=== PATIENT | female | born 1965 | race Caucasian/White ===

== ENCOUNTER 2022-04-19 10:20 | Emergency (ER) | payer BC ==
[2022-04-19] MEDS ORDERED: SODIUM CHLORIDE 0.9% 1,000 ML IV STA ×2 (11:16)
--- NOTE | 2022-04-19 11:25 | ED ---
General Adult HPI - General Chief complaint: Shortness of Breath Stated complaint: Sepsis Time Seen by Provider: 04/19/22 10:51 Source: patient Mode of arrival: wheelchair Limitations: no limitations - History of Present Illness Initial comments: This patient is a 57-year-old woman who presents to have evaluation for pneumonia. The patient states she was in her usual state of health until a couple of days ago. She started having some generalized fatigue, not feeling well and then over the course the past day has had cough. She went to the clinic and was seen there. The patient was diagnosed with pneumonia and they were concerned by her blood pressure while she was there and wanted her to be seen here regarding possible sepsis. The patient is denying additional systemic symptoms. She had not noted fevers though she does feel a little cold here she says. She has not noted palpitations, chest pain, dyspnea or syncope. Again she was feeling little fatigued and having some cough. -: days(s) Severity scale (1-10): 0 Improves with: none Worsens with: none Associated Symptoms: cough, shortness of breath Treatments Prior to Arrival: none - Related Data Home Medications Medication Instructions Recorded Confirmed No Known Home Medications 04/19/22 04/19/22 Allergies Allergy/AdvReac Type Severity Reaction Status Date / Time No Known Allergies Allergy Verified 04/19/22 12:00 Review of Systems ROS Statement: Those systems with pertinent positive or pertinent negative responses have been documented in the HPI. ROS Other: All systems not noted in ROS Statement are negative. Constitutional: Reports: chills. Denies: fever, weakness Respiratory: Reports: cough. Denies: dyspnea, wheezes, hemoptysis Cardiovascular: Denies: chest pain, palpitations, orthopnea, edema, syncope Gastrointestinal: Reports: nausea. Denies: abdominal pain, vomiting, diarrhea Genitourinary: Denies: dysuria, hematuria Musculoskeletal: Denies: back pain Skin: Denies: rash Neurological: Denies: headache Past Medical History Past Medical History: No Reported History History of Any Multi-Drug Resistant Organisms: None Reported Past Surgical History: No Surgical Hx Reported Past Psychological History: No Psychological Hx Reported Smoking Status: Current every day smoker Past Alcohol Use History: None Reported Past Drug Use History: None Reported General Exam Limitations: no limitations General appearance: alert, in no apparent distress Head exam: Present: atraumatic, normocephalic Eye exam: Present: normal appearance. Absent: scleral icterus, conjunctival injection Neck exam: Present: normal inspection Respiratory exam: Present: normal lung sounds bilaterally. Absent: respiratory distress, wheezes, rales, rhonchi, stridor Cardiovascular Exam: Present: normal rhythm, tachycardia (Rate 112 of my exam), normal heart sounds. Absent: systolic murmur, diastolic murmur, rubs, gallop GI/Abdominal exam: Present: soft. Absent: distended, tenderness, guarding, rebound, rigid, mass Extremities exam: Present: normal inspection, normal capillary refill. Absent: pedal edema, calf tenderness Back exam: Present: normal inspection. Absent: CVA tenderness (R), CVA tenderness (L) Neurological exam: Present: alert Skin exam: Present: warm, dry, intact, normal color. Absent: rash Course Vital Signs 04/19/22 04/19/22 04/19/22 10:47 12:15 13:25 Temperature 98.4 F 98.5 F Pulse Rate 117 H 114 H 104 H Respiratory 20 20 18 Rate Blood Pressure 115/78 127/102 115/79 O2 Sat by Pulse 98 97 100 Oximetry EKG Findings - EKG Results: EKG: interpreted by ERMD, sinus rhythm EKG shows: tachycardia (Rate 114 bpm) - Blocks, [place], Hypertrophy, ST Abn: QRS axis and voltage: low voltage (<0.5 MV total QRS and <1.0 MV in each precordial lead) Repolarization changes or abnormalities: nonspecific abnormality, ST segment, and/or T wave Medical Decision Making - Medical Decision Making Patient is 57-year-old woman presenting after few days of cough and being seen at the clinic. Patient does have mild to moderate degree of dehydration. This is reflected in the elevated lactic acid. She is given fluid hydration here. I discussed possible admission with the patient but she says she is feeling well enough to go home and continue there. Discussed appropriate further care and follow-up as well as return parameters. Note that the chest x-ray is read as showing some possible element of CHF, suspect this is more a viral type picture. Patient with no history of cardiac disease. EKG is benign and troponin is negative so do not suspect cardiomyopathy - Lab Data Result diagrams: 04/19/22 11:29 04/19/22 11:29 Lab Results 10/04/19/22 04/19/22 Range/Units 11:29 11:29 11:29 WBC 18.7 H (3.8-10.6) k/uL RBC 4.03 (3.80-5.40) m/uL Hgb 13.0 (11.4-16.0) gm/dL Hct 38.9 (34.0-46.0) % MCV 96.4 (80.0-100.0) fL MCH 32.2 (25.0-35.0) pg MCHC 33.4 (31.0-37.0) g/dL RDW 13.1 (11.5-15.5) % Plt Count 428 (150-450) k/uL MPV 8.6 Neutrophils % 82 % Lymphocytes % 11 % Monocytes % 5 % Eosinophils % 0 % Basophils % 0 % Neutrophils # 15.4 H (1.3-7.7) k/uL Lymphocytes # 2.0 (1.0-4.8) k/uL Monocytes # 1.0 (0-1.0) k/uL Eosinophils # 0.0 (0-0.7) k/uL Basophils # 0.1 (0-0.2) k/uL PT 11.0 (9.0-12.0) sec INR 1.0 (<1.2) APTT 24.5 (22.0-30.0) sec Sodium 131 L (137-145) mmol/L Potassium 5.1 (3.5-5.1) mmol/L Chloride 98 (98-107) mmol/L Carbon Dioxide 20 L (22-30) mmol/L Anion Gap 13 mmol/L BUN 25 H (7-17) mg/dL Creatinine 0.82 (0.52-1.04) mg/dL Est GFR (CKD-EPI)AfAm >90 (>60 ml/min/1.73 sqM) Est GFR (CKD-EPI)NonAf 80 (>60 ml/min/1.73 sqM) Glucose 134 H (74-99) mg/dL Plasma Lactic Acid Ji (0.7-2.0) mmol/L Calcium 9.1 (8.4-10.2) mg/dL Total Bilirubin 0.7 (0.2-1.3) mg/dL AST 84 H (14-36) U/L ALT 127 H (4-34) U/L Alkaline Phosphatase 117 (38-126) U/L Troponin I (0.000-0.034) ng/mL Total Protein 7.1 (6.3-8.2) g/dL Albumin 3.9 (3.5-5.0) g/dL Coronavirus (PCR) (Not Detectd) 04/19/22 04/19/22 04/19/22 Range/Units 11:29 11:29 11:29 WBC (3.8-10.6) k/uL RBC (3.80-5.40) m/uL Hgb (11.4-16.0) gm/dL Hct (34.0-46.0) % MCV (80.0-100.0) fL MCH (25.0-35.0) pg MCHC (31.0-37.0) g/dL RDW (11.5-15.5) % Plt Count (150-450) k/uL MPV Neutrophils % % Lymphocytes % % Monocytes % % Eosinophils % % Basophils % % Neutrophils # (1.3-7.7) k/uL Lymphocytes # (1.0-4.8) k/uL Monocytes # (0-1.0) k/uL Eosinophils # (0-0.7) k/uL Basophils # (0-0.2) k/uL PT (9.0-12.0) sec INR (<1.2) APTT (22.0-30.0) sec Sodium (137-145) mmol/L Potassium (3.5-5.1) mmol/L Chloride (98-107) mmol/L Carbon Dioxide (22-30) mmol/L Anion Gap mmol/L BUN (7-17) mg/dL Creatinine (0.52-1.04) mg/dL Est GFR (CKD-EPI)AfAm (>60 ml/min/1.73 sqM) Est GFR (CKD-EPI)NonAf (>60 ml/min/1.73 sqM) Glucose (74-99) mg/dL Plasma Lactic Acid Ji 2.9 H* (0.7-2.0) mmol/L Calcium (8.4-10.2) mg/dL Total Bilirubin (0.2-1.3) mg/dL AST (14-36) U/L ALT (4-34) U/L Alkaline Phosphatase (38-126) U/L Troponin I <0.012 (0.000-0.034) ng/mL Total Protein (6.3-8.2) g/dL Albumin (3.5-5.0) g/dL Coronavirus (PCR) Not Detected (Not Detectd) Disposition Clinical Impression: Pneumonia, Lactic acidosis Disposition: HOME SELF-CARE Condition: Good Instructions (If sedation given, give patient instructions): Viral Pneumonia (DC) Is patient prescribed a controlled substance at d/c from ED?: No Referrals: Jose Luis Gifford MD [Primary Care Provider] - 1-2 days
[2022-04-19 11:46] LABS: Basophils # (A) 0.1 k/uL (0-0.2); Basophils % (A) 0 %; Eosinophils % (A) 0 %; HCT 38.9 % (34.0-46.0); Lymphocytes % (A) 11 %; MCH 32.2 pg (25.0-35.0); MCHC 33.4 g/dL (31.0-37.0); MCV 96.4 fL (80.0-100.0); Mean Platelet Volume 8.6; Monocytes % (A) 5 %; Neutrophils # (A) 15.4 k/uL (1.3-7.7); Neutrophils % (A) 82 %; Platelet Count 428 k/uL (150-450); RBC 4.03 m/uL (3.80-5.40); RDW 13.1 % (11.5-15.5); WBC 18.7 k/uL (3.8-10.6)
[2022-04-19 11:55] LABS: ALT 127 U/L (4-34); AST 84 U/L (14-36); African American GFR (CKD) >90 (>60 ml/min/1.73 sqM); Albumin 3.9 g/dL (3.5-5.0); Alkaline Phosphatase 117 U/L (38-126); Anion Gap 13 mmol/L; Blood Urea Nitrogen 25 mg/dL (7-17); Calcium 9.1 mg/dL (8.4-10.2); Carbon Dioxide 20 mmol/L (22-30); Chloride 98 mmol/L (98-107); Glucose 134 mg/dL (74-99); Non-African American GFR(CKD) 80 (>60 ml/min/1.73 sqM); Potassium 5.1 mmol/L (3.5-5.1); Sodium 131 mmol/L (137-145); Total Bilirubin 0.7 mg/dL (0.2-1.3); Total Protein 7.1 g/dL (6.3-8.2)
[2022-04-19 11:59] LABS: Partial Thromboplastin Time 24.5 sec (22.0-30.0)
--- NOTE | 2022-04-19 13:22 | XR ---
EXAMINATION TYPE: XR chest 2V DATE OF EXAM: 04/19/2022 COMPARISON: NONE HISTORY: Shortness of breath TECHNIQUE: Frontal and lateral views of the chest are obtained. FINDINGS: Scattered senescent parenchymal changes noted. Hyperinflation compatible with COPD. No evidence for infiltrate. No evidence for atelectasis. Cardiomegaly with pulmonary venous congestion and mild interstitial edema. Mediastinal structures are stable and grossly unremarkable. No evidence for hilar prominence. Degenerative changes dorsal spine. IMPRESSION: 1. Cardiomegaly with pulmonary venous congestion and mild interstitial edema.
[2022-04-19 13:26] VITALS: BP 115/79; PULSE 104; RESP 18
[2022-04-19 13:46] VITALS: TEMP 98.5
== END 2022-04-19 13:56 | disposition home or self-care (01) ==
LOC: EC 10:20
DX: J18.9 Pneumonia, unspecified organism (principal); E87.20 Acidosis, unspecified; F17.200 Nicotine dependence, unspecified, uncomplicated; E86.0 Dehydration; Z20.822 Contact with and (suspected) exposure to COVID-19
CPT/HCPCS: 36415; 71046; 80053; 83605; 83880; 84484; 85025; 85610; 85730; 87635; 93005; 96360; 96361; 99285

== ENCOUNTER 2022-04-21 11:22 | Inpatient (IN) | payer BC ==
[~2022-04-21 11:22] MED LIST: MORPHINE SULFATE 4 MG/ML SYRINGE IVP ONE
[2022-04-21] MEDS ORDERED: SODIUM CHLORIDE 0.9% 1,000 ML IV STA ×2 (11:54→13:29)
[2022-04-21] MEDS ORDERED: MORPHINE SULFATE 4 MG/ML SYRINGE IV STA (11:54)
[2022-04-21] MEDS ORDERED: ONDANSETRON 4 MG/2 ML VIAL IVP STA (11:54)
[2022-04-21 12:07] LABS: Basophils # (A) 0.1 k/uL (0-0.2); Basophils % (A) 0 %; Eosinophils % (A) 0 %; HCT 36.4 % (34.0-46.0); HGB 12.2 gm/dL (11.4-16.0); Lymphocytes # (A) 2.8 k/uL (1.0-4.8); Lymphocytes % (A) 17 %; MCHC 33.5 g/dL (31.0-37.0); MCV 95.6 fL (80.0-100.0); Mean Platelet Volume 8.4; Monocytes # (A) 1.1 k/uL (0-1.0); Monocytes % (A) 7 %; Neutrophils # (A) 11.9 k/uL (1.3-7.7); Neutrophils % (A) 73 %; Platelet Count 436 k/uL (150-450); RBC 3.81 m/uL (3.80-5.40); RDW 13.1 % (11.5-15.5); WBC 16.3 k/uL (3.8-10.6)
--- NOTE | 2022-04-21 12:08 | ED ---
General Adult HPI - General Chief complaint: Abdominal Pain Stated complaint: abd pain Time Seen by Provider: 04/21/22 11:48 Source: patient Mode of arrival: ambulatory Limitations: no limitations - History of Present Illness Initial comments: Dictation was produced using [employer] dictation software. please excuse any grammatical, word or spelling errors. Chief Complaint: 57-year-old female presents with diffuse abdominal pain for one to 2 days History of Present Illness: Patient is a 57-year-old female she has had diffuse abdominal pain for one to 2 days. She spoke on the phone with her primary care doctor, Dr. Gifford said that she should come to the emergency department to get a computed tomography scan for her gallbladder. Patient denies any history of abdominal surgery. States that the pain is diffuse. She hasn't had nausea. No vomiting. Patient has had very poor appetite. She was seen here in the emergency department 2 days ago for concerns of pneumonia. The ROS documented in this emergency department record has been reviewed and confirmed by me. Those systems with pertinent positive or negative responses have been documented in the HPI. All other systems are other negative and/or noncontributory. PHYSICAL EXAM: General Impression: Alert and oriented x3, not in acute distress HEENT: Normocephalic atraumatic, extra-ocular movements intact, pupils equal and reactive to light bilaterally, mucous membranes moist. Cardiovascular: Heart regular rate and rhythm Chest: Able to complete full sentences, no retractions, no tachypnea Abdomen: abdomen soft, diffuse palpatory tenderness, non-distended, no organomegaly, negative Patel sign, no obvious palpatory tenderness at McBurney's point Musculoskeletal: Pulses present and equal in all extremities, no peripheral edema Motor: no focal deficits noted Neurological: CN II-XII grossly intact, no focal motor or sensory deficits noted Skin: Intact with no visualized rashes Psych: Normal affect and mood ED course: 57 year old female presents with diffuse abdominal pain. Patient is rather diffuse. She does not have any signs of physical examination of surgical abdomen.Vital signs upon arrival shows blood pressure 86/65, heart rate of 110, rest of vital signs within acceptable limits. Patient given IV fluids with blood pressure improved to 104/72 with a heart rate of 117. Laboratory evaluation obtained. Leukocytosis 6 and 0.3. Metabolic panel shows an 127. There is a mild acidosis with bicarb of 17. Slightly elevated liver enzymes. Computed tomography scan abdomen and pelvis shows large pericardial effusion, small bilateral pleural effusions and mild a 80s. At this point is unclear what is causing patient's abdominal pain however there is an incidental finding of pericardial effusion. She did initially presented with low blood pressure. Patient not showing any signs of cardiac tamponade.. She is reevaluated at bedside at 1:45 PM [facility] stable medical condition. Patient be admitted to [facility] with consultation tachycardic thoracic surgery and cardiology. EKG interpretation: Ventricular rate 114, sinus tachycardia, CT interval 137, care is 81, QTc 380, sinus arrhythmia versus bigeminy pattern. No CT prolongation, no QTC prolongation, no ST or T-wave changes noted. - Related Data Home Medications Medication Instructions Recorded Confirmed Azithromycin [Zithromax Z Pack] See Taper PO DIRECTED 04/21/22 04/21/22 Allergies Allergy/AdvReac Type Severity Reaction Status Date / Time No Known Allergies Allergy Verified 04/21/22 14:27 Review of Systems ROS Statement: Those systems with pertinent positive or pertinent negative responses have been documented in the HPI. ROS Other: All systems not noted in ROS Statement are negative. Past Medical History Past Medical History: No Reported History History of Any Multi-Drug Resistant Organisms: None Reported Past Surgical History: No Surgical Hx Reported Past Psychological History: No Psychological Hx Reported Smoking Status: Current every day smoker Past Alcohol Use History: Occasional Past Drug Use History: None Reported General Exam Limitations: no limitations Course Vital Signs 04/21/22 04/21/22 04/21/22 11:40 13:38 14:39 Temperature 97.8 F Pulse Rate 110 H 117 H 114 H Respiratory 18 20 Rate Blood Pressure 86/65 104/72 119/77 O2 Sat by Pulse 99 95 Oximetry Medical Decision Making - Lab Data Result diagrams: 04/21/22 12:01 04/21/22 12:01 Lab Results 04/21/22 04/21/22 04/21/22 Range/Units 12:01 12:01 14:35 WBC 16.3 H (3.8-10.6) k/uL RBC 3.81 (3.80-5.40) m/uL Hgb 12.2 (11.4-16.0) gm/dL Hct 36.4 (34.0-46.0) % MCV 95.6 (80.0-100.0) fL MCH 32.0 (25.0-35.0) pg MCHC 33.5 (31.0-37.0) g/dL RDW 13.1 (11.5-15.5) % Plt Count 436 (150-450) k/uL MPV 8.4 Neutrophils % 73 % Lymphocytes % 17 % Monocytes % 7 % Eosinophils % 0 % Basophils % 0 % Neutrophils # 11.9 H (1.3-7.7) k/uL Lymphocytes # 2.8 (1.0-4.8) k/uL Monocytes # 1.1 H (0-1.0) k/uL Eosinophils # 0.0 (0-0.7) k/uL Basophils # 0.1 (0-0.2) k/uL Sodium 127 L (137-145) mmol/L Potassium 4.9 (3.5-5.1) mmol/L Chloride 96 L (98-107) mmol/L Carbon Dioxide 17 L (22-30) mmol/L Anion Gap 14 mmol/L BUN 47 H (7-17) mg/dL Creatinine 1.34 H (0.52-1.04) mg/dL Est GFR (CKD-EPI)AfAm 51 (>60 ml/min/1.73 sqM) Est GFR (CKD-EPI)NonAf 44 (>60 ml/min/1.73 sqM) Glucose 116 H (74-99) mg/dL Plasma Lactic Acid Ji 1.8 (0.7-2.0) mmol/L Calcium 8.8 (8.4-10.2) mg/dL Total Bilirubin 0.6 (0.2-1.3) mg/dL AST 250 H (14-36) U/L ALT 298 H (4-34) U/L Alkaline Phosphatase 115 (38-126) U/L Total Protein 6.7 (6.3-8.2) g/dL Albumin 3.7 (3.5-5.0) g/dL Lipase 102 (23-300) U/L Disposition Clinical Impression: Pericardial effusion Disposition: ADMITTED IP TO THIS [facility] Condition: Serious Referrals: Jose Luis Gifford MD [Primary Care Provider] - 1-2 days Decision Time: 15:20
[2022-04-21 12:16] LABS: Albumin 3.7 g/dL (3.5-5.0); Calcium 8.8 mg/dL (8.4-10.2); Potassium 4.9 mmol/L (3.5-5.1); Total Bilirubin 0.6 mg/dL (0.2-1.3); Total Protein 6.7 g/dL (6.3-8.2)
--- NOTE | 2022-04-21 13:22 | CT ---
EXAMINATION TYPE: CT abdomen pelvis w con DATE OF EXAM: 04/21/2022 COMPARISON: None INDICATION: abd pain DLP: 978.5 mGycm, Automated exposure control for dose reduction was used. CONTRAST: 100 mL of Isovue 300. Study performed without Oral Contrast TECHNIQUE: Axial images were obtained from above the diaphragm to the pubic rami in the axial plane a t 5 mm thick sections. Reconstructed images are reviewed on the computer in the coronal plane. FINDINGS: Limited CT sections are obtained the lung bases. There is a large pericardial effusion. Small bilate ral pleural effusions are present. Some mild atelectasis may be at the medial left lung base.. CT ABDOMEN: Ascites is present. Liver: Normal Spleen: Normal Pancreas: Within normal limits Adrenal glands: The adrenal glands are normal. Gallbladder: Normal Kidneys: No masses are evident. No hydronephrosis is present. No cysts are present. Delayed images were obtained through the kidneys, which remain unremarkable. Aorta: Vascular calcification is within the aorta. Inferior vena cava: Normal. CT PELVIS: Loops of bowel within the abdomen and pelvis are normal. No dilated loops of bowel are evident. There appears to be some contrast type material within the transverse colon. No mass effect is evident on the loops of bowel. Appendix: Normal as visualized. Urinary bladder: Decompressed limiting evaluation. Genitourinary structures: What Appears to be the uterus and adnexa appear normal. Osseous structures: No suspicious lytic or sclerotic lesions. IMPRESSIONS: 1. Large pericardial effusion. 2. Small bilateral pleural effusions. 3. Mild ascites.
[2022-04-21] MEDS ORDERED: SODIUM CHLORIDE 0.9% 500 ML 500 ML IV ONE (13:39)
[2022-04-21] MEDS ORDERED: NALOXONE 0.4 MG/ML 1 ML VIAL IV PRN (14:19)
[2022-04-21] MEDS: SODIUM CHLORIDE 0.9% 1,000 ML IV SCH (14:30)
[2022-04-21] MEDS ORDERED: bisacodyL 5 MG TABLET.DR PO PRN (15:26)
[2022-04-21] MEDS ORDERED: MELATONIN 3 MG TABLET PO PRN (15:26)
--- NOTE | 2022-04-21 15:31 | P.HPIM ---
History of Present Illness H&P Date: 04/21/22 Chief Complaint: shorntess of breath Patient is a 57-year-old female with no past medical history who presented to the ER at the direction of her primary care physician due to significant abdominal pain with shortness of breath. In the ER she underwent an extensive evaluation. Arrival she was hypotensive with a blood pressure of 86 and a heart rate of 114. Initial laboratory analysis showed a white blood cell count of 16.3, sodium 127, chloride 96, carbon dioxide 17, BUN 47, creatinine 1.34 (up from 0.8-2 days prior), AST 250 and ALT 298. EKG showed low voltage. She was given 1 L of IV fluids. Arrangements are made for admission. Patient seen and examined at bedside with present. Sent in from Dr. Gifford's office on 04/19 to the emergency department and was diagnosed with viral illness in ER. She was at home and was getting worse and therefore went back to Dr. Gifford's office today and was sent in to the ED for for possible gallbladder disease and need for CT scan. Course: She started having shortness of breath with ambulation that started 5 days ago. She then started having abdominal pain for the last 4 days. It is across the upper abdomen and radiates into her back. Laying on her left side makes it feel better, eating and drinking makes her abd pain and shortness of breath worse. She she eats she feels like there is more pressure making it harder to breath. Has chest pain and back pain with deep inspiration. Over the last 2 days she has noticed that laying on her back makes it harder to breath and she causes ch est heaviness. Now she cannot get comfortable to sleep. She reports dry heaves, poor oral intake. reports that she is more confused than baseline. She has baseline post nasal drip due to seasonal allergies per patient. She denies any recent fevers or URI symptoms. Last viral type illness was in november 2021. She has been feeling fatigued for 1-2 weeks. No weight loss or weight gain. Takes a daily multivitamin and vitamin D. Has not recently started or stopped any medications. Does not take any additional supplements. Denies any illicit drug use. No personal or immediate family history of malignancy. No history of Rheumatologic disease No history of thyroid, kidney, or liver disease. Just traveled to and from [facility]. EKG reveals sinus tachycardia with frequent PACs and electrical alternans, does need low voltage criteria nonspecific ST-T wave changes. Pertinent positives and negatives as discussed in HPI, a complete review of systems was performed and all other systems are negative. Vital signs reviewed General: ill appearing, mild distress, appears at stated age Derm: dusky and booth in appearance, with motling from chest to the head, warm, dry Head: atraumatic, normocephalic, symmetric Eyes: EOMI, no lid lag, anicteric sclera, pupils equal round reactive to light ENT: Nose and ears atraumatic, no thrush, + pharyngeal erythema Neck: No thyromegaly, no cervical lymphadenopathy, trachea midline, supple Mouth: no lip lesion, mucus membranes moist Cardiovascular: S1S2 reg distant heart sounds, no murmur, positive posterior tibial pulse bilateral and equal, no edema, capillary refill less than 2 seconds, Radial pulses equal bilateral Lungs: Decrease bs bilateral, no rhonchi, no rales, no wheeze, no accessory muscle use Abdominal: soft, +tender to palpationin all 4 quadrants worse in RQU and LUQ, , no guarding, no appreciable organomegaly, normal bowel sounds Ext: no gross muscle atrophy, muscle strength 5 out of 5 in all 4 extremities, no contractures Neuro: CN II-XII grossly intact, light touch intact all 4 extremities, finger to nose within normal limits, Psych: Alert, oriented, appropriate affect Assessment/Plan: Pericardial effusion with concerns for tamponade Hypotension Electrical Alternans SHELDON, suspect due to decreased perfusion Leukocytosis Transaminitis, likely due to hypotension and hepatic congestion - case discussed with Dr. Gonzales- colchicine ordered - stat echo ordered - troponin, lactic acid, ESR, CRP stat - TSH, blood cultures - May need CT surgery consult pedning Echo results. - IV fluids - Further recs pending clinical course Tobacco abuse - cessation Admit to ICU The patient is admitted with an anticipated greater than 2 midnight stay for evaluation of pericardial effusion. Surrogate decision-maker: CODE STATUS:full DVT prophylaxis: SCDs Discussed with: Patient, nursing, Dr Gonzales, Amandeep Flores, Dr. Goetz Anticipated discharge date: pending clinical course Anticipated discharge place: pending clinical course A total of 55 minutes was spent on the care of this complex patient more than 50% of the time was spent in counseling and care coordination. Past Medical History Past Medical History: No Reported History History of Any Multi-Drug Resistant Organisms: None Reported Additional Past Surgical History / Comment(s): tubal ligation Past Psychological History: No Psychological Hx Reported Smoking Status: Current every day smoker (1/2 PPD ) Past Alcohol Use History: Rare Past Drug Use History: None Reported - Past Family History Father Family Medical History: Hypertension Additional Family Medical History / Comment(s): of an MO at age 51 Medications and Allergies Home Medications Medication Instructions Recorded Confirmed Type Azithromycin [Zithromax Z Pack] See Taper PO DIRECTED 04/21/22 04/21/22 History Allergies Allergy/AdvReac Type Severity Reaction Status Date / Time No Known Allergies Allergy Verified 04/21/22 14:27 Physical Exam Osteopathic Statement: *. No significant issues noted on an osteopathic structural exam other than those noted in the History and Physical/Consult. Vitals: Vital Signs Temp Pulse Resp BP Pulse Ox 04/21/22 13:38 117 H 104/72 04/21/22 11:40 97.8 F 110 H 18 86/65 99 Intake and Output 04/20/22 04/21/22 04/21/22 22:59 06:59 14:59 Other: Weight 68.039 kg Results CBC & Chem 7: 04/21/22 12:01 04/21/22 12:01 Labs: Abnormal Lab Results - Last 24 Hours (Table) 04/21/22 04/21/22 Range/Units 12:01 12:01 WBC 16.3 H (3.8-10.6) k/uL Neutrophils # 11.9 H (1.3-7.7) k/uL Monocytes # 1.1 H (0-1.0) k/uL Sodium 127 L (137-145) mmol/L Chloride 96 L (98-107) mmol/L Carbon Dioxide 17 L (22-30) mmol/L BUN 47 H (7-17) mg/dL Creatinine 1.34 H (0.52-1.04) mg/dL Glucose 116 H (74-99) mg/dL AST 250 H (14-36) U/L ALT 298 H (4-34) U/L
--- NOTE | 2022-04-21 15:35 | P.CRDCN ---
History of Present Illness Consult date: 04/21/22 Chief complaint: Shortness of breath and chest discomfort History of present illness: This is a 57-year-old female patient with no significant past medical history was confirmed a smoker presented to the emergency department complaining of shortness of breath and chest discomfort for the last few days. She was in her usual state of health until this past Friday when she noticed shortness of breath with exertion associated with symptoms of being tired and fatigued and has no energy. Subsequently the shortness of breath has progressed on her and she started experiencing discomfort in the lower chest and upper abdomen mostly with taking a deep breath. She did not have any dizziness or lightheadedness and no feeling of heart racing or fluttering and no presyncope or syncope. Because her symptoms get worse she decided to come to the emergency department for further investigation. She underwent an EKG which showed sinus rhythm with overall low voltage QRS. Subsequently further investigation including computed tomography scan of the abdomen and pelvis was performed and showed large pericardial effusion appeared to be circumferential. Currently the patient is in process of having an echocardiogram was Doppler to be performed as soon as possible. When she presented to the emergency department her pressure was in the 80s. She received IV fluid with improvement in the pressure to the lower 100 mmHg. She is tachycardic with a resting heart rate of 100 bpm. She is in process of having an echocardiogram as soon as possible. Cardiac thoracic surgery consult was already placed as well. The patient does not have any past medical history of rheumatologic disease. No history of breast cancer or lung cancer and no history of melanoma. The computed tomography scan did not take any malignancy or metastasis. No history of thyroid disease but TSH and free T4 are in process to be done. The patient is not on any prescribed medication before she presented to the hospital Past Medical History Past Medical History: No Reported History History of Any Multi-Drug Resistant Organisms: None Reported Past Surgical History: No Surgical Hx Reported Additional Past Surgical History / Comment(s): tubal ligation Past Psychological History: No Psychological Hx Reported Smoking Status: Current every day smoker Past Alcohol Use History: Occasional Past Drug Use History: None Reported - Past Family History Father Family Medical History: Hypertension Additional Family Medical History / Comment(s): of an [place] at age 51 Medications and Allergies Home Medications Medication Instructions Recorded Confirmed Type Azithromycin [Zithromax Z Pack] See Taper PO DIRECTED 04/21/22 04/21/22 History Allergies Allergy/AdvReac Type Severity Reaction Status Date / Time No Known Allergies Allergy Verified 04/21/22 14:27 Physical Exam Vitals: Vital Signs Temp Pulse Resp BP Pulse Ox 04/21/22 14:39 114 H 20 119/77 95 04/21/22 13:38 117 H 104/72 04/21/22 11:40 97.8 F 110 H 18 86/65 99 Intake and Output 04/21/22 04/21/22 04/21/22 06:59 14:59 22:59 Other: Weight 68.039 kg - Constitutional General appearance: no acute distress - Respiratory Respiratory: bilateral: CTA - Cardiovascular Rhythm: regular Heart sounds: normal: S1, S2 Results 04/21/22 12:01 04/21/22 12:01 Cardiac Enzymes 04/21/22 04/21/22 Range/Units 12:01 14:35 AST 250 H (14-36) U/L Troponin I <0.012 (0.000-0.034) ng/mL CBC 04/21/22 Range/Units 12:01 WBC 16.3 H (3.8-10.6) k/uL RBC 3.81 (3.80-5.40) m/uL Hgb 12.2 (11.4-16.0) gm/dL Hct 36.4 (34.0-46.0) % Plt Count 436 (150-450) k/uL Comprehensive Metabolic Panel 04/21/22 Range/Units 12:01 Sodium 127 L (137-145) mmol/L Potassium 4.9 (3.5-5.1) mmol/L Chloride 96 L (98-107) mmol/L Carbon Dioxide 17 L (22-30) mmol/L BUN 47 H (7-17) mg/dL Creatinine 1.34 H (0.52-1.04) mg/dL Glucose 116 H (74-99) mg/dL Calcium 8.8 (8.4-10.2) mg/dL AST 250 H (14-36) U/L ALT 298 H (4-34) U/L Alkaline Phosphatase 115 (38-126) U/L Total Protein 6.7 (6.3-8.2) g/dL Albumin 3.7 (3.5-5.0) g/dL Current Medications Generic Name Dose Route Start Last Admin Trade Name Freq PRN Reason Stop Dose Admin Acetaminophen 650 mg 04/21/22 15:26 Acetaminophen Tab 325 Mg Tab PO Q6HR PRN Mild Pain or Fever > 100.5 Hydrocodone Bitart/Acetaminophen 1 each 04/21/22 15:26 Hydrocodone/Apap 5-325mg 1 Each Tab PO Q4HR PRN Moderate Pain (Scale 4 to 6) Bisacodyl 5 mg 04/21/22 15:26 Bisacodyl 5 Mg Tablet.Dr PO DAILY PRN Constipation Sodium Chloride 1,000 mls @ 75 mls/hr 04/21/22 14:30 Saline 0.9% IV .[id number] RO Melatonin 3 mg 04/21/22 15:26 Melatonin 3 Mg Tablet PO HS PRN Insomnia Morphine Sulfate 4 mg 04/21/22 15:26 Morphine Sulfate 4 Mg/Ml Syringe IVP Q4HR PRN Severe Pain (Scale 7 to 10) Naloxone HCl 0.2 mg 04/21/22 14:19 Naloxone 0.4 Mg/Ml 1 Ml Vial IV Q2M PRN Opioid Reversal Ondansetron HCl 4 mg 04/21/22 15:26 Ondansetron 4 Mg/2 Ml Vial IVP Q8HR PRN Nausea And Vomiting Intake and Output 04/21/22 04/21/22 04/21/22 06:59 14:59 22:59 Other: Weight 68.039 kg Patient Weight 04/22/22 06:59 Weight 68.039 kg 04/21/22 12:01 04/21/22 12:01 Assessment and Plan Assessment: Assessment Large pericardial effusion Hypotension and tachycardia secondary to the above Chest discomfort pleuritic likely related to pericarditis History of smoking Plan Continue supporting the pressure with IV fluid An echo is in process to be done The patient to be evaluated by the cardiothoracic surgeon for pericardial window Evaluate the etiology for the retarded effusion. Rule out thyroid disease. Rule out pericarditis. Rule out rheumatologic disease. Malignancy was ruled out Further recommendation to follow
[2022-04-21 16:55] LABS: Glucose,Whole Blood 119 mg/dL (70-110)
[2022-04-21 17:03] LABS: INR 1.1 (<1.2); Partial Thromboplastin Time 23.9 sec (22.0-30.0); Prothrombin Time 11.9 sec (9.0-12.0)
[2022-04-21 17:16] LABS: C Reactive Protein 8.2 mg/dL (<1.0)
--- NOTE | 2022-04-21 17:45 | P.GSCN ---
History of Present Illness Consult date: 04/21/22 Reason for Consult: Pericardial effusion with tamponade Requesting physician: Manuel Gonzales History of present illness: This is a 57-year-old female who follows on an outpatient basis with Dr. Gifford for primary care. She has no previous medical history except current tobacco dependence, no rheumatologic or thyroid disease, no cancer history, no cardiac history. Apparently she has been having some shortness of breath and abdominal pain for the last several days. She has been unable to eat anything for several days because of increased pain and shortness of breath. She was sent to the emergency room on Friday by her primary care, was diagnosed with viral illness, and was discharged home. Unfortunately she was not getting any better, and in fact felt worse. She was seen again today by her primary care physician who sent her back to the emergency room as he felt she looked significantly worse. Her symptoms are aggravated by lying on her back flat, her only relief is with laying on her left side. 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 In the emergency room EKG was completed demonstrating sinus tach with PACs and electrical alternans. Due to her abdominal pain a CT of the abdomen and pelvis was completed demonstrating a large pericardial effusion, small bilateral pleural effusions, and mild ascites. Lab work revealed a CBC 16.3, hemoglobin 12.2, INR 1.1, sed rate 58, BUN 47, creatinine 1.34, sodium 127, CO2 17, AST 250, ALT 298, troponin negative, CRP 8.2, and Covid/RSV/influenza A and B were all negative. Due to finding of pericardial effusion on the CT cardiology was consulted who completed an echocardiogram which demonstrated a large circumferential pericardial effusion with evidence of some tamponade physiology. Due to these findings consultation was placed to cardiothoracic surgery for surgical recommendations. Review of Systems Review of systems was completed and was negative except as noted - Cardiovascular Reports as per HPI, Reports shortness of breath - Gastrointestinal Reports as per HPI, Reports abdominal pain Past Medical History Past Medical History: No Reported History History of Any Multi-Drug Resistant Organisms: None Reported Past Surgical History: No Surgical Hx Reported Additional Past Surgical History / Comment(s): tubal ligation Past Psychological History: No Psychological Hx Reported Smoking Status: Current every day smoker (1/2 PPD ) Past Alcohol Use History: Rare Past Drug Use History: None Reported - Past Family History Father Family Medical History: Hypertension Additional Family Medical History / Comment(s): of an [place] at age 51 Medications and Allergies Home Medications Medication Instructions Recorded Confirmed Type Azithromycin [Zithromax Z Pack] See Taper PO DIRECTED 04/21/22 04/21/22 History Allergies Allergy/AdvReac Type Severity Reaction Status Date / Time No Known Allergies Allergy Verified 04/21/22 14:27 Surgical - Exam Vital Signs Temp Pulse Resp BP Pulse Ox 97.8 F 110 H 18 86/65 99 04/21/22 11:40 04/21/22 11:40 04/21/22 11:40 04/21/22 11:40 04/21/22 11:40 CONSTITUTIONAL: Awake and alert, appears somewhat comfortable currently, cooperative, well-developed, well-nourished, no pain, mild distress EYES: Pupils equal, round, reactive to light, normal ocular movement ENT: Moist mucous membranes without oral lesions present NECK: No masses, no bruits, trachea midline RESPIRATORY: Lungs sounds clear to auscultation bilaterally. Respirations even, nonlabored. Currently on room air with oxygen saturation 96%. Strong co ugh. CARDIOVASCULAR: S1, S2 present. Regular rate and rhythm, sinus rhythm on telemetry. Palpable peripheral pulses bilaterally. No edema present. GASTROINTESTINAL: Abdomen soft, nontender, nondistended. There is no rebound or guarding present. Active bowel sounds present 4 quadrants. GENITOURINARY: Monreal present draining clear, yellow urine INTEGUMENTARY: Skin is warm and dry, lips have faint bluish tinge NEUROLOGIC: Cranial nerves II through XII intact, normal coordination, no obvious motor or sensory deficits, speech is normal MUSKULOSKELETAL: Able to move all extremities, strength equal bilaterally, normal posture PSYCHIATRIC: Alert and oriented to person place and time, appropriate affect, intact judgment and insight Results - Labs 04/21/22 12:01 04/21/22 12:01 Abnormal Lab Results - Last 24 Hours (Table) 04/21/22 04/21/22 04/21/22 Range/Units 12:01 12:01 16:05 WBC 16.3 H (3.8-10.6) k/uL Neutrophils # 11.9 H (1.3-7.7) k/uL Monocytes # 1.1 H (0-1.0) k/uL ESR 58 H (0-20) mm/hr Sodium 127 L (137-145) mmol/L Chloride 96 L (98-107) mmol/L Carbon Dioxide 17 L (22-30) mmol/L BUN 47 H (7-17) mg/dL Creatinine 1.34 H (0.52-1.04) mg/dL Glucose 116 H (74-99) mg/dL POC Glucose (mg/dL) (70-110) mg/dL AST 250 H (14-36) U/L ALT 298 H (4-34) U/L C-Reactive Protein (<1.0) mg/dL 04/21/22 04/21/22 Range/Units 16:05 16:53 WBC (3.8-10.6) k/uL Neutrophils # (1.3-7.7) k/uL Monocytes # (0-1.0) k/uL ESR (0-20) mm/hr Sodium (137-145) mmol/L Chloride (98-107) mmol/L Carbon Dioxide (22-30) mmol/L BUN (7-17) mg/dL Creatinine (0.52-1.04) mg/dL Glucose (74-99) mg/dL POC Glucose (mg/dL) 119 H (70-110) mg/dL AST (14-36) U/L ALT (4-34) U/L C-Reactive Protein 8.2 H (<1.0) mg/dL Diabetes panel 04/21/22 Range/Units 12:01 Sodium 127 L (137-145) mmol/L Potassium 4.9 (3.5-5.1) mmol/L Chloride 96 L (98-107) mmol/L Carbon Dioxide 17 L (22-30) mmol/L BUN 47 H (7-17) mg/dL Creatinine 1.34 H (0.52-1.04) mg/dL Glucose 116 H (74-99) mg/dL Calcium 8.8 (8.4-10.2) mg/dL AST 250 H (14-36) U/L ALT 298 H (4-34) U/L Alkaline Phosphatase 115 (38-126) U/L Total Protein 6.7 (6.3-8.2) g/dL Albumin 3.7 (3.5-5.0) g/dL Calcium panel 04/21/22 Range/Units 12:01 Calcium 8.8 (8.4-10.2) mg/dL Albumin 3.7 (3.5-5.0) g/dL Pituitary panel 04/21/22 Range/Units 12:01 Sodium 127 L (137-145) mmol/L Potassium 4.9 (3.5-5.1) mmol/L Chloride 96 L (98-107) mmol/L Carbon Dioxide 17 L (22-30) mmol/L BUN 47 H (7-17) mg/dL Creatinine 1.34 H (0.52-1.04) mg/dL Glucose 116 H (74-99) mg/dL Calcium 8.8 (8.4-10.2) mg/dL Adrenal panel 04/21/22 Range/Units 12:01 Sodium 127 L (137-145) mmol/L Potassium 4.9 (3.5-5.1) mmol/L Chloride 96 L (98-107) mmol/L Carbon Dioxide 17 L (22-30) mmol/L BUN 47 H (7-17) mg/dL Creatinine 1.34 H (0.52-1.04) mg/dL Glucose 116 H (74-99) mg/dL Calcium 8.8 (8.4-10.2) mg/dL Total Bilirubin 0.6 (0.2-1.3) mg/dL AST 250 H (14-36) U/L ALT 298 H (4-34) U/L Alkaline Phosphatase 115 (38-126) U/L Total Protein 6.7 (6.3-8.2) g/dL Albumin 3.7 (3.5-5.0) g/dL - Imaging CT scan - abdomen: report reviewed, image reviewed CT scan - pelvis: report reviewed, image reviewed EKG: image reviewed Additional studies: Echocardiogram films reviewed Assessment and Plan Assessment: 1. Large circumferential pericardial effusion with tamponade physiology, unknown etiology, assumed to be viral in nature 2. Leukocytosis 3. Acute kidney injury 4. Transaminitis 5. Current tobacco dependence Plan: The patient was seen and examined urgently at the bedside. Chart/diagnostics were reviewed. The case was discussed in detail with Dr. Rankin. Our plans are to take the patient to the operating room to perform a pericardial window. The usual perioperative course was discussed in detail with the patient and her , risks and benefits were reviewed, all questions were answered. The patient remains nothing by mouth. Type and screen was completed. Medical management of other comorbidities per primary care, cardiology. Thank you for this consult. We will continue to follow and make further conditions as appropriate. I have personally seen and examined the patient, performed the documentation and the assessment and plan as written. Number of minutes spent on the visit: 30. JUAN DIEGO BlackC
[2022-04-21 18:28] LABS: Appearance,Urine Clear (Clear); Bacteria,Urine Rare /hpf; Bilirubin,Urine Negative (Negative); Blood,Urine Small (Negative); Color,Urine Yellow; Glucose,Urine (UA) Negative (Negative); Ketones,Urine Negative (Negative); Leukocyte Esterase,Urine Negative (Negative); Mucus,Urine Rare /hpf; Nitrite,Urine Negative (Negative); Protein,Urine 1+ (Negative); RBC,Urine 5 /hpf (0-5); Squamous Epithelial Cell,Urine 2 /hpf (0-4); Urobilinogen,Urine <2.0 mg/dL (<2.0); WBC,Urine 3 /hpf (0-5)
[2022-04-21] MEDS ORDERED: SUCCINYLCHOLINE CHLORIDE 200 MG/10 ML VIAL IV ONE (18:30)
[2022-04-21] MEDS ORDERED: ROCURONIUM 10 MG/ML (5 ML VIAL) IV ONE (18:30)
[2022-04-21] MEDS ORDERED: PHENYLEPHRINE-0.9% NACL SYG 1,000 MCG/10 ML SYRINGE ONE (18:30)
[2022-04-21] MEDS ORDERED: SUGAMMADEX SODIUM 200 MG/2 ML SDV IV ONE (18:30)
[2022-04-21] MEDS ORDERED: MIDAZOLAM 2 MG/2 ML VIAL ONE (18:30)
[2022-04-21] MEDS ORDERED: fentaNYL (PF) 50 MCG/ML 2 ML AMP ONE (18:30)
[2022-04-21] MEDS ORDERED: ETOMIDATE 2 MG/ML 10 ML VIAL ONE (18:30)
[2022-04-21 18:34] LABS: Specific Gravity,Urine >1.050 (1.001-1.035)
[2022-04-21] MEDS ORDERED: SODIUM CHLORIDE 0.9% 1,000 ML IV ONE (19:10)
[2022-04-21] MEDS ORDERED: LACTATED RINGERS 1,000 ML IV ONE (19:46)
[2022-04-21] MEDS ORDERED: MORPHINE SULFATE 4 MG/ML SYRINGE IVP ONE ×2 (20:00→20:05)
[2022-04-21 21:34] LABS: Glucose,Whole Blood 110 mg/dL (70-110)
[2022-04-21] MEDS: HYDROcodone/APAP 5-325MG 1 EACH TAB PO PRN (21:36)
[2022-04-21] MEDS: COLCHICINE 0.6 MG EACH PO SCH (22:00)
[2022-04-22] MEDS: MORPHINE SULFATE 4 MG/ML SYRINGE IVP PRN ×5 (00:25→23:09)
[2022-04-22 03:34] LABS: HCT 33.2 % (34.0-46.0); MCH 31.9 pg (25.0-35.0); MCHC 33.1 g/dL (31.0-37.0); MCV 96.5 fL (80.0-100.0); Mean Platelet Volume 8.9; Platelet Count 400 k/uL (150-450); RBC 3.44 m/uL (3.80-5.40); RDW 13.6 % (11.5-15.5); WBC 17.6 k/uL (3.8-10.6)
[2022-04-22 04:03] LABS: ALT 400 U/L (4-34); AST 388 U/L (14-36); African American GFR (CKD) >90 (>60 ml/min/1.73 sqM); Albumin 3.1 g/dL (3.5-5.0); Alkaline Phosphatase 101 U/L (38-126); Anion Gap 11 mmol/L; Blood Urea Nitrogen 37 mg/dL (7-17); Calcium 8.2 mg/dL (8.4-10.2); Carbon Dioxide 18 mmol/L (22-30); Chloride 101 mmol/L (98-107); Glucose 97 mg/dL (74-99); Non-African American GFR(CKD) 85 (>60 ml/min/1.73 sqM); Phosphorus 4.3 mg/dL (2.5-4.5); Potassium 4.7 mmol/L (3.5-5.1); Sodium 130 mmol/L (137-145); Total Bilirubin 0.4 mg/dL (0.2-1.3); Total Protein 5.9 g/dL (6.3-8.2)
--- NOTE | 2022-04-22 04:38 | OP ---
OPERATIVE REPORT PREOPERATIVE DIAGNOSIS: Cardiac tamponade. POSTOPERATIVE DIAGNOSIS: Cardiac tamponade. PROCEDURES: 1. Emergent pericardial window. 2. Transesophageal echocardiogram. PRINTING TABLE HAND: YVONNE Johnston. ANESTHESIA: General. SPECIMENS: 1. Pericardial fluid. 2. Pericardial tissue. COMPLICATIONS: None. ESTIMATED BLOOD LOSS: Minimal. INDICATION: The patient is a 57-year-old female with no significant past medical history, who presented to the emergency department with worsening abdominal pain of several days duration. CT scan of the chest revealed a large pericardial effusion. Transthoracic echocardiogram was performed in the emergency department, which confirmed a large circumferential pericardial effusion with evidence of cardiac tamponade. An emergent pericardial window was recommended. The risks, benefits, and alternatives of the procedure were discussed with the patient and her . All of their questions were answered. Consent was obtained. FINDINGS: There was approximately 700 mL of bloody fluid drained from around the heart. The hemodynamics did improve after drainage of the fluid. DESCRIPTION OF PROCEDURE: The patient was taken to the operating room and placed supine on the operating table. She was prepped and draped in the usual sterile fashion. General anesthesia was subsequently induced. Transesophageal echocardiogram confirmed a large, circumferential pericardial effusion along with global hypokinesis and an ejection fraction of about 30% to 35%. Her blood pressure did decrease a bit after induction. A vertical epigastric incision was created. Dissection was carried out through the subcutaneous tissue. The subxiphoid process was identified and excised. Additional dissection was carried out below the margin of the left costal cartilage. The pericardium was identified. A small incision was created using a scalpel. Approximately 700 mL of bloody fluid was drained. A portion of the fluid was sent to microbiology. The remainder was sent to cytology. A segment of the pericardial tissue itself was also excised. A portion of this tissue was sent to microbiology and the remainder was sent to pathology. Follow up transesophageal echocardiogram revealed no residual pericardial fluid. The hemodynamics did improve and the blood pressure increased to a systolic of 150. A right angle 32-[place] chest tube was placed and directed into a retrocardiac position. It was secured to the skin using a suture. Hemostasis was assured. The wound was then closed in multiple layers. Sterile dressing was applied. The patient appeared to tolerate the procedure well. There were no immediate complications. She was extubated at the completion of the case and returned to the ICU in critical, but stable condition. MMODL / IJN: [id number] / CHILANGO
[2022-04-22] MEDS: SODIUM CHLORIDE 0.9% 1,000 ML IV SCH ×3 (06:11→19:41)
--- NOTE | 2022-04-22 07:37 | P.PN ---
Subjective Progress Note Date: 04/22/22 Principal diagnosis: Large circumferential pericardial effusion with tamponade, leukocytosis, acute kidney injury, transaminitis. Current tobacco dependence POD #1 emergent pericardial window with transesophageal echocardiogram, removal of 700 mL bloody fluid The patient was seen and examined this morning sitting up in bed in the intensive care unit in no acute distress. She is able to lay on her back after surgery, states postsurgical pain is controlled with current medication regimen, denies shortness of breath. States she is feeling a bit hungry, did not get a lot of sleep last night. Remains sinus rhythm to sinus tach with frequent PACs, hemodynamically stable. Currently on 2 L nasal cannula. Mediastinal drain present to continuous wall suction, 80 mL serosanguineous drainage since surgery yesterday. Urine output remains a bit low but otherwise no new concerns. Objective - Vital Signs Vital signs: Vital Signs Temp 98.3 F 04/22/22 04:00 Pulse 96 04/22/22 07:00 Resp 10 L 04/22/22 07:00 BP 98/72 04/22/22 07:00 Pulse Ox 92 L 04/22/22 07:00 FiO2 Intake & Output 04/21/22 04/22/22 04/22/22 18:59 06:59 18:59 Intake Total 40 2125 75 Output Total 20 535 25 Balance 20 1590 50 Weight 68.039 kg 77.9 kg Intake: IV 40 2025 75 0.9 40 75 Kefzol 50 LR 675 Tube Feeding 100 Output: Chest Tube Drainage 80 10 Mediastinal 80 10 Urine 20 365 15 Estimated Blood Loss 90 Other: Voiding Method Indwelling Catheter - Exam CONSTITUTIONAL: Appears comfortable, cooperative, no acute distress RESPIRATORY: Lungs sounds diminished bilaterally. Respirations even, nonlabored. Currently on 2 L nasal cannula with oxygen saturation 93%. Strong cough. CARDIOVASCULAR: S1, S2 present. Irregular rate and rhythm, sinus rhythm with frequent/bigeminal PACs on telemetry. Palpable peripheral pulses bilaterally. No edema present. GASTROINTESTINAL: Abdomen soft, nontender, nondistended. Hypoactive bowel sounds present 4 quadrants. Tolerating minimal clear liquids. Denies flatus GENITOURINARY: Monreal present draining clear, yellow urine. Output overnight 15-45 mL per hour INTEGUMENTARY: Skin is warm and dry with evidence of good perfusion NEUROLOGIC: Cranial nerves II through XII intact MUSKULOSKELETAL: Able to move all extremities, strength equal bilaterally PSYCHIATRIC: Alert and oriented to person place and time, appropriate affect, intact judgment and insight INVASIVE LINES AND TUBES: Mediastinal chest tube present and connected to wall suction, no air leaks present, 80 mL serosanguineous drainage since surgery - Allied health notes Allied health notes reviewed: nursing - Labs CBC & Chem 7: 04/22/22 03:15 04/22/22 03:15 Labs: Abnormal Lab Results - Last 24 Hours (Table) 04/21/22 04/21/22 04/21/22 Range/Units 12:01 12:01 16:05 WBC 16.3 H (3.8-10.6) k/uL RBC (3.80-5.40) m/uL Hgb (11.4-16.0) gm/dL Hct (34.0-46.0) % Neutrophils # 11.9 H (1.3-7.7) k/uL Monocytes # 1.1 H (0-1.0) k/uL ESR 58 H (0-20) mm/hr Sodium 127 L (137-145) mmol/L Chloride 96 L (98-107) mmol/L Carbon Dioxide 17 L (22-30) mmol/L BUN 47 H (7-17) mg/dL Creatinine 1.34 H (0.52-1.04) mg/dL Glucose 116 H (74-99) mg/dL POC Glucose (mg/dL) (70-110) mg/dL Calcium (8.4-10.2) mg/dL AST 250 H (14-36) U/L ALT 298 H (4-34) U/L C-Reactive Protein (<1.0) mg/dL Total Protein (6.3-8.2) g/dL Albumin (3.5-5.0) g/dL Ur Specific [place] (1.001-1.035) Urine Protein (Negative) Urine Blood (Negative) Urine Bacteria (None) /hpf Urine Mucus (None) /hpf 04/21/22 04/21/22 04/21/22 Range/Units 16:05 16:53 17:00 WBC (3.8-10.6) k/uL RBC (3.80-5.40) m/uL Hgb (11.4-16.0) gm/dL Hct (34.0-46.0) % Neutrophils # (1.3-7.7) k/uL Monocytes # (0-1.0) k/uL ESR (0-20) mm/hr Sodium (137-145) mmol/L Chloride (98-107) mmol/L Carbon Dioxide (22-30) mmol/L BUN (7-17) mg/dL Creatinine (0.52-1.04) mg/dL Glucose (74-99) mg/dL POC Glucose (mg/dL) 119 H (70-110) mg/dL Calcium (8.4-10.2) mg/dL AST (14-36) U/L ALT (4-34) U/L C-Reactive Protein 8.2 H (<1.0) mg/dL Total Protein (6.3-8.2) g/dL Albumin (3.5-5.0) g/dL Ur Specific [place] >1.050 H (1.001-1.035) Urine Protein 1+ H (Negative) Urine Blood Small H (Negative) Urine Bacteria Rare H (None) /hpf Urine Mucus Rare H (None) /hpf 04/22/22 04/22/22 Range/Units 03:15 03:15 WBC 17.6 H (3.8-10.6) k/uL RBC 3.44 L (3.80-5.40) m/uL Hgb 11.0 L (11.4-16.0) gm/dL Hct 33.2 L (34.0-46.0) % Neutrophils # (1.3-7.7) k/uL Monocytes # (0-1.0) k/uL ESR (0-20) mm/hr Sodium 130 L (137-145) mmol/L Chloride (98-107) mmol/L Carbon Dioxide 18 L (22-30) mmol/L BUN 37 H (7-17) mg/dL Creatinine (0.52-1.04) mg/dL Glucose (74-99) mg/dL POC Glucose (mg/dL) (70-110) mg/dL Calcium 8.2 L (8.4-10.2) mg/dL AST 388 H (14-36) U/L ALT 400 H (4-34) U/L C-Reactive Protein (<1.0) mg/dL Total Protein 5.9 L (6.3-8.2) g/dL Albumin 3.1 L (3.5-5.0) g/dL Ur Specific [place] (1.001-1.035) Urine Protein (Negative) Urine Blood (Negative) Urine Bacteria (None) /hpf Urine Mucus (None) /hpf - Imaging and Cardiology Chest x-ray: image reviewed Assessment and Plan Assessment: 1. Large circumferential pericardial effusion with tamponade physiology, unknown etiology, assumed to be viral in nature, status post emergent pericardial window 2. Leukocytosis 3. Acute kidney injury 4. Transaminitis 5. Current tobacco dependence Plan: 1. Place mediastinal drain to water seal. Monitor drainage 2. Wean O2 as tolerated. Incentive spirometry ordered and should be encouraged 3. Pericardial fluid sent for culture and cytology, will monitor for results 4. Increase activity, ambulate as tolerated 5. Increase diet as tolerated 6. Will repeat echo in the next 24-48 hours 7. Medical management of other comorbidities per primary care, cardiology 8. More recommendations to follow
--- NOTE | 2022-04-22 07:48 | P.PN ---
Subjective Progress Note Date: 04/22/22 PROGRESS NOTE The patient was admitted yesterday was progressive abdominal pain, fatigue and lack of energy, her CAT scan showed a large pericardial effusion and her echocardiogram revealed evidence of temponade. She underwent a pericardial window with drainage of 700 mL of bloody fluid. She's feeling better this morning, continues to have chest tenderness respirophasic pain. Her breathing is better. She denies any prior history of cardiac disease or recent upper respiratory infection. She denies any nausea or vomiting or diarrhea at home. Her blood pressure has been stable. She continues to be in sinus mechanism with frequent PACs, at times in bigeminal pattern. Medications: Colchicine 0.6 mg twice a day, cefazolin PHYSICAL EXAMINATION: Blood pressure 108/70 heart rate 90 LUNGS: Clear anteriorly HEART: Regular rate and rhythm, S1, S2. No S3. No systolic murmur, no rub, pericardial tube noted ABDOMEN: Soft, nontender, no organomegaly EXTREMETIES: No edema LAB: AST 388, ALT 400, hemoglobin 11, white blood cell 17.6. BUN 37, creatinine 0.79. Potassium 4.7, TSH 3.8 IMPRESSION: 1. Pericardial effusion, large with temponade , bloody fluid, post pericardial window, etiology unknown, probable viral infection. Awaiting cultures and pathology 2. History of smoking 3. Hypotension, improved 4. Atrial arrhythmia related to the pericardial disease PLAN: 1. Repeat echocardiogram 2. Await cultures and pathology 3. Continue support 4. Depending on her progress further recommendations will be made Objective - Vital Signs Vital signs: Vital Signs Temp 98.3 F 04/22/22 04:00 Pulse 96 04/22/22 07:00 Resp 10 L 04/22/22 07:00 BP 98/72 04/22/22 07:00 Pulse Ox 92 L 04/22/22 07:00 FiO2 Intake & Output 04/21/22 04/22/22 04/22/22 18:59 06:59 18:59 Intake Total 40 2125 75 Output Total 20 535 25 Balance 20 1590 50 Weight 68.039 kg 77.9 kg Intake: IV 40 2024 75 0.9 40 75 Kefzol 50 LR 675 Tube Feeding 100 Output: Chest Tube Drainage 80 10 Mediastinal 80 10 Urine 20 365 15 Estimated Blood Loss 90 Other: Voiding Method Indwelling Catheter - Labs CBC & Chem 7: 04/22/22 03:15 10/31/22 03:15 Labs: Abnormal Lab Results - Last 24 Hours (Table) 04/21/22 04/21/22 04/21/22 Range/Units 12:01 12:01 16:05 WBC 16.3 H (3.8-10.6) k/uL RBC (3.80-5.40) m/uL Hgb (11.4-16.0) gm/dL Hct (34.0-46.0) % Neutrophils # 11.9 H (1.3-7.7) k/uL Monocytes # 1.1 H (0-1.0) k/uL ESR 58 H (0-20) mm/hr Sodium 127 L (137-145) mmol/L Chloride 96 L (98-107) mmol/L Carbon Dioxide 17 L (22-30) mmol/L BUN 47 H (7-17) mg/dL Creatinine 1.34 H (0.52-1.04) mg/dL Glucose 116 H (74-99) mg/dL POC Glucose (mg/dL) (70-110) mg/dL Calcium (8.4-10.2) mg/dL AST 250 H (14-36) U/L ALT 298 H (4-34) U/L C-Reactive Protein (<1.0) mg/dL Total Protein (6.3-8.2) g/dL Albumin (3.5-5.0) g/dL Ur Specific [place] (1.001-1.035) Urine Protein (Negative) Urine Blood (Negative) Urine Bacteria (None) /hpf Urine Mucus (None) /hpf 04/21/22 04/21/22 04/21/22 Range/Units 16:05 16:53 17:00 WBC (3.8-10.6) k/uL RBC (3.80-5.40) m/uL Hgb (11.4-16.0) gm/dL Hct (34.0-46.0) % Neutrophils # (1.3-7.7) k/uL Monocytes # (0-1.0) k/uL ESR (0-20) mm/hr Sodium (137-145) mmol/L Chloride (98-107) mmol/L Carbon Dioxide (22-30) mmol/L BUN (7-17) mg/dL Creatinine (0.52-1.04) mg/dL Glucose (74-99) mg/dL POC Glucose (mg/dL) 119 H (70-110) mg/dL Calcium (8.4-10.2) mg/dL AST (14-36) U/L ALT (4-34) U/L C-Reactive Protein 8.2 H (<1.0) mg/dL Total Protein (6.3-8.2) g/dL Albumin (3.5-5.0) g/dL Ur Specific [place] >1.050 H (1.001-1.035) Urine Protein 1+ H (Negative) Urine Blood Small H (Negative) Urine Bacteria Rare H (None) /hpf Urine Mucus Rare H (None) /hpf 04/22/22 04/22/22 Range/Units 03:15 03:15 WBC 17.6 H (3.8-10.6) k/uL RBC 3.44 L (3.80-5.40) m/uL Hgb 11.0 L (11.4-16.0) gm/dL Hct 33.2 L (34.0-46.0) % Neutrophils # (1.3-7.7) k/uL Monocytes # (0-1.0) k/uL ESR (0-20) mm/hr Sodium 130 L (137-145) mmol/L Chloride (98-107) mmol/L Carbon Dioxide 18 L (22-30) mmol/L BUN 37 H (7-17) mg/dL Creatinine (0.52-1.04) mg/dL Glucose (74-99) mg/dL POC Glucose (mg/dL) (70-110) mg/dL Calcium 8.2 L (8.4-10.2) mg/dL AST 388 H (14-36) U/L ALT 400 H (4-34) U/L C-Reactive Protein (<1.0) mg/dL Total Protein 5.9 L (6.3-8.2) g/dL Albumin 3.1 L (3.5-5.0) g/dL Ur Specific [place] (1.001-1.035) Urine Protein (Negative) Urine Blood (Negative) Urine Bacteria (None) /hpf Urine Mucus (None) /hpf
--- NOTE | 2022-04-22 08:14 | XR ---
EXAMINATION TYPE: XR chest 1V portable DATE OF EXAM: 04/22/2022 Comparison: 04/19/2022 Clinical History: 57-year-old female pericardial effusion Findings: Cardiac/pericardiac silhouette remains borderline to mildly enlarged but possibly slightly improved f rom prior. There are worsening interstitial and patchy bibasilar opacities as well as a new small lef t pleural effusion. A pericardial drain is noted. Impression: Residual borderline to mildly enlarged cardiac/pericardiac silhouette with a pericardial drain in radha ce. New interstitial opacities, patchy lower lung opacities, and a new small left pleural effusion. Corre late for developing interstitial pulmonary edema.
[2022-04-22] MEDS: COLCHICINE 0.6 MG EACH PO SCH ×2 (08:25→20:59)
[2022-04-22] MEDS: HYDROcodone/APAP 5-325MG 1 EACH TAB PO PRN ×2 (08:35→16:35)
--- NOTE | 2022-04-22 09:48 | P.CNPUL ---
History of Present Illness Consult date: 04/22/22 Reason for consult: dyspnea History of present illness: This is a 57-year-old female patient, presented with shortness of breath of several days' duration. She was unable to eat anything and she was also having increased pain and shortness of breath. She was sent to the ED and she was diagnosed having a viral illness and she was discharged home. As the patient was not getting any better, she came back to the ED and she was looking worse. She was having trouble laying down flat. Her EKG showed sinus tachycardia and PACs an electrical alternans. A CAT scan of the abdomen and pelvis was done as the patient was having some abdominal pain and it revealed a large pericardial effusion and small bilateral pleural effusions and moderate ascites. Her vital screening including Covid 19, influenza A and B, RSV were all negative. An echocardiogram was done and it showed a large circumferential pericardial effusion with evidence of tampon out. At that point, the patient was taken to the operating room and the patient underwent a pericardial window. This was done yesterday and the patient is currently postop day #1. On today's eval uation, the patient is much more comfortable. She is on oxygen at 2 L. A total of 700 mL of fluid was removed from the pericardium. The pericardial tube is still in place. Output currently is only 90 mL over the past 12 hours. She is able to sit in her bed. No significant distress at this point in time. No fever. No chills. Her blood work from today is showing a white cell count of 17.6 with a hemoglobin of 11 and a platelet count 400. Sodium is at 1:30, bicarbonate of 18 with a BUN of 37 and a creatinine of 0.7. She does have some mild transaminitis. AST is 388, ALT is 400, alkaline phosphatase is 101, bilirubin is 0.4, UA showing +1 protein, had repeat chest x-ray from today is showing presence of the mediastinal/pericardial tube, there is some underlying cardiomegaly, the patient also had some interstitial edema/she is not bilateral vascular markings. The patient is currently on normal saline at the rate of 75 mL an hour. The patient is producing adequate amount of urine output. The patient is on colchicine 0.6 mg by mouth twice a day. The patient's on a CAT scan of the abdomen also showed some mediastinal lymphadenopathy that is to be further investigated the later stage. No suspicious lytic lesions. Past Medical History Past Medical History: No Reported History History of Any Multi-Drug Resistant Organisms: None Reported Past Surgical History: No Surgical Hx Reported Additional Past Surgical History / Comment(s): tubal ligation Past Anesthesia/Blood Transfusion Reactions: No Reported Reaction Smoking Status: Current every day smoker - Past Family History Father Family Medical History: Hypertension Additional Family Medical History / Comment(s): of an [place] at age 51 Brother(s) Family Medical History: Hypertension Medications and Allergies Home Medications Medication Instructions Recorded Confirmed Type Azithromycin [Zithromax Z Pack] See Taper PO DIRECTED 04/21/22 04/21/22 History Allergies Allergy/AdvReac Type Severity Reaction Status Date / Time No Known Allergies Allergy Verified 04/21/22 14:27 Physical Exam Vitals: Vital Signs Temp Pulse Pulse Resp BP BP Pulse Ox 04/22/22 09:00 102 H 21 108/66 90 L 04/22/22 08:00 97.8 F 103 H 30 H 105/57 92 L 04/22/22 07:00 96 10 L 98/72 92 L 04/22/22 06:30 98 11 L 108/73 92 L 04/22/22 06:00 104 H 13 100/74 90 L 04/22/22 05:30 99 14 98/76 04/22/22 05:00 101 H 11 L 98/70 95 04/22/22 04:30 96 11 L 91/61 93 L 04/22/22 04:00 98.3 F 95 12 97/80 93 L 04/22/22 03:30 101 H 17 105/78 93 L 04/22/22 03:00 97 14 92/76 94 L 04/22/22 02:30 98 13 95/79 94 L 04/22/22 02:00 96 13 104/63 95 04/22/22 01:45 100 12 106/73 96 04/22/22 01:30 93 10 L 100/71 96 04/22/22 01:15 90 10 L 100/76 96 04/22/22 01:00 98 11 L 100/79 97 04/22/22 00:45 93 12 95/72 97 04/22/22 00:30 97 24 106/61 97 04/22/22 00:15 98 16 101/67 97 04/22/22 00:00 97.5 F L 104 H 18 97/78 04/21/22 23:45 100 14 92/71 97 04/21/22 23:30 97 13 109/69 98 04/21/22 23:15 98 19 97/68 98 04/21/22 23:00 93 12 99/72 98 04/21/22 22:45 93 10 L 101/66 98 04/21/22 22:30 97 14 113/67 98 04/21/22 22:15 96 17 106/96 97 04/21/22 22:00 105 H 16 105/71 97 04/21/22 21:45 96 14 107/94 97 04/21/22 21:30 112 H 17 107/94 95 04/21/22 21:00 103 H 16 110/67 97 04/21/22 20:45 89 16 130/67 97 04/21/22 20:30 137 H 16 138/93 97 04/21/22 20:15 103 H 18 117/56 96 04/21/22 20:00 102 H 16 124/58 97 04/21/22 19:48 97.0 F L 110 H 16 126/79 95 04/21/22 18:15 106 H 22 118/84 93 L 04/21/22 18:00 105 H 22 104/78 95 04/21/22 17:45 105 H 13 104/78 93 L 04/21/22 17:30 105 H 19 104/78 94 L 04/21/22 17:15 105 H 16 104/78 92 L 04/21/22 17:00 97.7 F 129 H 11 L 112/80 96 04/21/22 16:45 119/77 04/21/22 16:40 117 H 18 122/73 96 04/21/22 16:30 121 H 15 119/77 93 L 04/21/22 16:15 121 H 23 119/77 96 04/21/22 16:00 101 H 14 119/77 95 04/21/22 15:45 113 H 17 119/77 96 04/21/22 15:30 114 H 9 L 119/77 95 04/21/22 15:15 113 H 15 119/77 94 L 04/21/22 15:00 107 H 13 119/77 04/21/22 14:45 107 H 16 119/77 04/21/22 14:39 114 H 20 119/77 95 04/21/22 14:30 107 H 4 L 104/74 04/21/22 14:15 106 H 19 104/74 04/21/22 14:00 115 H 21 104/74 04/21/22 13:45 117 H 28 H 104/74 04/21/22 13:38 117 H 104/72 04/21/22 13:36 104/74 04/21/22 11:40 97.8 F 110 H 18 86/65 99 Intake and Output 04/21/22 04/22/22 04/22/22 22:59 06:59 14:59 Intake Total 1415 750 325 Output Total 280 275 75 Balance 1135 475 250 Intake: IV 1415 650 325 0.9 40 225 Kefzol 50 100 LR 75 600 Tube Feeding 100 Output: Chest Tube Drainage 40 40 30 Mediastinal 40 40 30 Urine 150 235 45 Estimated Blood Loss 90 Other: Voiding Method Indwelling Catheter Indwelling Catheter Indwelling Catheter Weight 68.039 kg 77.9 kg CONSTITUTIONAL: Appears comfortable, cooperative, no acute distress RESPIRATORY: Lungs sounds diminished bilaterally. Respirations even, no nlabored. Currently on 2 L nasal cannula with oxygen saturation 93%. Strong cough. CARDIOVASCULAR: S1, S2 present. Irregular rate and rhythm, sinus rhythm with frequent/bigeminal PACs on telemetry. Palpable peripheral pulses bilaterally. No edema present. GASTROINTESTINAL: Abdomen soft, nontender, nondistended. Hypoactive bowel sounds present 4 quadrants. Tolerating minimal clear liquids. Denies flatus GENITOURINARY: Monreal present draining clear, yellow urine. Output overnight 15 -45 mL per hour INTEGUMENTARY: Skin is warm and dry with evidence of good perfusion NEUROLOGIC: Cranial nerves II through XII intact MUSKULOSKELETAL: Able to move all extremities, strength equal bilaterally PSYCHIATRIC: Alert and oriented to person place and time, appropriate affect, intact judgment and insight INVASIVE LINES AND TUBES: Mediastinal chest tube present and connected to wall suction, no air leaks present, 80 mL serosanguineous drainage since surgery Results - Laboratory Findings CBC and BMP: 04/22/22 03:15 04/22/22 03:15 PT/INR, D-dimer PT 11.9 sec (9.0-12.0) 04/21/22 16:05 INR 1.1 (<1.2) 04/21/22 16:05 Abnormal lab findings: Abnormal Labs 04/21/22 04/21/22 04/21/22 12:01 12:01 16:05 WBC 16.3 H RBC Hgb Hct Neutrophils # 11.9 H Monocytes # 1.1 H ESR 58 H Sodium 127 L Chloride 96 L Carbon Dioxide 17 L BUN 47 H Creatinine 1.34 H Glucose 116 H POC Glucose (mg/dL) Calcium AST 250 H ALT 298 H C-Reactive Protein Total Protein Albumin Ur Specific [place] Urine Protein Urine Blood Urine Bacteria Urine Mucus 04/21/22 04/21/22 04/21/22 16:05 16:53 17:00 WBC RBC Hgb Hct Neutrophils # Monocytes # ESR Sodium Chloride Carbon Dioxide BUN Creatinine Glucose POC Glucose (mg/dL) 119 H Calcium AST ALT C-Reactive Protein 8.2 H Total Protein Albumin Ur Specific [place] >1.050 H Urine Protein 1+ H Urine Blood Small H Urine Bacteria Rare H Urine Mucus Rare H 04/22/22 04/22/22 03:15 03:15 WBC 17.6 H RBC 3.44 L Hgb 11.0 L Hct 33.2 L Neutrophils # Monocytes # ESR Sodium 130 L Chloride Carbon Dioxide 18 L BUN 37 H Creatinine Glucose POC Glucose (mg/dL) Calcium 8.2 L AST 388 H ALT 400 H C-Reactive Protein Total Protein 5.9 L Albumin 3.1 L Ur Specific [place] Urine Protein Urine Blood Urine Bacteria Urine Mucus Assessment and Plan Plan: Large circumferential pericardial effusion with tamponade physiology, unknown etiology, assumed to be viral in nature, status post emergent pericardial window, the patient is postop day #1. Very much like. This was a acute viral pericarditis. Possibility of a lymphoma is less likely. I did appreciate some lymphadenopathy in the subcarinal area based on the CAT scan of the abdomen. Would like to obtain a CAT scan of the chest. Sed rate is 58. Clinically improved Leukocytosis Acute kidney injury improving, Transaminitis Current tobacco dependence Acute hyponatremia, improving Non-anion gap metabolic acidosis, improving Plan: Place mediastinal drain to water seal. Monitor drainage Wean O2 as tolerated. Incentive spirometry ordered and should be encouraged Pericardial fluid sent for culture and cytology, will monitor for results CAT scan of the chest with contrast Check FORREST, rheumatoid factor We'll continue to follow
[2022-04-22] MEDS ORDERED: RX INFO: IV CONTRAST WAS GIVEN 1 EACH MISC MISCELLANE PRN (09:51)
[2022-04-22] MEDS ORDERED: SODIUM CHLORIDE 0.9% 500 ML 500 ML IV ONE (09:56)
--- NOTE | 2022-04-22 10:13 | CA ---
Transthoracic Echo Report Name: Iraida Alejandro Age: 57 Gender: F : 1965 Exam Date: 04/21/2022 16:03 Exam Location: [facility] Ht (in): 59 Wt (lb): 150 Ordering Physician: Aroldo Espana DO Attending/Referring Phys: [id number], Malorie Installation Technician Perla Mulligan RDCS Procedure CPT: Indications: pericardial effusion Cardiac Hx: Technical Quality: Contrast 1: N/A Total Dose (mL): Contrast 2: Total Dose (mL): MEASUREMENTS (Male / Female) Normal Values 2D ECHO LV Diastolic Diameter PLAX 2.4 cm 4.2 - 5.9 / 3.9 - 5.3 cm IVS Diastolic Thickness 1.7 cm 0.6 - 1.0 / 0.6 - 0.9 cm LVPW Diastolic Thickness 1.0 cm 0.6 - 1.0 / 0.6 - 0.9 cm LV Relative Wall Thickness 1.1 FINDINGS Left Ventricle Limited study, Moderately increased left ventricular wall thickness. Left ventricular ejection fraction is estimated at 50-55 %. Right Ventricle Right Atrium Left Atrium Mitral Valve Aortic Valve Tricuspid Valve Pulmonic Valve Pericardium Large pericardial effusion. Echocardiographic findings suggest a hemodynamically significant pericardial effusion. Aorta CONCLUSIONS Large pericardial effusion with tamponade physiology Normal left ventricular dimension and systolic function Previewed by: Dr. Manuel Gonzales MD (Electronically Signed) Final Date: 21 April 2022 16:29
--- NOTE | 2022-04-22 11:06 | P.PN ---
Subjective Progress Note Date: 04/22/22 Principal diagnosis: shortness of breath Patient is a 57-year-old female with no past medical history who presented to the ER at the direction of her primary care physician due to significant abdominal pain with shortness of breath. In the ER she underwent an extensive evaluation. Arrival she was hypotensive with a blood pressure of 86 and a heart rate of 114. Initial laboratory analysis showed a white blood cell count of 16.3, sodium 127, chloride 96, carbon dioxide 17, BUN 47, creatinine 1.34 (up from 0.8-2 days prior), AST 250 and ALT 298. EKG showed low voltage. She was given 1 L of IV fluids. Arrangements were made for admission. CT abdomen/pelvis demonstrated large pericardial effusion with small bilateral pleural effusions and mild ascites. Cardiology was contacted by myself who emergently came to bedside. Stat echocardiogram was per performed which showed large pericardial effusion with tamponade physiology. CT surgery was contacted. Patient underwent urgent pericardial window on 04/22 with fluid sent for cytology and culture, and pericadial biopsy was preformed. Intraoperative MICHELE showed EF 30-35%. Patient seen and examined at bedside. She is having pain along the incision site and mild SOB, she did not sleep well last night. She reports improvement in being able to tolerate being in a prone position. General: nontoxic, no distress, appears at stated age Derm: warm, dry Head: atraumatic, normocephalic, symmetric Eyes: EOMI, no lid lag, anicteric sclera Mouth: no lip lesion, mucus membranes moist Cardiovascular: S1S2 reg, no murmur, positive posterior tibial pulse bilateral Lungs: Course bs left, no rhonchi, no rales, no accessory muscle use Abdominal: soft, + TTP LUQ, no guarding, no appreciable organomegaly Ext: no gross muscle atrophy, no edema, no contractures Neuro: CN II-XI grossly intact, no focal neuro deficits Psych: Alert, oriented, appropriate affect Assessment/Plan: Cardiac Tamponade, pericardial effusion s/p pericardial window Leukocytosis Transaminitis, likely due to hypotension and hepatic congestion - CT surgery recs - Cardio recs: cholicine - ESR elevated, Troponin normal, TSH normal - Await CT chest to evlauate for malignancy - Pericardial fluid cultures, cytology pending - pericardial biopsy pending - blood cultures pending - IV fluids - follow Kidney and liver function - Avoid additional nephrotoxic agents - CRISTIN and rheumatoid factor pending Hyponatremia - undetermined etiology, improving with fluids, if does not conitnue to improve would institute work up for SIADH if does not conitnued to improve - repeat sodium in AM Tobacco abuse - cessation Hypotension, resolved SHELDON, resolved DVT prophylaxis: SCDs Objective - Vital Signs Vital signs: Vital Signs Temp 97.8 F 04/22/22 08:00 Pulse 102 H 04/22/22 09:00 Resp 21 04/22/22 09:00 BP 108/66 04/22/22 09:00 Pulse Ox 90 L 04/22/22 09:00 FiO2 Intake & Output 04/21/22 04/22/22 04/22/22 18:59 06:59 18:59 Intake Total 40 2125 325 Output Total 20 535 75 Balance 20 1590 250 Weight 68.039 kg 77.9 kg Intake: IV 40 5 325 0.9 40 225 Kefzol 50 100 LR 675 Tube Feeding 100 Output: Chest Tube Drainage 80 30 Mediastinal 80 30 Urine 20 365 45 Estimated Blood Loss 90 Other: Voiding Method Indwelling Catheter Indwelling Catheter - Labs CBC & Chem 7: 04/22/22 03:15 04/22/22 03:15 Labs: Abnormal Lab Results - Last 24 Hours (Table) 04/21/22 04/21/22 04/21/22 Range/Units 12:01 12:01 16:05 WBC 16.3 H (3.8-10.6) k/uL RBC (3.80-5.40) m/uL Hgb (11.4-16.0) gm/dL Hct (34.0-46.0) % Neutrophils # 11.9 H (1.3-7.7) k/uL Monocytes # 1.1 H (0-1.0) k/uL ESR 58 H (0-20) mm/hr Sodium 127 L (137-145) mmol/L Chloride 96 L (98-107) mmol/L Carbon Dioxide 17 L (22-30) mmol/L BUN 47 H (7-17) mg/dL Creatinine 1.34 H (0.52-1.04) mg/dL Glucose 116 H (74-99) mg/dL POC Glucose (mg/dL) (70-110) mg/dL Calcium (8.4-10.2) mg/dL AST 250 H (14-36) U/L ALT 298 H (4-34) U/L C-Reactive Protein (<1.0) mg/dL Total Protein (6.3-8.2) g/dL Albumin (3.5-5.0) g/dL Ur Specific [place] (1.001-1.035) Urine Protein (Negative) Urine Blood (Negative) Urine Bacteria (None) /hpf Urine Mucus (None) /hpf 04/21/22 04/21/22 04/21/22 Range/Units 16:05 16:53 17:00 WBC (3.8-10.6) k/uL RBC (3.80-5.40) m/uL Hgb (11.4-16.0) gm/dL Hct (34.0-46.0) % Neutrophils # (1.3-7.7) k/uL Monocytes # (0-1.0) k/uL ESR (0-20) mm/hr Sodium (137-145) mmol/L Chloride (98-107) mmol/L Carbon Dioxide (22-30) mmol/L BUN (7-17) mg/dL Creatinine (0.52-1.04) mg/dL Glucose (74-99) mg/dL POC Glucose (mg/dL) 119 H (70-110) mg/dL Calcium (8.4-10.2) mg/dL AST (14-36) U/L ALT (4-34) U/L C-Reactive Protein 8.2 H (<1.0) mg/dL Total Protein (6.3-8.2) g/dL Albumin (3.5-5.0) g/dL Ur Specific [place] >1.050 H (1.001-1.035) Urine Protein 1+ H (Negative) Urine Blood Small H (Negative) Urine Bacteria Rare H (None) /hpf Urine Mucus Rare H (None) /hpf 04/22/22 04/22/22 Range/Units 03:15 03:15 WBC 17.6 H (3.8-10.6) k/uL RBC 3.44 L (3.80-5.40) m/uL Hgb 11.0 L (11.4-16.0) gm/dL Hct 33.2 L (34.0-46.0) % Neutrophils # (1.3-7.7) k/uL Monocytes # (0-1.0) k/uL ESR (0-20) mm/hr Sodium 130 L (137-145) mmol/L Chloride (98-107) mmol/L Carbon Dioxide 18 L (22-30) mmol/L BUN 37 H (7-17) mg/dL Creatinine (0.52-1.04) mg/dL Glucose (74-99) mg/dL POC Glucose (mg/dL) (70-110) mg/dL Calcium 8.2 L (8.4-10.2) mg/dL AST 388 H (14-36) U/L ALT 400 H (4-34) U/L C-Reactive Protein (<1.0) mg/dL Total Protein 5.9 L (6.3-8.2) g/dL Albumin 3.1 L (3.5-5.0) g/dL Ur Specific [place] (1.001-1.035) Urine Protein (Negative) Urine Blood (Negative) Urine Bacteria (None) /hpf Urine Mucus (None) /hpf Microbiology - Last 24 Hours (Table) 04/21/22 19:46 Anaerobic Culture - Preliminary Pericardial Fluid 04/21/22 19:46 Body Fluid Culture - Preliminary Pericardial Fluid 04/21/22 19:46 Anaerobic Culture - Preliminary Pericardial Fluid 04/21/22 19:46 Tissue Culture - Preliminary Other - Other
--- NOTE | 2022-04-22 12:05 | CA ---
Transthoracic Echo Report Name: Iraida Alejandro Age: 57 Gender: F : 1965 Exam Date: 04/22/2022 09:04 Exam Location: [facility] Ht (in): 52 Wt (lb): 171 Ordering Physician: Sarah Rod MD ([id number]) Attending/Referring Phys: Rice Drier Operator Marci Garcia RDCS Procedure CPT: Indications: post effusion Cardiac Hx: PT IS S/P PERICARDIOCENTESIS Technical Quality: Contrast 1: [place] Total Dose (mL): 3 Contrast 2: Total Dose (mL): MEASUREMENTS (Male / Female) Normal Values 2D ECHO LV Diastolic Diameter PLAX 4.0 cm 4.2 - 5.9 / 3.9 - 5.3 cm LV Systolic Diameter PLAX 3.8 cm IVS Diastolic Thickness 1.1 cm 0.6 - 1.0 / 0.6 - 0.9 cm LVPW Diastolic Thickness 1.1 cm 0.6 - 1.0 / 0.6 - 0.9 cm LV Relative Wall Thickness 0.5 RV Internal Dim ED PLAX 2.5 cm LA Systolic Diameter LX 4.0 cm 3.0 - 4.0 / 2.7 - 3.8 cm M-MODE Aortic Root Diameter MM 2.4 cm LA Systolic Diameter MM 3.8 cm LA Ao Ratio MM 1.6 MV E Point Septal Separation 0.3 cm AV Cusp Separation MM 1.4 cm DOPPLER MV Area PHT 2.7 cm??? Mitral E Point Velocity 118.7 cm/s Mitral A Point Velocity 103.1 cm/s Mitral E to A Ratio 1.2 MV Deceleration Time 280.4 ms MV E' Velocity 6.6 cm/s Mitral E to MV E' Ratio 18.0 TR Peak Velocity 260.4 cm/s TR Peak Gradient 27.1 mmHg Right Ventricular Systolic Press 32.1 mmHg FINDINGS Left Ventricle Left ventricular ejection fraction is estimated at 35%. Anterseptel hypokinwaia. Right Ventricle Normal right ventricular size and function. Right ventricular systolic pressure within normal limits. Right Atrium Normal right atrial size. Left Atrium Mildly increased left atrial diameter. Mitral Valve Structurally normal mitral valve. Aortic Valve Trileaflet aortic valve. Tricuspid Valve Structurally normal tricuspid valve. Pulmonic Valve Pulmonic valve not well visualized. Pericardium Trace pericardial, large pleural effusion., possible clot vs fat pad. Aorta Normal size aortic root and proximal ascending aorta. CONCLUSIONS Severe LV systolic dysfunction with hypokinetic anteroseptal wall Small pericardial effusion Large pleural effusion Previewed by: Dr. Slava Brown MD (Electronically Signed) Final Date: 22 April 2022 12:04
--- NOTE | 2022-04-22 12:48 | CT ---
EXAMINATION TYPE: CT chest w con DATE OF EXAM: 04/22/2022 COMPARISON: 04/21/2022 CT abdomen and pelvis HISTORY: Pericardial effusion CT DLP: 321.5 mGycm, Automated exposure control for dose reduction was used. CONTRAST: Performed injected with 100 mL of Isovue 300. TECHNIQUE: Axial images were obtained at 5 mm thick sections. Reconstructed images are reviewed on [employer]ivid[employer] computer in the coronal plane. FINDINGS: Portion of the thyroid visualized is normal. There are patchy infiltrates present bilaterally. Correlate for atypical pulmonary edema and atypical pneumonia. Small bilateral pleural effusions are present. There is a soft tissue density along the right peritracheal region measuring 2.7 x 2.0 cm. Enlarged lymphadenopathy and mass are within the differential. Multiple scattered smaller lymph nodes are pres ent within the mediastinum. The ascending aorta diameter at the level of the main pulmonary artery is 3.2 cm. The main pulmonary artery diameter at the bifurcation is 2.2 cm. There is a small pericardial effusion. Inferior perica rdial chest tube appears to be present. Limited CT sections are obtained through the upper abdomen. Abdomen is essentially unremarkable. IMPRESSIONS: 1. Patchy bilateral lung infiltrates. Correlate for atypical pneumonia and atypical pulmonary edema. 2. Small bilateral pleural effusions. 3. Pericardial catheter with diminished pericardial effusion.
[2022-04-22] MEDS: SENNOSIDES-DOCUSATE SODIUM 1 EACH TAB PO SCH (21:00)
[2022-04-23] MEDS: MORPHINE SULFATE 4 MG/ML SYRINGE IVP PRN ×2 (04:02→12:02)
[2022-04-23] MEDS: ONDANSETRON 4 MG/2 ML VIAL IVP PRN (04:05)
[2022-04-23] MEDS: SODIUM CHLORIDE 0.9% 1,000 ML IV SCH (05:02)
[2022-04-23 06:53] LABS: HCT 31.2 % (34.0-46.0); HGB 10.3 gm/dL (11.4-16.0); MCH 32.3 pg (25.0-35.0); MCV 98.1 fL (80.0-100.0); Mean Platelet Volume 8.3; Platelet Count 390 k/uL (150-450); RBC 3.18 m/uL (3.80-5.40); RDW 13.5 % (11.5-15.5); WBC 19.2 k/uL (3.8-10.6)
[2022-04-23 07:06] LABS: Albumin 3.1 g/dL (3.5-5.0); Calcium 8.1 mg/dL (8.4-10.2); Potassium 5.3 mmol/L (3.5-5.1); Total Bilirubin 0.6 mg/dL (0.2-1.3)
--- NOTE | 2022-04-23 07:54 | P.PN ---
Subjective Progress Note Date: 04/23/22 Principal diagnosis: Large circumferential pericardial effusion with tamponade, leukocytosis, acute kidney injury, transaminitis, bilateral pleural effusions. Current tobacco depe ndence POD #2 emergent pericardial window with transesophageal echocardiogram, removal of 700 mL bloody fluid The patient was seen and examined this morning sitting up in bed in the intensive care unit in no acute distress. States postsurgical pain is controlled with current medication regimen, states shortness of breath is not too bad although she has had increased oxygen needs and is currently on 9 L high flow nasal cannula. Remains sinus rhythm to sinus tach with frequent PACs, hemodynamically stable. Chest CT completed yesterday demonstrated patchy bilateral lung infiltrates, small bilateral pleural effusions, lymphadenopathy, and diminished pericardial effusion. Transthoracic echocardiogram was repeated yesterday by cardiology, reduced left ventricular systolic function with EF 35% and anteroseptal hypokinesia, trace pericardial effusion present, possible clot versus fat pad present in the pericardium. Mediastinal drain present to waterseal, 10 mL serous drainage in the last 24 hours. Fluid cytology and culture still pending. Patient has been out of bed to chair and did tolerate diet yesterday. No other new concerns. Objective - Vital Signs Vital signs: Vital Signs Temp 97.5 F L 04/23/22 04:00 Pulse 85 04/23/22 06:00 Resp 24 04/23/22 07:00 BP 122/75 04/23/22 07:00 Pulse Ox 90 L 04/23/22 07:25 FiO2 Intake & Output 04/22/22 04/23/22 04/23/22 18:59 06:59 18:59 Intake Total 1150 1200 100 Output Total 400 440 60 Balance 750 760 40 Weight 80.2 kg Intake: IV 1150 1200 100 0.9 1050 1200 100 Kefzol 100 Output: Chest Tube Drainage 60 15 0 Mediastinal 60 15 0 Urine 340 425 60 Other: Voiding Method Indwelling Catheter Indwelling Catheter - Exam CONSTITUTIONAL: Appears comfortable, cooperative, no acute distress RESPIRATORY: Lungs sounds diminished bilaterally. Respirations even, nonlabored. Currently on 9 L high flow nasal cannula with oxygen saturation 93%. Strong cough. Able to achieve 750-1000 mL on her incentive spirometry CARDIOVASCULAR: S1, S2 present. Irregular rate and rhythm, sinus rhythm with frequent/bigeminal PACs on telemetry. Palpable peripheral pulses bilaterally. Trace bilateral lower extremity edema present. GASTROINTESTINAL: Abdomen soft, nontender, nondistended. Active bowel sounds present 4 quadrants. Tolerating diet. GENITOURINARY: Monreal present draining clear, yellow urine. Output 30-60 mL per hour overnight, 765 mL in the last 24 hours INTEGUMENTARY: Skin is warm and dry with evidence of good perfusion NEUROLOGIC: Cranial nerves II through XII intact MUSKULOSKELETAL: Able to move all extremities, strength equal bilaterally PSYCHIATRIC: Alert and oriented to person place and time, appropriate affect, intact judgment and insight INVASIVE LINES AND TUBES: Mediastinal chest tube present to waterseal, no air leaks present, 10 mL serous drainage in the last 24 hours - Allied health notes Allied health notes reviewed: nursing - Labs CBC & Chem 7: 04/23/22 05:59 04/23/22 05:59 Labs: Abnormal Lab Results - Last 24 Hours (Table) 04/23/22 04/23/22 Range/Units 05:59 05:59 WBC 19.2 H (3.8-10.6) k/uL RBC 3.18 L (3.80-5.40) m/uL Hgb 10.3 L (11.4-16.0) gm/dL Hct 31.2 L (34.0-46.0) % Sodium 129 L (137-145) mmol/L Potassium 5.3 H (3.5-5.1) mmol/L Carbon Dioxide 18 L (22-30) mmol/L BUN 35 H (7-17) mg/dL Glucose 100 H (74-99) mg/dL Calcium 8.1 L (8.4-10.2) mg/dL AST 242 H (14-36) U/L ALT 296 H (4-34) U/L Total Protein 6.0 L (6.3-8.2) g/dL Albumin 3.1 L (3.5-5.0) g/dL Microbiology - Last 24 Hours (Table) 04/21/22 16:08 Blood Culture - Preliminary Blood No Growth after 24 hours 04/21/22 16:12 Blood Culture - Preliminary Blood No Growth after 24 hours 04/21/22 19:46 Gram Stain - Preliminary Other - Other Tissue Culture - Preliminary 04/21/22 19:46 Gram Stain - Preliminary Pericardial Fluid Body Fluid Culture - Preliminary 04/21/22 19:46 Anaerobic Culture - Preliminary Pericardial Fluid 04/21/22 19:46 Anaerobic Culture - Preliminary Pericardial Fluid - Imaging and Cardiology Chest x-ray: image reviewed CT scan - chest: report reviewed, image reviewed Echocardiogram reviewed Assessment and Plan Assessment: 1. Large circumferential pericardial effusion with tamponade physiology, unknown etiology, status post emergent pericardial window, pericardial fluid culture and cytology pending 2. Leukocytosis 3. Acute kidney injury 4. Transaminitis 5. Bilateral pleural effusions, small on CT, moderate on echo 6. Reduce left ventricular systolic function with EF 35% and anteroseptal hypokinesia on repeat echo yesterday 7. Current tobacco dependence Plan: 1. Will discontinue mediastinal drain 2. Wean O2 as tolerated. Encourage incentive spirometry use 10 times every hour while awake 3. Pericardial fluid sent for culture and cytology, will monitor for results 4. Increase activity, ambulate as tolerated 5. Increase diet as tolerated 6. Medical management of other comorbidities per primary care, cardiology 7. More recommendations to follow
--- NOTE | 2022-04-23 08:04 | P.PN ---
Subjective Progress Note Date: 04/23/22 PROGRESS NOTE The patient was admitted yesterday was progressive abdominal pain, fatigue and lack of energy, her CAT scan showed a large pericardial effusion and her echocardiogram revealed evidence of temponade. She underwent a pericardial window with drainage of 700 mL of bloody fluid. She's feeling better this morning, continues to have chest tenderness respirophasic pain. Her breathing is better. She denies any prior history of cardiac disease or recent upper respiratory infection. She denies any nausea or vomiting or diarrhea at home. Her blood pressure has been stable. She continues to be in sinus mechanism with frequent PACs, at times in bigeminal pattern. April 23. The patient continues to have respirophasic chest discomfort, she denies any dizziness or palpitation. She is dyspneic. She has minimal drainage from the pericardial tissue. Her urinary output is stable, she is in sinus mechanism with PACs. A repeat echocardiogram done yesterday showed an ejection fraction of 35% with suggestion of anteroseptal hypokinesis. The pathology of her fluid is pending. A chest computed tomography scan showed bilateral lung infiltrate with small pleural effusion. Medications: Colchicine 0.6 mg twice a day, cefazolin PHYSICAL EXAMINATION: Blood pressure 122/70 heart rate 85 LUNGS: Bilateral crackles HEART: Regular rate and rhythm, S1, S2. No S3. No systolic murmur, no rub, p ericardial tube noted ABDOMEN: Soft, nontender, no organomegaly EXTREMETIES: No edema LAB: AST 242, ALT 296, hemoglobin 10.3, potassium 5.3, BUN 35, creatinine 0.88 IMPRESSION: 1. Pericardial effusion, large with temponade , bloody fluid, post pericardial window, etiology unknown, probable viral infection. Awaiting cultures and pathology 2. History of smoking 3. Hypotension, improved 4. Atrial arrhythmia related to the pericardial disease 5. Cardiomyopathy of unknown duration or etiology. Her echo prior to the pericardial window showed an ejection fraction of 50-55% PLAN: 1. Add beta trish 2. Continue incentive spirometry 3. Await pathology of the fluid and tissue 4. Consider computed tomography scan of the pelvis to rule out malignancy Objective - Vital Signs Vital signs: Vital Signs Temp 97.5 F L 04/23/22 04:00 Pulse 85 04/23/22 06:00 Resp 24 04/23/22 07:00 BP 122/75 04/23/22 07:00 Pulse Ox 90 L 04/23/22 07:25 FiO2 Intake & Output 04/22/22 04/23/22 04/23/22 18:59 06:59 18:59 Intake Total 1150 1200 100 Output Total 400 440 60 Balance 750 760 40 Weight 80.2 kg Intake: IV 1150 1200 100 0.9 1050 1200 100 Kefzol 100 Output: Chest Tube Drainage 60 15 0 Mediastinal 60 15 0 Urine 340 425 60 Other: Voiding Method Indwelling Catheter Indwelling Catheter - Labs CBC & Chem 7: 04/23/22 05:59 04/23/22 05:59 Labs: Abnormal Lab Results - Last 24 Hours (Table) 04/23/22 04/23/22 Range/Units 05:59 05:59 WBC 19.2 H (3.8-10.6) k/uL RBC 3.18 L (3.80-5.40) m/uL Hgb 10.3 L (11.4-16.0) gm/dL Hct 31.2 L (34.0-46.0) % Sodium 129 L (137-145) mmol/L Potassium 5.3 H (3.5-5.1) mmol/L Carbon Dioxide 18 L (22-30) mmol/L BUN 35 H (7-17) mg/dL Glucose 100 H (74-99) mg/dL Calcium 8.1 L (8.4-10.2) mg/dL AST 242 H (14-36) U/L ALT 296 H (4-34) U/L Total Protein 6.0 L (6.3-8.2) g/dL Albumin 3.1 L (3.5-5.0) g/dL Microbiology - Last 24 Hours (Table) 04/21/22 16:08 Blood Culture - Preliminary Blood No Growth after 24 hours 04/21/22 16:12 Blood Culture - Preliminary Blood No Growth after 24 hours 04/21/22 19:46 Gram Stain - Preliminary Other - Other Tissue Culture - Preliminary 04/21/22 19:46 Gram Stain - Preliminary Pericardial Fluid Body Fluid Culture - Preliminary 04/21/22 19:46 Anaerobic Culture - Preliminary Pericardial Fluid 04/21/22 19:46 Anaerobic Culture - Preliminary Pericardial Fluid
--- NOTE | 2022-04-23 08:56 | XR ---
EXAMINATION TYPE: XR chest 1V portable DATE OF EXAM: 04/23/2022 COMPARISON: 04/22/2022 INDICATION: Pericardial effusion, chest tube TECHNIQUE: Single frontal view of the chest is obtained. FINDINGS: The heart size is normal. The pulmonary vasculature is prominent. Diffuse increased lung markings are present. This is increasing from comparison. Correlated pulmonary edema. Pneumonia should be considered. There is a small left pleural effusion. A pericardial chest tube is present in the midline and stable in position. IMPRESSION: 1. Increasing bilateral lung infiltrates. Correlate for pneumonia. 2. Small left pleural effusion.
[2022-04-23] MEDS: HYDROcodone/APAP 5-325MG 1 EACH TAB PO PRN ×2 (09:24→23:26)
[2022-04-23] MEDS: METOPROLOL TARTRATE 25 MG TAB PO SCH ×2 (09:24→20:50)
[2022-04-23] MEDS: COLCHICINE 0.6 MG EACH PO SCH ×2 (09:24→20:50)
[2022-04-23] MEDS ORDERED: FUROSEMIDE 10 MG/ML 4 ML VIAL IV STA (10:39)
--- NOTE | 2022-04-23 10:45 | P.PN ---
Subjective Progress Note Date: 04/23/22 Patient has become increasingly hypoxic, now requiring 9 L of high flow nasal cannula. She reports significant dyspnea. Minimal output from the mediastinal drain. Chest x-ray has bilateral pulmonary opacities as well as pleural effusions. Has productive cough with greenish sputum; no fevers, elevated white blood cell count to 19.2. Gen: awake, alert HEENT: normocephalic, atraumatic, good hearing acuity, moist mucous membranes Resp: good air exchange, breathing comfortably with no accessory muscle use, bilateral crackles CVS: good distal perfusion x 4, regular rate and rhythm without murmurs GI: soft, NTTP, ND : no SPT, no CVAT, carnes catheter is present MSK: no pitting edema, no clubbing Neuro: non-focal, moving all extremities Psych: cooperative, euthymic mood Assessment/plan: Cardiac Tamponade, pericardial effusion s/p pericardial window Acute Hypoxemic Respiratory Failure Leukocytosis Transaminitis, likely due to hypotension and hepatic congestion - CT surgery recs - Cardio recs: cholicine - ESR elevated, Troponin normal, TSH normal - CT Chest with mediastinal LAD - Pericardial fluid cultures, cytology pending - pericardial biopsy pending - blood cultures pending - Sputum cultures, pending - Ceftriaxone, Azithromycin - follow Kidney and liver function - Avoid additional nephrotoxic agents - CRISTIN and rheumatoid factor pending - Coxsackie B Abs pending Hyponatremia - undetermined etiology, improving with fluids, if does not conitnue to improve would institute work up for SIADH if does not conitnued to improve - repeat sodium in AM Tobacco abuse - cessation Hypotension, resolved SHELDON, resolved DVT prophylaxis: SCDs Objective - Vital Signs Vital signs: Vital Signs Temp 97.5 F L 04/23/22 08:00 Pulse 89 04/23/22 10:00 Resp 23 04/23/22 10:00 BP 117/71 04/23/22 10:00 Pulse Ox 90 L 04/23/22 10:00 FiO2 Intake & Output 04/22/22 04/23/22 04/23/22 18:59 06:59 18:59 Intake Total 1150 1200 300 Output Total 400 440 140 Balance 750 760 160 Weight 80.2 kg Intake: IV 1150 1200 300 0.9 1050 1200 300 Kefzol 100 Output: Chest Tube Drainage 60 15 0 Mediastinal 60 15 0 Urine 340 425 140 Other: Voiding Method Indwelling Catheter Indwelling Catheter Indwelling Catheter - Labs CBC & Chem 7: 04/23/22 05:59 04/23/22 05:59 Labs: Abnormal Lab Results - Last 24 Hours (Table) 04/23/22 04/23/22 Range/Units 05:59 05:59 WBC 19.2 H (3.8-10.6) k/uL RBC 3.18 L (3.80-5.40) m/uL Hgb 10.3 L (11.4-16.0) gm/dL Hct 31.2 L (34.0-46.0) % Sodium 129 L (137-145) mmol/L Potassium 5.3 H (3.5-5.1) mmol/L Carbon Dioxide 18 L (22-30) mmol/L BUN 35 H (7-17) mg/dL Glucose 100 H (74-99) mg/dL Calcium 8.1 L (8.4-10.2) mg/dL AST 242 H (14-36) U/L ALT 296 H (4-34) U/L Total Protein 6.0 L (6.3-8.2) g/dL Albumin 3.1 L (3.5-5.0) g/dL Microbiology - Last 24 Hours (Table) 04/21/22 19:46 Gram Stain - Preliminary Pericardial Fluid Body Fluid Culture - Preliminary 04/21/22 19:46 Gram Stain - Preliminary Other - Other Tissue Culture - Preliminary 04/21/22 16:08 Blood Culture - Preliminary Blood No Growth after 24 hours 04/21/22 16:12 Blood Culture - Preliminary Blood No Growth after 24 hours 04/21/22 19:46 Anaerobic Culture - Preliminary Pericardial Fluid 04/21/22 19:46 Anaerobic Culture - Preliminary Pericardial Fluid
[2022-04-23] MEDS: AZITHROMYCIN 500 MG in SODIUM CHLORIDE 0.9% 250 ML IVPB SCH (11:04)
--- NOTE | 2022-04-23 11:23 | P.PN ---
Subjective Progress Note Date: 04/23/22 This is a 57-year-old female patient, presented with shortness of breath of several days' duration. She was unable to eat anything and she was also having increased pain and shortness of breath. She was sent to the ED and she was diagnosed having a viral illness and she was discharged home. As the patient was not getting any better, she came back to the ED and she was looking worse. She was having trouble laying down flat. Her EKG showed sinus tachycardia and PACs an electrical alternans. A CAT scan of the abdomen and pelvis was done as the patient was having some abdominal pain and it revealed a large pericardial effusion and small bilateral pleural effusions and moderate ascites. Her vital screening including Covid 19, influenza A and B, RSV were all negative. An echocardiogram was done and it showed a large circumferential pericardial effusion with evidence of tampon out. At that point, the patient was taken to the operating room and the patient underwent a pericardial window. This was done yesterday and the patient is currently postop day #1. On today's evaluation, the patient is much more comfortable. She is on oxygen at 2 L. A total of 700 mL of fluid was removed from the pericardium. The pericardial tube is still in place. Output currently is only 90 mL over the past 12 hours. She is able to sit in her bed. No significant distress at this point in time. No f ever. No chills. Her blood work from today is showing a white cell count of 17.6 with a hemoglobin of 11 and a platelet count 400. Sodium is at 1:30, bicarbonate of 18 with a BUN of 37 and a creatinine of 0.7. She does have some mild transaminitis. AST is 388, ALT is 400, alkaline phosphatase is 101, bilirubin is 0.4, UA showing +1 protein, had repeat chest x-ray from today is showing presence of the mediastinal/pericardial tube, there is some underlying cardiomegaly, the patient also had some interstitial edema/she is not bilateral vascular markings. The patient is currently on normal saline at the rate of 75 mL an hour. The patient is producing adequate amount of urine output. The patient is on colchicine 0.6 mg by mouth twice a day. The patient's on a CAT scan of the abdomen also showed some mediastinal lymphadenopathy that is to be further investigated the later stage. No suspicious lytic lesions. 04/23/2022, the patient is postop day #2 following a pericardial window. The pericardial tube is still in place. Output is minimal at this point in time. The fluid/pericardial fluid cytology still pending for now. Meanwhile, Of the Chest Was Done and There Is a Larger Right Paratracheal Opacity There Was Noted on the CAT Scan of the Chest That Was Done with Contrast Measuring 2.7 Cm in Size and It Is a Soft Tissue Density and there are also multiple scattered sm all lymph nodes within the mediastinum and the largest subcarinal lymph nodes. At the same time, there is some patchy but the pulmonary infiltrates and a small pericardial effusion. Small pleural effusions also present. Repeat echocardiogram was done and the patient's ejection fraction dropped down to 35%. Noted the original echocardiogram was within normal limits. This obviously may indicate the possibility of viral myocarditis causing global LV dysfunction. In enervates, the final diagnosis has not been received. The patient remains on colchicine. Oxygenation got worse and the patient is currently on 9 L. Antibiotics have been started on an empiric basis and the patient was given a dose of Lasix. LFTs are gradually improving. Sodium level is stable at 129. The white cell count is still elevated. X-ray is showing increased interstitial markings bilaterally consistent with CHF/questionable pneumonia Objective - Vital Signs Vital signs: Vital Signs Temp 97.5 F L 04/23/22 08:00 Pulse 86 04/23/22 11:00 Resp 19 04/23/22 11:00 BP 123/80 04/23/22 11:00 Pulse Ox 90 L 04/23/22 11:00 FiO2 Intake & Output 04/22/22 04/23/22 04/23/22 18:59 06:59 18:59 Intake Total 1150 1200 410 Output Total 400 440 240 Balance 750 760 170 Weight 80.2 kg Intake: IV 1150 1200 410 0.9 1050 1200 410 Kefzol 100 Output: Chest Tube Drainage 60 15 20 Mediastinal 60 15 20 Urine 340 425 220 Other: Voiding Method Indwelling Catheter Indwelling Catheter Indwelling Catheter - Exam CONSTITUTIONAL: Appears comfortable, cooperative, no acute distress RESPIRATORY: Lungs sounds diminished bilaterally. Respirations even, nonlabored. Currently on 9 L nasal cannula with oxygen saturation 93%. Strong cough. CARDIOVASCULAR: S1, S2 present. Irregular rate and rhythm, sinus rhythm with frequent/bigeminal PACs on telemetry. Palpable peripheral pulses bilaterally. No edema present. GASTROINTESTINAL: Abdomen soft, nontender, nondistended. Hypoactive bowel sounds present 4 quadrants. Tolerating minimal clear liquids. Denies flatus GENITOURINARY: Monreal present draining clear, yellow urine. Output overnight 15-45 mL per hour INTEGUMENTARY: Skin is warm and dry with evidence of good perfusion NEUROLOGIC: Cranial nerves II through XII intact MUSKULOSKELETAL: Able to move all extremities, strength equal bilaterally PSYCHIATRIC: Alert and oriented to person place and time, appropriate affect, intact judgment and insight INVASIVE LINES AND TUBES: Mediastinal chest tube present and connected to wall suction, no air leaks present, 80 mL serosanguineous drainage since surgery - Labs CBC & Chem 7: 04/23/22 05:59 04/23/22 05:59 Labs: Abnormal Lab Results - Last 24 Hours (Table) 04/23/22 04/23/22 Range/Units 05:59 05:59 WBC 19.2 H (3.8-10.6) k/uL RBC 3.18 L (3.80-5.40) m/uL Hgb 10.3 L (11.4-16.0) gm/dL Hct 31.2 L (34.0-46.0) % Sodium 129 L (137-145) mmol/L Potassium 5.3 H (3.5-5.1) mmol/L Carbon Dioxide 18 L (22-30) mmol/L BUN 35 H (7-17) mg/dL Glucose 100 H (74-99) mg/dL Calcium 8.1 L (8.4-10.2) mg/dL AST 242 H (14-36) U/L ALT 296 H (4-34) U/L Total Protein 6.0 L (6.3-8.2) g/dL Albumin 3.1 L (3.5-5.0) g/dL Microbiology - Last 24 Hours (Table) 04/21/22 19:46 Gram Stain - Preliminary Pericardial Fluid Body Fluid Culture - Preliminary 04/21/22 19:46 Gram Stain - Preliminary Other - Other Tissue Culture - Preliminary 04/21/22 16:08 Blood Culture - Preliminary Blood No Growth after 24 hours 04/21/22 16:12 Blood Culture - Preliminary Blood No Growth after 24 hours 04/21/22 19:46 Anaerobic Culture - Preliminary Pericardial Fluid 04/21/22 19:46 Anaerobic Culture - Preliminary Pericardial Fluid Assessment and Plan Plan: Large circumferential pericardial effusion with tamponade physiology, unknown etiology, assumed to be viral in nature, status post emergent pericardial window, the patient is postop day #2. Very much like. This was a acute viral pericarditis. Possibility of a lymphoma is less likely. I did appreciate some lymphadenopathy in the subcarinal area based on the CAT scan of the abdomen. The CAT scan of the chest showed a right paratracheal opacity measuring up to 2.7 cm in size along with subcarinal lymphadenopathy. This is a brief investigated later stage. There is increased likelihood for malignancy. Awaiting Cytology from the pericardial effusion. Acute hypoxic respiratory failure currently on oxygen at 9 L Bilateral pleural effusions CHF with systolic dysfunction. The. Cardiac exam showed impairment of LV function with an ejection fraction of 35% Leukocytosis, White blood count remains elevated Acute kidney injury improving, creatinine normalized Transaminitis, Improving Current tobacco dependence Acute hyponatremia, improving, Sodium level is up to 125 Non-anion gap metabolic acidosis, improving Plan: Place mediastinal drain to water seal. Monitor drainage Awaiting the fluid cytology CAT scan of the chest was noted and the patient may ultimately need a and the bronchial ultrasound with transbronchial needle aspirate of the paratracheal lymph nodes/opacity there is no final diagnosis established. Agree on Lasix Antibiotic coverage is empiric Wean O2 as tolerated. Incentive spirometry ordered and should be encouraged We'll continue to follow
[2022-04-23] MEDS: IPRATROPIUM-ALBUTEROL 3 ML NEB INHALATION SCH ×2 (13:01→20:00)
[2022-04-23] MEDS: SENNOSIDES-DOCUSATE SODIUM 1 EACH TAB PO SCH (20:50)
[2022-04-24] MEDS: IPRATROPIUM-ALBUTEROL 3 ML NEB INHALATION SCH ×4 (04:02→19:32)
[2022-04-24 04:14] LABS: African American GFR (CKD) >90 (>60 ml/min/1.73 sqM); Anion Gap 12 mmol/L; Blood Urea Nitrogen 39 mg/dL (7-17); Calcium 8.2 mg/dL (8.4-10.2); Carbon Dioxide 19 mmol/L (22-30); Chloride 98 mmol/L (98-107); Glucose 117 mg/dL (74-99); Non-African American GFR(CKD) 87 (>60 ml/min/1.73 sqM); Potassium 5.5 mmol/L (3.5-5.1); Sodium 129 mmol/L (137-145)
--- NOTE | 2022-04-24 06:49 | XR ---
EXAMINATION TYPE: XR chest 1V portable DATE OF EXAM: 04/24/2022 CLINICAL HISTORY: Difficulty breathing and hypoxia progress study. TECHNIQUE: Single AP portable semiupright view of the chest is obtained. COMPARISON: Chest x-ray from one day earlier and older studies. FINDINGS: Persistent bilateral multifocal increased opacities. Most dense consolidation left lung ba se silhouetting left hemidiaphragm redemonstrated. Stable mild cardiomegaly. Osseous structures are i ntact. IMPRESSION: Mild cardiomegaly and Bilateral multifocal increased opacities redemonstrated. Correlate for covid-19 infection advised.
--- NOTE | 2022-04-24 07:20 | P.PN ---
Subjective Progress Note Date: 04/24/22 Principal diagnosis: Large circumferential pericardial effusion with tamponade, leukocytosis, acute kidney injury, transaminitis, bilateral pleural effusions. Current tobacco depe ndence POD #3 emergent pericardial window with transesophageal echocardiogram, removal of 700 mL bloody fluid The patient was seen and examined this morning sitting up in a recliner in the intensive care unit in no acute distress although her oxygen demands continue to go up. She is currently on non-rebreather with oxygen saturation in thje mid/high 90s. Does admit to some shortness of breath, states about the same as yesterday. States postsurgical pain is controlled with current medication regimen and has decreased since removal of chest tube yesterday. She does complain of lack of sleep. Currently in sinus rhythm, less PACs, hemodynamically stable. Fluid cytology and culture still pending, fluid and tissue preliminary gram stain shows no growth. ProBNP yesterday 8410 which is increased from 04/19 when it was 543. Procalcitonin 0.76, patient was started empirically on Zithromax and Ceftriaxone yesterday. She was given IV lasix yesterday, UO 1385 mL in last 24 hours. Remains afebrile. CXR reviewed which does show increased infiltrates, Covid/RSV/Influenza A&B were negative on admission. Sputum culture sent yesterday. Objective - Vital Signs Vital signs: Vital Signs Temp 97.8 F 04/24/22 04:00 Pulse 88 04/24/22 06:00 Resp 12 04/24/22 06:00 BP 113/83 04/24/22 06:00 Pulse Ox 92 L 04/24/22 06:00 FiO2 100 04/24/22 04:02 Intake & Output 04/23/22 04/24/22 04/24/22 18:59 06:59 18:59 Intake Total 770 130 Output Total 905 500 Balance -135 -370 Weight 85.7 kg Intake: IV 470 130 0.9 470 130 Oral 300 Output: Chest Tube Drainage 20 Mediastinal 20 Urine 885 500 Other: Voiding Method Indwelling Catheter Indwelling Catheter - Exam CONSTITUTIONAL: Appears comfortable, cooperative, no acute distress RESPIRATORY: Lungs sounds diminished bilaterally. Respirations even, nonlabored. Currently on non-rebreather with oxygen saturation 97%. Strong productive cough with sticky white sputum per patient. CARDIOVASCULAR: S1, S2 present. Regular rate and rhythm, sinus rhythm on telemetry. Palpable peripheral pulses bilaterally. Trace bilateral lower extrem ity edema present. GASTROINTESTINAL: Abdomen soft, nontender, nondistended. Active bowel sounds present 4 quadrants. Tolerating minimal diet. GENITOURINARY: Monreal present draining clear, yellow urine. Output 30-45 mL per hour overnight, 1385 mL in the last 24 hours INTEGUMENTARY: Skin is warm and dry NEUROLOGIC: Cranial nerves II through XII intact MUSKULOSKELETAL: Able to move all extremities, strength equal bilaterally PSYCHIATRIC: Alert and oriented to person place and time, appropriate affect, intact judgment and insight - Allied health notes Allied health notes reviewed: nursing - Labs CBC & Chem 7: 04/23/22 05:59 04/24/22 03:33 Labs: Abnormal Lab Results - Last 24 Hours (Table) 04/23/22 04/23/22 04/24/22 Range/Units 05:59 05:59 03:33 Sodium 129 L 129 L (137-145) mmol/L Potassium 5.3 H 5.5 H (3.5-5.1) mmol/L Carbon Dioxide 18 L 19 L (22-30) mmol/L BUN 35 H 39 H (7-17) mg/dL Glucose 100 H 117 H (74-99) mg/dL Calcium 8.1 L 8.2 L (8.4-10.2) mg/dL AST 242 H (14-36) U/L ALT 296 H (4-34) U/L Total Protein 6.0 L (6.3-8.2) g/dL Albumin 3.1 L (3.5-5.0) g/dL Procalcitonin 0.76 H (0.02-0.09) ng/mL Microbiology - Last 24 Hours (Table) 04/23/22 20:11 Sputum Culture - Preliminary Sputum 04/21/22 16:08 Blood Culture - Preliminary Blood No Growth after 48 hours 04/21/22 16:12 Blood Culture - Preliminary Blood No Growth after 48 hours 04/21/22 19:46 Gram Stain - Preliminary Pericardial Fluid Body Fluid Culture - Preliminary 04/21/22 19:46 Gram Stain - Preliminary Other - Other Tissue Culture - Preliminary - Imaging and Cardiology Chest x-ray: image reviewed Assessment and Plan Assessment: 1. Large circumferential pericardial effusion with tamponade physiology, unknown etiology, status post emergent pericardial window, pericardial fluid culture and cytology pending 2. Leukocytosis, elevated procalcitonin 0.76 3. Acute kidney injury 4. Transaminitis 5. Bilateral pleural effusions, small on CT, moderate on echo 6. Reduce left ventricular systolic function with EF 35% and anteroseptal hypokinesia on repeat echo yesterday 7. Current tobacco dependence 8. Acute hypoxia Plan: 1. Mediastinal drain discontinued yesterday 2. Wean O2 as tolerated. Encourage incentive spirometry use 10 times every hour while awake 3. Pericardial fluid sent for culture and cytology, final results pending 4. Increase activity as tolerated 5. Increase diet as tolerated 6. Medical management of other comorbidities per primary care, cardiology 7. Will continue to see on an as-needed basis
--- NOTE | 2022-04-24 07:23 | P.PN ---
Subjective Progress Note Date: 04/24/22 PROGRESS NOTE The patient was admitted yesterday was progressive abdominal pain, fatigue and lack of energy, her CAT scan showed a large pericardial effusion and her echocardiogram revealed evidence of temponade. She underwent a pericardial window with drainage of 700 mL of bloody fluid. She's feeling better this morning, continues to have chest tenderness respirophasic pain. Her breathing is better. She denies any prior history of cardiac disease or recent upper respiratory infection. She denies any nausea or vomiting or diarrhea at home. Her blood pressure has been stable. She continues to be in sinus mechanism with frequent PACs, at times in bigeminal pattern. April 23. The patient continues to have respirophasic chest discomfort, she denies any dizziness or palpitation. She is dyspneic. She has minimal drainage from the pericardial tissue. Her urinary output is stable, she is in sinus mechanism with PACs. A repeat echocardiogram done yesterday showed an ejection fraction of 35% with suggestion of anteroseptal hypokinesis. The pathology of her fluid is pending. A chest computed tomography scan showed bilateral lung infiltrate with small pleural effusion. April 24: Pericardial tube removed, the patient is sitting up in the chair. She had mild dyspnea earlier that has improved. Her chest discomfort improved. She denies any dizziness or palpitations. She denies any nausea. She has been in sinus mechanism but had few episodes of sinus arrhythmia but no atrial fibrillation. Cytology of the fluid is pending. She is tolerating by mouth. Medications: Colchicine 0.6 mg twice a day, cefazolin, Toprol 25 mg twice a day, she received one dose of IV Lasix. PHYSICAL EXAMINATION: Blood pressure 108/80 heart rate 87 LUNGS: Bilateral crackles HEART: Regular rate and rhythm, S1, S2. No S3. No systolic murmur, no rub, ABDOMEN: Soft, nontender, no organomegaly EXTREMETIES: No edema LAB: Potassium 5.5, BUN 39, creatinine 0.77 IMPRESSION: 1. Pericardial effusion, large with temponade , bloody fluid, post pericardial window, etiology unknown, the bloody fluid raised the question of malignancy. Her computed tomography scan of the chest shows significant adenopathy. Awaiting cultures and pathology 2. History of smoking 3. Hypotension, improved 4. Atrial arrhythmia related to the pericardial disease 5. Cardiomyopathy of unknown duration or etiology. Her echo prior to the pericardial window showed an ejection fraction of 50-55% PLAN: 1. Add beta trish 2. Continue incentive spirometry 3. Await pathology of the fluid and tissue 4. Add spironolactone 5. Increase physical activity Objective - Vital Signs Vital signs: Vital Signs Temp 97.8 F 04/24/22 04:00 Pulse 87 04/24/22 07:00 Resp 26 H 04/24/22 07:00 BP 108/82 04/24/22 07:00 Pulse Ox 95 04/24/22 07:00 FiO2 100 04/24/22 04:02 Intake & Output 04/23/22 04/24/22 04/24/22 18:59 06:59 18:59 Intake Total 770 130 Output Total 905 500 Balance -135 -370 Weight 85.7 kg Intake: IV 470 130 0.9 470 130 Oral 300 Output: Chest Tube Drainage 20 Mediastinal 20 Urine 885 500 Other: Voiding Method Indwelling Catheter Indwelling Catheter - Labs CBC & Chem 7: 04/23/22 05:59 04/24/22 03:33 Labs: Abnormal Lab Results - Last 24 Hours (Table) 04/23/22 04/24/22 Range/Units 05:59 03:33 Sodium 129 L (137-145) mmol/L Potassium 5.5 H (3.5-5.1) mmol/L Carbon Dioxide 19 L (22-30) mmol/L BUN 39 H (7-17) mg/dL Glucose 117 H (74-99) mg/dL Calcium 8.2 L (8.4-10.2) mg/dL Procalcitonin 0.76 H (0.02-0.09) ng/mL Microbiology - Last 24 Hours (Table) 04/23/22 20:11 Sputum Culture - Preliminary Sputum 04/21/22 16:08 Blood Culture - Preliminary Blood No Growth after 48 hours 04/21/22 16:12 Blood Culture - Preliminary Blood No Growth after 48 hours 04/21/22 19:46 Gram Stain - Preliminary Pericardial Fluid Body Fluid Culture - Preliminary 04/21/22 19:46 Gram Stain - Preliminary Other - Other Tissue Culture - Preliminary
[2022-04-24] MEDS: SPIRONOLACTONE 25 MG TAB PO SCH (08:15)
[2022-04-24] MEDS: ONDANSETRON 4 MG/2 ML VIAL IVP PRN ×2 (08:15→18:33)
[2022-04-24] MEDS: METOPROLOL TARTRATE 25 MG TAB PO SCH ×2 (08:15→20:09)
[2022-04-24] MEDS: COLCHICINE 0.6 MG EACH PO SCH ×2 (08:15→20:09)
[2022-04-24] MEDS: MORPHINE SULFATE 4 MG/ML SYRINGE IVP PRN ×2 (08:16→22:26)
[2022-04-24] MEDS ORDERED: IPRATROPIUM-ALBUTEROL 3 ML NEB INHALATION PRN (08:54)
[2022-04-24] MEDS ORDERED: FUROSEMIDE 10 MG/ML 4 ML VIAL IV STA (09:55)
--- NOTE | 2022-04-24 10:01 | P.PN ---
Subjective Progress Note Date: 04/24/22 This is a 57-year-old female patient, presented with shortness of breath of several days' duration. She was unable to eat anything and she was also having increased pain and shortness of breath. She was sent to the ED and she was diagnosed having a viral illness and she was discharged home. As the patient was not getting any better, she came back to the ED and she was looking worse. She was having trouble laying down flat. Her EKG showed sinus tachycardia and PACs an electrical alternans. A CAT scan of the abdomen and pelvis was done as the patient was having some abdominal pain and it revealed a large pericardial effusion and small bilateral pleural effusions and moderate ascites. Her vital screening including Covid 19, influenza A and B, RSV were all negative. An echocardiogram was done and it showed a large circumferential pericardial effusion with evidence of tampon out. At that point, the patient was taken to the operating room and the patient underwent a pericardial window. This was done yesterday and the patient is currently postop day #1. On today's evaluation, the patient is much more comfortable. She is on oxygen at 2 L. A total of 700 mL of fluid was removed from the pericardium. The pericardial tube is still in place. Output currently is only 90 mL over the past 12 hours. She is able to sit in her bed. No significant distress at this point in time. No f ever. No chills. Her blood work from today is showing a white cell count of 17.6 with a hemoglobin of 11 and a platelet count 400. Sodium is at 1:30, bicarbonate of 18 with a BUN of 37 and a creatinine of 0.7. She does have some mild transaminitis. AST is 388, ALT is 400, alkaline phosphatase is 101, bilirubin is 0.4, UA showing +1 protein, had repeat chest x-ray from today is showing presence of the mediastinal/pericardial tube, there is some underlying cardiomegaly, the patient also had some interstitial edema/she is not bilateral vascular markings. The patient is currently on normal saline at the rate of 75 mL an hour. The patient is producing adequate amount of urine output. The patient is on colchicine 0.6 mg by mouth twice a day. The patient's on a CAT scan of the abdomen also showed some mediastinal lymphadenopathy that is to be further investigated the later stage. No suspicious lytic lesions. 04/23/2022, the patient is postop day #2 following a pericardial window. The pericardial tube is still in place. Output is minimal at this point in time. The fluid/pericardial fluid cytology still pending for now. Meanwhile, Of the Chest Was Done and There Is a Larger Right Paratracheal Opacity There Was Noted on the CAT Scan of the Chest That Was Done with Contrast Measuring 2.7 Cm in Size and It Is a Soft Tissue Density and there are also multiple scattered sm all lymph nodes within the mediastinum and the largest subcarinal lymph nodes. At the same time, there is some patchy but the pulmonary infiltrates and a small pericardial effusion. Small pleural effusions also present. Repeat echocardiogram was done and the patient's ejection fraction dropped down to 35%. Noted the original echocardiogram was within normal limits. This obviously may indicate the possibility of viral myocarditis causing global LV dysfunction. In enervates, the final diagnosis has not been received. The patient remains on colchicine. Oxygenation got worse and the patient is currently on 9 L. Antibiotics have been started on an empiric basis and the patient was given a dose of Lasix. LFTs are gradually improving. Sodium level is stable at 129. The white cell count is still elevated. X-ray is showing increased interstitial markings bilaterally consistent with CHF/questionable pneumonia 12/22/2021, the patient is postop day #3. On today's evaluation, the per icardial tube was removed adenopathy was minimal.Awaiting for the final fluid cytology. Meanwhile, the patient had some issues with shortness of breath and oxygen desaturation. The chest x-ray also showed diffuse bilateral pulmonary infiltrates with interval worsening. Obviously, an infectious were considered. The patient was given diuretics. She was given a dose of Lasix 40 mg IV 1 and she produced approximately 800 mL of urine output. She was also started on broad-spectrum antibiotics. She is currently on a combination of Rocephin and Zithromax. Nevertheless, the possibility of a bacterial infection is extremely low. Pro-calcitonin is negative and the clinical presentation does not seem to be in agreement with bacterial pneumonia or infection. Possibility of an acute ARDS is also likely with hemoglobin of 9 cardiogenic pulmonary edema. This started with her oxygenation yesterday. She was placed on 100% nonrebreather facemask. She was placed on high flow oxygen with Airvo , and currently she is on oxygen at 14 L with a pulse ox of 93%. Slightly bronchospastic and wheezy. Suspect is in the mid and lower lung jose bilaterally. Sodium is at 129 with a potassium level of 5.5, BUN is at 39 with a creatinine of 0.7, white cell count at 19.2. The proBNP level from yesterday was 8410. There was some further impairment of LV function based on the repeat echocardiogram that was done by cardiology. Based on the limited echocardiogram that was done on 04/22/2022, the patient had severe LV dysfunction with hypokinesis of the anterior septal wall and an ejection fraction of 35%. A comment was made regarding a left-sided pleural effusion. Objective - Vital Signs Vital signs: Vital Signs Temp 98.2 F 04/24/22 08:00 Pulse 84 04/24/22 09:00 Resp 19 04/24/22 09:00 BP 143/95 04/24/22 09:00 Pulse Ox 93 L 04/24/22 09:00 FiO2 100 04/24/22 04:02 Intake & Output 04/23/22 04/24/22 04/24/22 18:59 06:59 18:59 Intake Total 770 130 20 Output Total 905 500 90 Balance -135 -370 -70 Weight 85.7 kg Intake: IV 470 130 20 0.9 470 130 20 Oral 300 Output: Chest Tube Drainage 20 Mediastinal 20 Urine 885 500 90 Other: Voiding Method Indwelling Catheter Indwelling Catheter Indwelling Catheter - Exam CONSTITUTIONAL: Appears comfortable, cooperative, no acute distress RESPIRATORY: Lungs sounds diminished bilaterally. Respirations even, nonlabored. Currently on 14 L nasal cannula with oxygen saturation 93%. Strong cough. CARDIOVASCULAR: S1, S2 present. Irregular rate and rhythm, sinus rhythm with frequent/bigeminal PACs on telemetry. Palpable peripheral pulses bilaterally. No edema present. GASTROINTESTINAL: Abdomen soft, nontender, nondistended. Hypoactive bowel sounds present 4 quadrants. Tolerating minimal clear liquids. Denies flatus GENITOURINARY: Monreal present draining clear, yellow urine. Output overnight 15-45 mL per hour INTEGUMENTARY: Skin is warm and dry with evidence of good perfusion NEUROLOGIC: Cranial nerves II through XII intact MUSKULOSKELETAL: Able to move all extremities, strength equal bilaterally PSYCHIATRIC: Alert and oriented to person place and time, appropriate affect, intact judgment and insight INVASIVE LINES AND TUBES: Mediastinal chest tube removed - Labs CBC & Chem 7: 04/23/22 05:59 04/24/22 03:33 Labs: Abnormal Lab Results - Last 24 Hours (Table) 04/23/22 04/24/22 Range/Units 05:59 03:33 Sodium 129 L (137-145) mmol/L Potassium 5.5 H (3.5-5.1) mmol/L Carbon Dioxide 19 L (22-30) mmol/L BUN 39 H (7-17) mg/dL Glucose 117 H (74-99) mg/dL Calcium 8.2 L (8.4-10.2) mg/dL Procalcitonin 0.76 H (0.02-0.09) ng/mL Microbiology - Last 24 Hours (Table) 04/23/22 20:11 Sputum Culture - Preliminary Sputum 04/21/22 16:08 Blood Culture - Preliminary Blood No Growth after 48 hours 04/21/22 16:12 Blood Culture - Preliminary Blood No Growth after 48 hours 04/21/22 19:46 Gram Stain - Preliminary Pericardial Fluid Body Fluid Culture - Preliminary 04/21/22 19:46 Gram Stain - Preliminary Other - Other Tissue Culture - Preliminary Assessment and Plan Plan: Large circumferential pericardial effusion with tamponade physiology, unknown etiology, assumed to be viral in nature, status post emergent pericardial window, the patient is postop day #3. Very much like. This was a acute viral pericarditis. Possibility of a lymphoma is less likely. I did appreciate some lymphadenopathy in the subcarinal area based on the CAT scan of the abdomen. The CAT scan of the chest showed a right paratracheal opacity measuring up to 2.7 cm in size along with subcarinal lymphadenopathy. There is increased likelihood for malignancy. Awaiting cytology from the pericardial effusion. Consider the possibility of a lymphoma/small cell lung cancer. Acute cardiomyopathy with an ejection fraction of 35% and systolic heart failure with anteroseptal wall hypokinesis Acute hypoxic respiratory failure currently on oxygen at 14 L nasal cannula and development of diffuse bilateral pulmonary infiltrates. Rule out cardiogenic versus noncardiogenic pulmonary edema/ARDS Bilateral pleural effusions, small Hyponatremia, consider SIADH Leukocytosis, White blood count remains elevated Acute kidney injury improving, creatinine normalized Transaminitis, Improving Current tobacco dependence Plan: Mediastinal chest tube removed Continue bronchodilators We'll add IV Solu-Medrol 60 mg every 6 hours Give a dose of Lasix 40 mg IV and assess the patient's clinical response Ultrasound the chest to see visited sizable effusion to drain Awaiting the fluid cytology CAT scan of the chest was noted and the patient may ultimately need a and the bronchial ultrasound with transbronchial needle aspirate of the paratracheal lymph nodes/opacity there is no final diagnosis established. Antibiotic coverage is empiric Wean O2 as tolerated. Incentive spirometry ordered and should be encouraged We'll continue to follow
[2022-04-24] MEDS: AZITHROMYCIN 500 MG in SODIUM CHLORIDE 0.9% 250 ML IVPB SCH (10:38)
[2022-04-24] MEDS ORDERED: FUROSEMIDE 10 MG/ML 2 ML VIAL IV ONE (10:41)
--- NOTE | 2022-04-24 10:50 | US ---
EXAMINATION TYPE: US chest DATE OF EXAM: 04/24/2022 COMPARISON: Chest CT 2 days ago. Chest x-ray earlier today. CLINICAL HISTORY: Bilateral pleural effusion. TECHNIQUE: Targeted ultrasound of the posterior lower bilateral hemithoraces EXAM MEASUREMENTS: Right Pleural Effusion pocket size: 1.5 cm Right skin surface to fluid distance: 3.3 cm Left Pleural Effusion pocket size: 3.0 cm Left skin surface to fluid distance: 4.3 cm Right side not marked. Left side marked for possible thoracentesis outside the dept. Pulmonologists are able to review the images in the patient?s EMR. Small to tiny left greater than right pleural effusions and images saved correlate with most recent x -ray and CT. IMPRESSIONS: As above.
--- NOTE | 2022-04-24 11:13 | P.PN ---
Subjective Progress Note Date: 04/24/22 Patient has become increasingly hypoxic, now requiring 14 L of high flow nasal cannula. She reports significant dyspnea. Mediastinal drain has been removed. BNP is 8000. Sputum cx pending. Pt on ceftriaxone. Receiving lasix Gen: awake, alert HEENT: normocephalic, atraumatic, good hearing acuity, moist mucous membranes Resp: good air exchange, breathing comfortably with no accessory muscle use, rayna ateral crackles CVS: good distal perfusion x 4, regular rate and rhythm without murmurs GI: soft, NTTP, ND : no SPT, no CVAT, carnes catheter is present MSK: no pitting edema, no clubbing Neuro: non-focal, moving all extremities Psych: cooperative, euthymic mood Assessment/plan: Cardiac Tamponade, pericardial effusion s/p pericardial window Acute Hypoxemic Respiratory Failure Leukocytosis Transaminitis, likely due to hypotension and hepatic congestion - CT surgery recs - Cardio recs: cholicine - ESR elevated, Troponin normal, TSH normal - CT Chest with mediastinal LAD - Pericardial fluid cultures, cytology pending - pericardial biopsy pending - blood cultures pending - Sputum cultures, pending - Ceftriaxone - Lasix 60mg IV BID - follow Kidney and liver function - Avoid additional nephrotoxic agents - CRISTIN and rheumatoid factor pending - Coxsackie B Abs pending Hyponatremia - undetermined etiology, improving with fluids, if does not conitnue to improve would institute work up for SIADH if does not conitnued to improve - repeat sodium in AM Tobacco abuse - cessation Hypotension, resolved SHELDON, resolved DVT prophylaxis: SCDs Objective - Vital Signs Vital signs: Vital Signs Temp 98.2 F 04/24/22 08:00 Pulse 81 04/24/22 11:08 Resp 27 H 04/24/22 10:00 BP 129/91 04/24/22 10:00 Pulse Ox 92 L 04/24/22 10:00 FiO2 100 04/24/22 04:02 Intake & Output 04/23/22 04/24/22 04/24/22 18:59 06:59 18:59 Intake Total 770 130 30 Output Total 905 500 130 Balance -135 -370 -100 Weight 85.7 kg Intake: IV 470 130 30 0.9 470 130 30 Oral 300 Output: Chest Tube Drainage 20 Mediastinal 20 Urine 885 500 130 Other: Voiding Method Indwelling Catheter Indwelling Catheter Indwelling Catheter - Labs CBC & Chem 7: 04/23/22 05:59 04/24/22 03:33 Labs: Abnormal Lab Results - Last 24 Hours (Table) 04/23/22 04/24/22 Range/Units 05:59 03:33 Sodium 129 L (137-145) mmol/L Potassium 5.5 H (3.5-5.1) mmol/L Carbon Dioxide 19 L (22-30) mmol/L BUN 39 H (7-17) mg/dL Glucose 117 H (74-99) mg/dL Calcium 8.2 L (8.4-10.2) mg/dL Procalcitonin 0.76 H (0.02-0.09) ng/mL Microbiology - Last 24 Hours (Table) 04/23/22 20:11 Gram Stain - Preliminary Sputum Sputum Culture - Preliminary 04/21/22 19:46 Gram Stain - Preliminary Pericardial Fluid Body Fluid Culture - Preliminary 04/21/22 19:46 Gram Stain - Preliminary Other - Other Tissue Culture - Preliminary 04/21/22 16:08 Blood Culture - Preliminary Blood No Growth after 48 hours 04/21/22 16:12 Blood Culture - Preliminary Blood No Growth after 48 hours
[2022-04-24] MEDS: methylPREDNISolone SOD SUCCI 125 MG/2 ML VIAL IV SCH ×2 (12:00→17:26)
[2022-04-24] MEDS: SENNOSIDES-DOCUSATE SODIUM 1 EACH TAB PO SCH (20:09)
[2022-04-24] MEDS: FUROSEMIDE 10 MG/ML 10 ML VIAL IV SCH (20:11)
[2022-04-25] MEDS: methylPREDNISolone SOD SUCCI 125 MG/2 ML VIAL IV SCH ×4 (00:09→18:10)
[2022-04-25] MEDS: IPRATROPIUM-ALBUTEROL 3 ML NEB INHALATION SCH ×4 (07:29→21:36)
--- NOTE | 2022-04-25 07:32 | P.PN ---
Subjective Progress Note Date: 04/25/22 PROGRESS NOTE The patient was admitted yesterday was progressive abdominal pain, fatigue and lack of energy, her CAT scan showed a large pericardial effusion and her echocardiogram revealed evidence of temponade. She underwent a pericardial window with drainage of 700 mL of bloody fluid. She's feeling better this morning, continues to have chest tenderness respirophasic pain. Her breathing is better. She denies any prior history of cardiac disease or recent upper respiratory infection. She denies any nausea or vomiting or diarrhea at home. Her blood pressure has been stable. She continues to be in sinus mechanism with frequent PACs, at times in bigeminal pattern. April 23. The patient continues to have respirophasic chest discomfort, she denies any dizziness or palpitation. She is dyspneic. She has minimal drainage from the pericardial tissue. Her urinary output is stable, she is in sinus mechanism with PACs. A repeat echocardiogram done yesterday showed an ejection fraction of 35% with suggestion of anteroseptal hypokinesis. The pathology of her fluid is pending. A chest computed tomography scan showed bilateral lung infiltrate with small pleural effusion. April 24: Pericardial tube removed, the patient is sitting up in the chair. She had mild dyspnea earlier that has improved. Her chest discomfort improved. She denies any dizziness or palpitations. She denies any nausea. She has been in sinus mechanism but had few episodes of sinus arrhythmia but no atrial fibrillation. Cytology of the fluid is pending. She is tolerating by mouth. April 25: The patient is feeling better today, sitting up in the chair. She continues to have dyspnea on exertion but no chest discomfort. She continues to be in sinus mechanism and hemodynamically stable. There is no evidence of atrial or ventricular ectopic activity. She was started on IV diuresis yesterday with improvement in her urine output. The results of her fluid pathology continues to be pending. She has evidence of right-sided effusion. Her computed tomography scan increase the likelihood of malignancy although awaiting pathology. The etiology of her cardiomyopathy is unclear. Medications: Colchicine 0.6 mg twice a day, cefazolin, metoprolol 25 mg twice a day, Lasix 60 mg IV every 12 hours, Aldactone 25 mg daily PHYSICAL EXAMINATION: Blood pressure 135/80 heart rate 85 LUNGS: Bilateral crackles with decreased breath sounds at the bases HEART: Regular rate and rhythm, S1, S2. No S3. No systolic murmur, no rub, ABDOMEN: Soft, nontender, no organomegaly EXTREMETIES: No edema LAB: Pending IMPRESSION: 1. Pericardial effusion, large with temponade , bloody fluid, post pericardial window, etiology unknown, the bloody fluid raised the question of malignancy. Her computed tomography scan of the chest shows significant adenopathy. Awaiting cultures and pathology 2. History of smoking 3. Hypotension, improved 4. Atrial arrhythmia related to the pericardial disease 5. Cardiomyopathy of unknown duration or etiology. Her echo prior to the pericardial window showed an ejection fraction of 50-55% PLAN: 1. Continue beta trish and IV diuresis 2. Add TRUPTI inhibitor 3. Await the results of pathology to further assess her status. 4. Increase physical activity Objective - Vital Signs Vital signs: Vital Signs Temp 98.1 F 04/25/22 04:00 Pulse 85 04/25/22 07:00 Resp 18 04/25/22 07:00 BP 135/86 04/25/22 07:00 Pulse Ox 96 04/25/22 07:00 FiO2 100 04/24/22 04:02 Intake & Output 04/24/22 04/25/22 04/25/22 18:59 06:59 18:59 Intake Total 310 130 Output Total 1170 1360 Balance -860 -1230 Weight 78.4 kg Intake: IV 110 130 0.9 110 130 Oral 200 Output: Urine 1170 1360 Other: Voiding Method Indwelling Catheter Indwelling Catheter - Labs CBC & Chem 7: 04/23/22 05:59 04/24/22 03:33 Labs: Microbiology - Last 24 Hours (Table) 04/21/22 16:08 Blood Culture - Preliminary Blood No Growth after 72 hours 04/21/22 16:12 Blood Culture - Preliminary Blood No Growth after 72 hours 04/21/22 19:46 Anaerobic Culture - Preliminary Pericardial Fluid 04/21/22 19:46 Anaerobic Culture - Preliminary Pericardial Fluid 04/23/22 20:11 Gram Stain - Preliminary Sputum Sputum Culture - Preliminary 04/21/22 19:46 Gram Stain - Preliminary Pericardial Fluid Body Fluid Culture - Preliminary 04/21/22 19:46 Gram Stain - Preliminary Other - Other Tissue Culture - Preliminary
[2022-04-25 07:50] LABS: ALT 566 U/L (4-34); AST 472 U/L (14-36); African American GFR (CKD) >90 (>60 ml/min/1.73 sqM); Albumin 3.1 g/dL (3.5-5.0); Alkaline Phosphatase 191 U/L (38-126); Anion Gap 12 mmol/L; Blood Urea Nitrogen 33 mg/dL (7-17); Carbon Dioxide 27 mmol/L (22-30); Chloride 96 mmol/L (98-107); Glucose 118 mg/dL (74-99); Non-African American GFR(CKD) 90 (>60 ml/min/1.73 sqM); Potassium 4.7 mmol/L (3.5-5.1); Sodium 135 mmol/L (137-145); Total Bilirubin 0.7 mg/dL (0.2-1.3); Total Protein 6.2 g/dL (6.3-8.2)
[2022-04-25] MEDS: FUROSEMIDE 10 MG/ML 10 ML VIAL IV SCH ×2 (08:13→20:11)
[2022-04-25] MEDS: SPIRONOLACTONE 25 MG TAB PO SCH (08:14)
[2022-04-25] MEDS: COLCHICINE 0.6 MG EACH PO SCH ×2 (08:14→20:16)
[2022-04-25] MEDS: METOPROLOL TARTRATE 25 MG TAB PO SCH ×2 (08:14→20:16)
[2022-04-25] MEDS: lisinopriL 5 MG TAB PO SCH (08:14)
[2022-04-25] MEDS ORDERED: AZITHROMYCIN 500 MG TAB PO SCH (09:00)
--- NOTE | 2022-04-25 10:45 | P.PN ---
Subjective Progress Note Date: 04/25/22 Patient is improving with diuresis, now only requiring 5L NC. Gen: awake, alert HEENT: normocephalic, atraumatic, good hearing acuity, moist mucous membranes Resp: good air exchange, breathing comfortably with no accessory muscle use, bilateral crackles CVS: good distal perfusion x 4, regular rate and rhythm without murmurs GI: soft, NTTP, ND : no SPT, no CVAT, carnes catheter is present MSK: no pitting edema, no clubbing Neuro: non-focal, moving all extremities Psych: cooperative, euthymic mood Assessment/plan: Cardiac Tamponade, pericardial effusion s/p pericardial window Acute Hypoxemic Respiratory Failure Acute on Chronic Systolic Heart Failure, EF 35% Leukocytosis Transaminitis, likely due to hypotension and hepatic congestion - CT surgery recs - Cardio recs: cholicine - ESR elevated, Troponin normal, TSH normal - CT Chest with mediastinal LAD - Pericardial fluid cultures, cytology pending - pericardial biopsy pending - blood cultures pending - Sputum cultures, pending - Ceftriaxone - Lasix 60mg IV BID - follow Kidney and liver function - Avoid additional nephrotoxic agents - CRISTIN and rheumatoid factor pending - Coxsackie B Abs pending Hyponatremia with Hypervolemia - improving with diuretics - repeat sodium in AM Tobacco abuse - cessation Hypotension, resolved SHELDON, resolved DVT prophylaxis: SCDs Objective - Vital Signs Vital signs: Vital Signs Temp 98.2 F 04/25/22 08:00 Pulse 85 04/25/22 10:00 Resp 15 04/25/22 10:00 BP 131/81 04/25/22 10:00 Pulse Ox 95 04/25/22 10:00 FiO2 100 04/24/22 04:02 Intake & Output 04/24/22 04/25/22 04/25/22 18:59 06:59 18:59 Intake Total 310 130 320 Output Total 1170 1360 680 Balance -860 -1230 -360 Weight 78.4 kg Intake: IV 110 130 30 0.9 110 130 30 Intake, IV Titration 50 Amount cefTRIAXone 1 gm In 50 Sodium Chloride 0.9% 50 ml @ 100 mls/hr IVPB Q24HR [facility] Rx#:[id number] Oral 200 240 Output: Urine 1170 1360 680 Other: Voiding Method Indwelling Catheter Indwelling Catheter Indwelling Catheter - Labs CBC & Chem 7: 04/23/22 05:59 04/25/22 06:33 Labs: Abnormal Lab Results - Last 24 Hours (Table) 04/25/22 Range/Units 06:33 Sodium 135 L (137-145) mmol/L Chloride 96 L (98-107) mmol/L BUN 33 H (7-17) mg/dL Glucose 118 H (74-99) mg/dL Calcium 8.0 L (8.4-10.2) mg/dL AST 472 H (14-36) U/L ALT 566 H (4-34) U/L Alkaline Phosphatase 191 H (38-126) U/L Total Protein 6.2 L (6.3-8.2) g/dL Albumin 3.1 L (3.5-5.0) g/dL Microbiology - Last 24 Hours (Table) 04/21/22 19:46 Gram Stain - Preliminary Pericardial Fluid Body Fluid Culture - Preliminary 04/21/22 19:46 Gram Stain - Preliminary Other - Other Tissue Culture - Preliminary 04/21/22 16:08 Blood Culture - Preliminary Blood No Growth after 72 hours 04/21/22 16:12 Blood Culture - Preliminary Blood No Growth after 72 hours 04/21/22 19:46 Anaerobic Culture - Preliminary Pericardial Fluid 04/21/22 19:46 Anaerobic Culture - Preliminary Pericardial Fluid 04/23/22 20:11 Gram Stain - Preliminary Sputum Sputum Culture - Preliminary
--- NOTE | 2022-04-25 11:31 | P.PN ---
Subjective Progress Note Date: 04/25/22 Principal diagnosis: Pericardial effusion. 04/23/2022, the patient is postop day #2 following a pericardial window. The pericardial tube is still in place. Output is minimal at this point in time. The fluid/pericardial fluid cytology still pending for now. Meanwhile, Of the Chest Was Done and There Is a Larger Right Paratracheal Opacity There Was Noted on the CAT Scan of the Chest That Was Done with Contrast Measuring 2.7 Cm in Size and It Is a Soft Tissue Density and there are also multiple scattered small lymph nodes within the mediastinum and the largest subcarinal lymph nodes. At the same time, there is some patchy but the pulmonary infiltrates and a small pericardial effusion. Small pleural effusions also present. Repeat echocardiogram was done and the patient's ejection fraction dropped down to 35%. Noted the original echocardiogram was within normal limits. This obviously may indicate the possibility of viral myocarditis causing global LV dysfunction. In enervates, the final diagnosis has not been received. The patient remains on colchicine. Oxygenation got worse and the patient is currently on 9 L. Antibiotics have been started on an empiric basis and the patient was given a dose of Lasix. LFTs are gradually improving. Sodium level is stable at 129. The white cell count is still elevated. X-ray is showing increased interstitial markings bilaterally consistent with CHF/questionable pneumonia 12/22/2021, the patient is postop day #3. On today's evaluation, the pericardial tube was removed adenopathy was minimal.Awaiting for the final fluid cytology. Meanwhile, the patient had some issues with shortness of breath and oxygen desaturation. The chest x-ray also showed diffuse bilateral pulmonary infiltrates with interval worsening. Obviously, an infectious were considered. The patient was given diuretics. She was given a dose of Lasix 40 mg IV 1 and she produced approximately 800 mL of urine output. She was also started on broad-spectrum antibiotics. She is currently on a combination of Rocephin and Zithromax. Nevertheless, the possibility of a bacterial infection is extremely low. Pro-calcitonin is negative and the clinical presentation does not seem to be in agreement with bacterial pneumonia or infection. Possibility of an acute ARDS is also likely with hemoglobin of 9 cardiogenic pulmonary edema. This started with her oxygenation yesterday. She was placed on 100% nonrebreather facemask. She was placed on high flow oxygen with Airvo , and currently she is on oxygen at 14 L with a pulse ox of 93%. Slightly bronchospastic and wheezy. Suspect is in the mid and lower lung jose bilaterally. Sodium is at 129 with a potassium level of 5.5, BUN is at 39 with a creatinine of 0.7, white cell co unt at 19.2. The proBNP level from yesterday was 8410. There was some further impairment of LV function based on the repeat echocardiogram that was done by cardiology. Based on the limited echocardiogram that was done on 04/22/2022, the patient had severe LV dysfunction with hypokinesis of the anterior septal wall and an ejection fraction of 35%. A comment was made regarding a left-sided pleural effusion. Progress note dated 04/25/2022. 57-year-old female seen in room 264, of the intensive care unit. The patient was admitted to the hospital on April 21, was found to have a large peric ardial effusion. The patient underwent surgery with a pericardial window, by Dr. Rankin, on April 21. She was intubated for the procedure on April 21, and extubated on the subsequent day, April 22. The pericardial catheter was removed on April 24. Pathology, from the fluid this morning, is currently still pending. She's getting saline at 10 mL an hour, and oxygen at 8 L. Her oxygen can be titrated down as her saturations are excellent. Sodium 135, potassium 4.7, chloride 96, CO2 27, BUN 33, and creatinine 0.7. AST is 472. ALT is 566. Albumin is 3.1. Objective - Vital Signs Vital signs: Vital Signs Temp 98.2 F 04/25/22 08:00 Pulse 85 04/25/22 11:10 Resp 22 04/25/22 11:00 BP 122/91 04/25/22 11:00 Pulse Ox 95 04/25/22 11:09 FiO2 100 04/24/22 04:02 Intake & Output 04/24/22 04/25/22 04/25/22 18:59 06:59 18:59 Intake Total 310 130 570 Output Total 1170 1360 980 Balance -860 -1230 -410 Weight 78.4 kg Intake: IV 110 130 40 0.9 110 130 40 Intake, IV Titration 50 Amount cefTRIAXone 1 gm In 50 Sodium Chloride 0.9% 50 ml @ 100 mls/hr IVPB Q24HR [facility] Rx#:[id number] Oral 200 480 Output: Urine 1170 1360 980 Other: Voiding Method Indwelling Catheter Indwelling Catheter Indwelling Catheter - Exam No acute distress, oriented 3. Currently on 8 L high flow oxygen. Saturations are excellent and then oxygen level can be titrated down. HEENT examination is grossly unremarkable. Neck supple. Full range of motion. No adenopathy thyromegaly or neck vein distention. Cardiovascular examination reveals regular rhythm rate. S1-S2 normal. No S3 or S4. No discernible murmur noted. Heart rate 85 bpm. Lungs reveal clear breath sounds. Breath sounds are equal bilaterally. No adventitious lung sounds including wheezes rhonchi or crackles. Abdomen soft bowel sounds are heard. No masses or tenderness. Extremities are intact. No cyanosis clubbing or edema. Skin is without rash or lesion. Neurologic examination is brief but nonfocal. - Labs CBC & Chem 7: 04/23/22 05:59 04/25/22 06:33 Labs: Abnormal Lab Results - Last 24 Hours (Table) 04/25/22 Range/Units 06:33 Sodium 135 L (137-145) mmol/L Chloride 96 L (98-107) mmol/L BUN 33 H (7-17) mg/dL Glucose 118 H (74-99) mg/dL Calcium 8.0 L (8.4-10.2) mg/dL AST 472 H (14-36) U/L ALT 566 H (4-34) U/L Alkaline Phosphatase 191 H (38-126) U/L Total Protein 6.2 L (6.3-8.2) g/dL Albumin 3.1 L (3.5-5.0) g/dL Microbiology - Last 24 Hours (Table) 04/21/22 19:46 Gram Stain - Preliminary Pericardial Fluid Body Fluid Culture - Preliminary 04/21/22 19:46 Gram Stain - Preliminary Other - Other Tissue Culture - Preliminary 04/21/22 16:08 Blood Culture - Preliminary Blood No Growth after 72 hours 04/21/22 16:12 Blood Culture - Preliminary Blood No Growth after 72 hours 04/21/22 19:46 Anaerobic Culture - Preliminary Pericardial Fluid 04/21/22 19:46 Anaerobic Culture - Preliminary Pericardial Fluid 04/23/22 20:11 Gram Stain - Preliminary Sputum Sputum Culture - Preliminary Assessment and Plan Assessment: Large pericardial effusion, with tamponade physiology, of unclear etiology, status post emergent pericardial window, postop day #4. Status post intubation on April 21, with extubation on April 22. Acute cardiomyopathy with an ejection fraction of 35%. Bilateral pleural effusions, small. 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 Acute kidney injury. Elevated liver function tests. Chronic tobacco dependence. Plan: Plan dated 04/25/2022. The fluid analysis, is currently still pending. This pericardial effusion could be viral, or malignant. It also could be idiopathic. Additional recommendations and suggestions are forthcoming. Prognosis is certainly guarded. Oxygen can be titrated down. Her saturations are excellent. Pleural effusions are small and don't require thoracentesis. We will continue to follow and make recommendations along the way. Time with Patient: Less than 30
[2022-04-25] MEDS: HYDROcodone/APAP 5-325MG 1 EACH TAB PO PRN (14:15)
--- NOTE | 2022-04-25 16:36 | P.CONS ---
History of Present Illness - Chief Complaint Cardiac debility - History of Present Illness I had the opportunity to see patient for inpatient rehab consultation. Patient admitted to Dr. Coffey April 21 abdominal pain of 2 days' duration. Workup revealed hypotension and tachycardia and diagnosed paracardial effusion. Seen by Dr. Gonzales for this. Also by Dr. Rankin who did perform pericardial window. Seen by Dr. Ortiz for ICU care. Diagnostic tests carotid ultrasound done. Chest x-ray demonstrates mild cardiomegaly and bilateral opacities. Chest CT with lateral patchy infiltrates and effusions. Has started therapy. PT reports minimal assist bed mobility, transfer, gait 40 feet roller walker. OT reports independent with feeding, minimal assistance for grooming and upper dressing and bathing, maximal assistance for lower dressing and toileting. Supervision for toilet transfer. Previous functional history as elicited from patient: 57-year-old right-handed white female who is lives in [place] with . Both work full-time. 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 Posterior the cooking and laundry and her independent with driving. Patient dependent with standing shower and gait without device previously. PCP of records Dr. Gifford although patient denies this. Review of Systems Review of systems: ENT: Denies sneezes or discharge. Eyes: Denies discharge or photophobia. Cardiac: Mild substernal discomfort. Pulmonary: [id number] shortness of breath. Breast: Denies discharge or lumps. Gastrointestinal: Denies nausea, emesis, constipation, diarrhea. Genitourinary: Denies discharge or frequency. Musculoskeletal: Denies muscle or bone aches. Neurologic: General weakness. Endocrine: Denies shakes or sweats. Oncology: Denies cancers. Dermatologic: Denies rash, itching, pruritus. ALLERGY/immunology: Denies sneezes, rashes. Past Medical History Past Medical History: No Reported History History of Any Multi-Drug Resistant Organisms: None Reported Past Surgical History: No Surgical Hx Reported Additional Past Surgical History / Comment(s): tubal ligation Past Anesthesia/Blood Transfusion Reactions: No Reported Reaction Smoking Status: Current every day smoker - Past Family History Father Family Medical History: Hypertension Additional Family Medical History / Comment(s): of an UT at age 51 Brother(s) Family Medical History: Hypertension Medications and Allergies Home Medications Medication Instructions Recorded Confirmed Type Azithromycin [Zithromax Z Pack] See Taper PO DIRECTED 04/21/22 04/21/22 History Allergies Allergy/AdvReac Type Severity Reaction Status Date / Time No Known Allergies Allergy Verified 04/21/22 14:27 Physical Exam Vitals: Vital Signs Temp Pulse Resp BP Pulse Ox 04/25/22 16:00 98.1 F 89 24 111/68 95 04/25/22 15:33 86 04/25/22 15:25 83 04/25/22 15:00 85 24 111/69 95 04/25/22 14:12 87 22 115/79 95 04/25/22 13:00 87 16 112/72 94 L 04/25/22 12:00 98.1 F 87 20 114/74 94 L 04/25/22 11:21 87 04/25/22 11:10 85 04/25/22 11:09 95 04/25/22 11:00 87 22 122/91 94 L 04/25/22 10:00 85 15 131/81 95 04/25/22 09:00 86 15 121/84 97 04/25/22 08:00 98.2 F 91 17 127/90 97 04/25/22 07:44 80 04/25/22 07:29 85 04/25/22 07:28 96 04/25/22 07:00 85 18 135/86 96 04/25/22 06:00 85 18 134/85 96 04/25/22 05:50 90 04/25/22 05:40 82 04/25/22 05:00 80 18 129/87 96 04/25/22 04:00 98.1 F 80 16 105/80 96 04/25/22 03:00 80 15 133/81 96 04/25/22 02:00 81 18 117/87 94 L 04/25/22 01:00 82 14 121/76 97 04/25/22 00:25 82 15 96 04/25/22 00:00 97.5 F L 84 16 126/87 97 04/24/22 23:00 85 13 134/82 96 04/24/22 22:00 86 20 139/87 98 04/24/22 21:00 86 20 148/93 95 04/24/22 20:00 98.5 F 90 20 139/84 94 L 04/24/22 19:45 92 04/24/22 19:32 89 04/24/22 19:00 89 29 H 132/87 93 L 04/24/22 18:00 88 24 132/90 91 L 04/24/22 17:00 89 24 135/92 93 L Intake and Output 04/25/22 04/25/22 04/25/22 06:59 14:59 22:59 Intake Total 90 600 20 Output Total 520 1230 80 Balance -430 -630 -60 Intake: IV 90 70 20 0.9 90 70 20 Intake, IV Titration 50 Amount cefTRIAXone 1 gm In 50 Sodium Chloride 0.9% 50 ml @ 100 mls/hr IVPB Q24HR [facility] Rx#:[id number] Oral 480 Output: Urine 520 1230 80 Other: Voiding Method Indwelling Catheter Indwelling Catheter Indwelling Catheter # Bowel Movements 1 Weight 78.4 kg Skin: Good color, texture, turgor. General: Medium build and comfortable appearance. Head: Normocephalic, atraumatic. Eyes: Symmetric. Pupils equal round. Ears: Symmetric. Hearing within normal limits. Mouth: Clear. Neck: Supple. Carotid without bruit. Cardiac: Regular rate and rhythm. Epigastric surgical scar clean and dressed. Lungs: Clear anteriorly and posteriorly. Abdomen: Soft active nontender. Extremities: Normal tone. Neurological: Mental status: Alert, cooperative, pleasant. Cranial nerves: Symmetric facial tone and trapezius. Motor: Active movement elevation all 4 limbs. Sensation: Intact throughout. DTRs: Symmetric and equal throughout. Mobility: In ICU and did not attempt to sit or stand by myself. Results CBC & Chem 7: 04/23/22 05:59 04/25/22 06:33 Labs: Abnormal Lab Results - Last 24 Hours (Table) 04/25/22 Range/Units 06:33 Sodium 135 L (137-145) mmol/L Chloride 96 L (98-107) mmol/L BUN 33 H (7-17) mg/dL Glucose 118 H (74-99) mg/dL Calcium 8.0 L (8.4-10.2) mg/dL AST 472 H (14-36) U/L ALT 566 H (4-34) U/L Alkaline Phosphatase 191 H (38-126) U/L Total Protein 6.2 L (6.3-8.2) g/dL Albumin 3.1 L (3.5-5.0) g/dL Microbiology - Last 24 Hours (Table) 04/23/22 20:11 Gram Stain - Preliminary Sputum Sputum Culture - Preliminary Fe albicans 04/21/22 19:46 Gram Stain - Preliminary Pericardial Fluid Body Fluid Culture - Preliminary 04/21/22 19:46 Gram Stain - Preliminary Other - Other Tissue Culture - Preliminary 04/21/22 16:08 Blood Culture - Preliminary Blood No Growth after 72 hours 04/21/22 16:12 Blood Culture - Preliminary Blood No Growth after 72 hours Assessment and Plan (1) Pericardial effusion Current Visit: Yes Status: Acute Code(s): I31.39 - OTHER PERICARDIAL EFFUSION (NONINFLAMMATORY) SNOMED Code(s): 543491606 (2) Lactic acidosis Current Visit: No Status: Acute Code(s): E87.20 - ACIDOSIS, UNSPECIFIED SNOMED Code(s): 01242881 (3) Pneumonia Current Visit: No Status: Acute Code(s): J18.9 - PNEUMONIA, UNSPECIFIED ORGANISM SNOMED Code(s): 550488110 Plan: Comments and plan: At this time PT and OT are ongoing. Safety concerns noted. Demonstrate ability tolerate and benefit from therapies. Discussed inpatient rehab with patient which would currently seem reasonable. We'll await medical/surgical clearance. Discussed with patient.
[2022-04-25] MEDS: SENNOSIDES-DOCUSATE SODIUM 1 EACH TAB PO SCH (20:16)
[2022-04-26] MEDS: methylPREDNISolone SOD SUCCI 125 MG/2 ML VIAL IV SCH ×2 (00:15→05:59)
[2022-04-26] MEDS: ONDANSETRON 4 MG/2 ML VIAL IVP PRN (00:19)
[2022-04-26] MEDS: ACETAMINOPHEN TAB 325 MG TAB PO PRN ×2 (04:33→21:29)
--- NOTE | 2022-04-26 07:23 | P.PN ---
Subjective Progress Note Date: 04/26/22 PROGRESS NOTE The patient was admitted yesterday was progressive abdominal pain, fatigue and lack of energy, her CAT scan showed a large pericardial effusion and her echocardiogram revealed evidence of temponade. She underwent a pericardial window with drainage of 700 mL of bloody fluid. She's feeling better this morning, continues to have chest tenderness respirophasic pain. Her breathing is better. She denies any prior history of cardiac disease or recent upper respiratory infection. She denies any nausea or vomiting or diarrhea at home. Her blood pressure has been stable. She continues to be in sinus mechanism with frequent PACs, at times in bigeminal pattern. April 23. The patient continues to have respirophasic chest discomfort, she denies any dizziness or palpitation. She is dyspneic. She has minimal drainage from the pericardial tissue. Her urinary output is stable, she is in sinus mechanism with PACs. A repeat echocardiogram done yesterday showed an ejection fraction of 35% with suggestion of anteroseptal hypokinesis. The pathology of her fluid is pending. A chest computed tomography scan showed bilateral lung infiltrate with small pleural effusion. April 24: Pericardial tube removed, the patient is sitting up in the chair. She had mild dyspnea earlier that has improved. Her chest discomfort improved. She denies any dizziness or palpitations. She denies any nausea. She has been in sinus mechanism but had few episodes of sinus arrhythmia but no atrial fibrillation. Cytology of the fluid is pending. She is tolerating by mouth. April 25: The patient is feeling better today, sitting up in the chair. She continues to have dyspnea on exertion but no chest discomfort. She continues to be in sinus mechanism and hemodynamically stable. There is no evidence of atrial or ventricular ectopic activity. She was started on IV diuresis yesterday with improvement in her urine output. The results of her fluid pathology continues to be pending. She has evidence of right-sided effusion. Her computed tomography scan increase the likelihood of malignancy although awaiting pathology. The etiology of her cardiomyopathy is unclear. April 26: The patient continues to be mildly dyspneic, she denies any chest discomfort. She has no vomiting. She continues to be in sinus mechanism. Her pericardial fluid and tissue are consistent with metastatic adenocarcinoma. Her blood pressure has been stable and she continues to be on IV diuretics. Medications: Colchicine 0.6 mg twice a day, cefazolin, metoprolol 25 mg twice a day, Lasix 60 mg IV every 12 hours, Aldactone 25 mg daily, lisinopril 5 mg daily PHYSICAL EXAMINATION: Blood pressure 109/70 heart rate 70 LUNGS: Bilateral crackles with decreased breath sounds at the bases HEART: Regular rate and rhythm, S1, S2. No S3. No systolic murmur, no rub, ABDOMEN: Soft, nontender, no organomegaly EXTREMETIES: No edema LAB: Pending IMPRESSION: 1. Malignant pericardial effusion with metastatic adenocarcinoma, probably primary lung 2. History of smoking 3. Cardiomyopathy PLAN: 1. Change to oral diuretics 2. Stop colchicine 3. Oncology consultation 4. Unfortunately the prognosis is guarded Objective - Vital Signs Vital signs: Vital Signs Temp 98.3 F 04/26/22 04:00 Pulse 76 04/26/22 07:00 Resp 14 04/26/22 07:00 BP 109/70 04/26/22 07:00 Pulse Ox 95 04/26/22 07:00 FiO2 100 04/24/22 04:02 Intake & Output 04/25/22 04/26/22 04/26/22 18:59 06:59 18:59 Intake Total 760 120 10 Output Total 1370 1180 20 Balance -610 -1060 -10 Weight 79.8 kg Intake: IV 110 120 10 0.9 110 120 10 Intake, IV Titration 50 Amount cefTRIAXone 1 gm In 50 Sodium Chloride 0.9% 50 ml @ 100 mls/hr IVPB Q24HR REPLACED BY [facility] Rx#:[id number] Oral 600 Output: Urine 1370 1180 20 Other: Voiding Method Indwelling Catheter Indwelling Catheter # Bowel Movements 1 - Labs CBC & Chem 7: 04/23/22 05:59 04/25/22 06:33 Labs: Abnormal Lab Results - Last 24 Hours (Table) 04/25/22 Range/Units 06:33 Sodium 135 L (137-145) mmol/L Chloride 96 L (98-107) mmol/L BUN 33 H (7-17) mg/dL Glucose 118 H (74-99) mg/dL Calcium 8.0 L (8.4-10.2) mg/dL AST 472 H (14-36) U/L ALT 566 H (4-34) U/L Alkaline Phosphatase 191 H (38-126) U/L Total Protein 6.2 L (6.3-8.2) g/dL Albumin 3.1 L (3.5-5.0) g/dL Microbiology - Last 24 Hours (Table) 04/21/22 16:12 Blood Culture - Preliminary Blood No Growth after 96 hours 04/21/22 16:08 Blood Culture - Preliminary Blood No Growth after 96 hours 04/23/22 20:11 Gram Stain - Preliminary Sputum Sputum Culture - Preliminary Fe albicans 04/21/22 19:46 Gram Stain - Preliminary Pericardial Fluid Body Fluid Culture - Preliminary 04/21/22 19:46 Gram Stain - Preliminary Other - Other Tissue Culture - Preliminary
[2022-04-26 07:58] LABS: African American GFR (CKD) >90 (>60 ml/min/1.73 sqM); Anion Gap 12 mmol/L; Blood Urea Nitrogen 38 mg/dL (7-17); Calcium 7.9 mg/dL (8.4-10.2); Carbon Dioxide 28 mmol/L (22-30); Chloride 96 mmol/L (98-107); Glucose 116 mg/dL (74-99); Non-African American GFR(CKD) >90 (>60 ml/min/1.73 sqM); Potassium 4.1 mmol/L (3.5-5.1); Sodium 136 mmol/L (137-145)
--- NOTE | 2022-04-26 08:41 | P.PN ---
Subjective Progress Note Date: 04/26/22 Principal diagnosis: Large circumferential pericardial effusion with tamponade, leukocytosis, acute kidney injury, transaminitis, bilateral pleural effusions. Current tobacco depe ndence POD #5 emergent pericardial window with transesophageal echocardiogram, removal of 700 mL bloody fluid The patient was seen and examined in follow-up today 04/26/2022 at her bedside in the intensive care unit. Currently she is lying in bed, is awake, alert, oriented 3 and in no acute distress. Oxygen saturation are 95% on 4 L nasal cannula and she is achieving around 750 mL on her incentive spirometry with encouragement. Bedside telemetry showing normal sinus rhythm heart rate 84 BPM. Her cytology from her pericardial fluid showed a positive result consistent with metastatic adenocarcinoma, however the pattern was nonspecific as to a potential primary site of origin. The pericardium biopsy showed positive result for metastatic adenocarcinoma with a nonspecific site of origin, although the report stated a potential primary site based on the staining pattern included lung, breast and upper gastrointestinal/pancreatobiliary tract among other possibilities. Laboratory results this morning remain pending. Objective - Vital Signs Vital signs: Vital Signs Temp 98.3 F 04/26/22 04:00 Pulse 76 04/26/22 07:00 Resp 14 04/26/22 07:00 BP 109/70 04/26/22 07:00 Pulse Ox 95 04/26/22 07:00 FiO2 100 04/24/22 04:02 Intake & Output 04/25/22 04/26/22 04/26/22 18:59 06:59 18:59 Intake Total 760 120 10 Output Total 1370 1180 20 Balance -610 -1060 -10 Weight 79.8 kg Intake: IV 110 120 10 0.9 110 120 10 Intake, IV Titration 50 Amount cefTRIAXone 1 gm In 50 Sodium Chloride 0.9% 50 ml @ 100 mls/hr IVPB Q24HR [facility] Rx#:[id number] Oral 600 Output: Urine 1370 1180 20 Other: Voiding Method Indwelling Catheter Indwelling Catheter # Bowel Movements 1 - Exam CONSTITUTIONAL: Appears comfortable, cooperative, no acute distress RESPIRATORY: Lungs sounds diminished bilaterally. Respirations are symmetrical and nonlabored. Currently on 4 L nasal cannula with oxygen saturation 95%. Strong productive cough. CARDIOVASCULAR: S1, S2 present. Regular rate and rhythm, sinus rhythm on telemetry with a heart rate of 83 BPM. Palpable peripheral pulses bilaterally. Trace bilateral lower extremity edema present. GASTROINTESTINAL: Abdomen soft, nontender, nondistended. Active bowel sounds present 4 quadrants. Tolerating minimal diet. GENITOURINARY: Monreal present draining clear, yellow urine. Output 470 mL overnight. INTEGUMENTARY: Skin is warm and dry, no clubbing or cyanosis is present. NEUROLOGIC: Cranial nerves II through XII intact. No focal deficits. MUSKULOSKELETAL: Able to move all extremities, strength equal bilaterally. PSYCHIATRIC: Alert and oriented to person place and time, flat affect, intact judgment and insight. - Allied health notes Allied health notes reviewed: nursing - Labs CBC & Chem 7: 04/23/22 05:59 04/26/22 07:08 Labs: Abnormal Lab Results - Last 24 Hours (Table) 04/26/22 Range/Units 07:08 Sodium 136 L (137-145) mmol/L Chloride 96 L (98-107) mmol/L BUN 38 H (7-17) mg/dL Glucose 116 H (74-99) mg/dL Calcium 7.9 L (8.4-10.2) mg/dL Microbiology - Last 24 Hours (Table) 04/21/22 16:12 Blood Culture - Preliminary Blood No Growth after 96 hours 04/21/22 16:08 Blood Culture - Preliminary Blood No Growth after 96 hours 04/23/22 20:11 Gram Stain - Preliminary Sputum Sputum Culture - Preliminary Fe albicans 04/21/22 19:46 Gram Stain - Preliminary Pericardial Fluid Body Fluid Culture - Preliminary 04/21/22 19:46 Gram Stain - Preliminary Other - Other Tissue Culture - Preliminary Assessment and Plan Assessment: 1. Large circumferential pericardial effusion with tamponade physiology, unknown etiology, status post emergent pericardial window, pericardial fluid cytology and pericardial biopsy showed a positive result for metastatic adenocarcinoma, nonspecific as to site of origin 2. Leukocytosis, elevated procalcitonin 0.76 3. Acute kidney injury 4. Transaminitis 5. Bilateral pleural effusions, small on CT, moderate on echo 6. Reduce left ventricular systolic function with EF 35% and anteroseptal hypokinesia on repeat echo yesterday 7. Current tobacco dependence 8. Acute hypoxia Plan: 1. Pericardial fluid and pericardial biopsy cytology/pathology results have been discussed with the patient by primary care. Dr. Treadwell from oncology has been consulted. 2. Wean O2 as tolerated. Encourage incentive spirometry use 10 times every hour while awake. 3. Pericardial fluid cytology/pathology results showed positive for metastatic adenocarcinoma with a nonspecific site of origin. 4. Increase activity as tolerated. 5. Increase diet as tolerated. 6. Medical management of other comorbidities per primary care, cardiology. 7. Will continue to see on an as-needed basis. Time with Patient: Greater than 30
[2022-04-26] MEDS: SPIRONOLACTONE 25 MG TAB PO SCH (09:01)
[2022-04-26] MEDS: METOPROLOL TARTRATE 25 MG TAB PO SCH ×2 (09:01→21:29)
[2022-04-26] MEDS: FUROSEMIDE 40 MG TAB PO SCH ×2 (09:01→21:29)
[2022-04-26] MEDS: lisinopriL 5 MG TAB PO SCH ×2 (09:01→11:35)
[2022-04-26] MEDS: IPRATROPIUM-ALBUTEROL 3 ML NEB INHALATION SCH ×4 (09:20→20:51)
--- NOTE | 2022-04-26 10:16 | XR ---
EXAMINATION TYPE: XR chest 1V DATE OF EXAM: 04/26/2022 9:51 AM COMPARISON: Chest radiographs from 04/24/2022. TECHNIQUE: XR chest 1V Portable AP radiograph of the chest. CLINICAL INDICATION:Female, 57 years old with history of sob; FINDINGS: Lungs/Pleura: Similar multifocal airspace opacities. No evidence of pneumothorax or pleural effusion. Pulmonary vascularity: Pulmonary vascular congestion. Heart/mediastinum: Cardiac size is normal. Musculoskeletal: No acute osseous pathology. IMPRESSION: Improved aeration of the lung in today's exam. Persistent multifocal airspace opacities.
[2022-04-26 11:02] VITALS: BMI 35.5
--- NOTE | 2022-04-26 11:14 | P.PN ---
Subjective Progress Note Date: 04/26/22 Principal diagnosis: Pericardial effusion. 04/23/2022, the patient is postop day #2 following a pericardial window. The pericardial tube is still in place. Output is minimal at this point in time. The fluid/pericardial fluid cytology still pending for now. Meanwhile, Of the Chest Was Done and There Is a Larger Right Paratracheal Opacity There Was Noted on the CAT Scan of the Chest That Was Done with Contrast Measuring 2.7 Cm in Size and It Is a Soft Tissue Density and there are also multiple scattered small lymph nodes within the mediastinum and the largest subcarinal lymph nodes. At the same time, there is some patchy but the pulmonary infiltrates and a small pericardial effusion. Small pleural effusions also present. Repeat echocardiogram was done and the patient's ejection fraction dropped down to 35%. Noted the original echocardiogram was within normal limits. This obviously may indicate the possibility of viral myocarditis causing global LV dysfunction. In enervates, the final diagnosis has not been received. The patient remains on colchicine. Oxygenation got worse and the patient is currently on 9 L. Antibiotics have been started on an empiric basis and the patient was given a dose of Lasix. LFTs are gradually improving. Sodium level is stable at 129. The white cell count is still elevated. X-ray is showing increased interstitial markings bilaterally consistent with CHF/questionable pneumonia 12/22/2021, the patient is postop day #3. On today's evaluation, the pericardial tube was removed adenopathy was minimal.Awaiting for the final fluid cytology. Meanwhile, the patient had some issues with shortness of breath and oxygen desaturation. The chest x-ray also showed diffuse bilateral pulmonary infiltrates with interval worsening. Obviously, an infectious were considered. The patient was given diuretics. She was given a dose of Lasix 40 mg IV 1 and she produced approximately 800 mL of urine output. She was also started on broad-spectrum antibiotics. She is currently on a combination of Rocephin and Zithromax. Nevertheless, the possibility of a bacterial infection is extremely low. Pro-calcitonin is negative and the clinical presentation does not seem to be in agreement with bacterial pneumonia or infection. Possibility of an acute ARDS is also likely with hemoglobin of 9 cardiogenic pulmonary edema. This started with her oxygenation yesterday. She was placed on 100% nonrebreather facemask. She was placed on high flow oxygen with Airvo , and currently she is on oxygen at 14 L with a pulse ox of 93%. Slightly bronchospastic and wheezy. Suspect is in the mid and lower lung jose bilaterally. Sodium is at 129 with a potassium level of 5.5, BUN is at 39 with a creatinine of 0.7, white cell co unt at 19.2. The proBNP level from yesterday was 8410. There was some further impairment of LV function based on the repeat echocardiogram that was done by cardiology. Based on the limited echocardiogram that was done on 04/22/2022, the patient had severe LV dysfunction with hypokinesis of the anterior septal wall and an ejection fraction of 35%. A comment was made regarding a left-sided pleural effusion. Progress note dated 04/25/2022. 57-year-old female seen in room 264, of the intensive care unit. The patient was admitted to the hospital on April 21, was found to have a large peric ardial effusion. The patient underwent surgery with a pericardial window, by Dr. Rankin, on April 21. She was intubated for the procedure on April 21, and extubated on the subsequent day, April 22. The pericardial catheter was removed on April 24. Pathology, from the fluid this morning, is currently still pending. She's getting saline at 10 mL an hour, and oxygen at 8 L. Her oxygen can be titrated down as her saturations are excellent. Sodium 135, potassium 4.7, chloride 96, CO2 27, BUN 33, and creatinine 0.7. AST is 472. ALT is 566. Albumin is 3.1. Progress note dated 04/26/2022. 57-year-old female seen in room 264. The patient was admitted to the hospital on April 21, and was found to have a large pericardial effusion. The patient underwent surgery with a pericardial window, and catheter, by Dr. Rankin, on April 21. She was intubated for the procedure, on April 21, and extubated the subsequent day, April 22. The pericardial catheter was removed April 24. The pathology from the fluid is showing evidence of adenocarcinoma, primary unknown. Currently, she is on 4 L of oxygen. She's getting saline at 10 mL an hour. The patient will have a chest x-ray today. Also, the patient will be seen by medical oncology today. Clinically, she's feeling better. Sodium 136, potassium 4.1, chlorides 96, CO2 28, BUN 38, and creatinine 0.71. Objective - Vital Signs Vital signs: Vital Signs Temp 98.1 F 04/26/22 08:00 Pulse 87 04/26/22 10:00 Resp 24 04/26/22 10:00 BP 100/80 04/26/22 10:00 Pulse Ox 94 L 04/26/22 10:00 FiO2 100 04/24/22 04:02 Intake & Output 04/25/22 04/26/22 04/26/22 18:59 06:59 18:59 Intake Total 760 120 40 Output Total 1370 1180 145 Balance -610 -1060 -105 Weight 79.8 kg 79.8 kg Intake: IV 110 120 40 0.9 110 120 40 Intake, IV Titration 50 Amount cefTRIAXone 1 gm In 50 Sodium Chloride 0.9% 50 ml @ 100 mls/hr IVPB Q24HR [facility] Rx#:[id number] Oral 600 Output: Urine 1370 1180 145 Other: Voiding Method Indwelling Catheter Indwelling Catheter Indwelling Catheter # Bowel Movements 1 - Exam No acute distress, oriented 3. Currently on4L high flow oxygen. HEENT examination is grossly unremarkable. Neck supple. Full range of motion. No adenopathy thyromegaly or neck vein distention. Cardiovascular examination reveals regular rhythm rate. S1-S2 normal. No S3 or S4. No discernible murmur noted. Heart rate 87 bpm. Lungs reveal clear breath sounds. Breath sounds are equal bilaterally. No adventitious lung sounds including wheezes rhonchi or crackles. Abdomen soft bowel sounds are heard. No masses or tenderness. Extremities are intact. No cyanosis clubbing or edema. Skin is without rash or lesion. Neurologic examination is brief but nonfocal. - Labs CBC & Chem 7: 04/23/22 05:59 04/26/22 07:08 Labs: Abnormal Lab Results - Last 24 Hours (Table) 04/26/22 Range/Units 07:08 Sodium 136 L (137-145) mmol/L Chloride 96 L (98-107) mmol/L BUN 38 H (7-17) mg/dL Glucose 116 H (74-99) mg/dL Calcium 7.9 L (8.4-10.2) mg/dL Microbiology - Last 24 Hours (Table) 04/23/22 20:11 Gram Stain - Final Sputum Sputum Culture - Final Fe albicans 04/21/22 19:46 Gram Stain - Final Pericardial Fluid Body Fluid Culture - Final 04/21/22 19:46 Gram Stain - Final Other - Other Tissue Culture - Final 04/21/22 16:12 Blood Culture - Preliminary Blood No Growth after 96 hours 04/21/22 16:08 Blood Culture - Preliminary Blood No Growth after 96 hours Assessment and Plan Assessment: Large pericardial effusion, with tamponade physiology, of unclear etiology, status post emergent pericardial window, postop day #5. Pericardial fluid pathology is positive for metastatic adenocarcinoma, primary unknown. Status post intubation on April 21, with extubation on April 22. Acute cardiomyopathy with an ejection fraction of 35%. Bilateral pleural effusions, small. 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 Acute kidney injury. Elevated liver function tests. Chronic tobacco dependence. Plan: Plan dated 04/25/2022. The fluid analysis, is currently still pending. This pericardial effusion could be viral, or malignant. It also could be idiopathic. Additional recommendations and suggestions are forthcoming. Prognosis is certainly guarded. Oxygen can be titrated down. Her saturations are excellent. Pleural effusions are small and don't require thoracentesis. We will continue to follow and make recommendations along the way. Plan dated 04/26/2022. The patient's oxygen requirements have been weaned down. The patient will be seen by medical oncology today. We'll also get a chest x-ray today. Additional recommendations and suggestions are forthcoming. The results of pathology of the pericardial fluid is discussed no additional recommendations are made. Prognosis is certainly guarded. We will continue to follow. Time with Patient: Less than 30
[2022-04-26] MEDS ORDERED: FUROSEMIDE 10 MG/ML 4 ML VIAL IV STA (11:24)
[2022-04-26] MEDS: SALT AND SODA MOUTHWASH 1,000 ML PO SCH ×4 (12:05→23:39)
[2022-04-26] MEDS: MAG HYDROX/AL HYDROX/SIMETH 30 ML, LIDOCAINE VISCOUS 2% 30 ML, diphenhydrAMINE ELIXIR 7... PO SCH ×12 (12:07→21:42)
[2022-04-26 12:36] LABS: HCT 32.7 % (34.0-46.0); HGB 10.5 gm/dL (11.4-16.0); Hypochromasia Slight; MCH 31.6 pg (25.0-35.0); MCHC 32.1 g/dL (31.0-37.0); MCV 98.4 fL (80.0-100.0); Mean Platelet Volume 9.4; Platelet Count 268 k/uL (150-450); RBC 3.32 m/uL (3.80-5.40); RDW 13.8 % (11.5-15.5); WBC 16.6 k/uL (3.8-10.6)
--- NOTE | 2022-04-26 13:51 | P.PN ---
Subjective Progress Note Date: 04/26/22 Patient is improving with diuresis, now only requiring 4L NC. Pt diagnosed with metastatic adenocarcinoma yesterday after reviewing pathology. Pt was notified. Gen: awake, alert HEENT: normocephalic, atraumatic, good hearing acuity, moist mucous membranes Resp: good air exchange, breathing comfortably with no accessory muscle use, bilateral crackles CVS: good distal perfusion x 4, regular rate and rhythm without murmurs GI: soft, NTTP, ND : no SPT, no CVAT, carnes catheter is present MSK: no pitting edema, no clubbing Neuro: non-focal, moving all extremities Psych: cooperative, euthymic mood Assessment/plan: Cardiac Tamponade, pericardial effusion s/p pericardial window Acute Hypoxemic Respiratory Failure Acute on Chronic Systolic Heart Failure, EF 35% Leukocytosis Transaminitis, likely due to hypotension and hepatic congestion - CT surgery recs - Cardio recs: cholicine - ESR elevated, Troponin normal, TSH normal - CT Chest with mediastinal LAD - Pericardial fluid cultures, cytology pending - pericardial biopsy shows metastatic adenocarcinoma - blood cultures NGTD - Sputum cultures, fe, no bacteria - Ceftriaxone - Lasix 60mg IV BID - follow Kidney and liver function - Avoid additional nephrotoxic agents - CRISTIN and rheumatoid factor are negative - Coxsackie B Abs pending Metastatic Adenocarcinoma - oncology consulted Hyponatremia with Hypervolemia - improving with diuretics - repeat sodium in AM Tobacco abuse - cessation Hypotension, resolved SHELDON, resolved DVT prophylaxis: SCDs Objective - Vital Signs Vital signs: Vital Signs Temp 98.1 F 04/26/22 12:00 Pulse 89 04/26/22 13:00 Resp 21 04/26/22 13:00 BP 130/87 04/26/22 13:00 Pulse Ox 98 04/26/22 13:00 FiO2 100 04/26/22 12:00 Intake & Output 04/25/22 04/26/22 04/26/22 18:59 06:59 18:59 Intake Total 760 120 70 Output Total 1370 1180 735 Balance -418 -3210 -980 Weight 79.8 kg 79.8 kg Intake: IV 110 120 70 0.9 110 120 70 Intake, IV Titration 50 Amount cefTRIAXone 1 gm In 50 Sodium Chloride 0.9% 50 ml @ 100 mls/hr IVPB Q24HR [facility] Rx#:[id number] Oral 600 Output: Urine 1370 1180 735 Other: Voiding Method Indwelling Catheter Indwelling Catheter Indwelling Catheter # Bowel Movements 1 - Labs CBC & Chem 7: 04/26/22 07:08 04/26/22 07:08 Labs: Abnormal Lab Results - Last 24 Hours (Table) 04/26/22 04/26/22 Range/Units 07:08 07:08 WBC 16.6 H (3.8-10.6) k/uL RBC 3.32 L (3.80-5.40) m/uL Hgb 10.5 L (11.4-16.0) gm/dL Hct 32.7 L (34.0-46.0) % Sodium 136 L (137-145) mmol/L Chloride 96 L (98-107) mmol/L BUN 38 H (7-17) mg/dL Glucose 116 H (74-99) mg/dL Calcium 7.9 L (8.4-10.2) mg/dL Microbiology - Last 24 Hours (Table) 04/21/22 19:46 Anaerobic Culture - Final Pericardial Fluid 04/21/22 19:46 Anaerobic Culture - Final Pericardial Fluid 04/23/22 20:11 Gram Stain - Final Sputum Sputum Culture - Final Fe albicans 04/21/22 19:46 Gram Stain - Final Pericardial Fluid Body Fluid Culture - Final 04/21/22 19:46 Gram Stain - Final Other - Other Tissue Culture - Final 04/21/22 16:12 Blood Culture - Preliminary Blood No Growth after 96 hours 04/21/22 16:08 Blood Culture - Preliminary Blood No Growth after 96 hours
--- NOTE | 2022-04-26 14:00 | USB ---
Reason for Exam: Clinical finding. Patient History: Menarche at age 13. First Full-Term at age 18. Hormonal Contraceptives, from age 19 until age 38. Risk Values: Geraldine 5 year model risk: 0.9%. NCI Lifetime model risk: 5.9%. Technique: Method: Whole Breast Handheld. Prior Study Comparison: 10/20/2013 Bilateral Screening Mammogram, [facility]. Findings: The whole breast of both breasts, the axilla of both breasts and the retroareolar of both breasts were scanned. A complete US of all four quadrants of both breasts, axillary and retro-areolar region were reviewed. No solid or cystic masses are identified in either breast. Overall Assessment: Negative, BI-RAD 1 Management: Screening Mammogram of both breasts in 1 year. A clinical breast exam by your physician is recommended on an annual basis and results should be correlated with mammographic findings. This exam should not preclude additional follow-up of suspicious palpable abnormalities. Results were given to the patient verbally at the time of exam. Electronically signed and approved by: James Hayes DO
--- NOTE | 2022-04-26 14:42 | P.GSCN ---
History of Present Illness Consult date: 04/26/22 History of present illness: CHIEF COMPLAINT: Abdominal pain HISTORY OF PRESENT ILLNESS: This is a 57-year-old female who presented with abdominal pain and shortness of breath on 04/21/2022. On computed tomography scan she was found have a evidence of a large pericardial effusion. She was diagnosed with pericardial effusion with tamponade. She is status post emergent pericardial window on 04/21/[address] Rankin. Pericardial fluid is positive for metastatic adenocarcinoma with unknown primary. Patient denies any cancer history. Denies any severe family cancer history. She is a smoker. She's never had EGD or colonoscopy completed. She denies any unexplained weight loss. She has been having abdominal pain across the upper abdomen. She did have nausea and dry heaves. She does report abdominal bloating. Her bowel movements have been soft. She's also having flatus. Denies any blood in her stools. She currently is in the ICU on 4 L of oxygen. She is receiving Lasix for pleural effusions. Surgical service has been consulted for adenocarcinoma with unknown primary and epigastric pain. PAST MEDICAL HISTORY: See below PAST SURGICAL HISTORY: Tubal ligation MEDICATIONS: See below ALLERGIES: See below SOCIAL HISTORY: No illicit drug use. Nicotine dependence REVIEW OF SYSTEMS: CONSTITUTIONAL: Denies fever or chills. HEENT: Denies blurred vision, vision changes, or eye pain. Denies hemoptysis CARDIOVASCULAR: Denies chest pain or pressure. RESPIRATORY: No shortness of breath. GASTROINTESTINAL: See HPI for pertinent findings HEMATOLOGIC: Denies bleeding disorders. GENITOURINARY: Denies any blood in urine or increased urinary frequency. SKIN: Denies pruitis. Denies rash. PHYSICAL EXAM: VITAL SIGNS: Reviewed GENERAL: Well-developed in no acute distress. HEENT: No sclera icterus. Extraocular movements grossly intact. Moist buccal mucosa. Head is atraumatic, normocephalic. No nasal drainage. ABDOMEN: Soft. Nondistended. Tenderness at incision site from pericardial window. NEUROLOGIC: Alert and oriented. Cranial nerves II through XII grossly intact. LABORATORY DATA: WBC is 16.6 Hgb 10.5 platelets 268 Sodium is 136 potassium 4.1 and creatinine 0.71 Total bilirubin 0.7 AST 472 ALT 566 alk phos 191 IMAGING: Echo EF of 35%. And severe LV systolic dysfunction with hypokinetic anterior septal. Small pericardial effusion. Large pleural effusion. Bilateral breast ultrasound. No solid or cystic masses identified ASSESSMENT: 1. Pericardial fluid positive for adenocarcinoma with unknown primary 2. Large pericardial effusion with tamponade status post pericardial window 3. Acute cardiomyopathy with EF of 35% 4. Elevated liver enzymes 5. Nicotine dependence PLAN: -Further recommendations forthcoming per surgeon regarding endoscopies -Continue ICU management -Continue supportive care Thank you for this consultation Physician [employer] And Human Performance Professor note has been reviewed by physician. Signing provider agrees with the documented findings, assessment, and plan of care. I have personally seen and examined the patient, reviewed the PLUMBING TECHNICIAN /PAs history, exam and MDM and agree with the assessment and plan as written. Based on total visit time, I have performed more than 50% of the visit. As above: Patient with recent findings of malignant pericardial effusion. CAT scan of the abdomen and pelvis on arrival also shows ascites, some retroperitoneal edema, some gallbladder wall thickening. Patient's symptoms prior to admission favor a upper GI or biliary source source of malignancy. We'll proceed with upper and lower endoscopy on Friday. We'll check CA-19-9 level. Patient may benefit from endoscopic ultrasound if endoscopy is negative. Past Medical History Past Medical History: No Reported History History of Any Multi-Drug Resistant Organisms: None Reported Past Surgical History: No Surgical Hx Reported Additional Past Surgical History / Comment(s): tubal ligation Past Anesthesia/Blood Transfusion Reactions: No Reported Reaction Past Psychological History: No Psychological Hx Reported Smoking Status: Current every day smoker (1.5 ppd 30-40 years) Past Drug Use History: None Reported - Past Family History Father Family Medical History: Hypertension Additional Family Medical History / Comment(s): of an [place] at age 51 Brother(s) Family Medical History: Hypertension Additional Family Medical History / Comment(s): Aunt with brain cancer Medications and Allergies Home Medications Medication Instructions Recorded Confirmed Type Azithromycin [Zithromax Z Pack] See Taper PO DIRECTED 04/21/22 04/21/22 History Allergies Allergy/AdvReac Type Severity Reaction Status Date / Time No Known Allergies Allergy Verified 04/21/22 14:27 Surgical - Exam Vital Signs Temp Pulse Resp BP Pulse Ox 97.8 F 110 H 18 86/65 99 04/21/22 11:40 04/21/22 11:40 04/21/22 11:40 04/21/22 11:40 04/21/22 11:40 Results - Labs 04/26/22 07:08 04/26/22 07:08 Abnormal Lab Results - Last 24 Hours (Table) 04/26/22 04/26/22 Range/Units 07:08 07:08 WBC 16.6 H (3.8-10.6) k/uL RBC 3.32 L (3.80-5.40) m/uL Hgb 10.5 L (11.4-16.0) gm/dL Hct 32.7 L (34.0-46.0) % Sodium 136 L (137-145) mmol/L Chloride 96 L (98-107) mmol/L BUN 38 H (7-17) mg/dL Glucose 116 H (74-99) mg/dL Calcium 7.9 L (8.4-10.2) mg/dL Microbiology - Last 24 Hours (Table) 04/21/22 19:46 Anaerobic Culture - Final Pericardial Fluid 04/21/22 19:46 Anaerobic Culture - Final Pericardial Fluid 04/23/22 20:11 Gram Stain - Final Sputum Sputum Culture - Final Fe albicans 04/21/22 19:46 Gram Stain - Final Pericardial Fluid Body Fluid Culture - Final 04/21/22 19:46 Gram Stain - Final Other - Other Tissue Culture - Final 04/21/22 16:12 Blood Culture - Preliminary Blood No Growth after 96 hours 04/21/22 16:08 Blood Culture - Preliminary Blood No Growth after 96 hours Diabetes panel 04/26/22 Range/Units 07:08 Sodium 136 L (137-145) mmol/L Potassium 4.1 (3.5-5.1) mmol/L Chloride 96 L (98-107) mmol/L Carbon Dioxide 28 (22-30) mmol/L BUN 38 H (7-17) mg/dL Creatinine 0.71 (0.52-1.04) mg/dL Glucose 116 H (74-99) mg/dL Calcium 7.9 L (8.4-10.2) mg/dL Calcium panel 04/26/22 Range/Units 07:08 Calcium 7.9 L (8.4-10.2) mg/dL Pituitary panel 04/26/22 Range/Units 07:08 Sodium 136 L (137-145) mmol/L Potassium 4.1 (3.5-5.1) mmol/L Chloride 96 L (98-107) mmol/L Carbon Dioxide 28 (22-30) mmol/L BUN 38 H (7-17) mg/dL Creatinine 0.71 (0.52-1.04) mg/dL Glucose 116 H (74-99) mg/dL Calcium 7.9 L (8.4-10.2) mg/dL Adrenal panel 04/26/22 Range/Units 07:08 Sodium 136 L (137-145) mmol/L Potassium 4.1 (3.5-5.1) mmol/L Chloride 96 L (98-107) mmol/L Carbon Dioxide 28 (22-30) mmol/L BUN 38 H (7-17) mg/dL Creatinine 0.71 (0.52-1.04) mg/dL Glucose 116 H (74-99) mg/dL Calcium 7.9 L (8.4-10.2) mg/dL
--- NOTE | 2022-04-26 20:02 | P.CONS ---
History of Present Illness - Reason for Consult Consult date: 04/26/22 adenocarcinoma Requesting physician: Alejandrina Pollack - Chief Complaint SOB - History of Present Illness Mrs. Alejandro is a very pleasant 57-year-old female With a benign past medical history, we have been asked to see because of pericardial tissue and pericardial fluid positive for adenocarcinoma, Unknown primary, possibly lung, breast, pancreatic, upper GI. She was admitted with persistent and progressive shortness of breath over the previous 2 weeks, Imaging revealed small bilateral pleural effusions, large pericardial effusion. She is status post pericardial window. Pathology as stated above. The atypical cells are immunohistochemically positive for MOC 31 and CK 7. Negative for calretinin, CDX2, CK 20, estrogen receptor, GATA3, Napsin A, PAX 8 and TTF-1. Patient states that she was in her usual state of health until about 2 weeks ago. She noticed a rather sudden onset of fatigue, she became tired much easier. As time went on breathing became harder, she was SOB with minimal activity. She noted pain across the upper part of her abdomen, this was associated with distention as well as constipation. She denies unintentional weight loss, sweats, difficulty swallowing, nausea, vomiting, chest pain or palpitations, dysuria, hematuria, hematochezia or melena, rashes, joint swelling, bleeding or unusual bruising. Patient denies any personal history of cancer. There is family history of an aunt with brain cancer. She reports abnormal Pap smears in the past, reported as atypical cells but, then she would have a normal Pap smear. Her last one she is not remembering. Last mammogram was 2018 in [place], no self breast exams. Patient is never had a colonoscopy or ColoGuard testing. Patient is a 30-40 year 1-1/2 pack per day smoker, no illicit drugs prescription drugs or EtOH abuse. CT of the AP with contrast showed ascites, no other abnormalities. CT chest with contrast 04/22 showed a soft tissue density 2.7 x 2 cm on the right paratracheal area, some mediastinal lymph nodes. Review of Systems 10 point ROS is neg except as stated in HPI Past Medical History Past Medical History: No Reported History History of Any Multi-Drug Resistant Organisms: None Reported Past Surgical History: No Surgical Hx Reported Additional Past Surgical History / Comment(s): tubal ligation Past Anesthesia/Blood Transfusion Reactions: No Reported Reaction Past Psychological History: No Psychological Hx Reported Smoking Status: Current every day smoker (1.5 ppd 30-40 years) Past Drug Use History: None Reported - Past Family History Father Family Medical History: Hypertension Additional Family Medical History / Comment(s): of an [place] at age 51 Brother(s) Family Medical History: Hypertension Additional Family Medical History / Comment(s): Aunt with brain cancer Medications and Allergies Home Medications Medication Instructions Recorded Confirmed Type Azithromycin [Zithromax Z Pack] See Taper PO DIRECTED 04/21/22 04/21/22 History Allergies Allergy/AdvReac Type Severity Reaction Status Date / Time No Known Allergies Allergy Verified 04/21/22 14:27 Physical Exam Vitals: Vital Signs Temp Pulse Resp BP Pulse Ox 04/26/22 09:31 89 04/26/22 09:23 96 04/26/22 09:20 84 04/26/22 09:00 85 19 118/73 93 L 04/26/22 08:00 98.1 F 77 19 108/66 96 04/26/22 07:00 76 14 109/70 95 04/26/22 06:00 77 13 116/72 96 04/26/22 05:00 77 17 121/76 97 04/26/22 04:00 98.3 F 77 15 108/74 94 L 04/26/22 03:00 78 13 114/74 96 04/26/22 02:09 79 15 114/74 95 04/26/22 01:00 79 18 114/69 94 L 04/26/22 00:00 97.8 F 78 14 114/78 97 04/25/22 23:00 77 16 114/81 98 04/25/22 22:00 79 13 134/81 98 04/25/22 21:00 82 14 116/72 96 04/25/22 20:00 97.7 F 85 19 128/81 96 04/25/22 19:00 94 22 110/80 94 L 04/25/22 18:00 85 21 102/70 95 04/25/22 17:00 90 22 113/68 95 04/25/22 16:00 98.1 F 89 24 111/68 95 04/25/22 15:33 86 04/25/22 15:25 83 04/25/22 15:00 85 24 111/69 95 04/25/22 14:12 87 22 115/79 95 04/25/22 13:00 87 16 112/72 94 L 04/25/22 12:00 98.1 F 87 20 114/74 94 L 04/25/22 11:21 87 04/25/22 11:10 85 04/25/22 11:09 95 04/25/22 11:00 87 22 122/91 94 L 04/25/22 10:00 85 15 131/81 95 Intake and Output 04/25/22 04/26/22 04/26/22 22:59 06:59 14:59 Intake Total 200 80 30 Output Total 850 470 65 Balance -650 -390 -35 Intake: IV 80 80 30 0.9 80 80 30 Oral 120 Output: Urine 850 470 65 Other: Voiding Method Indwelling Catheter Indwelling Catheter Indwelling Catheter Weight 79.8 kg - Constitutional pt is diaphoretic General appearance: average body habitus, cooperative, no acute distress - EENT Eyes: anicteric sclerae, EOMI ENT: hearing grossly normal, thrush (dry mucus membranes) - Neck Neck: no lymphadenopathy - Respiratory Respiratory: bilateral: rhonchi (scattered), wheezing (scattered) - Cardiovascular Rhythm: regular Heart sounds: normal: S1, S2 Abnormal Heart Sounds: no systolic murmur, no diastolic murmur, no rub, no S3 Gallop, no S4 Gallop, no click, no other leg Peripheral Edema: bilateral: None - Gastrointestinal General gastrointestinal: no absent bowel sounds, no decreased bowel sounds, distended, no hepatomegaly, no hyperactive bowel sounds, normal bowel sounds, no organomegaly, no rigid, no scaphoid, soft, no splenomegaly, tenderness, no umbilical hernia, no ventral hernia Localized gastrointestinal: tender: epigastric periumbilical - Integumentary Integumentary: normal - Neurologic Neurologic: CNII-XII intact - Musculoskeletal Musculoskeletal: strength equal bilaterally - Psychiatric Psychiatric: A&O x's 3, appropriate affect, intact judgment & insight Results CBC & Chem 7: 04/26/22 07:08 04/26/22 07:08 Labs: Abnormal Lab Results - Last 24 Hours (Table) 04/26/22 Range/Units 07:08 Sodium 136 L (137-145) mmol/L Chloride 96 L (98-107) mmol/L BUN 38 H (7-17) mg/dL Glucose 116 H (74-99) mg/dL Calcium 7.9 L (8.4-10.2) mg/dL Microbiology - Last 24 Hours (Table) 04/21/22 19:46 Gram Stain - Final Pericardial Fluid Body Fluid Culture - Final 04/21/22 19:46 Gram Stain - Final Other - Other Tissue Culture - Final 04/21/22 16:12 Blood Culture - Preliminary Blood No Growth after 96 hours 04/21/22 16:08 Blood Culture - Preliminary Blood No Growth after 96 hours 04/23/22 20:11 Gram Stain - Preliminary Sputum Sputum Culture - Preliminary Fe albicans CT scan - abdomen: report reviewed CT scan - chest: report reviewed CT scan - pelvis: report reviewed Assessment and Plan (1) Pericardial effusion Current Visit: Yes Status: Acute Priority: High Code(s): I31.39 - OTHER PERICARDIAL EFFUSION (NONINFLAMMATORY) SNOMED Code(s): 261423543 (2) Adenocarcinoma Current Visit: Yes Status: Acute Priority: High Code(s): C80.1 - MALIGNANT (PRIMARY) NEOPLASM, UNSPECIFIED SNOMED Code(s): 366251232 Plan: Reviewed case with Dr. Treadwell. Based on pt symptoms, cytology and not being current on age related cancer screenings start with US of the breasts and Surgical consult for EGD. On CT chest there is a peritracheal soft tissue mass. Have reviewed Pulmonary notes. May consider biopsy of this if nothing found with other examinations and once pt is more stable. May be done outpt. Requesting malignant specimen blocks for NGS and PD-L1 testing. If no primary can be determined OncotypeDx is another option to narrow down possible primary site. All of the above was discussed with pt. She understands that it may take 1-2 weeks before she will have a diagnosis. At that time prognosis and treatment options can be reviewed. All of her questions were answered to the best of my ability with the information available at this time.
[2022-04-26] MEDS: SENNOSIDES-DOCUSATE SODIUM 1 EACH TAB PO SCH (21:33)
[2022-04-27] MEDS: MORPHINE SULFATE 4 MG/ML SYRINGE IVP PRN ×3 (00:41→20:22)
[2022-04-27] MEDS: ONDANSETRON 4 MG/2 ML VIAL IVP PRN ×2 (00:45→15:37)
[2022-04-27] MEDS: IPRATROPIUM-ALBUTEROL 3 ML NEB INHALATION SCH ×4 (10:02→20:13)
[2022-04-27] MEDS: SALT AND SODA MOUTHWASH 1,000 ML PO SCH ×4 (10:54→20:21)
[2022-04-27] MEDS: METOPROLOL TARTRATE 25 MG TAB PO SCH ×2 (10:57→20:21)
[2022-04-27] MEDS: MAG HYDROX/AL HYDROX/SIMETH 30 ML, LIDOCAINE VISCOUS 2% 30 ML, diphenhydrAMINE ELIXIR 7... PO SCH ×12 (10:57→22:20)
[2022-04-27] MEDS: SPIRONOLACTONE 25 MG TAB PO SCH (10:57)
[2022-04-27] MEDS: lisinopriL 5 MG TAB PO SCH (10:57)
[2022-04-27] MEDS: FUROSEMIDE 40 MG TAB PO SCH ×2 (10:57→20:21)
--- NOTE | 2022-04-27 11:14 | P.PN ---
Subjective Progress Note Date: 04/27/22 Principal diagnosis: Metastatic cancer Patient feels well this morning. No abdominal pain currently. Tolerating diet. Shortness of breath improved. Objective - Vital Signs Vital signs: Vital Signs Temp 97.8 F 04/27/22 11:00 Pulse 85 04/27/22 11:00 Resp 24 04/27/22 11:00 BP 123/74 04/27/22 11:00 Pulse Ox 97 04/27/22 11:00 FiO2 100 04/24/22 04:02 Intake & Output 04/26/22 04/27/22 04/27/22 18:59 06:59 18:59 Intake Total 720 90 Output Total 2085 600 100 Balance -1365 -510 -100 Weight 79.8 kg Intake: IV 120 90 0.9 120 90 Oral 600 Output: Urine 2085 600 100 Other: Voiding Method Indwelling Catheter Indwelling Catheter Indwelling Catheter - Exam Abdomen: Soft, nontender, nondistended - Labs CBC & Chem 7: 04/26/22 07:08 04/26/22 07:08 Labs: Abnormal Lab Results - Last 24 Hours (Table) 04/26/22 Range/Units 07:08 WBC 16.6 H (3.8-10.6) k/uL RBC 3.32 L (3.80-5.40) m/uL Hgb 10.5 L (11.4-16.0) gm/dL Hct 32.7 L (34.0-46.0) % Microbiology - Last 24 Hours (Table) 04/21/22 16:08 Blood Culture - Preliminary Blood No Growth after 120 hours 04/21/22 16:12 Blood Culture - Preliminary Blood No Growth after 120 hours 04/21/22 19:46 Anaerobic Culture - Final Pericardial Fluid 04/21/22 19:46 Anaerobic Culture - Final Pericardial Fluid 04/23/22 20:11 Gram Stain - Final Sputum Sputum Culture - Final Fe albicans 04/21/22 19:46 Gram Stain - Final Pericardial Fluid Body Fluid Culture - Final 04/21/22 19:46 Gram Stain - Final Other - Other Tissue Culture - Final Assessment and Plan (1) Adenocarcinoma Narrative/Plan: 57-year-old female with ligament pericardial effusion. We'll proceed with upper and lower endoscopy on Friday. Current Visit: Yes Status: Acute Priority: High Code(s): C80.1 - MALIGNANT (PRIMARY) NEOPLASM, UNSPECIFIED SNOMED Code(s): 456874951
--- NOTE | 2022-04-27 11:36 | PN ---
PROGRESS NOTE DATE OF SERVICE: 04/27/2022 This is a Pulmonary/Critical Care Progress Note SUBJECTIVE: This is a 57-year-old female, who has been in the hospital now for 5 days. She was admitted with a pericardial effusion. She required a pericardial window and subsequent pericardial catheter, that was removed. The fluid finally came back showing adenocarcinoma, metastatic, primary unknown. The patient, I think, was seen by Medical Oncology yesterday. She is resting comfortably. She is on 3 L oxygen. She had an uneventful night according to the nurse. She is not receiving any IV fluids. I did let her know the diagnosis yesterday. PHYSICAL EXAMINATION: VITAL SIGNS: Current vital signs; she is on 3 L, saturation 97%, blood pressure 132/80, heart rate 88, respiratory rate 18, temperature 97.8. GENERAL: Appears in no acute distress. HEENT: Grossly unremarkable. NECK: Supple. Full range of motion. No adenopathy. Neck veins are flat. CARDIOVASCULAR: Reveals regular rhythm and rate. Heart rate 88 beats per minute. Heart sounds are distant. No murmur. LUNGS: Reveal scattered rhonchi. No wheezes or crackles. ABDOMEN: Soft. Bowel sounds are heard. EXTREMITIES: Intact. No cyanosis, clubbing, or edema. SKIN: Without rash. NEUROLOGIC: Brief, but nonfocal. Labs, x-rays, and medications are unavailable. ASSESSMENT: 1. Status post large pericardial effusion, requiring a pericardial window and catheter placement, subsequently removed. 2. Pericardial fluid showing evidence of metastatic adenocarcinoma, primary unknown. Suspect either lung, GI tract, or breast. 3. History of chronic tobacco use. PLAN: The patient had an uneventful night. The patient could be transferred out to the general medical floor without telemetry. No additional recommendations are made. Prognosis is guarded. The patient should be seen by Medical Oncology if not already seen. MMODL / IJN: [id number] /
--- NOTE | 2022-04-27 12:27 | P.PN ---
Subjective Progress Note Date: 04/27/22 PROGRESS NOTE The patient was admitted yesterday was progressive abdominal pain, fatigue and lack of energy, her CAT scan showed a large pericardial effusion and her echocardiogram revealed evidence of temponade. She underwent a pericardial window with drainage of 700 mL of bloody fluid. She's feeling better this morning, continues to have chest tenderness respirophasic pain. Her breathing is better. She denies any prior history of cardiac disease or recent upper respiratory infection. She denies any nausea or vomiting or diarrhea at home. Her blood pressure has been stable. She continues to be in sinus mechanism with frequent PACs, at times in bigeminal pattern. April 23. The patient continues to have respirophasic chest discomfort, she denies any dizziness or palpitation. She is dyspneic. She has minimal drainage from the pericardial tissue. Her urinary output is stable, she is in sinus mechanism with PACs. A repeat echocardiogram done yesterday showed an ejection fraction of 35% with suggestion of anteroseptal hypokinesis. The pathology of her fluid is pending. A chest computed tomography scan showed bilateral lung infiltrate with small pleural effusion. April 24: Pericardial tube removed, the patient is sitting up in the chair. She had mild dyspnea earlier that has improved. Her chest discomfort improved. She denies any dizziness or palpitations. She denies any nausea. She has been in sinus mechanism but had few episodes of sinus arrhythmia but no atrial fibrillation. Cytology of the fluid is pending. She is tolerating by mouth. April 25: The patient is feeling better today, sitting up in the chair. She continues to have dyspnea on exertion but no chest discomfort. She continues to be in sinus mechanism and hemodynamically stable. There is no evidence of atrial or ventricular ectopic activity. She was started on IV diuresis yesterday with improvement in her urine output. The results of her fluid pathology continues to be pending. She has evidence of right-sided effusion. Her computed tomography scan increase the likelihood of malignancy although awaiting pathology. The etiology of her cardiomyopathy is unclear. April 26: The patient continues to be mildly dyspneic, she denies any chest discomfort. She has no vomiting. She continues to be in sinus mechanism. Her pericardial fluid and tissue are consistent with metastatic adenocarcinoma. Her blood pressure has been stable and she continues to be on IV diuretics. April 27: The patient is feeling well overall. She denies any chest discomfort, dizziness or palpitations. Her breathing is stable. She continues to be in sinus mechanism. She is scheduled to undergo upper and lower endoscopy on Friday. Her breast ultrasound showed no significant abnormalities. She has evidence of metastatic adenocarcinoma, primary unknown. Medications: cefazolin, metoprolol 25 mg twice a day, 40 mg by mouth twice a day, Aldactone 25 mg daily, lisinopril 5 mg daily PHYSICAL EXAMINATION: Blood pressure 123/74 heart rate 74 LUNGS: Bilateral crackles with decreased breath sounds at the bases HEART: Regular rate and rhythm, S1, S2. No S3. No systolic murmur, no rub, ABDOMEN: Soft, nontender, no organomegaly EXTREMETIES: No edema LAB: Pending IMPRESSION: 1. Malignant pericardial effusion with metastatic adenocarcinoma, , primary unknown, probably primary lung 2. History of smoking 3. Cardiomyopathy, unknown source etiology PLAN: 1. Continue present therapy 2. Transfer to telemetry 3. Awaiting further workup regarding to the primary source of malignancy 4. Prognosis is guarded. Objective - Vital Signs Vital signs: Vital Signs Temp 97.8 F 04/27/22 11:00 Pulse 78 04/27/22 12:11 Resp 24 04/27/22 11:00 BP 123/74 04/27/22 11:00 Pulse Ox 97 04/27/22 11:00 FiO2 100 04/24/22 04:02 Intake & Output 04/26/22 04/27/22 04/27/22 18:59 06:59 18:59 Intake Total 720 90 Output Total 2085 600 100 Balance -1365 -510 -100 Weight 79.8 kg Intake: IV 120 90 0.9 120 90 Oral 600 Output: Urine 2085 600 100 Other: Voiding Method Indwelling Catheter Indwelling Catheter Indwelling Catheter - Labs CBC & Chem 7: 04/26/22 07:08 04/26/22 07:08 Labs: Abnormal Lab Results - Last 24 Hours (Table) 04/26/22 Range/Units 07:08 WBC 16.6 H (3.8-10.6) k/uL RBC 3.32 L (3.80-5.40) m/uL Hgb 10.5 L (11.4-16.0) gm/dL Hct 32.7 L (34.0-46.0) % Microbiology - Last 24 Hours (Table) 04/21/22 16:08 Blood Culture - Preliminary Blood No Growth after 120 hours 04/21/22 16:12 Blood Culture - Preliminary Blood No Growth after 120 hours 04/21/22 19:46 Anaerobic Culture - Final Pericardial Fluid 04/21/22 19:46 Anaerobic Culture - Final Pericardial Fluid 04/23/22 20:11 Gram Stain - Final Sputum Sputum Culture - Final Fe albicans 04/21/22 19:46 Gram Stain - Final Pericardial Fluid Body Fluid Culture - Final 04/21/22 19:46 Gram Stain - Final Other - Other Tissue Culture - Final
--- NOTE | 2022-04-27 12:28 | P.PN ---
Subjective Progress Note Date: 04/27/22 Patient is improving with diuresis, now only requiring 3L NC. Pt diagnosed with metastatic adenocarcinoma pending oncology eval. Dispo plan is IPR once more stable. Gen: awake, alert HEENT: normocephalic, atraumatic, good hearing acuity, moist mucous membranes Resp: good air exchange, breathing comfortably with no accessory muscle use, bilateral crackles CVS: good distal perfusion x 4, regular rate and rhythm without murmurs GI: soft, NTTP, ND : no SPT, no CVAT, carnes catheter is present MSK: no pitting edema, no clubbing Neuro: non-focal, moving all extremities Psych: cooperative, euthymic mood Assessment/plan: Cardiac Tamponade, pericardial effusion s/p pericardial window Acute Hypoxemic Respiratory Failure Acute on Chronic Systolic Heart Failure, EF 35% Leukocytosis Transaminitis, likely due to hypotension and hepatic congestion - CT surgery recs - Cardio recs: cholicine - ESR elevated, Troponin normal, TSH normal - CT Chest with mediastinal LAD - Pericardial fluid cultures, cytology pending - pericardial biopsy shows metastatic adenocarcinoma - blood cultures NGTD - Sputum cultures, fe, no bacteria - Ceftriaxone - Lasix 60mg IV BID - follow Kidney and liver function - Avoid additional nephrotoxic agents - CRISTIN and rheumatoid factor are negative - Coxsackie B Abs pending Metastatic Adenocarcinoma - oncology consulted Hyponatremia with Hypervolemia - improving with diuretics - repeat sodium in AM Tobacco abuse - cessation Hypotension, resolved SHELDON, resolved DVT prophylaxis: SCDs Objective - Vital Signs Vital signs: Vital Signs Temp 97.8 F 04/27/22 11:00 Pulse 78 04/27/22 12:11 Resp 24 04/27/22 11:00 BP 123/74 04/27/22 11:00 Pulse Ox 97 04/27/22 11:00 FiO2 100 04/24/22 04:02 Intake & Output 04/26/22 04/27/22 04/27/22 18:59 06:59 18:59 Intake Total 720 90 Output Total 2085 600 100 Balance -1365 -510 -100 Weight 79.8 kg Intake: IV 120 90 0.9 120 90 Oral 600 Output: Urine 2085 600 100 Other: Voiding Method Indwelling Catheter Indwelling Catheter Indwelling Catheter - Labs CBC & Chem 7: 04/26/22 07:08 04/26/22 07:08 Labs: Abnormal Lab Results - Last 24 Hours (Table) 04/26/22 Range/Units 07:08 WBC 16.6 H (3.8-10.6) k/uL RBC 3.32 L (3.80-5.40) m/uL Hgb 10.5 L (11.4-16.0) gm/dL Hct 32.7 L (34.0-46.0) % Microbiology - Last 24 Hours (Table) 04/21/22 16:08 Blood Culture - Preliminary Blood No Growth after 120 hours 04/21/22 16:12 Blood Culture - Preliminary Blood No Growth after 120 hours 04/21/22 19:46 Anaerobic Culture - Final Pericardial Fluid 04/21/22 19:46 Anaerobic Culture - Final Pericardial Fluid 04/23/22 20:11 Gram Stain - Final Sputum Sputum Culture - Final Fe albicans 04/21/22 19:46 Gram Stain - Final Pericardial Fluid Body Fluid Culture - Final 04/21/22 19:46 Gram Stain - Final Other - Other Tissue Culture - Final
[2022-04-27 18:08] LABS: ALT 317 U/L (4-34); AST 116 U/L (14-36); African American GFR (CKD) >90 (>60 ml/min/1.73 sqM); Alkaline Phosphatase 130 U/L (38-126); Anion Gap 10 mmol/L; Blood Urea Nitrogen 34 mg/dL (7-17); Carbon Dioxide 32 mmol/L (22-30); Chloride 96 mmol/L (98-107); Glucose 115 mg/dL (74-99); Non-African American GFR(CKD) >90 (>60 ml/min/1.73 sqM); Potassium 3.7 mmol/L (3.5-5.1); Sodium 138 mmol/L (137-145); Total Bilirubin 0.4 mg/dL (0.2-1.3); Total Protein 5.8 g/dL (6.3-8.2)
[2022-04-27 18:15] LABS: Basophils % (A) 0 %; Eosinophils % (A) 0 %; HCT 31.9 % (34.0-46.0); HGB 10.6 gm/dL (11.4-16.0); Hypochromasia Slight; Lymphocytes # (A) 0.7 k/uL (1.0-4.8); Lymphocytes % (A) 4 %; MCH 32.2 pg (25.0-35.0); MCHC 33.4 g/dL (31.0-37.0); MCV 96.4 fL (80.0-100.0); Mean Platelet Volume 8.1; Monocytes # (A) 1.1 k/uL (0-1.0); Monocytes % (A) 7 %; Neutrophils # (A) 13.6 k/uL (1.3-7.7); Neutrophils % (A) 87 %; Platelet Count 270 k/uL (150-450); RBC 3.31 m/uL (3.80-5.40); RDW 13.8 % (11.5-15.5); WBC 15.7 k/uL (3.8-10.6)
[2022-04-27] MEDS: SENNOSIDES-DOCUSATE SODIUM 1 EACH TAB PO SCH (20:21)
[2022-04-28] MEDS: MORPHINE SULFATE 4 MG/ML SYRINGE IVP PRN (00:35)
[2022-04-28] MEDS: SALT AND SODA MOUTHWASH 1,000 ML PO SCH ×6 (00:35→20:24)
[2022-04-28] MEDS: IPRATROPIUM-ALBUTEROL 3 ML NEB INHALATION SCH ×4 (08:41→20:28)
[2022-04-28] MEDS ORDERED: PEG 3350 (236 GM/BTL) + LYTES 4,000 ML BOTTLE PO ONE (09:00)
[2022-04-28] MEDS: METOPROLOL TARTRATE 25 MG TAB PO SCH ×2 (09:00→20:24)
[2022-04-28] MEDS: SPIRONOLACTONE 25 MG TAB PO SCH (09:00)
[2022-04-28] MEDS: FUROSEMIDE 40 MG TAB PO SCH ×2 (09:00→20:24)
[2022-04-28] MEDS: lisinopriL 5 MG TAB PO SCH (09:00)
--- NOTE | 2022-04-28 09:48 | P.PN ---
Subjective Progress Note Date: 04/28/22 Principal diagnosis: Metastatic cancer Patient was transferred out of the ICU. Feels well. No shortness of breath. Only mild upper abdominal pain. Objective - Vital Signs Vital signs: Vital Signs Temp 98.5 F 04/28/22 07:55 Pulse 87 04/28/22 08:52 Resp 18 04/28/22 07:55 BP 108/68 04/28/22 07:55 Pulse Ox 98 04/28/22 08:42 FiO2 100 04/24/22 04:02 Intake & Output 04/27/22 04/28/22 04/28/22 19:59 06:59 18:59 Intake Total Output Total Balance Intake: Oral Output: Urine Other: Voiding Method # Voids # Bowel Movements - Exam Abdomen: Soft, nontender, nondistended - Labs CBC & Chem 7: 04/27/22 06:39 04/27/22 06:39 Labs: Abnormal Lab Results - Last 24 Hours (Table) 04/27/22 04/27/22 Range/Units 06:39 06:39 WBC 15.7 H (3.8-10.6) k/uL RBC 3.31 L (3.80-5.40) m/uL Hgb 10.6 L (11.4-16.0) gm/dL Hct 31.9 L (34.0-46.0) % Neutrophils # 13.6 H (1.3-7.7) k/uL Lymphocytes # 0.7 L (1.0-4.8) k/uL Monocytes # 1.1 H (0-1.0) k/uL Chloride 96 L (98-107) mmol/L Carbon Dioxide 32 H (22-30) mmol/L BUN 34 H (7-17) mg/dL Glucose 115 H (74-99) mg/dL Calcium 8.0 L (8.4-10.2) mg/dL AST 116 H (14-36) U/L ALT 317 H (4-34) U/L Alkaline Phosphatase 130 H (38-126) U/L Total Protein 5.8 L (6.3-8.2) g/dL Albumin 3.0 L (3.5-5.0) g/dL Microbiology - Last 24 Hours (Table) 04/21/22 16:08 Blood Culture - Final Blood No Growth after 144 hours 04/21/22 16:12 Blood Culture - Final Blood No Growth after 144 hours Assessment and Plan (1) Adenocarcinoma Narrative/Plan: Patient doing well today. Will begin bowel prep for upper and lower endoscopy tomorrow. Current Visit: Yes Status: Acute Priority: High Code(s): C80.1 - MALIGNANT (PRIMARY) NEOPLASM, UNSPECIFIED SNOMED Code(s): 277057831
--- NOTE | 2022-04-28 11:21 | P.PN ---
Subjective Progress Note Date: 04/28/22 Patient is improving with diuresis, now only requiring 2L NC. Plan is for EGD/Colonoscopy tomorrow. Gen: awake, alert HEENT: normocephalic, atraumatic, good hearing acuity, moist mucous membranes Resp: good air exchange, breathing comfortably with no accessory muscle use, bilateral crackles CVS: good distal perfusion x 4, regular rate and rhythm without murmurs GI: soft, NTTP, ND : no SPT, no CVAT, carnes catheter is present MSK: no pitting edema, no clubbing Neuro: non-focal, moving all extremities Psych: cooperative, euthymic mood Assessment/plan: Cardiac Tamponade, pericardial effusion s/p pericardial window Acute Hypoxemic Respiratory Failure Acute on Chronic Systolic Heart Failure, EF 35% Leukocytosis Transaminitis, likely due to hypotension and hepatic congestion - CT surgery recs - Cardio recs: cholicine - ESR elevated, Troponin normal, TSH normal - CT Chest with mediastinal LAD - Pericardial fluid cultures, cytology pending - pericardial biopsy shows metastatic adenocarcinoma - blood cultures NGTD - Sputum cultures, new[place], no bacteria - Ceftriaxone - Lasix 60mg IV BID - follow Kidney and liver function - Avoid additional nephrotoxic agents - CRISTIN and rheumatoid factor are negative - Coxsackie B Abs pending Metastatic Adenocarcinoma - oncology consulted Hyponatremia with Hypervolemia - improving with diuretics - repeat sodium in AM Tobacco abuse - cessation Hypotension, resolved SHELDON, resolved DVT prophylaxis: SCDs Objective - Vital Signs Vital signs: Vital Signs Temp 98.5 F 04/28/22 07:55 Pulse 87 04/28/22 08:52 Resp 18 04/28/22 07:55 BP 108/68 04/28/22 07:55 Pulse Ox 98 04/28/22 08:42 FiO2 100 04/24/22 04:02 Intake & Output 04/27/22 04/28/22 04/28/22 19:59 06:59 18:59 Intake Total Output Total Balance Intake: Oral Output: Urine Other: Voiding Method # Voids # Bowel Movements - Labs CBC & Chem 7: 04/27/22 06:39 04/27/22 06:39 Labs: Abnormal Lab Results - Last 24 Hours (Table) 04/27/22 04/27/22 04/27/22 Range/Units 06:39 06:39 06:39 WBC 15.7 H (3.8-10.6) k/uL RBC 3.31 L (3.80-5.40) m/uL Hgb 10.6 L (11.4-16.0) gm/dL Hct 31.9 L (34.0-46.0) % Neutrophils # 13.6 H (1.3-7.7) k/uL Lymphocytes # 0.7 L (1.0-4.8) k/uL Monocytes # 1.1 H (0-1.0) k/uL Chloride 96 L (98-107) mmol/L Carbon Dioxide 32 H (22-30) mmol/L BUN 34 H (7-17) mg/dL Glucose 115 H (74-99) mg/dL Calcium 8.0 L (8.4-10.2) mg/dL AST 116 H (14-36) U/L ALT 317 H (4-34) U/L Alkaline Phosphatase 130 H (38-126) U/L Total Protein 5.8 L (6.3-8.2) g/dL Albumin 3.0 L (3.5-5.0) g/dL CA 19-9 Antigen 54.6 H (0.0-34.9) U/mL Microbiology - Last 24 Hours (Table) 04/21/22 16:08 Blood Culture - Final Blood No Growth after 144 hours 04/21/22 16:12 Blood Culture - Final Blood No Growth after 144 hours
[2022-04-28] MEDS: MAG HYDROX/AL HYDROX/SIMETH 30 ML, LIDOCAINE VISCOUS 2% 30 ML, diphenhydrAMINE ELIXIR 7... PO SCH ×12 (12:00→20:24)
--- NOTE | 2022-04-28 12:50 | P.PN ---
Subjective Progress Note Date: 04/28/22 Principal diagnosis: Pericardial effusion. 04/23/2022, the patient is postop day #2 following a pericardial window. The pericardial tube is still in place. Output is minimal at this point in time. The fluid/pericardial fluid cytology still pending for now. Meanwhile, Of the Chest Was Done and There Is a Larger Right Paratracheal Opacity There Was Noted on the CAT Scan of the Chest That Was Done with Contrast Measuring 2.7 Cm in Size and It Is a Soft Tissue Density and there are also multiple scattered small lymph nodes within the mediastinum and the largest subcarinal lymph nodes. At the same time, there is some patchy but the pulmonary infiltrates and a small pericardial effusion. Small pleural effusions also present. Repeat echocardiogram was done and the patient's ejection fraction dropped down to 35%. Noted the original echocardiogram was within normal limits. This obviously may indicate the possibility of viral myocarditis causing global LV dysfunction. In enervates, the final diagnosis has not been received. The patient remains on colchicine. Oxygenation got worse and the patient is currently on 9 L. Antibiotics have been started on an empiric basis and the patient was given a dose of Lasix. LFTs are gradually improving. Sodium level is stable at 129. The white cell count is still elevated. X-ray is showing increased interstitial markings bilaterally consistent with CHF/questionable pneumonia 12/22/2021, the patient is postop day #3. On today's evaluation, the pericardial tube was removed adenopathy was minimal.Awaiting for the final fluid cytology. Meanwhile, the patient had some issues with shortness of breath and oxygen desaturation. The chest x-ray also showed diffuse bilateral pulmonary infiltrates with interval worsening. Obviously, an infectious were considered. The patient was given diuretics. She was given a dose of Lasix 40 mg IV 1 and she produced approximately 800 mL of urine output. She was also started on broad-spectrum antibiotics. She is currently on a combination of Rocephin and Zithromax. Nevertheless, the possibility of a bacterial infection is extremely low. Pro-calcitonin is negative and the clinical presentation does not seem to be in agreement with bacterial pneumonia or infection. Possibility of an acute ARDS is also likely with hemoglobin of 9 cardiogenic pulmonary edema. This started with her oxygenation yesterday. She was placed on 100% nonrebreather facemask. She was placed on high flow oxygen with Airvo , and currently she is on oxygen at 14 L with a pulse ox of 93%. Slightly bronchospastic and wheezy. Suspect is in the mid and lower lung jose bilaterally. Sodium is at 129 with a potassium level of 5.5, BUN is at 39 with a creatinine of 0.7, white cell co unt at 19.2. The proBNP level from yesterday was 8410. There was some further impairment of LV function based on the repeat echocardiogram that was done by cardiology. Based on the limited echocardiogram that was done on 04/22/2022, the patient had severe LV dysfunction with hypokinesis of the anterior septal wall and an ejection fraction of 35%. A comment was made regarding a left-sided pleural effusion. Progress note dated 04/25/2022. 57-year-old female seen in room 264, of the intensive care unit. The patient was admitted to the hospital on April 21, was found to have a large peric ardial effusion. The patient underwent surgery with a pericardial window, by Dr. Rankin, on April 21. She was intubated for the procedure on April 21, and extubated on the subsequent day, April 22. The pericardial catheter was removed on April 24. Pathology, from the fluid this morning, is currently still pending. She's getting saline at 10 mL an hour, and oxygen at 8 L. Her oxygen can be titrated down as her saturations are excellent. Sodium 135, potassium 4.7, chloride 96, CO2 27, BUN 33, and creatinine 0.7. AST is 472. ALT is 566. Albumin is 3.1. Progress note dated 04/26/2022. 57-year-old female seen in room 264. The patient was admitted to the hospital on April 21, and was found to have a large pericardial effusion. The patient underwent surgery with a pericardial window, and catheter, by Dr. Rankin, on April 21. She was intubated for the procedure, on April 21, and extubated the subsequent day, April 22. The pericardial catheter was removed April 24. The pathology from the fluid is showing evidence of adenocarcinoma, primary unknown. Currently, she is on 4 L of oxygen. She's getting saline at 10 mL an hour. The patient will have a chest x-ray today. Also, the patient will be seen by medical oncology today. Clinically, she's feeling better. Sodium 136, potassium 4.1, chlorides 96, CO2 28, BUN 38, and creatinine 0.71. Progress note dated 04/28/2022. 57-year-old female who was seen in room 471. She was previously in the intensive care unit. She was admitted to the hospital on April 21, was found to have a large pericardial effusion. The patient underwent surgery with pericardial window and catheter Dr. Rankin on April 21. She was intubated for the procedure, on April 21, and extubated the following day on April 22. The pericardial catheter was April 24. The pathology from the pericardial fluid showing adenocarcinoma, primary unknown. Currently, the patient's on 3 L of oxygen. She's not receiving any IV fluids. She has been seen by medical oncology. No new labs today. Labs from April 27 are reviewed. Objective - Vital Signs Vital signs: Vital Signs Temp 98.5 F 04/28/22 07:55 Pulse 91 04/28/22 11:30 Resp 18 04/28/22 07:55 BP 108/68 04/28/22 07:55 Pulse Ox 92 L 04/28/22 11:22 FiO2 100 04/24/22 04:02 Intake & Output 04/27/22 04/28/22 04/28/22 19:59 06:59 18:59 Intake Total Output Total Balance Intake: Oral Output: Urine Other: Voiding Method # Voids # Bowel Movements - Exam No acute distress, oriented 3. Currently on 3 L oxygen. Saturations are 98%. HEENT examination is grossly unremarkable. Neck supple. Full range of motion. No adenopathy thyromegaly or neck vein distention. Cardiovascular examination reveals regular rhythm rate. S1-S2 normal. No S3 or S4. No discernible murmur noted. Heart rate 91 bpm. Lungs reveal clear breath sounds. Breath sounds are equal bilaterally. No adventitious lung sounds including wheezes rhonchi or crackles. Abdomen soft bowel sounds are heard. No masses or tenderness. Extremities are intact. No cyanosis clubbing or edema. Skin is without rash or lesion. Neurologic examination is brief but nonfocal. - Labs CBC & Chem 7: 04/27/22 06:39 04/27/22 06:39 Labs: Abnormal Lab Results - Last 24 Hours (Table) 04/27/22 04/27/22 04/27/22 Range/Units 06:39 06:39 06:39 WBC 15.7 H (3.8-10.6) k/uL RBC 3.31 L (3.80-5.40) m/uL Hgb 10.6 L (11.4-16.0) gm/dL Hct 31.9 L (34.0-46.0) % Neutrophils # 13.6 H (1.3-7.7) k/uL Lymphocytes # 0.7 L (1.0-4.8) k/uL Monocytes # 1.1 H (0-1.0) k/uL Chloride 96 L (98-107) mmol/L Carbon Dioxide 32 H (22-30) mmol/L BUN 34 H (7-17) mg/dL Glucose 115 H (74-99) mg/dL Calcium 8.0 L (8.4-10.2) mg/dL AST 116 H (14-36) U/L ALT 317 H (4-34) U/L Alkaline Phosphatase 130 H (38-126) U/L Total Protein 5.8 L (6.3-8.2) g/dL Albumin 3.0 L (3.5-5.0) g/dL CA 19-9 Antigen 54.6 H (0.0-34.9) U/mL Microbiology - Last 24 Hours (Table) 04/21/22 16:08 Blood Culture - Final Blood No Growth after 144 hours 04/21/22 16:12 Blood Culture - Final Blood No Growth after 144 hours Assessment and Plan Assessment: Large pericardial effusion, with tamponade physiology, of unclear etiology, s tatus post emergent pericardial window, postop day #7. Pericardial fluid pathology is positive for metastatic adenocarcinoma, primary unknown. Status post intubation on April 21, with extubation on April 22. Acute cardiomyopathy with an ejection fraction of 35%. Bilateral pleural effusions, small. 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 Acute kidney injury. Elevated liver function tests. Chronic tobacco dependence. Plan: Plan dated 04/25/2022. The fluid analysis, is currently still pending. This pericardial effusion could be viral, or malignant. It also could be idiopathic. Additional recommendations and suggestions are forthcoming. Prognosis is certainly guar ded. Oxygen can be titrated down. Her saturations are excellent. Pleural effusions are small and don't require thoracentesis. We will continue to follow and make recommendations along the way. Plan dated 04/26/2022. The patient's oxygen requirements have been weaned down. The patient will be seen by medical oncology today. We'll also get a chest x-ray today. Additional recommendations and suggestions are forthcoming. The results of pathology of the pericardial fluid is discussed no additional recommendations are made. Prognosis is certainly guarded. We will continue to follow. Plan dated 04/28/2022. The patient is doing well. She's been weaned down to 2 L. Saturations are exc ellent. Workup is underway, to try to determine whether primary cancer is. The fluid analysis did show evidence of adenocarcinoma, metastatic. Additional recommendations and suggestions are forthcoming. Prognosis is guarded. We will continue to follow the patient and make recommendations where appropriate. Time with Patient: Less than 30
--- NOTE | 2022-04-28 12:57 | P.PN ---
Subjective Progress Note Date: 04/28/22 The patient was admitted with progressive abdominal pain, fatigue and lack of energy, her CT scan showed a large pericardial effusion and her echocardiogram revealed evidence of tamponade. She underwent a pericardial window with drainage of 700 mL of bloody fluid. A repeat echocardiogram showed an ejection fraction of 35% with suggestion of anteroseptal hypokinesis. The etiology of her cardiomyopathy is unclear. Her pericardial fluid and tissue are consistent with metastatic adenocarcinoma, her computed tomography scan shows likelihood of malignancy. Her breast ultrasound showed no significant abnormalities. She is scheduled to undergo upper and lower endoscopy tomorrow. Upon examination she is feeling fairly well. She denies any shortness of breath. Continues to be in sinus mechanism. Denies any chest discomfort, dizziness or palpitations. Objective - Vital Signs Vital signs: Vital Signs Temp 98.5 F 04/28/22 07:55 Pulse 87 04/28/22 08:52 Resp 18 04/28/22 07:55 BP 108/68 04/28/22 07:55 Pulse Ox 98 04/28/22 08:42 FiO2 100 04/24/22 04:02 Intake & Output 04/27/22 04/28/22 04/28/22 19:59 06:59 18:59 Intake Total Output Total Balance Intake: Oral Output: Urine Other: Voiding Method # Voids # Bowel Movements - Exam PHYSICAL EXAMINATION: HEENT: Head is atraumatic, normocephalic. Pupils equal, round. Neck is supple. There is no elevated jugular venous pressure. HEART EXAMINATION: Heart sounds regular, S1 and S2 normal. No murmur or gallop heard. CHEST EXAMINATION: Lungs reveal bilateral crackles with decreased breath sounds at the bases. ABDOMEN: Soft, nontender. Bowel sounds are heard. No organomegaly noted. EXTREMITIES: 2+ peripheral pulses with no evidence of peripheral edema and no calf tenderness noted. NEUROLOGIC patient is awake, alert and oriented x3. . - Labs CBC & Chem 7: 04/27/22 06:39 04/27/22 06:39 Labs: Abnormal Lab Results - Last 24 Hours (Table) 04/27/22 04/27/22 04/27/22 Range/Units 06:39 06:39 06:39 WBC 15.7 H (3.8-10.6) k/uL RBC 3.31 L (3.80-5.40) m/uL Hgb 10.6 L (11.4-16.0) gm/dL Hct 31.9 L (34.0-46.0) % Neutrophils # 13.6 H (1.3-7.7) k/uL Lymphocytes # 0.7 L (1.0-4.8) k/uL Monocytes # 1.1 H (0-1.0) k/uL Chloride 96 L (98-107) mmol/L Carbon Dioxide 32 H (22-30) mmol/L BUN 34 H (7-17) mg/dL Glucose 115 H (74-99) mg/dL Calcium 8.0 L (8.4-10.2) mg/dL AST 116 H (14-36) U/L ALT 317 H (4-34) U/L Alkaline Phosphatase 130 H (38-126) U/L Total Protein 5.8 L (6.3-8.2) g/dL Albumin 3.0 L (3.5-5.0) g/dL CA 19-9 Antigen 54.6 H (0.0-34.9) U/mL Microbiology - Last 24 Hours (Table) 04/21/22 16:08 Blood Culture - Final Blood No Growth after 144 hours 04/21/22 16:12 Blood Culture - Final Blood No Growth after 144 hours Assessment and Plan Assessment: 1. Malignant pericardial effusion with metastatic adenocarcinoma, , primary unknown, probably primary lung 2. History of smoking 3. Cardiomyopathy, unknown source etiology Plan: From Cardiology's perspective continue present therapy. Awaiting further workup regarding to the primary source of malignancy. We will continue to follow this patient and provide further recommendations accordingly. [employer]ER note has been reviewed, I agree with a documented findings and plan of care. Patient was seen and examined.
[2022-04-28] MEDS: SENNOSIDES-DOCUSATE SODIUM 1 EACH TAB PO SCH (20:24)
[2022-04-29] MEDS: SALT AND SODA MOUTHWASH 1,000 ML PO SCH ×6 (03:04→23:51)
[2022-04-29] MEDS: IPRATROPIUM-ALBUTEROL 3 ML NEB INHALATION SCH ×4 (08:44→20:34)
[2022-04-29] MEDS: SPIRONOLACTONE 25 MG TAB PO SCH (08:45)
[2022-04-29] MEDS: FUROSEMIDE 40 MG TAB PO SCH ×2 (08:45→21:08)
--- NOTE | 2022-04-29 10:14 | P.PN ---
Subjective Progress Note Date: 04/29/22 HISTORY OF PRESENT ILLNESS: The patient was admitted with progressive abdominal pain, fatigue and lack of energy, her CT scan showed a large pericardial effusion and her echocardiogram revealed evidence of tamponade. She underwent a pericardial window with drainage of 700 mL of bloody fluid. A repeat echocardiogram showed an ejection fraction of 35% with suggestion of anteroseptal hypokinesis. The etiology of her cardiomyopathy is unclear. Her pericardial fluid and tissue are consistent with metastatic adenocarcinoma, her computed tomography scan shows likelihood of malignancy. Her breast ultrasound showed no significant abnormalities. She is scheduled to undergo upper and lower endoscopy tomorrow. Upon examination she is feeling fairly well. She denies any shortness of breath. Continues to be in sinus mechanism. Denies any chest discomfort, dizziness or palpitations. 04/29/2022 Patient examined this morning at the bedside. Patient denies chest pain or pressure. Denies SOB. Vital signs are stable. SBP 100s. She remains on IV lasix. PHYSICAL EXAM: VITAL SIGNS: Reviewed. GENERAL: Well-developed in no acute distress. NECK: Supple. No JVD or thyromegaly LUNGS: Respirations even and unlabored. Lungs diminished with bibasilar crackles HEART: Regular rate and rhythm. S1 and S2 heard. EXTREMITIES: Normal range of motion. No clubbing or cyanosis. Peripheral pulses intact. Trace bilateral lower extremity edema ASSESSMENT: Malignant pericardial effusion with metastatic adenocarcinoma, , primary unknown, possible primary lung Cardiac tamponade, S/P pericardial window Cardiomyopathy, unknown if ischemic or nonischemic Elevated LFTs Nicotine dependence PLAN: Continue current cardiac medications Patient to undergo endoscopy today with general surgery Further recommendations pending patient course Nurse practitioner note has been reviewed by physician. Signing provider agrees with the documented findings, assessment, and plan of care. Objective - Vital Signs Vital signs: Vital Signs Temp 98.2 F 04/29/22 08:00 Pulse 98 04/29/22 08:56 Resp 17 04/29/22 08:00 BP 107/74 04/29/22 08:00 Pulse Ox 96 04/29/22 08:00 FiO2 100 04/24/22 04:02 Intake & Output 04/28/22 04/29/22 04/29/22 18:59 06:59 18:59 Output Total 1200 4000 Balance -1200 -4000 Output: Urine 1200 4000 Other: Voiding Method Indwelling Catheter # Bowel Movements 2 3 - Labs CBC & Chem 7: 04/27/22 06:39 04/27/22 06:39
--- NOTE | 2022-04-29 11:32 | P.PN ---
Subjective Progress Note Date: 04/29/22 Patient is a 57-year-old female with no past medical history who presented to the ER at the direction of her primary care physician due to significant abdominal pain with shortness of breath. In the ER she underwent an extensive evaluation. Arrival she was hypotensive with a blood pressure of 86 and a heart rate of 114. Initial laboratory analysis showed a white blood cell count of 16.3, sodium 127, chloride 96, carbon dioxide 17, BUN 47, creatinine 1.34 (up from 0.8-2 days prior), AST 250 and ALT 298. EKG showed low voltage. She was given 1 L of IV fluids. Arrangements were made for admission. CT abdomen/pelvis demonstrated large pericardial effusion with small bilateral pleural effusions and mild ascites. Cardiology was contacted by myself who emergently came to bedside. Stat echocardiogram was per performed which showed large pericardial effusion with tamponade physiology. CT surgery was contacted. Patient underwent urgent pericardial window on 04/22 with fluid sent for cytology and culture, and pericadial biopsy was preformed. Intraoperative MICHELE showed EF 30-35%. Pathology results from pericardial biopsy showed findings of metastatic adenocarcinoma. CT chest showed right peritracheal soft tissue density 2.7 x 2 cm. Breast ultrasound was negative. There is plans for EGD and colonoscopy on 04/29/2022. Patient was seen and examined. No acute events overnight. Currently on 2L NC. Anxious about upcoming EGD/Colonoscopy. Diuresing well. General: non toxic, no distress, appears at stated age Derm: warm, dry Head: atraumatic, normocephalic, symmetric Eyes: EOMI, no lid lag, anicteric sclera Mouth: no lip lesion, mucus membranes moist Cardiovascular: S1S2 reg, no murmur Lungs: Decreased BS bilateral, no rhonchi, no rales , no accessory muscle use Abdominal: soft, nontender to palpation, no guarding, no appreciable organomegaly, Monreal in place Ext: no gross muscle atrophy, no edema, no contractures Neuro: no focal neuro deficits Psych: Alert, oriented ,appropriate affect #Cardiac Tamponade, pericardial effusion s/p pericardial window #Acute Hypoxemic Respiratory Failure #Acute on Chronic Systolic Heart Failure, EF 35% #Transaminitis, likely due to hypotension and hepatic congestion - CT surgery, Cardiology, Pulmonology onboard - ESR elevated, Troponin normal, TSH normal - CRISTIN and rheumatoid factor are negative - Coxsackie B Abs pending - CT Chest with mediastinal LAD - Pericardial biopsy shows metastatic adenocarcinoma - Lasix 40mg PO BID - Continue Metoprolol, Lisinopril, Aldactone - Follow liver function #SIRS - Patient meets sepsis criteria with leukocytosis, tachycardia and hypotension - Blood cultures NGTD - Pericardial fluid cultures negative - Sputum culture shows newton, no bacteria - Ceftriaxone for empiric treatment - Telemetry monitoring #Metastatic Adenocarcinoma - Pericardial biopsy shows metastatic adenocarcinoma - Oncology on board - CA 19-9 elevated - Plans for EGD/Colonoscopy today #Tobacco abuse - Cessation Resolved: Hypotension, SHELDON, hyponatremia DVT Prophylaxis: SCDs Objective - Vital Signs Vital signs: Vital Signs Temp 98.2 F 04/29/22 08:00 Pulse 98 04/29/22 08:56 Resp 17 04/29/22 08:00 BP 107/74 04/29/22 08:00 Pulse Ox 96 04/29/22 08:00 FiO2 100 04/24/22 04:02 Intake & Output 04/28/22 04/29/22 04/29/22 18:59 06:59 18:59 Output Total 1200 4000 Balance -1200 -4000 Output: Urine 1200 4000 Other: Voiding Method Indwelling Catheter # Bowel Movements 2 3 - Labs CBC & Chem 7: 04/27/22 06:39 04/27/22 06:39 Labs: Abnormal Lab Results - Last 24 Hours (Table) 04/27/22 Range/Units 06:39 CA 19-9 Antigen 54.6 H (0.0-34.9) U/mL
[2022-04-29] MEDS: lisinopriL 5 MG TAB PO SCH (11:36)
[2022-04-29] MEDS: METOPROLOL TARTRATE 25 MG TAB PO SCH ×2 (11:36→21:07)
[2022-04-29] MEDS: MAG HYDROX/AL HYDROX/SIMETH 30 ML, LIDOCAINE VISCOUS 2% 30 ML, diphenhydrAMINE ELIXIR 7... PO SCH ×12 (12:36→21:07)
--- NOTE | 2022-04-29 13:03 | P.PN ---
Subjective Progress Note Date: 04/29/22 The patient is seen today in 04/29/2022 in follow-up on the regular medical floor. She is currently sitting up in a chair at the bedside. Awake and alert in no acute distress. She is maintaining O2 saturations in the 90s on 2 L/m per nasal cannula. She was found to have metastatic adenocarcinoma within the pericardial fluid. Mammogram revealed no evidence of malignancy. Computed tomography scan of the abdomen and pelvis revealed no evidence of malignancy. She is undergoing EGD/colonoscopy today. White count 15.7. Hemoglobin 10.6. Sodium 138. Potassium 3.7. BUN 34. Creatinine 0.71. A CT 116. ALT 317. CA 199 antigen 54.6. Objective - Vital Signs Vital signs: Vital Signs Temp 98.2 F 04/29/22 08:00 Pulse 92 04/29/22 12:01 Resp 17 04/29/22 08:00 BP 107/74 04/29/22 08:00 Pulse Ox 96 04/29/22 08:00 FiO2 100 04/24/22 04:02 Intake & Output 04/28/22 04/29/22 04/29/22 18:59 06:59 18:59 Output Total 1200 4000 1200 Balance -1200 -4000 -1200 Output: Urine 1200 4000 1200 Other: Voiding Method Indwelling Catheter Indwelling Catheter # Bowel Movements 2 3 - Exam GENERAL EXAM: Alert, pleasant 57-year-old female, on 2 L nasal cannula, up in a chair at the bedside, comfortable in no apparent distress. HEAD: Normocephalic. EYES: Normal reaction of pupils, equal size. NOSE: Clear with pink turbinates. THROAT: No erythema or exudates. NECK: No masses, no JVD. CHEST: No chest wall deformity. LUNGS: Equal air entry with few scattered rhonchi bilaterally. CVS: S1 and S2 normal with no audible murmur, regular rhythm. ABDOMEN: No hepatosplenomegaly, normal bowel sounds, no guarding or rigidity. SPINE: No scoliosis or deformity SKIN: No rashes CENTRAL NERVOUS SYSTEM: No focal deficits, tone is normal in all 4 extremities. EXTREMITIES: There is no peripheral edema. No clubbing, no cyanosis. Peripheral pulses are intact. - Labs CBC & Chem 7: 04/27/22 06:39 04/27/22 06:39 Assessment and Plan Assessment: Large pericardial effusion, with tamponade physiology, of unclear etiology, status post emergent pericardial window, postop day #8. Pericardial fluid pathology is positive for metastatic adenocarcinoma, primary unknown. Computed tomography scan of the abdomen and pelvis revealed no evidence of malignancy. Mammogram revealed no evidence of malignancy. EGD/colonoscopy pending. Computed tomography scan of the chest does reveal a soft tissue density along the right paratracheal region measuring 2.7 x 2.0 cm. Enlarged lymphadenopathy and mass are within the differential. Status post intubation on April 21, with extubation on April 22. Acute cardiomyopathy with an ejection fraction of 35%. Bilateral pleural effusions, small. 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 Acute kidney injury. Elevated liver function tests. Chronic tobacco dependence. Plan: The patient was seen and evaluated Medications reviewed Awaiting EGD/colonoscopy If no significant findings would recommend outpatient PET scan May require endobronchial ultrasound and biopsies of the right peritracheal mass Continue to titrate down the FiO2 as tolerated We will continue to follow I have personally seen and examined the patient, performed the documentation and the assessment and plan as written. Number of minutes spent on the visit: 10.
[2022-04-29] MEDS ORDERED: PROPOFOL 10 MG/ML 20 ML VIAL IV ONE (13:48)
[2022-04-29] MEDS ORDERED: LACTATED RINGERS 1,000 ML IV ONE (14:22)
--- NOTE | 2022-04-29 14:28 | P.PCN ---
Date of Procedure: 04/29/22 Procedure(s) Performed: PREOPERATIVE DIAGNOSIS: Epigastric pain, metastatic adenocarcinoma, screening POSTOPERATIVE DIAGNOSIS: Mild gastritis, small hiatal hernia, mild duodenitis PROCEDURE: 1. EGD with biopsy 2. Colonoscopy ANESTHESIA: MAC SURGEON: Desean Eaton M.D. SPECIMENS: Duodenum, antrum ENDOSCOPIC PROCEDURE: The patient was on the endoscopy table in the left decubitus position. The Olympus gastroscope was inserted into the oropharynx and passed under direct visualization to the region of the third portion of the duodenum. From that point the scope was slowly withdrawn inspecting all surfaces carefully. There was mild inflammatory changes in the duodenal bulb. Biopsies were taken. These did not appear frankly malignant. The pylorus was widely patent. There was mild gastritis present. A biopsy of the antrum took place. Retroflexion revealed a small sliding hiatal hernia measuring 1.5 cm. The esophagus was then carefully examined. There were no neoplastic inflammatory or polypoid lesions throughout the visualized esophagus. The patient was kept on the endoscopy table in the left decubitus position. The Olympus colonoscope was inserted into the anus and passed under direct visualization to the base of the cecum. The appendiceal orifice was visualized. From that point the scope was slowly withdrawn inspecting all surfaces carefully. There were no neoplastic inflammatory or polypoid lesions throughout the cecum, ascending, transverse, descending, sigmoid and rectum. There was no visible diverticulosis noted. Digital rectal examination was normal. The patient was taken to the recovery room in stable condition per anesthesia guidelines. RECOMMENDATIONS: Resume diet. Await biopsy results. Initial CT abdomen does reveal some stranding in the retroperitoneum. Consider endoscopic ultrasound for further workup of source of malignancy if not identified.
[2022-04-29] MEDS: SENNOSIDES-DOCUSATE SODIUM 1 EACH TAB PO SCH (21:07)
[2022-04-29] MEDS: HYDROcodone/APAP 5-325MG 1 EACH TAB PO PRN (21:08)
[2022-04-30] MEDS: HYDROcodone/APAP 5-325MG 1 EACH TAB PO PRN (00:47)
[2022-04-30 02:28] VITALS: TEMP 98.2
[2022-04-30] MEDS: SALT AND SODA MOUTHWASH 1,000 ML PO SCH ×2 (05:51→11:49)
[2022-04-30 07:41] VITALS: BP 104/73
[2022-04-30] MEDS: IPRATROPIUM-ALBUTEROL 3 ML NEB INHALATION SCH ×2 (07:49→10:44)
--- NOTE | 2022-04-30 10:21 | P.PN ---
Subjective Progress Note Date: 04/30/22 HISTORY OF PRESENT ILLNESS: The patient was admitted with progressive abdominal pain, fatigue and lack of energy, her CT scan showed a large pericardial effusion and her echocardiogram revealed evidence of tamponade. She underwent a pericardial window with drainage of 700 mL of bloody fluid. A repeat echocardiogram showed an ejection fraction of 35% with suggestion of anteroseptal hypokinesis. The etiology of her cardiomyopathy is unclear. Her pericardial fluid and tissue are consistent with metastatic adenocarcinoma, her computed tomography scan shows likelihood of malignancy. Her breast ultrasound showed no significant abnormalities. She is scheduled to undergo upper and lower endoscopy tomorrow. Upon examination she is feeling fairly well. She denies any shortness of breath. Continues to be in sinus mechanism. Denies any chest discomfort, dizziness or palpitations. 04/29/2022 Patient examined this morning at the bedside. Patient denies chest pain or pressure. Denies SOB. Vital signs are stable. SBP 100s. She remains on IV lasix. 04/30/2022 Patient examined this morning at the bedside. She is s/p endoscopy with Dr. Eaton. Patient denies chest pain or pressure. She denies shortness of breath. Vital signs are stable. PHYSICAL EXAM: VITAL SIGNS: Reviewed. GENERAL: Well-developed in no acute distress. NECK: Supple. No JVD or thyromegaly LUNGS: Respirations even and unlabored. Lungs diminished. HEART: Regular rate and rhythm. S1 and S2 heard. EXTREMITIES: Normal range of motion. No clubbing or cyanosis. Peripheral pulses intact. Trace bilateral lower extremity edema ASSESSMENT: Malignant pericardial effusion with metastatic adenocarcinoma, , primary unknown, possible primary lung Cardiac tamponade, S/P pericardial window Cardiomyopathy, unknown if ischemic or nonischemic Elevated LFTs Nicotine dependence PLAN: Continue current cardiac medications Patient is stable for discharge home today from a cardiac standpoint Patient to follow up outpatient with Dr. Gonzales Nurse practitioner note has been reviewed by physician. Signing provider agrees with the documented findings, assessment, and plan of care. Objective - Vital Signs Vital signs: Vital Signs Temp 98.2 F 04/30/22 07:40 Pulse 104 H 04/30/22 07:40 Resp 17 04/30/22 07:40 BP 104/73 04/30/22 07:40 Pulse Ox 94 L 04/30/22 08:07 FiO2 21 04/29/22 20:34 Intake & Output 04/29/22 04/30/22 04/30/22 18:59 06:59 18:59 Intake Total 300 360 Output Total 1200 Balance -900 360 Intake: IV 300 Oral 360 Output: Urine 1200 Other: Voiding Method Indwelling Catheter # Voids 1 2 - Labs CBC & Chem 7: 04/27/22 06:39 04/27/22 06:39
[2022-04-30] MEDS: lisinopriL 5 MG TAB PO SCH (10:34)
[2022-04-30] MEDS: MAG HYDROX/AL HYDROX/SIMETH 30 ML, LIDOCAINE VISCOUS 2% 30 ML, diphenhydrAMINE ELIXIR 7... PO SCH ×4 (10:34)
[2022-04-30] MEDS: METOPROLOL TARTRATE 25 MG TAB PO SCH (10:34)
[2022-04-30] MEDS: FUROSEMIDE 40 MG TAB PO SCH (10:34)
[2022-04-30] MEDS: SPIRONOLACTONE 25 MG TAB PO SCH (10:34)
--- NOTE | 2022-04-30 10:40 | P.DS ---
Providers Date of admission: 04/21/22 14:19 Expected date of discharge: 04/30/22 Attending physician: Precious Collins DO Consults: 04/21/22 13:41 Consult Physician Routine Consulting Provider: Darius Rankin Consult Reason/Comments: pericardial effusion Do you want consulting provider notified?: Yes 04/21/22 13:42 Consult Physician Routine Consulting Provider: Manuel Gonzales Consult Reason/Comments: pericardial effusion Do you want consulting provider notified?: Yes 04/21/22 16:19 Consult Physician Routine Consulting Provider: James Goetz Consult Reason/Comments: ICU management Do you want consulting provider notified?: Already Contacted 04/25/22 14:57 Consult Physician Routine Consulting Provider: Juarez Hogan Consult Reason/Comments: rehab Do you want consulting provider notified?: Already Contacted 04/25/22 16:33 Consult Physician Routine Consulting Provider: Tanner Treadwell Consult Reason/Comments: metastatic adenocarcinoma Do you want consulting provider notified?: Yes 04/26/22 13:09 Consult Physician Routine Consulting Provider: Desean Eaton Consult Reason/Comments: adenocarcinoma unknown primary, epigastric pain Do you want consulting provider notified?: Yes Primary care physician: [facility] Course: Patient is a 57-year-old female with no past medical history who presented to the ER at the direction of her primary care physician due to significant abdominal pain with shortness of breath. In the ER she underwent an extensive evaluation. Arrival she was hypotensive with a blood pressure of 86 and a heart rate of 114. Initial laboratory analysis showed a white blood cell count of 16.3, sodium 127, chloride 96, carbon dioxide 17, BUN 47, creatinine 1.34 (up from 0.8-2 days prior), AST 250 and ALT 298. EKG showed low voltage. She was given 1 L of IV fluids. Arrangements were made for admission. CT abdomen/pelvis demonstrated large pericardial effusion with small bilateral pleural effusions and mild ascites. Stat echocardiogram was per performed which showed large pericardial effusion with tamponade physiology. CT surgery was contacted. Patient underwent urgent pericardial window on 04/22 with fluid sent for cytology and culture, and pericadial biopsy was preformed. Intraoperative MICHELE showed EF 30-35%. ESR elevated, Troponin normal, TSH normal, CRISTIN and rheumatoid factor were negative. Pathology results from pericardial biopsy showed findings of metastatic adenocarcinoma. CT chest showed right peritracheal soft tissue density 2.7 x 2 cm. Breast ultrasound was negative. EGD and colonoscopy was done, biopsies taken with no obvious malignancy found. She is continued on Metoprolol, Lisinopril, Aldactone and Lasix for new onset systolic CHF. Patient seen and examined. No acute events overnight. Currently not on any supplemental oxygen. She denies any pain. She denies any chest pain, shortness breath or palpitations. No lightheadedness. Patient has an appointment with oncology, pulmonology, cardiology and her PCP. She will likely need bronchoscopy and endoscopic ultrasound for biopsy of the paratracheal mass. Patient verbalized understanding of the plan. Pertinent studies include CT AP, echocardiogram, CT chest, chest x-ray, chest ultrasound, breast ultrasound Pertinent procedures include EGD and colonoscopy, pericardial window General: non toxic, no distress, appears at stated age Derm: warm, dry Head: atraumatic, normocephalic, symmetric Eyes: EOMI, no lid lag, anicteric sclera Mouth: no lip lesion, mucus membranes moist Cardiovascular: S1S2 reg, no murmur Lungs: Decreased BS bilateral, no rhonchi, no rales , no accessory muscle use Abdominal: soft, nontender to palpation, no guarding, no appreciable organomegaly, Monreal in place Ext: no gross muscle atrophy, no edema, no contractures Neuro: no focal neuro deficits Psych: Alert, oriented ,appropriate affect Discharge diagnosis: #Cardiac Tamponade, pericardial effusion s/p pericardial window #Acute Hypoxemic Respiratory Failure #Acute on Chronic Systolic Heart Failure, EF 35% #Transaminitis, likely due to hypotension and hepatic congestion #SIRS #Metastatic Adenocarcinoma #Tobacco abuse Resolved: Hypotension, SHELDON, hyponatremia This complex discharge took about 35 minutes to complete. Patient Condition at Discharge: Stable Plan - Discharge Summary Discharge Rx Participant: No New Discharge Prescriptions: New Spironolactone [Aldactone] 25 mg PO DAILY #30 tab Furosemide [Lasix] 40 mg PO BID #60 tab Metoprolol Tartrate [Lopressor] 25 mg PO BID #60 tab lisinopriL [Zestril] 5 mg PO DAILY #30 tab Discontinued Azithromycin [Zithromax Z Pack] See Taper PO DIRECTED Discharge Medication List Furosemide [Lasix] 40 mg PO BID #60 tab 11/08/22 [Rx] Metoprolol Tartrate [Lopressor] 25 mg PO BID #60 tab 04/30/22 [Rx] Spironolactone [Aldactone] 25 mg PO DAILY #30 tab 04/30/22 [Rx] lisinopriL [Zestril] 5 mg PO DAILY #30 tab 04/30/22 [Rx] Follow up Appointment(s)/Referral(s): Tanner Treadwell MD [STAFF PHYSICIAN] - 05/06/22 1:00 pm (This appt is at the office located at [facility] [employer]. Located behind [facility]) Manuel Gonzales MD [STAFF PHYSICIAN] - 1 Week Jose Luis Gifford MD [Primary Care Provider] - 1-2 days Ashely Ortiz MD [STAFF PHYSICIAN] - 1 Week Activity/Diet/Wound Care/Special Instructions: Diet: Regular FU PCP within 1-2 days of DC. FU with Cardiology Dr. Gonzales within 1 week of DC. FU with Pulmonology Dr. Ortiz within 1 week of DC. FU with Dr. Treadwell on 05/06/2022. Take all medications as advised. Come back to the ED for worsening Chest pain, SOB, palpitations, lightheadedness
[2022-04-30 11:09] VITALS: PULSE 94; RESP 18
--- NOTE | 2022-04-30 14:00 | P.PN ---
Subjective Progress Note Date: 04/30/22 The patient is seen today in 04/29/2022 in follow-up on the regular medical floor. She is currently sitting up in a chair at the bedside. Awake and alert in no acute distress. She is maintaining O2 saturations in the 90s on 2 L/m per nasal cannula. She was found to have metastatic adenocarcinoma within the pericardial fluid. Mammogram revealed no evidence of malignancy. Computed tomography scan of the abdomen and pelvis revealed no evidence of malignancy. She is undergoing EGD/colonoscopy today. White count 15.7. Hemoglobin 10.6. Sodium 138. Potassium 3.7. BUN 34. Creatinine 0.71. A CT 116. ALT 317. CA 199 antigen 54.6. The patient is seen today 04/30/2022 in follow-up on the regular medical floor. She is awake and alert in no acute distress. Sitting up in a chair at the beds jimy. Denies any worsening shortness of breath, cough or congestion. Her EGD/colonoscopy did not reveal any evidence of malignancy. The plan is to discharge to home and have follow-up outpatient PET scan and probable outpatient biopsies of the paratracheal mass. Objective - Vital Signs Vital signs: Vital Signs Temp 98.2 F 04/30/22 07:40 Pulse 94 04/30/22 11:02 Resp 18 04/30/22 11:02 BP 104/73 04/30/22 07:40 Pulse Ox 94 L 04/30/22 08:07 FiO2 21 04/29/22 20:34 Intake & Output 04/29/22 04/30/22 04/30/22 18:59 06:59 18:59 Intake Total 300 360 Output Total 1200 Balance -900 360 Intake: IV 300 Oral 360 Output: Urine 1200 Other: Voiding Method Indwelling Catheter Toilet # Voids 1 2 - Exam GENERAL EXAM: Alert, pleasant 57-year-old female, on room air, up in a chair at the bedside, comfortable in no apparent distress. HEAD: Normocephalic. EYES: Normal reaction of pupils, equal size. NOSE: Clear with pink turbinates. THROAT: No erythema or exudates. NECK: No masses, no JVD. CHEST: No chest wall deformity. LUNGS: Equal air entry with few scattered rhonchi bilaterally. CVS: S1 and S2 normal with no audible murmur, regular rhythm. ABDOMEN: No hepatosplenomegaly, normal bowel sounds, no guarding or rigidity. SPINE: No scoliosis or deformity SKIN: No rashes CENTRAL NERVOUS SYSTEM: No focal deficits, tone is normal in all 4 extremities. EXTREMITIES: There is no peripheral edema. No clubbing, no cyanosis. Peripheral pulses are intact. - Labs CBC & Chem 7: 04/27/22 06:39 04/27/22 06:39 Assessment and Plan Assessment: Large pericardial effusion, with tamponade physiology, of unclear etiology, status post emergent pericardial window, postop day #9. Pericardial fluid pathology is positive for metastatic adenocarcinoma, primary unknown. Computed tomography scan of the abdomen and pelvis revealed no evidence of malignancy. Mammogram revealed no evidence of malignancy. EGD/colonoscopy revealed no evidence of malignancy. Computed tomography scan of the chest does reveal a soft tissue density along the right paratracheal region measuring 2.7 x 2.0 cm. Enlarged lymphadenopathy and mass are within the di fferential. Status post intubation on April 21, with extubation on April 22. Acute cardiomyopathy with an ejection fraction of 35%. Bilateral pleural effusions, small. 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 Acute kidney injury. Elevated liver function tests. Chronic tobacco dependence. Plan: The patient was seen and evaluated EGD/colonoscopy revealed no evidence of malignant Cleared for discharge from the pulmonary standpoint Would recommend outpatient PET scan May require endobronchial ultrasound and biopsies of the right peritracheal mass To follow up with Dr. Ortiz in our office in 1 week I have personally seen and examined the patient, performed the documentation and the assessment and plan as written. Number of minutes spent on the visit: 10.
--- NOTE | 2022-04-30 14:33 | P.PN ---
Subjective Progress Note Date: 04/30/22 CHIEF COMPLAINT: Metastatic adenocarcinoma HISTORY OF PRESENT ILLNESS: Patient status post EGD and colonoscopy revealing mild gastritis, small hiatal hernia and mild duodenitis with biopsies taken. Patient denies any abdominal pain. She is tolerating diet. Afebrile. WBC 15.7 hemoglobin 10.6 CA-19-9 54.6. Patient scheduled for discharge today. PHYSICAL EXAM: VITAL SIGNS: Reviewed. GENERAL: Well-developed in no acute distress. HEENT: No sclera icterus. Extraocular movements grossly intact. Moist buccal mucosa. Head is atraumatic, normocephalic. ABDOMEN: Soft. Nondistended. Nontender. NEUROLOGIC: Alert and oriented. Cranial nerves II through XII grossly intact. ASSESSMENT: 1. Pericardial tissue and fluid positive for adenocarcinoma with unknown primary 2. Large pericardial effusion with tamponade status post pericardial window PLAN: -Patient status post EGD and colonoscopy. Biopsy results pending -Continue supportive care -Patient to be discharged today [employer] note has been reviewed by physician. Signing provider agrees with the documented findings, assessment, and plan of care. Objective - Vital Signs Vital signs: Vital Signs Temp 98.2 F 04/30/22 07:40 Pulse 94 04/30/22 11:02 Resp 18 04/30/22 11:02 BP 104/73 04/30/22 07:40 Pulse Ox 94 L 04/30/22 08:07 FiO2 21 04/29/22 20:34 Intake & Output 04/29/22 04/30/22 04/30/22 18:59 06:59 18:59 Intake Total 300 360 Output Total 1200 Balance -900 360 Intake: IV 300 Oral 360 Output: Urine 1200 Other: Voiding Method Indwelling Catheter Toilet # Voids 1 2 - Labs CBC & Chem 7: 04/27/22 06:39 04/27/22 06:39
--- NOTE | 2022-04-30 22:03 | P.PN ---
Subjective Progress Note Date: 04/30/22 Principal diagnosis: pericardial effusion In follow-up today patient denies fevers, nausea, tolerating oral intake, patient can ambulate independently, no pain. Objective - Vital Signs Vital signs: Vital Signs Temp 98.2 F 04/30/22 07:40 Pulse 94 04/30/22 11:02 Resp 18 04/30/22 11:02 BP 104/73 04/30/22 07:40 Pulse Ox 94 L 04/30/22 08:07 FiO2 21 04/29/22 20:34 Intake & Output 04/30/22 04/30/22 05/01/22 06:59 18:59 06:59 Intake Total 360 Balance 360 Intake: Oral 360 Other: Voiding Method Toilet # Voids 2 - Constitutional General appearance: Present: average body habitus, cooperative, no acute distress - EENT Eyes: Present: anicteric sclerae, EOMI ENT: Present: hearing grossly normal - Respiratory Respiratory: bilateral: diminished - Cardiovascular Rhythm: regular Heart sounds: normal: S1, S2 Abnormal Heart Sounds: Absent: systolic murmur, diastolic murmur, rub, S3 Gallop, S4 Gallop, click, other - Peripheral edema leg Peripheral Edema: bilateral: None - Integumentary Integumentary: Present: normal - Neurologic Neurologic: Present: CNII-XII intact - Musculoskeletal Musculoskeletal: Present: strength equal bilaterally - Psychiatric Psychiatric: Present: A&O x's 3, appropriate affect, intact judgment & insight - Labs CBC & Chem 7: 04/27/22 06:39 04/27/22 06:39 Labs: Abnormal Lab Results - Last 24 Hours (Table) 04/21/22 Range/Units 16:08 Coxsackie Type B(2) Ab 1:160 H (<1:10) Coxsackie Type B(4) Ab 1:320 H (<1:10) Assessment and Plan (1) Pericardial effusion Status: Acute Priority: High Code(s): I31.39 - OTHER PERICARDIAL EFFUSION (NONINFLAMMATORY) SNOMED Code(s): 779562340 (2) Adenocarcinoma Status: Acute Priority: High Code(s): C80.1 - MALIGNANT (PRIMARY) NEOPLASM, UNSPECIFIED SNOMED Code(s): 121426296 Plan: Pericardial effusion, tissue and fluid positive for adenocarcinoma, unknown primary. Ultrasound of the bilateral breasts negative. EGD and colonoscopy performed, operative note reviewed, no visually suspicious findings. Pathology resulted later in the day, negative for malignancy. CT chest showing a peritracheal soft tissue mass. Biopsy with pulmonary will be requested outpatient. PET scan be ordered. Patient will be contacted with the date and time of imaging. Requested malignant specimen blocks for NGS and PD-L1 testing. Incorrectly documented Oncotype DX testing if primary malignancy cannot be determined. Testing that will be requested is cancer type ID. All of the above was discussed with pt and her family that was present today. They understand that it may take 1-2 weeks before she will have a diagnosis. At that time prognosis and treatment options can be reviewed. All of their questions were answered to the best of my ability with the information available at this time.
--- NOTE | 2022-05-02 07:35 | CDI ---
Documentation Clarification Form Date: 05/02/2022 07:06:00 AM From: Keri Tijerina Admit Date: 04/21/2022 02:19:00 PM Patient Name: Iraida Alejandro Visit Number: [id number] Discharge Date: 04/30/2022 12:28:00 PM TTENTION: The Clinical Documentation Specialists (CDI) and [facility] Coding Staff appreciate your assistance in clarifying documentation. Please respond to the clarification below the line at the bottom and electronically sign. The CDI & [facility] Coding staff will review the response and follow-up if needed. Please note: Queries are made part of the Legal Health Record. If you have any questions, please contact the author of this message via ITS. Dr. Precious Collins The patient has been found to have Cardiac tamponade and adenocarcinoma of pericardium. Per DCS and 04/29 PN, Patient is documented with SIRS and there is no documentation of sepsis, meeting criteria for SIRS and sepsis. Please clarify if patient also had sepsis. Additional clarification regarding the etiology/cause of the clinical indicators is requested. History/Risk Factors: Cardiac tamponade, adenocarcinoma of Pericardium metastatic. Hypotension, lactic acidosis Clinical Indicators: WBC: 16.3, 17.6, 19.2 Lactic acid: 1.8 Blood cultures: No growth Vitals signs: 97.8 F, 110, 18, 86/65, 99% RA Treatment: Antibiotics, Pericardial window and MICHELE, EGD with bx and Colonoscopy ID Consult: Antibiotics: Z pack 500 mg and Kefzol In your professional opinion, please clarify if these findings signify one of the following conditions: [ ] Sepsis POA [ ] Sepsis, Not POA [ ] Sepsis ruled out [ ] Septic Shock [ ] SIRS, without underlying infectious process [ ] Other, please specify [ ] Unable to determine SIRS Criteria: 2 or more of the following may indicate SIRS -Temperature < 96.8F (36C) or > 101.0F (38.3C) -Heart Rate > 90 bpm -Respiratory Rate > 20 breaths/min or PaCO2 < 32 mmHg -White Blood Cell Count > 12,000 or < 4,000 cells/mm3 or > 10% bands Please send to discharging physician MTDShannon
--- NOTE | 2022-05-07 12:41 | CDI ---
Documentation Clarification Form Date: 05/02/2022 07:06:00 AM From: Keri Tijerina Admit Date: 04/21/2022 02:19:00 PM Patient Name: Iraida Alejandro Visit Number: [id number] Discharge Date: 04/30/2022 12:28:00 PM ATTENTION: The Clinical Documentation Specialists (CDI) and [facility] Coding Staff appreciate your assistance in clarifying documentation. Please respond to the clarification below the line at the bottom and electronically sign. The CDI & [facility] Coding staff will review the response and follow-up if needed. Please note: Queries are made part of the Legal Health Record. If you have any questions, please contact the author of this message via ITS. Dr. Sean Pedraza The patient has been found to have Cardiac tamponade and adenocarcinoma of pericardium. Per DCS and 04/29 PN, Patient is documented with SIRS and there is no documentation of sepsis, meeting criteria for SIRS and sepsis. Please clarify if patient also had sepsis. Additional clarification regarding the etiology/cause of the clinical indicators is requested. History/Risk Factors: Cardiac tamponade, adenocarcinoma of Pericardium metastatic. Hypotension, lactic acidosis Clinical Indicators: WBC: 16.3, 17.6, 19.2 Lactic acid: 1.8 Blood cultures: No growth Vitals signs: 97.8 F, 110, 18, 86/65, 99% RA Treatment: Antibiotics, Pericardial window and MICHELE, EGD with bx and Colonoscopy ID Consult: Antibiotics: Z pack 500 mg and Kefzol In your professional opinion, please clarify if these findings signify one of the following conditions: [ ] Sepsis POA [ ] Sepsis, Not POA [ ] Sepsis ruled out [ ] Septic Shock [ ] SIRS, without underlying infectious process [ ] Other, please specify [ ] Unable to determine SIRS Criteria: 2 or more of the following may indicate SIRS -Temperature < 96.8F (36C) or > 101.0F (38.3C) -Heart Rate > 90 bpm -Respiratory Rate > 20 breaths/min or PaCO2 < 32 mmHg -White Blood Cell Count > 12,000 or < 4,000 cells/mm3 or > 10% bands SIRS, without underlying infectious process MTDD
== END 2022-04-30 12:28 | disposition home or self-care (01) | DRG 270 ==
LOC: EC 11:22 → 3SCARD 14:19 → 2SICU 16:07 → 4SSUR 04-27 22:47
PROVIDERS: ADMIT Internal Medicine; ATTEND Internal Medicine
PROC: 0W9D00Z Drainage of Pericardial Cavity with Drainage Device, Open Approach (ICD-10-PCS; principal; 2022-04-21 17:08)
PROC: 02BN0ZX Excision of Pericardium, Open Approach, Diagnostic (ICD-10-PCS; principal; 2022-04-21 17:08)
PROC: B24CZZ4 Ultrasonography of Pericardium, Transesophageal (ICD-10-PCS; principal; 2022-04-21 17:08)
PROC: 0DB98ZX Excision of Duodenum, Via Natural or Artificial Opening Endoscopic, Diagnostic (ICD-10-PCS; 2022-04-29 07:30)
PROC: 0DJD8ZZ Inspection of Lower Intestinal Tract, Via Natural or Artificial Opening Endoscopic (ICD-10-PCS; 2022-04-29 07:30)
PROC: 0DB78ZX Excision of Stomach, Pylorus, Via Natural or Artificial Opening Endoscopic, Diagnostic (ICD-10-PCS; 2022-04-29 07:30)
DX: I50.23 Acute on chronic systolic (congestive) heart failure (principal); J96.01 Acute respiratory failure with hypoxia; I31.4 Cardiac tamponade; C79.89 Secondary malignant neoplasm of other specified sites; I42.9 Cardiomyopathy, unspecified; N17.9 Acute kidney failure, unspecified; E87.20 Acidosis, unspecified; E87.1 Hypo-osmolality and hyponatremia; R18.8 Other ascites; R65.10 Systemic inflammatory response syndrome (SIRS) of non-infectious origin without acute organ dysfunction; I31.31 Malignant pericardial effusion in diseases classified elsewhere; I30.1 Infective pericarditis; J30.2 Other seasonal allergic rhinitis; K29.70 Gastritis, unspecified, without bleeding; K29.80 Duodenitis without bleeding; K44.9 Diaphragmatic hernia without obstruction or gangrene; K59.00 Constipation, unspecified; K76.1 Chronic passive congestion of liver; C80.1 Malignant (primary) neoplasm, unspecified; Z20.822 Contact with and (suspected) exposure to COVID-19; I49.8 Other specified cardiac arrhythmias; I95.9 Hypotension, unspecified; F17.210 Nicotine dependence, cigarettes, uncomplicated; Z71.6 Tobacco abuse counseling; Z80.8 Family history of malignant neoplasm of other organs or systems; Z82.49 Family history of ischemic heart disease and other diseases of the circulatory system
CPT/HCPCS: 36415; 43239; 45378; 71045; 71260; 74177; 76604; 80048; 80053; 81001; 83605; 83690; 83735; 83880; 84100; 84145; 84443; 84484; 85025; 85027; 85610; 85652; 85730; 86038; 86140; 86301; 86431; 86658; 86850; 86900; 86901; 87040; 87070; 87075; 87205; 87636; 88108; 88305; 88341; 88342; 93005; 93306; 93308; 94640; 94760; 96361; 96374; 96375; 96376; 99285

== ENCOUNTER 2022-05-02 19:20 | Inpatient (IN) | payer BC ==
[2022-05-02] MEDS ORDERED: ASPIRIN 81 MG PO STA (20:10)
[2022-05-02] MEDS ORDERED: SODIUM CHLORIDE 0.9% 1,000 ML IV STA (20:11)
[2022-05-02] MEDS ORDERED: ETOMIDATE 2 MG/ML 10 ML VIAL IVP STA (20:18)
[2022-05-02 20:45] LABS: Basophils # (A) 0.1 k/uL (0-0.2); Basophils % (A) 0 %; Eosinophils # (A) 0.2 k/uL (0-0.7); Eosinophils % (A) 1 %; HCT 40.8 % (34.0-46.0); Hypochromasia Slight; Lymphocytes # (A) 2.6 k/uL (1.0-4.8); Lymphocytes % (A) 14 %; MCH 31.5 pg (25.0-35.0); MCHC 33.6 g/dL (31.0-37.0); MCV 93.8 fL (80.0-100.0); Mean Platelet Volume 9.6; Monocytes # (A) 1.6 k/uL (0-1.0); Monocytes % (A) 8 %; Neutrophils # (A) 14.5 k/uL (1.3-7.7); Neutrophils % (A) 75 %; Platelet Count 444 k/uL (150-450); RBC 4.35 m/uL (3.80-5.40); RDW 13.9 % (11.5-15.5); WBC 19.4 k/uL (3.8-10.6)
[2022-05-02 20:50] LABS: HGB 13.7 gm/dL (11.4-16.0)
[2022-05-02 20:52] LABS: INR 1.1 (<1.2); Partial Thromboplastin Time 24.2 sec (22.0-30.0); Prothrombin Time 11.7 sec (9.0-12.0)
[2022-05-02] MEDS: AMIODARONE 450 MG in DEXTROSE 5% IN WATER 250 ML IV SCH ×2 (20:52)
[2022-05-02] MEDS ORDERED: DEXTROSE 5% IN WATER 100 ML with AMIODARONE 150 MG IV ONE (21:00)
[2022-05-02] MEDS ORDERED: AMIODARONE 360 MG in DEXTROSE 5% IN WATER 200 ML IV ONE ×2 (21:10)
[2022-05-02 21:15] LABS: ALT 82 U/L (4-34); AST 55 U/L (14-36); African American GFR (CKD) >90 (>60 ml/min/1.73 sqM); Albumin 3.1 g/dL (3.5-5.0); Alkaline Phosphatase 82 U/L (38-126); Amylase 193 U/L (30-110); Anion Gap 8 mmol/L; Blood Urea Nitrogen 17 mg/dL (7-17); Calcium 7.9 mg/dL (8.4-10.2); Carbon Dioxide 26 mmol/L (22-30); Chloride 98 mmol/L (98-107); Glucose 100 mg/dL (74-99); Lipase 1601 U/L (23-300); Magnesium 1.8 mg/dL (1.6-2.3); Non-African American GFR(CKD) >90 (>60 ml/min/1.73 sqM); Potassium 3.9 mmol/L (3.5-5.1); Sodium 132 mmol/L (137-145); Total Bilirubin 0.7 mg/dL (0.2-1.3); Total Protein 6.1 g/dL (6.3-8.2)
--- NOTE | 2022-05-02 21:15 | XR ---
EXAMINATION: XR chest 1V DATE AND TIME: 05/02/2022 9:01 PM CLINICAL INDICATION: 57 F with Chest Pain TECHNIQUE: AP upright portable COMPARISON: 04/26/2022 FINDINGS: The overlying soft tissues are prominent. There is less silhouetting of the pulmonary vasculature thr oughout the bilateral upper lung zones in the right midlung zone when compared with the study of 04/26. Currently there is silhouetting of the left hemidiaphragm, consistent with left lower lobe airlessnes s, atelectasis versus pneumonia. Finally, there remains prominent silhouetting of the pulmonary vasculature, but only in the lower lisset gs presently, greater on the left, and the left midlung zone. This has the appearance of interstitial phase pulmonary edema if infection can't be excluded clinically. Pleural spaces: No abnormal gas collections. Blunted left costophrenic angle suggests left pleural ef fusion. The cardiac silhouette is not enlarged. The remainder of the mediastinal silhouette is unremarkable. The skeletal structures and soft tissues are negative for acute findings. IMPRESSION: Continued improvement, when compared to 04/26/2022 study, in the overall lung inflation pattern.
[2022-05-02] MEDS ORDERED: NALOXONE 0.4 MG/ML 1 ML VIAL IV PRN (21:33)
--- NOTE | 2022-05-02 21:37 | ED ---
General Adult HPI - General Chief complaint: Dizziness Stated complaint: Hypotension Time Seen by Provider: 05/02/22 20:04 Source: patient, RN notes reviewed, old records reviewed Mode of arrival: ambulatory Limitations: no limitations - History of Present Illness Initial comments: Patient is a 57 her old female who presents emergency Department complaining of low blood pressure. Patient recently was discharged from the hospital after an extensive stay following a pericardial window for a malignant pericardial effusion. Drain is now out. She is discharged home 2 days ago. She states she was feeling well but then has been feeling lightheaded as well as somewhat weak over the last 2 days since discharge. Blood pressure has been low. She did follow up with her regional liaison Dr. Gonzales and contacted him earlier who recommended she stop taking her lisinopril. She presents today after continued symptoms. Was found to be in atrial fibrillation with RVR in triage. I evaluated the patient when she was placed in room 5 and then had her moved to trauma bay 2. She endorses lightheadedness. Denies any abdominal pain, nausea, vomiting. Denies any chest pain, shortness of breath. Has no other acute complaints at this time. - Related Data Previous Rx's Medication Instructions Recorded Furosemide [Lasix] 40 mg PO BID #60 tab 04/30/22 Metoprolol Tartrate [Lopressor] 25 mg PO BID #60 tab 04/30/22 Spironolactone [Aldactone] 25 mg PO DAILY #30 tab 04/30/22 lisinopriL [Zestril] 5 mg PO DAILY #30 tab 04/30/22 Allergies Allergy/AdvReac Type Severity Reaction Status Date / Time No Known Allergies Allergy Verified 05/02/22 21:44 Review of Systems ROS Statement: Those systems with pertinent positive or pertinent negative responses have been documented in the HPI. Review of Systems: CONST: Denies fever EYES: Denies blurry vision ENT: Denies nasal congestion C/V: Denies Chest pain RESP: Denies shortness of breath GI: Denies abdominal pain : Denies dysuria SKIN: Denies rash. MSK: Denies joint pain. NEURO: Endorses lightheadedness ROS Other: All systems not noted in ROS Statement are negative. Past Medical History Past Medical History: No Reported History History of Any Multi-Drug Resistant Organisms: None Reported Past Surgical History: No Surgical Hx Reported Additional Past Surgical History / Comment(s): tubal ligation Past Anesthesia/Blood Transfusion Reactions: No Reported Reaction Past Psychological History: No Psychological Hx Reported Smoking Status: Former smoker Past Drug Use History: None Reported - Past Family History Father Family Medical History: Hypertension Additional Family Medical History / Comment(s): of an [place] at age 51 Brother(s) Family Medical History: Hypertension Additional Family Medical History / Comment(s): Aunt with brain cancer General Exam - General Exam Comments Initial Comments: General: Appears in no acute distress. HEAD: Normal with no signs of head trauma. EYES: PERRLA, EOMI, conjunctiva normal, no discharge. ENT: Hearing grossly intact, normal oropharynx. RESPIRATORY: Clear breath sounds bilaterally. No wheezes, rales, or rhonchi. C/V: Irregular rate and rhythm. Tachycardic. S1 and S2 auscultated. Peripheral pulses 2+ and intact throughout. ABD: Abd is soft, nontender, nondistended EXT: Normal range of motion, no obvious deformity SKIN: No rashes or lesions observed on exposed skin. NEURO: Alert and oriented 4. No obvious focal deficits. Limitations: no limitations Course Vital Signs 05/02/22 05/02/22 05/02/22 19:44 20:18 20:24 Temperature 98.6 F Pulse Rate 82 184 H Pulse Rate [ 172 H Apical] Respiratory 18 14 Rate Blood Pressure 83/64 83/70 O2 Sat by Pulse 98 98 Oximetry 05/02/22 05/02/22 05/02/22 20:27 20:30 20:35 Temperature Pulse Rate 176 H 94 96 Pulse Rate [ Apical] Respiratory 16 12 12 Rate Blood Pressure 101/85 101/76 105/80 O2 Sat by Pulse 98 100 Oximetry 05/02/22 05/02/22 21:04 22:05 Temperature Pulse Rate 95 96 Pulse Rate [ Apical] Respiratory 16 14 Rate Blood Pressure 100/76 100/84 O2 Sat by Pulse 96 98 Oximetry Procedures - [place] Protocol (Time Out) Procedure Performed:: Cardoversion Performing Provider: Davis Mayberry AGRICULTURE SPECIALIST: Melissa Thomson Nurse: Diana Griffith Patient Identification (2 identifiers required): Verbal, Arm Band, Name, Birthdate Patient/Legal Head Operator has Confirmed: Site, Procedure - Procedural Sedation Procedural Sedation Start Time: 20:29 Procedural Sedation Stop Time: 20:36 Indications: other (cardioversion, synchronized) ASA Class: I Mallampati Airway Score: 2 Time of Last PO Intake: 17:00 Preparation: ekg monitor tech applied, pulse oximeter, supplemental O2 applied, suction/airway equipment at bedside IV Etomidate Dose (mgs): 5 Complications: none Patient Tolerated Procedure: well Medical Decision Making - Medical Decision Making Based on the patient's presentation and physical exam, she presents with atrial fibrillation and RVR. She is hypotensive. She is an unstable A. fib with RVR. She was immediately moved to the trauma bay from room 5. We start the patient on 1 L fluid bolus. We obtained multiple IVs and she was placed on the monitor with pads. We will obtain cardiopulmonary workup. I did contact Dr. Gonzales for we are setting up for syncope denies cardioversion as the patient had systolic blood pressures in the 70s with A. fib and RVR in the 180s. He was in agreement with the plan. Recommended we hold heparin at this time due to the recent pericardial window and effusion. Also recommended that we start the patient on an amiodarone drip following cardioversion. I was in agreement this plan. The patient consented to the procedure. Procedural sedation was done with 5 mg of etomidate. Patient was seen denies cardioverted with 150 J. She converted t o normal sinus rhythm. No signs of acute ischemia on EKG following cardioversion. Patient tolerated the procedure well. She awoke afterwards and had no acute complaints. She was feeling better. Lightheadedness had resolved. We'll hold further IV fluids at this time. Stat echo was ordered by myself after I discussed with Dr. Gonzales earlier who is also in agreement with that. To evaluate for any signs of recurrent pericardial effusion. Chest x-ray interpreted by myself shows bilateral prominent pulmonary vasculature but appears improved when compared to prior a chest x-ray. Patient's laboratory studies are remarkable for leukocytosis of 19.4 which does appear to be chronic for the patient. Patient's troponin is elevated as expected to 0.105. BNP is also elevated to 11,000, further support to hold further fluid boluses at this time. Patient does have elevated LFTs at this time, however upon evaluation of patient's prior workups, patient did have an elevated CA-19-9 lab. This could be secondary to cancer source. Patient has no symptoms at this time to suggest acute pancreatitis. She denies any abdominal pain, nausea, vomiting. I do not believe she requires imaging at this time, she was slightly elevated previously, and CT revealed no findings. Patient's vital signs remained within acceptable limits at this time. I discussed with her she will be admitted. She was in agreement this plan. I spoke with the admitting physician, Dr. Lopez who accepted the patient. Karina lewis was admitted in serious condition. We discussed the patient's workup, we will obtain CT abdomen and pelvis at this time due to the elevated lipase severely above her previous baseline. This could be secondary to possible cancer, however we cannot be sure. She is asymptomatic. Stat echo was contacted and they will present at bedside to perform the echo this evening.Echo was completed by the nanotechnology engineering technician. She did notify me that she is concerned for possibly a blood clot either in the pericardial space. It is inconclusive as some images there may be something in the right ventricle versus something in the pericardium. There are no obvious signs of tamponade per tech. There is a pleural effusion. Trace pericardial effusion. I did verbally discuss this with Dr. Gonzales. As he does not have access to evaluate the images at this time, and as the patient is stable we will empirically place her on heparin drip at this time. We'll continue therapy with the amiodarone. Patient's vital signs remained within acceptable limits. She is remained in normal sinus rhythm. I did update the patient and she was in agreement with this plan. Patient was therefore admitted in serious condition. CT abd and pelvis is pending at this time. Dr. Lopez will follow up the results. - Lab Data Result diagrams: 05/02/22 20:07 05/02/22 20:07 Lab Results 05/02/22 05/02/22 05/02/22 Range/Units 20:07 20:07 20:07 WBC 19.4 H (3.8-10.6) k/uL RBC 4.35 (3.80-5.40) m/uL Hgb 13.7 D (11.4-16.0) gm/dL Hct 40.8 (34.0-46.0) % MCV 93.8 (80.0-100.0) fL MCH 31.5 (25.0-35.0) pg MCHC 33.6 (31.0-37.0) g/dL RDW 13.9 (11.5-15.5) % Plt Count 444 (150-450) k/uL MPV 9.6 Neutrophils % 75 % Lymphocytes % 14 % Monocytes % 8 % Eosinophils % 1 % Basophils % 0 % Neutrophils # 14.5 H (1.3-7.7) k/uL Lymphocytes # 2.6 (1.0-4.8) k/uL Monocytes # 1.6 H (0-1.0) k/uL Eosinophils # 0.2 (0-0.7) k/uL Basophils # 0.1 (0-0.2) k/uL Hypochromasia Slight PT 11.7 (9.0-12.0) sec INR 1.1 (<1.2) APTT 24.2 (22.0-30.0) sec Sodium 132 L (137-145) mmol/L Potassium 3.9 (3.5-5.1) mmol/L Chloride 98 (98-107) mmol/L Carbon Dioxide 26 (22-30) mmol/L Anion Gap 8 mmol/L BUN 17 (7-17) mg/dL Creatinine 0.52 (0.52-1.04) mg/dL Est GFR (CKD-EPI)AfAm >90 (>60 ml/min/1.73 sqM) Est GFR (CKD-EPI)NonAf >90 (>60 ml/min/1.73 sqM) Glucose 100 H (74-99) mg/dL Plasma Lactic Acid Ji (0.7-2.0) mmol/L Calcium 7.9 L (8.4-10.2) mg/dL Magnesium 1.8 (1.6-2.3) mg/dL Total Bilirubin 0.7 (0.2-1.3) mg/dL AST 55 H (14-36) U/L ALT 82 H (4-34) U/L Alkaline Phosphatase 82 (38-126) U/L Troponin I (0.000-0.034) ng/mL NT-Pro-B Natriuret Pep pg/mL Total Protein 6.1 L (6.3-8.2) g/dL Albumin 3.1 L (3.5-5.0) g/dL Amylase 193 H (30-110) U/L Lipase 1601 H (23-300) U/L 05/02/22 05/02/22 05/02/22 Range/Units 20:07 20:07 20:22 WBC (3.8-10.6) k/uL RBC (3.80-5.40) m/uL Hgb (11.4-16.0) gm/dL Hct (34.0-46.0) % MCV (80.0-100.0) fL MCH (25.0-35.0) pg MCHC (31.0-37.0) g/dL RDW (11.5-15.5) % Plt Count (150-450) k/uL MPV Neutrophils % % Lymphocytes % % Monocytes % % Eosinophils % % Basophils % % Neutrophils # (1.3-7.7) k/uL Lymphocytes # (1.0-4.8) k/uL Monocytes # (0-1.0) k/uL Eosinophils # (0-0.7) k/uL Basophils # (0-0.2) k/uL Hypochromasia PT (9.0-12.0) sec INR (<1.2) APTT (22.0-30.0) sec Sodium (137-145) mmol/L Potassium (3.5-5.1) mmol/L Chloride (98-107) mmol/L Carbon Dioxide (22-30) mmol/L Anion Gap mmol/L BUN (7-17) mg/dL Creatinine (0.52-1.04) mg/dL Est GFR (CKD-EPI)AfAm (>60 ml/min/1.73 sqM) Est GFR (CKD-EPI)NonAf (>60 ml/min/1.73 sqM) Glucose (74-99) mg/dL Plasma Lactic Acid Ji 1.8 (0.7-2.0) mmol/L Calcium (8.4-10.2) mg/dL Magnesium (1.6-2.3) mg/dL Total Bilirubin (0.2-1.3) mg/dL AST (14-36) U/L ALT (4-34) U/L Alkaline Phosphatase (38-126) U/L Troponin I 0.105 H* (0.000-0.034) ng/mL NT-Pro-B Natriuret Pep 83308 pg/mL Total Protein (6.3-8.2) g/dL Albumin (3.5-5.0) g/dL Amylase (30-110) U/L Lipase (23-300) U/L - EKG Data -: EKG Interpreted by Me EKG Comments: 12-lead Electrocardiogram Interpretation Note EKG was reviewed and interpreted by myself. 12-lead ECG performed at 1955 is interpreted by me as revealing atrial fibrillation with RVR at a rate of 183 beats per minute. [place] is normal. [place] interval is unobtainable, QRS duration is 81 ms, QTc is 329 ms. There were no ST or T wave abnormalities to suggest myocardial ischemia or injury. R wave progression across the precordium was satisfactory. 12-lead Electrocardiogram Interpretation Note EKG was reviewed and interpreted by myself. 12-lead ECG performed at 2033 is interpreted by me as revealing normal sinus rhythm at a rate of 95 beats per minute. [place] is normal. [place] interval is 144 ms, QRS duration is 85 ms, QTc is 421 ms.. There is some T-wave flattening but no obvious signs of acute ST segment T wave abnormalities to suggest myocardial ischemia or injury.. R wave progression across the precordium was satisfactory. By my interpretation this EKG is non-diagnostic for acute ischemia. Critical Care Time Critical Care Time: Yes Total Critical Care Time: 35 Critical Care Time: Upon my evaluation, this patient had a high probability of imminent or life- threatening deterioration due to atrial fibrillation with RVR unstable, see denies cardioversion, history of malignant pericardial effusion with recent her cardio window status post drain removal, which required my direct attention, intervention, and personal management. I have personally provided 35 minutes of critical care time exclusive of time s pent on separately billable procedures. Time includes review of laboratory data, radiology results, discussion with consultants, and monitoring for potential decompensation. Interventions were performed as documented in my note. Disposition Clinical Impression: Atrial fibrillation with RVR, Hypotension, Encounter for cardioversion procedure, Cancer, Elevated lipase Disposition: ADMITTED IP TO THIS HOSP Condition: Serious Is patient prescribed a controlled substance at d/c from ED?: No Time of Disposition: 21:36
[2022-05-02] MEDS ORDERED: HEPARIN SODIUM 1,000 UN/ML (10ML VL) IV PRN (22:33)
[2022-05-02] MEDS ORDERED: HEPARIN SODIUM 1,000 UN/ML (10ML VL) IV ONE (22:33)
[2022-05-02] MEDS: HEPARIN SOD,PORK IN 0.45% NACL 25,000 UNIT in 0.45% NACL 1 250ML.BAG IV SCH (23:42)
--- NOTE | 2022-05-03 00:16 | CT ---
EXAMINATION TYPE: CT abdomen pelvis w con DATE OF EXAM: 05/02/2022 COMPARISON: 04/21/2022 HISTORY: Elevated lipase CT DLP: 806.9 mGycm Automated exposure control for dose reduction was used. CONTRAST: Performed with IV Contrast, patient injected with 100ml mL of Isovue 300. Images obtained from the diaphragm to the floor the pelvis with the IV contrast. There are bilateral pleural effusions and larger on the left side. There is some left lower lobe atel ectasis. There is pericardial effusion. Heart is slightly enlarged. Liver and spleen are intact. No pancreatic mass. The stomach is intact. Gallbladder appears intact. T he bile ducts are not dilated. There is no adrenal mass. Kidneys have normal size and contour. No hydronephrosis. Ureters are not di lated. Bladder distends smoothly. No retroperitoneal adenopathy. No inguinal hernia. Uterus is anteve rted. The lumbar vertebrae have normal alignment. There is vacuum disc at L5-S1. No compression fract ure. Bony pelvis is intact. The hip joints appear intact. Sacroiliac joints are intact. There is no mesenteric edema. No ascites or free air. No sign of a bowel obstruction. Abdominal aorta is atheromatous. Appendix is inferior and posterior and appears normal. IMPRESSION: Bilateral pleural effusions which are increased on the left side and unchanged on the right side comp ared to old exam. There is pericardial effusion which is slightly decreased. Atelectasis left lung ba se without change. There is clearing of the intraperitoneal ascites fluid in the abdomen compared to old exam.
--- NOTE | 2022-05-03 03:01 | P.HPIM ---
History of Present Illness H&P Date: 05/02/22 The patient is a 57-year-old female with a PMH of recent admission for malignant pericardial effusion with tamponade status post pericardial window, subsequently discharged 2 days ago, without presents to the emergency room with complaints of lightheadedness. The patient reports that she had been experiencing low blood pressure since her discharge. She reports that her lightheadedness worsened significantly at around 3 PM earlier today. She subsequently contacted her resident services coordinator Dr. Gonzales would wiser to go to the emergency room. Upon presentation, the patient was noted to be hypotensive and in A. fib with RVR, for which she was cardioverted with subsequent normal sinus rhythm. The case was discussed by ED physician with Dr. Gonzales who recommended amiodarone infusion. A stat echocardiogram was also ordered due to concerns of possible recurrent pericardial effusion. As per the ED physician, the images were reviewed with Dr. Gonzales with no concerns for cardiac tamponade, although possible clot in the right ventricle or possibly the pericardial space. Dr. Gonzales recommended i nitiation of heparin infusion at that time. The patient's laboratory evaluation was remarkable for troponin of 0.105, proBNP 11,800, lipase 1601, and WBC count 19.4. A CT abdomen and pelvis revealed bilateral pleural effusions with a decreased pericardial effusion. Review of systems: Pertinent positives and negatives as discussed in HPI, a complete review of systems was performed and all other systems are negative. Physical examination: General: non toxic, no distress, appears at stated age, normal weight Derm: no unusual rashes/lesions, warm Head: atraumatic, normocephalic, symmetric Eyes: EOMI, no lid lag, anicteric sclera, pupils equal round reactive to light ENT: Nose and ears atraumatic Neck: No cervical lymphadenopathy, trachea midline, supple Mouth: no lip lesion, mucus membranes moist Cardiovascular: S1S2 reg, no murmur, positive dorsalis pedis pulse bilateral, no edema Lungs: CTA bilateral, no rhonchi, no rales, no accessory muscle use Abdominal: soft, nontender to palpation, no guarding Ext: muscle strength 5 out of 5 in all 4 extremities grossly, no gross muscle atrophy, no contractures, Neuro: CN II-XI grossly intact, no gross focal neuro deficits Psych: Alert, oriented, appropriate affect Assessment/plan A. fib with RVR status post cardioversion -Continue with amiodarone infusion -Heparin infusion -Cardiology consulted -Cardiac monitoring Suspected clot in right ventricle versus pericardium -Continue with heparin infusion -Cardiac monitoring -Cardiology consulted Elevated lipase -Patient denying abdominal pain, or nausea -Unclear etiology, possibly related to ongoing unknown malignancy Recently diagnosed malignant pericardial effusion status post pericardial window -Patient to undergo follow-up with oncology for further workup for id entification of primary malignancy -[id number] elevated Elevated troponin -Likely due to ongoing A. fib with RVR -Trend for now -Cardiac monitoring DVT prophylaxis -Heparin infusion The patient is admitted with an anticipated greater than 2 midnight stay for evaluation of A. fib with RVR. CODE STATUS: Full Code Discussed with: Patient Anticipated discharge date: 3-[address]: Home Past Medical History Past Medical History: No Reported History History of Any Multi-Drug Resistant Organisms: None Reported Past Surgical History: No Surgical Hx Reported Additional Past Surgical History / Comment(s): tubal ligation Past Anesthesia/Blood Transfusion Reactions: No Reported Reaction Past Psychological History: No Psychological Hx Reported Smoking Status: Former smoker Past Drug Use History: None Reported - Past Family History Father Family Medical History: Hypertension Additional Family Medical History / Comment(s): of an AK at age 51 Brother(s) Family Medical History: Hypertension Additional Family Medical History / Comment(s): Aunt with brain cancer Medications and Allergies Home Medications Medication Instructions Recorded Confirmed Type Furosemide [Lasix] 40 mg PO BID #60 tab 04/30/22 05/02/22 Rx Metoprolol Tartrate [Lopressor] 25 mg PO BID #60 tab 04/30/22 05/02/22 Rx Spironolactone [Aldactone] 25 mg PO DAILY #30 tab 04/30/22 05/02/22 Rx lisinopriL [Zestril] 5 mg PO DAILY #30 tab 04/30/22 05/02/22 Rx Allergies Allergy/AdvReac Type Severity Reaction Status Date / Time No Known Allergies Allergy Verified 05/02/22 21:44 Physical Exam Vitals: Vital Signs Temp Pulse Pulse Resp BP Pulse Ox 05/02/22 23:47 96 14 100/66 98 05/02/22 22:05 96 14 100/84 98 05/02/22 21:04 95 16 100/76 96 05/02/22 20:35 96 12 105/80 05/02/22 20:30 94 12 101/76 100 05/02/22 20:27 176 H 16 101/85 98 05/02/22 20:24 184 H 14 83/70 98 05/02/22 20:18 172 H 05/02/22 19:44 98.6 F 82 18 83/64 98 Intake and Output 05/02/22 05/02/22 05/03/22 14:59 22:59 06:59 Other: Weight 68.039 kg Results CBC & Chem 7: 05/02/22 20:07 05/02/22 20:07 Labs: Abnormal Lab Results - Last 24 Hours (Table) 05/02/22 05/02/22 05/02/22 Range/Units 20:07 20:07 20:07 WBC 19.4 H (3.8-10.6) k/uL Neutrophils # 14.5 H (1.3-7.7) k/uL Monocytes # 1.6 H (0-1.0) k/uL Sodium 132 L (137-145) mmol/L Glucose 100 H (74-99) mg/dL Calcium 7.9 L (8.4-10.2) mg/dL AST 55 H (14-36) U/L ALT 82 H (4-34) U/L Troponin I 0.105 H* (0.000-0.034) ng/mL Total Protein 6.1 L (6.3-8.2) g/dL Albumin 3.1 L (3.5-5.0) g/dL Amylase 193 H (30-110) U/L Lipase 1601 H (23-300) U/L 05/02/22 Range/Units 22:29 WBC (3.8-10.6) k/uL Neutrophils # (1.3-7.7) k/uL Monocytes # (0-1.0) k/uL Sodium (137-145) mmol/L Glucose (74-99) mg/dL Calcium (8.4-10.2) mg/dL AST (14-36) U/L ALT (4-34) U/L Troponin I 0.095 H* (0.000-0.034) ng/mL Total Protein (6.3-8.2) g/dL Albumin (3.5-5.0) g/dL Amylase (30-110) U/L Lipase (23-300) U/L
[2022-05-03] MEDS: AMIODARONE 450 MG in DEXTROSE 5% IN WATER 250 ML IV SCH ×2 (03:24)
[2022-05-03 05:27] LABS: Appearance,Urine Clear (Clear); Bacteria,Urine Rare /hpf; Bilirubin,Urine Negative (Negative); Blood,Urine Trace (Negative); Color,Urine Yellow; Glucose,Urine (UA) Negative (Negative); Ketones,Urine Trace (Negative); Leukocyte Esterase,Urine Negative (Negative); Mucus,Urine Rare /hpf; Nitrite,Urine Negative (Negative); Protein,Urine 1+ (Negative); RBC,Urine 17 /hpf (0-5); Specific Gravity,Urine >1.050 (1.001-1.035); Squamous Epithelial Cell,Urine 9 /hpf (0-4); Urobilinogen,Urine <2.0 mg/dL (<2.0); WBC,Urine 2 /hpf (0-5)
[2022-05-03 05:45] LABS: Basophils % (A) 0 %; Eosinophils # (A) 0.2 k/uL (0-0.7); Eosinophils % (A) 1 %; HCT 37.6 % (34.0-46.0); HGB 12.3 gm/dL (11.4-16.0); Hypochromasia Moderate; Lymphocytes # (A) 2.1 k/uL (1.0-4.8); Lymphocytes % (A) 11 %; MCH 31.6 pg (25.0-35.0); MCHC 32.7 g/dL (31.0-37.0); MCV 96.6 fL (80.0-100.0); Mean Platelet Volume 9.1; Monocytes # (A) 1.2 k/uL (0-1.0); Monocytes % (A) 6 %; Neutrophils % (A) 80 %; Platelet Count 411 k/uL (150-450); RBC 3.89 m/uL (3.80-5.40); RDW 13.9 % (11.5-15.5); WBC 18.8 k/uL (3.8-10.6)
[2022-05-03 05:57] LABS: African American GFR (CKD) >90 (>60 ml/min/1.73 sqM); Anion Gap 6 mmol/L; Blood Urea Nitrogen 15 mg/dL (7-17); Calcium 7.6 mg/dL (8.4-10.2); Carbon Dioxide 27 mmol/L (22-30); Chloride 99 mmol/L (98-107); Glucose 101 mg/dL (74-99); Non-African American GFR(CKD) >90 (>60 ml/min/1.73 sqM); Potassium 3.3 mmol/L (3.5-5.1); Sodium 132 mmol/L (137-145)
[2022-05-03 06:33] LABS: INR 1.1 (<1.2); Prothrombin Time 11.9 sec (9.0-12.0)
[2022-05-03 06:34] LABS: Partial Thromboplastin Time 31.1 sec (22.0-30.0)
[2022-05-03] MEDS ORDERED: FUROSEMIDE 40 MG TAB PO SCH (09:00)
--- NOTE | 2022-05-03 11:57 | P.CRDCN ---
History of Present Illness History of present illness: HISTORY OF PRESENTING ILLNESS Patient is pleasant 57-year-old female with history of tobacco abuse and recent diagnosis of malignant pericardial effusion consistent with adenocarcinoma with unclear source, cardiomyopathy EF 35% who presents secondary to lightheadedness and dizziness. She did have recent admission with shortness of breath and fatigue and eventually found to have pericardial effusion and underwent pericardial window. Additionally she had a cardiomyopathy EF 35%. She presented with episode of feeling lightheaded and dizzy and somewhat confused with a lower blood pressure. Blood pressure 83/70 with heart rate 180 and found to be in new onset of A. fib and therefore cardioverted. Patient was placed on amiodarone drip and has remained in sinus rhythm. She states she feels predominantly back to her normal self. Denies any current shortness breath. She did have CT abdomen and pelvis which didn't show some bilateral pleural effusions as well as some improvement in pericardial effusion however still pericardial effusion present. Troponins mildly elevated REVIEW OF SYSTEMS At the time of my exam: CONSTITUTIONAL: Denies fever or chills. CARDIOVASCULAR: Denies chest pain, +shortness of breath, no orthopnea, PND, +palpitations. RESPIRATORY: Denies cough. GASTROINTESTINAL: Denies abdominal pain, diarrhea, constipation, nausea or vomiting. MUSCULOSKELETAL: Denies myalgias. NEUROLOGIC: Denies numbness, tingling or weakness. ENDOCRINE: Denies fatigue, weight change, polydipsia or polyurina. GENITOURINARY: Denies burning, hematuria or urgency with micturation. HEMATOLOGIC: Denies history of anemia or bleeding. PHYSICAL EXAMINATION Vital signs reviewed. CONSTITUTIONAL: No apparent distress. HEENT: Head is normocephalic. Pupils are equal, round. Sclerae anicteric. Mucous membranes of the mouth are moist. No JVD. No carotid bruit. CHEST EXAMINATION: Lungs are clear to auscultation. No chest wall tenderness is noted on palpation or with deep breathing. HEART EXAMINATION: Regular rate and rhythm. S1, S2 heard. No murmurs, gallops or rub. ABDOMEN: Soft, nontender. Positive bowel sounds. EXTREMITIES: 2+ peripheral pulses, no lower extremity edema and no calf tenderness. NEUROLOGIC EXAMINATION: Patient is awake, alert and oriented x3. 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 fib with RVR. Patient additionally had been somewhat more hypotensive. CAT scan showing concern of continued pericardial effusion and we will check repeat 2-D echo to evaluate degree of pericardial effusion. Additionally we will check a CTA chest to rule out PE as possible reason for new Afib. Check TSH. Continue heparin for now. CHADS VASC 2 for heart failure and female and ideally anticoagulation however monitor need for biopsy, hgb. Past Medical History Past Medical History: No Reported History Additional Past Medical History / Comment(s): Pericardial Effusion with Window placement 03/2022, cardioversion 05/02/22 History of Any Multi-Drug Resistant Organisms: None Reported Past Surgical History: No Surgical Hx Reported Additional Past Surgical History / Comment(s): tubal ligation Past Anesthesia/Blood Transfusion Reactions: No Reported Reaction Past Psychological History: No Psychological Hx Reported Smoking Status: Former smoker Past Drug Use History: None Reported - Past Family History Father Family Medical History: Hypertension Additional Family Medical History / Comment(s): of an MS at age 51 Brother(s) Family Medical History: Hypertension Additional Family Medical History / Comment(s): Aunt with brain cancer Medications and Allergies Home Medications Medication Instructions Recorded Confirmed Type Furosemide [Lasix] 40 mg PO BID #60 tab 04/30/22 05/02/22 Rx Metoprolol Tartrate [Lopressor] 25 mg PO BID #60 tab 04/30/22 05/02/22 Rx Spironolactone [Aldactone] 25 mg PO DAILY #30 tab 04/30/22 05/02/22 Rx lisinopriL [Zestril] 5 mg PO DAILY #30 tab 04/30/22 05/02/22 Rx Allergies Allergy/AdvReac Type Severity Reaction Status Date / Time No Known Allergies Allergy Verified 05/02/22 21:44 Physical Exam Vitals: Vital Signs Temp Pulse Pulse Pulse Resp BP BP 05/03/22 08:00 98.1 F 101 H 16 104/66 05/03/22 03:24 97.9 F 94 16 108/70 05/03/22 02:36 96 14 106/84 05/02/22 23:47 96 14 100/66 05/02/22 22:05 96 14 100/84 05/02/22 21:04 95 16 100/76 05/02/22 20:35 96 12 105/80 05/02/22 20:30 94 12 101/76 05/02/22 20:27 176 H 16 101/85 05/02/22 20:24 184 H 14 83/70 05/02/22 20:18 172 H 05/02/22 19:44 98.6 F 82 18 83/64 Pulse Ox 05/03/22 08:00 97 05/03/22 03:24 98 05/03/22 02:36 98 05/02/22 23:47 98 05/02/22 22:05 98 05/02/22 21:04 96 05/02/22 20:35 05/02/22 20:30 100 05/02/22 20:27 98 05/02/22 20:24 98 05/02/22 20:18 05/02/22 19:44 98 Intake and Output 05/02/22 05/03/22 05/03/22 22:59 06:59 14:59 Intake Total 57.835 Output Total 650 Balance -592.165 Intake: Intake, IV Titration 57.835 Amount Heparin Sod,Pork in 0.45% 57.835 NaCl 25,000 unit In 0.45 % NaCl 1 250ml.bag @ 12 UNITS/KG/HR 8.165 mls/hr IV .Q24H [facility] Rx#: [id number] Oral 0 Output: Urine 650 Other: Voiding Method Toilet Toilet # Voids 1 # Bowel Movements 0 Weight 68.039 kg 71 kg Results 05/03/22 05:35 05/03/22 05:35 Cardiac Enzymes 05/02/22 05/02/22 05/02/22 Range/Units 20:07 20:07 22:29 AST 55 H (14-36) U/L Troponin I 0.105 H* 0.095 H* (0.000-0.034) ng/mL 05/03/22 Range/Units 05:35 AST (14-36) U/L Troponin I 0.089 H* (0.000-0.034) ng/mL Coagulation 05/02/22 05/03/22 Range/Units 20:07 05:35 PT 11.7 11.9 (9.0-12.0) sec APTT 24.2 31.1 H (22.0-30.0) sec CBC 05/02/22 05/03/22 Range/Units 20:07 05:35 WBC 19.4 H 18.8 H (3.8-10.6) k/uL RBC 4.35 3.89 (3.80-5.40) m/uL Hgb 13.7 D 12.3 (11.4-16.0) gm/dL Hct 40.8 37.6 (34.0-46.0) % Plt Count 444 411 (150-450) k/uL Comprehensive Metabolic Panel 05/02/22 05/03/22 Range/Units 20:07 05:35 Sodium 132 L 132 L (137-145) mmol/L Potassium 3.9 3.3 L (3.5-5.1) mmol/L Chloride 98 99 (98-107) mmol/L Carbon Dioxide 26 27 (22-30) mmol/L BUN 17 15 (7-17) mg/dL Creatinine 0.52 0.55 (0.52-1.04) mg/dL Glucose 100 H 101 H (74-99) mg/dL Calcium 7.9 L 7.6 L (8.4-10.2) mg/dL AST 55 H (14-36) U/L ALT 82 H (4-34) U/L Alkaline Phosphatase 82 (38-126) U/L Total Protein 6.1 L (6.3-8.2) g/dL Albumin 3.1 L (3.5-5.0) g/dL Current Medications Generic Name Dose Route Start Last Admin Trade Name Freq PRN Reason Stop Dose Admin Heparin Sodium (Porcine) 0 unit 05/02/22 22:33 Heparin Sodium 1,000 Un/Ml (10ml Vl) IV PER PROTOCOL PRN Low PTT Protocol Amiodarone HCl 450 mg/ 250 mls @ 16.667 mls/hr 05/03/22 03:10 05/03/22 03:24 Dextrose/Water IV 05/03/22 21:09 0.5 mg/min .Q15H RO 16.667 mls/hr Administration Protocol 0.5 MG/MIN Heparin Sodium/Sodium Chloride 250 mls @ 8.165 mls/hr 05/02/22 22:45 05/03/22 06:47 25,000 unit/ Sodium Chloride IV 15 units/kg/hr .Q24H RO 10.206 mls/hr Titration Protocol 12 UNITS/KG/HR Melatonin 5 mg 05/03/22 21:00 Melatonin 5 Mg Tablet PO HS [facility] Naloxone HCl 0.2 mg 05/02/22 21:33 Naloxone 0.4 Mg/Ml 1 Ml Vial IV Q2M PRN Opioid Reversal Intake and Output 05/02/22 05/03/22 05/03/22 22:59 06:59 14:59 Intake Total 57.835 Output Total 650 Balance -592.165 Intake: Intake, IV Titration 57.835 Amount Heparin Sod,Pork in 0.45% 57.835 NaCl 25,000 unit In 0.45 % NaCl 1 250ml.bag @ 12 UNITS/KG/HR 8.165 mls/hr IV .Q24H [facility] Rx#: [id number] Oral 0 Output: Urine 650 Other: Voiding Method Toilet Toilet # Voids 1 # Bowel Movements 0 Weight 68.039 kg 71 kg 05/03/22 05:35 05/03/22 05:35
[2022-05-03] MEDS ORDERED: methylPREDNISolone SOD SUCCI 125 MG/2 ML VIAL IV STA (15:40)
[2022-05-03] MEDS ORDERED: diphenhydrAMINE 50 MG/ML 1 ML VIAL IVP PRN (15:40)
--- NOTE | 2022-05-03 15:57 | P.PN ---
Subjective Progress Note Date: 05/03/22 Patient is a 57-year-old female with a recent admission for malignant pericardial effusion with tamponade status post pericardial window with finding of metastatic adeno carcinoma unknown primary, subsequently discharged 2 days ago who presented to the emergency room with complaints of lightheadedness. Upon presentation, the patient was noted to be hypotensive and in A. fib with RVR, for which she was cardioverted with subsequent normal sinus rhythm. The case was discussed by ED physician with Dr. Gonzales who recommended amiodarone infusion. A stat echocardiogram was also ordered due to concerns of possible recurrent pericardial effusion. As per the ED physician, the images were reviewed with Dr. Gonzales with no concerns for cardiac tamponade, although possible clot in the right ventricle or possibly the pericardial space. Dr. Gonzales recommended initiation of heparin infusion at that time. The patient's laboratory evaluation was remarkable for troponin of 0.105, proBNP 11,800, lipase 1601, and WBC count 19.4. A CT abdomen and pelvis revealed bilateral pleural effusions with a decreased pericardial effusion. She was admitted for further monitoring. She was seen by cardio who recommended repeat echo and CTA chest to r/u PE. Examined at bedside. She feels much better than yesterday. She still feels slightly winded. No acute chest. At this time. Called to re-see patient in the afternoon secondary to worsening rash. Patient reports it is intermittently itchy. Per patient has been progressing throughout the day. General: nontoxic, no distress, appears at stated age Derm: warm, dry, circular erythematous rash on bilateral arms, legs, and torso areas of convalescence, no crust, no scale Head: atraumatic, normocephalic, symmetric Eyes: EOMI, no lid lag, anicteric sclera Mouth: no lip lesion, mucus membranes moist Cardiovascular: S1S2 reg, no murmur, positive posterior tibial pulse bilateral, Lungs: Coarse breath sounds bilateral, no rhonchi, no rales , no accessory muscle use Abdominal: soft, nontender to palpation, no guarding, no appreciable organome catarina Ext: no gross muscle atrophy, no edema, no contractures Neuro: CN II-XI grossly intact, no focal neuro deficits Psych: Alert, oriented, appropriate affect Assessment/plan: A. fib with RVR status post cardioversion Possible clot in right ventricle Recent malignant pericardial effusion with tamponade status post pericardial window Elevated troponin, flat, not consistent with ACS -Cardiology recommendations: Heparin drip, amiodarone can be discontinued, CTA of the chest to rule out pulmonary embolism -Await 2-D echo -Telemetry Elevated liver enzymes -Undetermined etiology -Recheck in a.m. Dermatitis, possible drug reaction -Case discussed with Dr. Zavala and in light of patient maintaining normal sinus rhythm. Amiodarone. Could also be due to iodine exposure though she has tolerated iodine in the past. We'll give Solu-Medrol 1251 now, as needed Benadryl, and continuous steroids for the next 24 hours. Elevated lipase - undetermined etiology DVT prophylaxis: Heparin gtt Discussed with: Patient, nursing, , Dr. Wang Anticipated discharge: Pending clinical course Anticipated discharge place: home A total of 45 minutes was spent on the care of this complex patient more than 50% of the time was spent in counseling and care coordination. Objective - Vital Signs Vital signs: Vital Signs Temp 98.2 F 05/03/22 12:45 Pulse 105 H 05/03/22 12:45 Resp 16 05/03/22 12:45 BP 104/42 05/03/22 12:45 Pulse Ox 96 05/03/22 12:45 FiO2 Intake & Output 05/02/22 05/03/22 05/03/22 18:59 06:59 18:59 Intake Total 57.835 Output Total 650 Balance -592.165 Weight 71 kg Intake: Intake, IV Titration 57.835 Amount Heparin Sod,Pork in 0.45% 57.835 NaCl 25,000 unit In 0.45 % NaCl 1 250ml.bag @ 12 UNITS/KG/HR 8.165 mls/hr IV .Q24H [facility] Rx#: [id number] Oral 0 Output: Urine 650 Other: Voiding Method Toilet Toilet # Voids 1 # Bowel Movements 0 - Labs CBC & Chem 7: 05/03/22 05:35 05/03/22 05:35 Labs: Abnormal Lab Results - Last 24 Hours (Table) 05/02/22 05/02/22 05/02/22 Range/Units 20:07 20:07 20:07 WBC 19.4 H (3.8-10.6) k/uL Neutrophils # 14.5 H (1.3-7.7) k/uL Monocytes # 1.6 H (0-1.0) k/uL APTT (22.0-30.0) sec Sodium 132 L (137-145) mmol/L Potassium (3.5-5.1) mmol/L Glucose 100 H (74-99) mg/dL Calcium 7.9 L (8.4-10.2) mg/dL AST 55 H (14-36) U/L ALT 82 H (4-34) U/L Troponin I 0.105 H* (0.000-0.034) ng/mL Total Protein 6.1 L (6.3-8.2) g/dL Albumin 3.1 L (3.5-5.0) g/dL Amylase 193 H (30-110) U/L Lipase 1601 H (23-300) U/L Ur Specific [place] (1.001-1.035) Urine Protein (Negative) Urine Ketones (Negative) Urine Blood (Negative) Urine RBC (0-5) /hpf Ur Squamous Epith Cells (0-4) /hpf Urine Bacteria (None) /hpf Urine Mucus (None) /hpf 05/02/22 05/03/22 05/03/22 Range/Units 22:29 04:55 05:35 WBC (3.8-10.6) k/uL Neutrophils # (1.3-7.7) k/uL Monocytes # (0-1.0) k/uL APTT (22.0-30.0) sec Sodium (137-145) mmol/L Potassium (3.5-5.1) mmol/L Glucose (74-99) mg/dL Calcium (8.4-10.2) mg/dL AST (14-36) U/L ALT (4-34) U/L Troponin I 0.095 H* 0.089 H* (0.000-0.034) ng/mL Total Protein (6.3-8.2) g/dL Albumin (3.5-5.0) g/dL Amylase (30-110) U/L Lipase (23-300) U/L Ur Specific [place] >1.050 H (1.001-1.035) Urine Protein 1+ H (Negative) Urine Ketones Trace H (Negative) Urine Blood Trace H (Negative) Urine RBC 17 H (0-5) /hpf Ur Squamous Epith Cells 9 H (0-4) /hpf Urine Bacteria Rare H (None) /hpf Urine Mucus Rare H (None) /hpf 05/03/22 05/03/22 05/03/22 Range/Units 05:35 05:35 05:35 WBC 18.8 H (3.8-10.6) k/uL Neutrophils # 15.0 H (1.3-7.7) k/uL Monocytes # 1.2 H (0-1.0) k/uL APTT 31.1 H (22.0-30.0) sec Sodium 132 L (137-145) mmol/L Potassium 3.3 L (3.5-5.1) mmol/L Glucose 101 H (74-99) mg/dL Calcium 7.6 L (8.4-10.2) mg/dL AST (14-36) U/L ALT (4-34) U/L Troponin I (0.000-0.034) ng/mL Total Protein (6.3-8.2) g/dL Albumin (3.5-5.0) g/dL Amylase (30-110) U/L Lipase (23-300) U/L Ur Specific [place] (1.001-1.035) Urine Protein (Negative) Urine Ketones (Negative) Urine Blood (Negative) Urine RBC (0-5) /hpf Ur Squamous Epith Cells (0-4) /hpf Urine Bacteria (None) /hpf Urine Mucus (None) /hpf
--- NOTE | 2022-05-03 17:51 | CA ---
Transthoracic Echo Report Name: Iraida Alejandro Age: 57 Gender: F : 1965 Exam Date: 05/02/2022 21:40 Exam Location: [place] [facility] Ht (in): Wt (lb): Ordering Physician: Davis Mayberry MD Attending/Referring Phys: Columnist Marci Garcia RDCS Procedure CPT: Indications: history of recent pericardial effusion/tamponade Cardiac Hx: Technical Quality: Contrast 1: Total Dose (mL): Contrast 2: Lumason Total Dose (mL): 3 MEASUREMENTS (Male / Female) Normal Values FINDINGS Left Ventricle Right Ventricle Right Atrium Left Atrium Mitral Valve Aortic Valve Tricuspid Valve Pulmonic Valve Pericardium Small Pericardial effusion: Large Pleural effusion. Aorta CONCLUSIONS Small pericardial effusion Pleural effusion was seen Previewed by: Dr. Manuel Gonzales MD (Electronically Signed) Final Date: 03 May 2022 17:51
[2022-05-03] MEDS: methylPREDNISolone SOD SUCCI 125 MG/2 ML VIAL IV SCH ×2 (18:40→23:56)
[2022-05-03] MEDS: HEPARIN SOD,PORK IN 0.45% NACL 25,000 UNIT in 0.45% NACL 1 250ML.BAG IV SCH (18:45)
[2022-05-03 19:52] LABS: Glucose,Whole Blood 124 mg/dL (70-110)
--- NOTE | 2022-05-03 20:47 | CT ---
EXAMINATION TYPE: CT chest angio for PE DATE OF EXAM: 05/03/2022 COMPARISON: 04/22/2022 HISTORY: poss PE. CT DLP: 278.2 mGycm Automated exposure control for dose reduction was used. CONTRAST: Performed with IV Contrast, patient injected with 67 mL of Isovue 370. There are Three-D postprocessed images. There is pulmonary interstitial and airspace edema. There is pericardial effusion. Heart is slightly enlarged. There is no evidence of filling defect in the pulmonary arteries. There are some enlarged m ediastinal lymph nodes that measure up to 2.3 cm. Thoracic aorta is intact. No aneurysm or dissection . There is blunting of the costophrenic angles and more on the left side. The thoracic spine is intact. No compression fracture. Sternum is intact. IMPRESSION: Pulmonary edema and pleural effusions. Cardiomegaly with pericardial effusion. This could be congesti ve heart failure. Pulmonary edema is more diffuse compared to old exam. There is some mediastinal and bronchial adenopathy. Pericardial effusion is increased compared to old exam. No significant change in the adenopathy. Ther e is removal of the pericardial drainage catheter compared to old exam
[2022-05-03] MEDS ORDERED: MELATONIN 5 MG TABLET PO SCH (21:00)
[2022-05-04] MEDS ORDERED: METOPROLOL SUCCINATE (ER) 25 MG TAB.ER.24H PO SCH ×2 (00:07→21:00)
[2022-05-04 03:28] LABS: HCT 36.1 % (34.0-46.0); HGB 11.6 gm/dL (11.4-16.0); Hypochromasia Slight; MCH 31.4 pg (25.0-35.0); MCHC 32.2 g/dL (31.0-37.0); MCV 97.5 fL (80.0-100.0); Mean Platelet Volume 9.9; Platelet Count 419 k/uL (150-450); RDW 14.2 % (11.5-15.5); WBC 11.6 k/uL (3.8-10.6)
[2022-05-04 03:34] LABS: ALT 60 U/L (4-34); AST 34 U/L (14-36); African American GFR (CKD) >90 (>60 ml/min/1.73 sqM); Albumin 3.1 g/dL (3.5-5.0); Alkaline Phosphatase 88 U/L (38-126); Anion Gap 10 mmol/L; Blood Urea Nitrogen 13 mg/dL (7-17); Calcium 8.4 mg/dL (8.4-10.2); Carbon Dioxide 24 mmol/L (22-30); Chloride 100 mmol/L (98-107); Glucose 131 mg/dL (74-99); Non-African American GFR(CKD) >90 (>60 ml/min/1.73 sqM); Potassium 3.9 mmol/L (3.5-5.1); Sodium 134 mmol/L (137-145); Total Bilirubin 0.5 mg/dL (0.2-1.3); Total Protein 6.1 g/dL (6.3-8.2)
[2022-05-04] MEDS: methylPREDNISolone SOD SUCCI 125 MG/2 ML VIAL IV SCH ×2 (05:10→11:40)
[2022-05-04 06:00] LABS: Glucose,Whole Blood 133 mg/dL (70-110)
[2022-05-04] MEDS ORDERED: FUROSEMIDE 10 MG/ML 4 ML VIAL IV SCH (09:00)
[2022-05-04] MEDS ORDERED: FUROSEMIDE 10 MG/ML 2 ML VIAL IV SCH (09:00)
[2022-05-04 11:57] LABS: Glucose,Whole Blood 145 mg/dL (70-110)
[2022-05-04 12:14] VITALS: BP 104/71; PULSE 99; RESP 18; TEMP 98.3
--- NOTE | 2022-05-04 12:36 | P.PN ---
Subjective HISTORY OF PRESENTING ILLNESS Patient is pleasant 57-year-old female with history of tobacco abuse and recent diagnosis of malignant pericardial effusion consistent with adenocarcinoma with unclear source, cardiomyopathy EF 35% who presents secondary to lightheadedness and dizziness. She did have recent admission with shortness of breath and fa tigue and eventually found to have pericardial effusion and underwent pericardial window. Additionally she had a cardiomyopathy EF 35%. She presented with episode of feeling lightheaded and dizzy and somewhat confused with a lower blood pressure. Blood pressure 83/70 with heart rate 180 and found to be in new onset of A. fib and therefore cardioverted. Patient was placed on amiodarone drip and has remained in sinus rhythm. She states she feels predominantly back to her normal self. Denies any current shortness breath. She did have CT abdomen and pelvis which didn't show some bilateral p leural effusions as well as some improvement in pericardial effusion however still pericardial effusion present. Troponins mildly elevated 11/ Patient seen and examined. Patient states she feels much better. Denies any chest pain or pressure. The echo was performed which can only pericardial effusion without significant Not physiology. Personally reviewed with what appears to be mild improvement in ejection fraction of 40% however does have some septal bounce which can be seen with constrictive pericarditis. She did have significant rash which appears to be possible ALLERGY from the amiodarone. Amiodarone was discontinued and she did have repeat episode of A. fib with RVR heart rates in the 130s to 150s however asymptomatic. PHYSICAL EXAMINATION Vital signs reviewed. CONSTITUTIONAL: No apparent distress. HEENT: Head is normocephalic. Pupils are equal, round. Sclerae anicteric. Mucous membranes of the mouth are moist. No JVD. No carotid bruit. CHEST EXAMINATION: Lungs are clear to auscultation. No chest wall tenderness is noted on palpation or with deep breathing. HEART EXAMINATION: Regular rate and rhythm. S1, S2 heard. No murmurs, gallops or rub. ABDOMEN: Soft, nontender. Positive bowel sounds. EXTREMITIES: 2+ peripheral pulses, no lower extremity edema and no calf tenderness. NEUROLOGIC EXAMINATION: Patient is awake, alert and oriented x3. 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 fib however additionally was hypotensive which may be in part related to being on heart failure regimen with lisinopril, Aldactone and metoprolol. Hold lisinopril and Aldactone going home and continue with Toprol 25 mg daily for rate control. Overall she was fairly asymptomatic with heart rates in the 140s to 150s. Echocardiogram reviewed with small pericardial effusion and not physiology and possible mild improvement in ejection fraction 40%. Appears stable for discharge home. Additionally discussed anticoagulation and okay to hold if needs a biopsy. Eliquis 5mg bid. Objective - Vital Signs Vital signs: Vital Signs Temp 98.3 F 05/04/22 12:00 Pulse 99 05/04/22 12:00 Resp 18 05/04/22 12:00 BP 104/71 05/04/22 12:00 Pulse Ox 94 L 05/04/22 12:00 FiO2 Intake & Output 05/03/22 05/04/22 05/04/22 18:59 06:59 18:59 Intake Total 691.029 115.509 118 Output Total 300 Balance 391.029 115.509 118 Intake: Intake, IV Titration 337.029 115.509 Amount Amiodarone 450 mg In 214.727 Dextrose 5% in Water 250 ml @ 0.5 MG/MIN 16.667 mls/hr IV .Q15H RO Rx#: [id number] Heparin Sod,Pork in 0.45% 122.302 115.509 NaCl 25,000 unit In 0.45 % NaCl 1 250ml.bag @ 12 UNITS/KG/HR 8.165 mls/hr IV .Q24H RO Rx#: [id number] Oral 354 118 Output: Urine 300 Other: Voiding Method Toilet Toilet Toilet # Voids 2 - Labs CBC & Chem 7: 05/04/22 02:39 05/04/22 02:39 Labs: Abnormal Lab Results - Last 24 Hours (Table) 05/03/22 05/03/22 05/04/22 Range/Units 19:15 19:51 02:39 WBC 11.6 H (3.8-10.6) k/uL RBC 3.70 L (3.80-5.40) m/uL APTT 40.4 H (22.0-30.0) sec Sodium (137-145) mmol/L Glucose (74-99) mg/dL POC Glucose (mg/dL) 124 H (70-110) mg/dL ALT (4-34) U/L Total Protein (6.3-8.2) g/dL Albumin (3.5-5.0) g/dL 05/04/22 05/04/22 05/04/22 Range/Units 02:39 02:39 05:56 WBC (3.8-10.6) k/uL RBC (3.80-5.40) m/uL APTT 95.9 H (22.0-30.0) sec Sodium 134 L (137-145) mmol/L Glucose 131 H (74-99) mg/dL POC Glucose (mg/dL) 133 H (70-110) mg/dL ALT 60 H (4-34) U/L Total Protein 6.1 L (6.3-8.2) g/dL Albumin 3.1 L (3.5-5.0) g/dL 05/04/22 Range/Units 11:32 WBC (3.8-10.6) k/uL RBC (3.80-5.40) m/uL APTT (22.0-30.0) sec Sodium (137-145) mmol/L Glucose (74-99) mg/dL POC Glucose (mg/dL) 145 H (70-110) mg/dL ALT (4-34) U/L Total Protein (6.3-8.2) g/dL Albumin (3.5-5.0) g/dL
--- NOTE | 2022-05-04 13:13 | P.DS ---
Providers Date of admission: 05/02/22 21:35 Expected date of discharge: 05/04/22 Attending physician: Alka Lopez MD Consults: 05/02/22 21:33 Consult Physician Routine Consulting Provider: [facility] Consult Reason/Comments: afib with rvr s/p cardioversion, recent malignant pericardial effusion Do you want consulting provider notified?: Already Contacted Primary care physician: Jose Luis Ortega [facility] Hospital Course: Discharge Diagnosis: A. fib with RVR status post cardioversion Type II NSTEMI Systolic cardiomyopathy with EF 40% Recent malignant pericardial effusion with tamponade status post pericardial window Metastatic adenocarcimona with unknown primary- awaiting outpatient PET Transaminitis Dermatitis, possible drug reaction Elevated lipase nicotine dependency Pleural effusion left>right Hospital Course: Patient is a 57-year-old female with a recent admission for malignant pericardial effusion with tamponade status post pericardial window with finding of metastatic adeno carcinoma unknown primary, subsequently discharged 2 days ago who presented to the emergency room with complaints of lightheadedness. Upon presentation, the patient was noted to be hypotensive and in A. fib with RVR, for which she was cardioverted with subsequent normal sinus rhythm. The case was discussed by ED physician with Dr. Gonzales who recommended amiodarone infusion. A stat echocardiogram was also ordered due to concerns of possible recurrent pericardial effusion. As per the ED physician, the images were reviewed with Dr. Gonzales with no concerns for cardiac tamponade, although possible clot in the right ventricle or possibly the pericardial space. Dr. Gonzales r ecommended initiation of heparin infusion at that time. The patient's laboratory evaluation was remarkable for troponin of 0.105, proBNP 11,800, lipase 1601, and WBC count 19.4. A CT abdomen and pelvis revealed bilateral pleural effusions with a decreased pericardial effusion. She was admitted for further monitoring. She was seen by cardio who recommended repeat CTA chest which was negative for pulmonary embolism but did show interstitial edema and pleural effusion. She developed a rash and amiodarone was stopped and patient was placed on steroids. She went back into A fib or flutter and her metoprolol was resumed. She was monitored for an additional 12 hours and did well. She was determined stable for discharge. Follow-up: Metoprolol was converted from short-acting to long-acting, due to her hypotension during her hospital stay her lisinopril and Aldactone were discontinued, Lasix was discontinued due to her pulmonary edema and bilateral pleural effusions. She was started on eloquent. She was told to hold this 2 days prior to any invasive testing needed. She will maintain her prior follow- up appointments with Dr. Treadwell, Dr. Gonzales, and Dr. Ortiz Patient seen and examined at bedside. Rashes better, feeling better, breathing better, slightly nervous about going back on Lasix. I explained that she likely did not feel that his blood pressure was low and her heart rate was fast and she was perfusing her [place]. She understood and is agreement with taking the Lasix. We discussed that as needed due to her pulmonary edema and pleural effusions. Vital signs reviewed and stable. General: nontoxic, no distress, appears at stated age Derm: warm, dry Head: atraumatic, normocephalic, symmetric Eyes: EOMI, no lid lag, anicteric sclera Mouth: no lip lesion, mucus membranes moist Cardiovascular: S1S2 reg, no murmur, positive posterior tibial pulse bilateral, Lungs: Course bs bilateral, no rhonchi, no rales , no accessory muscle use Abdominal: soft, nontender to palpation, no guarding, no appreciable organomegaly Ext: no gross muscle atrophy, no edema, no contractures Neuro: CN II-XI grossly intact, no focal neuro deficits Psych: Alert, oriented, appropriate affect A total of 35 minutes of time were spent preparing this complex discharge summary. Patient was discharged on 05/04/22. Patient Condition at Discharge: Stable Plan - Discharge Summary Discharge Rx Participant: No New Discharge Prescriptions: New Apixaban [Eliquis] 5 mg PO BID #60 tab Metoprolol Succinate (ER) [Toprol XL] 25 mg PO HS #30 tab methylPREDNISolone Dose Pack [Medrol Dose Pack] 4 mg PO DIRECTED #21 tab Continue Furosemide [Lasix] 40 mg PO BID #60 tab Discontinued Spironolactone [Aldactone] 25 mg PO DAILY #30 tab Metoprolol Tartrate [Lopressor] 25 mg PO BID #60 tab lisinopriL [Zestril] 5 mg PO DAILY #30 tab Discharge Medication List Furosemide [Lasix] 40 mg PO BID #60 tab 04/30/22 [Rx] Apixaban [Eliquis] 5 mg PO BID #60 tab 05/04/22 [Rx] Metoprolol Succinate (ER) [Toprol XL] 25 mg PO HS #30 tab 05/04/22 [Rx] methylPREDNISolone Dose Pack [Medrol Dose Pack] 4 mg PO DIRECTED #21 tab 05/04/22 [Rx] Follow up Appointment(s)/Referral(s): Tanner Treadwell MD [STAFF PHYSICIAN] - 05/06/22 1:00 pm (at office behind [facility], [address]) Manuel Gonzales MD [STAFF PHYSICIAN] - 1 Week (you may have already set an appointment when you were discharged the last time, if so keep that appointment ) Jose Luis Gifford MD [Primary Care Provider] - 1-2 days Ashely Ortiz MD [STAFF PHYSICIAN] - 1 Week (you may have already set an laila ointment when you were discharged the last time, if so keep that appointment ) Activity/Diet/Wound Care/Special Instructions: Activity: as tolerated Diet: cardiac Special Instructions: Hold Eliquis for 2 days before any needed invasive procedures, such as biopsy Discharge Disposition: HOME SELF-CARE
== END 2022-05-04 14:09 | disposition home or self-care (01) | DRG 281 ==
LOC: EC 19:20 → 3SCARD 21:35
PROVIDERS: ADMIT Internal Medicine; ATTEND Internal Medicine
PROC: 5A2204Z Restoration of Cardiac Rhythm, Single (ICD-10-PCS; principal; 2022-05-02)
DX: I48.91 Unspecified atrial fibrillation (principal); I21.A1 Myocardial infarction type 2; I31.31 Malignant pericardial effusion in diseases classified elsewhere; J81.1 Chronic pulmonary edema; J90 Pleural effusion, not elsewhere classified; T50.905A Adverse effect of unspecified drugs, medicaments and biological substances, initial encounter; R74.01 Elevation of levels of liver transaminase levels; C80.1 Malignant (primary) neoplasm, unspecified; D72.829 Elevated white blood cell count, unspecified; F17.200 Nicotine dependence, unspecified, uncomplicated; I25.2 Old myocardial infarction; I42.8 Other cardiomyopathies; L30.9 Dermatitis, unspecified; Z79.899 Other long term (current) drug therapy; X58.XXXA Exposure to other specified factors, initial encounter; Z98.51 Tubal ligation status
CPT/HCPCS: 36415; 71045; 71275; 74177; 80048; 80053; 81001; 82150; 83605; 83690; 83735; 83880; 84443; 84484; 85025; 85027; 85610; 85730; 93005; 93306; 94760; 96374; 96375; 99285

== ENCOUNTER 2022-05-08 23:54 | Emergency (ER) | payer BC ==
[2022-05-09] MEDS ORDERED: LORazepam 2 MG/ML INJ IV STA (00:07)
[2022-05-09] MEDS ORDERED: SODIUM CHLORIDE 0.9% 1,000 ML IV STA ×2 (00:07→01:12)
[2022-05-09] MEDS ORDERED: DILTIAZEM DRIP BOLUS FROM BAG 1 MG SOLN IV ONE (00:12)
[2022-05-09] MEDS ORDERED: METOPROLOL TARTRATE 5 MG/5 ML VIAL IVP STA (00:12)
--- NOTE | 2022-05-09 00:13 | ED ---
Arrhythmia/Palpitations HPI - General Chief Complaint: Arrhythmia/Palpitations Stated Complaint: afib Time Seen by Provider: 05/09/22 00:06 Source: patient, family, RN notes reviewed, old records reviewed Mode of arrival: wheelchair Limitations: no limitations - History of Present Illness Initial Comments: This is a 57-year-old female DF for evaluation of tachycardia elevated heart rate lightheadedness and dizziness. History of atrial fibrillation presenting in atrial fibrillation. Patient feels palpitations. No recent drug or alcohol abuse denies any change in medications MD Complaint: rapid heart beat, "skipped beats", palpitations -: hour(s) Arrhythmia History: atrial fibrillation, SVT Associated Symptoms: chest pain, shortness of breath Treatments Prior to Arrival: vagal maneuvers, cardioversion - Related Data Home Medications Medication Instructions Recorded Confirmed Amiodarone [Cordarone] 200 mg PO BID 05/11/22 05/16/22 Furosemide [Lasix] 40 mg PO BID@0900,1600 05/16/22 05/16/22 Nystatin 100,000 Unit/ml Susp 5 ml PO QID 05/16/22 05/16/22 [Mycostatin Oral Susp] Previous Rx's Medication Instructions Recorded Apixaban [Eliquis] 5 mg PO BID #60 tab 05/04/22 Metoprolol Succinate (ER) [Toprol 25 mg PO HS #30 tab 05/04/22 XL] Allergies Allergy/AdvReac Type Severity Reaction Status Date / Time No Known Allergies Allergy Verified 05/16/22 20:51 Review of Systems ROS Statement: Those systems with pertinent positive or pertinent negative responses have been documented in the HPI. ROS Other: All systems not noted in ROS Statement are negative. Past Medical History Past Medical History: No Reported History Additional Past Medical History / Comment(s): Pericardial Effusion with Window placement 03/2022, cardioversion 05/02/22 History of Any Multi-Drug Resistant Organisms: None Reported Past Surgical History: No Surgical Hx Reported Additional Past Surgical History / Comment(s): tubal ligation Past Anesthesia/Blood Transfusion Reactions: No Reported Reaction Past Psychological History: No Psychological Hx Reported Smoking Status: Former smoker Past Alcohol Use History: None Reported Past Drug Use History: None Reported - Past Family History Father Family Medical History: Hypertension Additional Family Medical History / Comment(s): of an [place] at age 51 Brother(s) Family Medical History: Hypertension Additional Family Medical History / Comment(s): Aunt with brain cancer General Exam Limitations: no limitations General appearance: alert, in no apparent distress, anxious Head exam: Present: atraumatic, normocephalic, normal inspection Eye exam: Present: normal appearance, PERRL, EOMI. Absent: scleral icterus, conjunctival injection, periorbital swelling ENT exam: Present: normal exam, mucous membranes moist Neck exam: Present: normal inspection. Absent: tenderness, meningismus, lymphadenopathy Respiratory exam: Present: normal lung sounds bilaterally. Absent: respiratory distress, wheezes, rales, rhonchi, stridor Cardiovascular Exam: Present: tachycardia, irregular rhythm, normal heart sounds. Absent: systolic murmur, diastolic murmur, rubs, gallop, clicks GI/Abdominal exam: Present: soft, normal bowel sounds. Absent: distended, tenderness, guarding, rebound, rigid Extremities exam: Present: normal inspection, full ROM, normal capillary refill. Absent: tenderness, pedal edema, joint swelling, calf tenderness Back exam: Present: normal inspection Neurological exam: Present: alert, oriented X3, CN II-XII intact Psychiatric exam: Present: normal affect, normal mood Skin exam: Present: warm, dry, intact, normal color. Absent: rash Course Vital Signs 05/09/22 05/09/22 05/09/22 00:02 00:13 00:24 Temperature 96.9 F L 97.2 F L Pulse Rate 188 H 181 H Respiratory 18 20 Rate Blood Pressure 77/54 89/79 103/85 O2 Sat by Pulse 95 97 Oximetry 05/09/22 05/09/22 05/09/22 00:38 01:04 01:22 Temperature 97.7 F Pulse Rate 140 H 82 Respiratory 18 18 Rate Blood Pressure 103/84 96/66 97/67 O2 Sat by Pulse 98 100 Oximetry 05/09/22 05/09/22 02:40 03:31 Temperature 98.2 F Pulse Rate 88 89 Respiratory 16 16 Rate Blood Pressure 111/67 107/71 O2 Sat by Pulse 99 99 Oximetry - Reevaluation(s) Reevaluation #1: 05/09/22 Medical records reviewed Patient symptoms improved here in the ER Patient informed of results and questions answered EKG Findings - EKG Comments: EKG Findings:: EKG is sinus 83 OR 158 QRS 84 QTc 472 Medical Decision Making - Medical Decision Making 57-year-old female DF for evaluation patient presents with A. fib with RVR palpitations and tachycardia. Symptoms resolved here in the ER and can be discharged home - Lab Data Result diagrams: 05/09/22 00:24 05/09/22 00:24 Lab Results 05/09/22 05/09/22 05/09/22 Range/Units 00:24 00:24 00:24 WBC 26.4 H (3.8-10.6) k/uL RBC 4.32 (3.80-5.40) m/uL Hgb 13.6 (11.4-16.0) gm/dL Hct 41.0 (34.0-46.0) % MCV 94.8 (80.0-100.0) fL MCH 31.6 (25.0-35.0) pg MCHC 33.3 (31.0-37.0) g/dL RDW 14.1 (11.5-15.5) % Plt Count 562 H (150-450) k/uL MPV 9.5 Neutrophils % 82 % Lymphocytes % 11 % Monocytes % 6 % Eosinophils % 0 % Basophils % 0 % Neutrophils # 21.5 H (1.3-7.7) k/uL Lymphocytes # 2.9 (1.0-4.8) k/uL Monocytes # 1.5 H (0-1.0) k/uL Eosinophils # 0.1 (0-0.7) k/uL Basophils # 0.1 (0-0.2) k/uL Hypochromasia Slight PT 12.4 H (9.0-12.0) sec INR 1.2 H (<1.2) APTT 27.3 (22.0-30.0) sec D-Dimer 6.54 H (<0.60) mg/L FEU Sodium 132 L (137-145) mmol/L Potassium 4.4 (3.5-5.1) mmol/L Chloride 95 L (98-107) mmol/L Carbon Dioxide 23 (22-30) mmol/L Anion Gap 14 mmol/L BUN 34 H (7-17) mg/dL Creatinine 0.78 (0.52-1.04) mg/dL Est GFR (CKD-EPI)AfAm >90 (>60 ml/min/1.73 sqM) Est GFR (CKD-EPI)NonAf 86 (>60 ml/min/1.73 sqM) Glucose 149 H (74-99) mg/dL Calcium 9.1 (8.4-10.2) mg/dL Phosphorus 5.0 H (2.5-4.5) mg/dL Magnesium 2.3 (1.6-2.3) mg/dL Total Bilirubin 0.8 (0.2-1.3) mg/dL AST 52 H (14-36) U/L ALT 57 H (4-34) U/L Alkaline Phosphatase 115 (38-126) U/L Troponin I (0.000-0.034) ng/mL NT-Pro-B Natriuret Pep pg/mL Total Protein 7.3 (6.3-8.2) g/dL Albumin 3.9 (3.5-5.0) g/dL TSH 6.570 H (0.465-4.680) mIU/L 05/09/22 05/09/22 Range/Units 00:24 00:24 WBC (3.8-10.6) k/uL RBC (3.80-5.40) m/uL Hgb (11.4-16.0) gm/dL Hct (34.0-46.0) % MCV (80.0-100.0) fL MCH (25.0-35.0) pg MCHC (31.0-37.0) g/dL RDW (11.5-15.5) % Plt Count (150-450) k/uL MPV Neutrophils % % Lymphocytes % % Monocytes % % Eosinophils % % Basophils % % Neutrophils # (1.3-7.7) k/uL Lymphocytes # (1.0-4.8) k/uL Monocytes # (0-1.0) k/uL Eosinophils # (0-0.7) k/uL Basophils # (0-0.2) k/uL Hypochromasia PT (9.0-12.0) sec INR (<1.2) APTT (22.0-30.0) sec D-Dimer (<0.60) mg/L FEU Sodium (137-145) mmol/L Potassium (3.5-5.1) mmol/L Chloride (98-107) mmol/L Carbon Dioxide (22-30) mmol/L Anion Gap mmol/L BUN (7-17) mg/dL Creatinine (0.52-1.04) mg/dL Est GFR (CKD-EPI)AfAm (>60 ml/min/1.73 sqM) Est GFR (CKD-EPI)NonAf (>60 ml/min/1.73 sqM) Glucose (74-99) mg/dL Calcium (8.4-10.2) mg/dL Phosphorus (2.5-4.5) mg/dL Magnesium (1.6-2.3) mg/dL Total Bilirubin (0.2-1.3) mg/dL AST (14-36) U/L ALT (4-34) U/L Alkaline Phosphatase (38-126) U/L Troponin I 0.089 H* (0.000-0.034) ng/mL NT-Pro-B Natriuret Pep 88427 pg/mL Total Protein (6.3-8.2) g/dL Albumin (3.5-5.0) g/dL TSH (0.465-4.680) mIU/L - EKG Data -: EKG Interpreted by Me (EKG a flutter 182 QRS 78 QTc 328) - Radiology Data Radiology results: report reviewed (Chest x-rays negative for acute disease), image reviewed Disposition Clinical Impression: Atrial fibrillation with RVR, Tachycardia, Palpitations Disposition: HOME SELF-CARE Condition: Good Instructions (If sedation given, give patient instructions): Heart Palpitations (ED) Is patient prescribed a controlled substance at d/c from ED?: No Referrals: Jose Luis Gifford MD [Primary Care Provider] - 1-2 days Time of Disposition: 03:30
[2022-05-09] MEDS ORDERED: DILTIAZEM 125 MG in SODIUM CHLORIDE 0.9% 100 ML IV SCH (00:15)
[2022-05-09 00:59] LABS: ALT 57 U/L (4-34); AST 52 U/L (14-36); African American GFR (CKD) >90 (>60 ml/min/1.73 sqM); Albumin 3.9 g/dL (3.5-5.0); Alkaline Phosphatase 115 U/L (38-126); Anion Gap 14 mmol/L; Blood Urea Nitrogen 34 mg/dL (7-17); Calcium 9.1 mg/dL (8.4-10.2); Carbon Dioxide 23 mmol/L (22-30); Chloride 95 mmol/L (98-107); Glucose 149 mg/dL (74-99); Magnesium 2.3 mg/dL (1.6-2.3); Non-African American GFR(CKD) 86 (>60 ml/min/1.73 sqM); Potassium 4.4 mmol/L (3.5-5.1); Sodium 132 mmol/L (137-145); Total Bilirubin 0.8 mg/dL (0.2-1.3); Total Protein 7.3 g/dL (6.3-8.2)
[2022-05-09 01:08] LABS: Basophils # (A) 0.1 k/uL (0-0.2); Basophils % (A) 0 %; Eosinophils # (A) 0.1 k/uL (0-0.7); Eosinophils % (A) 0 %; HGB 13.6 gm/dL (11.4-16.0); Hypochromasia Slight; Lymphocytes # (A) 2.9 k/uL (1.0-4.8); Lymphocytes % (A) 11 %; MCH 31.6 pg (25.0-35.0); MCHC 33.3 g/dL (31.0-37.0); MCV 94.8 fL (80.0-100.0); Mean Platelet Volume 9.5; Monocytes # (A) 1.5 k/uL (0-1.0); Monocytes % (A) 6 %; Neutrophils # (A) 21.5 k/uL (1.3-7.7); Neutrophils % (A) 82 %; Platelet Count 562 k/uL (150-450); RBC 4.32 m/uL (3.80-5.40); RDW 14.1 % (11.5-15.5); WBC 26.4 k/uL (3.8-10.6)
[2022-05-09 01:15] LABS: INR 1.2 (<1.2); Partial Thromboplastin Time 27.3 sec (22.0-30.0); Prothrombin Time 12.4 sec (9.0-12.0)
--- NOTE | 2022-05-09 01:42 | XR ---
EXAMINATION TYPE: XR chest 1V portable DATE OF EXAM: 05/09/2022 COMPARISON: 05/07/2022 HISTORY: Weakness TECHNIQUE: FINDINGS: Heart is enlarged. There is some mild pulmonary interstitial edema. There is limping left p hrenic angle. Interstitial infiltrates and atelectasis probably present at the left lung base. IMPRESSION: Pulmonary interstitial infiltrates with small left pleural effusion. Mild heart failure i s unchanged. No significant change.
[2022-05-09 02:48] VITALS: RESP 16
[2022-05-09 03:32] VITALS: BP 107/71; PULSE 89; TEMP 98.2
== END 2022-05-09 03:30 | disposition home or self-care (01) ==
LOC: EC 23:54
DX: I48.20 Chronic atrial fibrillation, unspecified (principal); R00.0 Tachycardia, unspecified; R00.2 Palpitations; Z87.891 Personal history of nicotine dependence
CPT/HCPCS: 36415; 93005; 85379; 83880; 80053; 83735; 84100; 84443; 84484; 85025; 85610; 85730; 71045; 99285; 96374; 96376; 96375; 96361 ×3; J2060

== ENCOUNTER → 2022-05-08 | Outpatient (CLI) | payer BC ==
--- NOTE | 2022-05-09 11:39 | MR ---
EXAMINATION TYPE: MR brain wo/w con DATE OF EXAM: 05/08/2022 9:10 PM CLINICAL INDICATION:Female, 57 years old with history of I31.31 MALIGNANT PERICARDIAL EFFUSION; COMPARISON: None TECHNIQUE: Multi planar, multi sequence imaging was performed through the brain including: T1, T2, In version recovery, susceptibility weighted imaging and gradient echo imaging and Diffusion weighted im aging. The patient was then given intravenous contrast and multi planar, T1 fat-saturation images wer e obtained. IV Contrast: 6.5 cc Gadavist FINDINGS: The ventricular system, basal cisterns appear unremarkable. Diffusion-weighted imaging shows no evid ence of restricted diffusion to suggest acute/subacute infarct. Intracranial arterial flow voids are maintained. Midline structures show no abnormality. Scattered foci of high T2 signal intensity are se en within the periventricular white matter. The susceptibility weighted images do not reveal any evid ence for micro-hemorrhage. After administration of gadolinium, no abnormal enhancement is seen. The bone marrow signal is within normal limits. The paranasal sinuses and globes are unremarkable. IMPRESSION: 1. No evidence of intracranial mass, acute/subacute infarct, or abnormal enhancement. 2. Nonspecific white matter changes, likely related to small vessel ischemic disease
== END | disposition home or self-care (01) ==
LOC: RADMRIMAIN 19:36
PROVIDERS: ATTEND Internal Medicine Hematology & Oncology
DX: I31.31 Malignant pericardial effusion in diseases classified elsewhere (principal)
CPT/HCPCS: 70553; A9585

== ENCOUNTER 2022-05-11 12:13 | Inpatient (IN) | payer BC ==
--- NOTE | 2022-05-11 12:30 | ED ---
General Adult HPI - General Chief complaint: Recheck/Abnormal Lab/Rx Stated complaint: AFIB Time Seen by Provider: 05/11/22 12:25 Source: patient, family Mode of arrival: ambulatory Limitations: no limitations - History of Present Illness Initial comments: Patient presents to the ED with her for evaluation. Patient states that she has had dyspnea, rapid heart palpitations, nausea, dizziness and generalized weakness for the past 2-3 days. Per , the patient was seen by her steel erector 2 days ago, and she was started on amiodarone at that time. Per , the patient had an echocardiogram scheduled today, and the metallurgical technician advised that she come to the ED due to her rapid heart rate. Patient is on Eliquis anticoagulation therapy for her atrial fibrillation. Per , the patient took her first dose of amiodarone yesterday. Patient admits to having mild central chest pain for the past 2-3 days as well. Patient denies trauma or injury, fever or chills, headache, focal neuro deficit, neck/arm/jaw/back pain, pleuritic pain, vomiting, diaphoresis, syncope, abdominal pain, diarrhea, bloody or melanotic stool, dysuria or urinary symptoms, decreased urine output, leg or calf swelling or pain, or any other symptoms or complaints. - Related Data Previous Rx's Medication Instructions Recorded Furosemide [Lasix] 40 mg PO BID #60 tab 04/30/22 Apixaban [Eliquis] 5 mg PO BID #60 tab 05/04/22 Metoprolol Succinate (ER) [Toprol 25 mg PO HS #30 tab 05/04/22 XL] Allergies Allergy/AdvReac Type Severity Reaction Status Date / Time No Known Allergies Allergy Verified 05/11/22 12:22 Review of Systems ROS Statement: Those systems with pertinent positive or pertinent negative responses have been documented in the HPI. ROS Other: All systems not noted in ROS Statement are negative. Past Medical History Past Medical History: No Reported History Additional Past Medical History / Comment(s): Pericardial Effusion with Window placement 03/2022, cardioversion 05/02/22 History of Any Multi-Drug Resistant Organisms: None Reported Past Surgical History: No Surgical Hx Reported Additional Past Surgical History / Comment(s): tubal ligation Past Anesthesia/Blood Transfusion Reactions: No Reported Reaction Past Psychological History: No Psychological Hx Reported Smoking Status: Former smoker Past Alcohol Use History: None Reported Past Drug Use History: None Reported - Past Family History Father Family Medical History: Hypertension Additional Family Medical History / Comment(s): of an NC at age 51 Brother(s) Family Medical History: Hypertension Additional Family Medical History / Comment(s): Aunt with brain cancer General Exam Limitations: no limitations General appearance: alert, in no apparent distress Head exam: Present: atraumatic, normocephalic Eye exam: Present: normal appearance, EOMI ENT exam: Present: mucous membranes moist Neck exam: Present: other (Trachea is in midline) Respiratory exam: Present: normal lung sounds bilaterally. Absent: respiratory distress, wheezes, rales, rhonchi, stridor Cardiovascular Exam: Present: tachycardia, irregular rhythm, normal heart sounds, other (Normal radial pulses bilaterally) GI/Abdominal exam: Present: soft. Absent: distended, tenderness, guarding Extremities exam: Present: other (Negative Homans sign bilaterally). Absent: tenderness, pedal edema, calf tenderness Neurological exam: Present: alert, oriented X3. Absent: motor sensory deficit Psychiatric exam: Present: normal affect, normal mood Skin exam: Present: warm, dry, intact, normal color Course Vital Signs 05/11/22 12:17 Temperature 97.9 F Pulse Rate 65 Respiratory 20 Rate Blood Pressure 101/75 O2 Sat by Pulse 97 Oximetry - Reevaluation(s) Reevaluation #1: 05/11/22 14:37 Case, H&P, test results and ED management thus far were discussed with Dr. Pollack. He accepts hospital admission. He agrees with cardiology consultation. He has no further recommendations at this time. 05/11/22 14:43 Patient and are aware the patient's test results, and they both agree with hospital admission at this time. Patient denies development of any new symptoms while in the ED. Patient remains alert and breathing comfortably. Patient remains in atrial fibrillation on the nurse monitoring, but her heart rate has now improved. EKG Findings - EKG Comments: EKG Findings:: ED physician interpretation: Atrial fibrillation with RVR, ventricular rate of 155 bpm, normal QRS duration, normal QT interval,. borderline rightward axis, nonspecific ST and T-wave abnormality Medical Decision Making - Medical Decision Making I suspect that the patient's symptoms and elevated troponin are likely due to atrial fibrillation with RVR. Patient's heart rate has improved with IV diltiazem treatment in the ED. Patient is on Eliquis anticoagulation, and she was given a dose of aspirin in the ED. Will admit the patient to the hospital for cardiac monitoring, continued rate control, serial troponins and cardiology consultation. Dr. Pollack has accepted hospital admission. - Lab Data Result diagrams: 05/11/22 12:56 05/11/22 12:56 Lab Results 05/11/22 05/11/22 05/11/22 Range/Units 12:56 12:56 12:56 WBC 14.0 H (3.8-10.6) k/uL RBC 4.16 (3.80-5.40) m/uL Hgb 12.9 (11.4-16.0) gm/dL Hct 39.7 (34.0-46.0) % MCV 95.4 (80.0-100.0) fL MCH 31.0 (25.0-35.0) pg MCHC 32.5 (31.0-37.0) g/dL RDW 13.9 (11.5-15.5) % Plt Count 418 (150-450) k/uL MPV 9.4 Neutrophils % 79 % Lymphocytes % 13 % Monocytes % 6 % Eosinophils % 0 % Basophils % 0 % Neutrophils # 11.1 H (1.3-7.7) k/uL Lymphocytes # 1.8 (1.0-4.8) k/uL Monocytes # 0.8 (0-1.0) k/uL Eosinophils # 0.0 (0-0.7) k/uL Basophils # 0.0 (0-0.2) k/uL Hypochromasia Slight PT 15.4 H (9.0-12.0) sec INR 1.5 H (<1.2) APTT 32.5 H (22.0-30.0) sec Sodium 128 L (137-145) mmol/L Potassium 4.6 (3.5-5.1) mmol/L Chloride 94 L (98-107) mmol/L Carbon Dioxide 21 L (22-30) mmol/L Anion Gap 13 mmol/L BUN 47 H (7-17) mg/dL Creatinine 0.96 (0.52-1.04) mg/dL Est GFR (CKD-EPI)AfAm 77 (>60 ml/min/1.73 sqM) Est GFR (CKD-EPI)NonAf 66 (>60 ml/min/1.73 sqM) Glucose 106 H (74-99) mg/dL Calcium 8.8 (8.4-10.2) mg/dL Magnesium 2.2 (1.6-2.3) mg/dL Total Bilirubin 0.9 (0.2-1.3) mg/dL AST 99 H (14-36) U/L ALT 79 H (4-34) U/L Alkaline Phosphatase 130 H (38-126) U/L Troponin I (0.000-0.034) ng/mL NT-Pro-B Natriuret Pep pg/mL Total Protein 6.9 (6.3-8.2) g/dL Albumin 3.4 L (3.5-5.0) g/dL TSH 7.160 H (0.465-4.680) mIU/L 05/11/22 05/11/22 Range/Units 12:56 12:56 WBC (3.8-10.6) k/uL RBC (3.80-5.40) m/uL Hgb (11.4-16.0) gm/dL Hct (34.0-46.0) % MCV (80.0-100.0) fL MCH (25.0-35.0) pg MCHC (31.0-37.0) g/dL RDW (11.5-15.5) % Plt Count (150-450) k/uL MPV Neutrophils % % Lymphocytes % % Monocytes % % Eosinophils % % Basophils % % Neutrophils # (1.3-7.7) k/uL Lymphocytes # (1.0-4.8) k/uL Monocytes # (0-1.0) k/uL Eosinophils # (0-0.7) k/uL Basophils # (0-0.2) k/uL Hypochromasia PT (9.0-12.0) sec INR (<1.2) APTT (22.0-30.0) sec Sodium (137-145) mmol/L Potassium (3.5-5.1) mmol/L Chloride (98-107) mmol/L Carbon Dioxide (22-30) mmol/L Anion Gap mmol/L BUN (7-17) mg/dL Creatinine (0.52-1.04) mg/dL Est GFR (CKD-EPI)AfAm (>60 ml/min/1.73 sqM) Est GFR (CKD-EPI)NonAf (>60 ml/min/1.73 sqM) Glucose (74-99) mg/dL Calcium (8.4-10.2) mg/dL Magnesium (1.6-2.3) mg/dL Total Bilirubin (0.2-1.3) mg/dL AST (14-36) U/L ALT (4-34) U/L Alkaline Phosphatase (38-126) U/L Troponin I 0.118 H* (0.000-0.034) ng/mL NT-Pro-B Natriuret Pep 52515 pg/mL Total Protein (6.3-8.2) g/dL Albumin (3.5-5.0) g/dL TSH (0.465-4.680) mIU/L - Radiology Data Chest x-ray: Left lower lung airspace disease with small effusion. Findings may reflect pneumonia. Given borderline cardiomegaly, correlate to exclude sequela of CHF. Critical Care Time Critical Care Time: Yes Total Critical Care Time: 40 Disposition Clinical Impression: Atrial fibrillation with RVR, CHF (congestive heart failure), Elevated troponin Disposition: ADMITTED IP TO THIS HOSP Condition: Stable Is patient prescribed a controlled substance at d/c from ED?: No Referrals: Jose Luis Gifford MD [Primary Care Provider] - 1-2 days Time of Disposition: 14:38
[2022-05-11] MEDS ORDERED: DILTIAZEM DRIP BOLUS FROM BAG 1 MG SOLN IV ONE (12:40)
[2022-05-11 13:09] LABS: Basophils % (A) 0 %; Eosinophils % (A) 0 %; HCT 39.7 % (34.0-46.0); HGB 12.9 gm/dL (11.4-16.0); Hypochromasia Slight; Lymphocytes # (A) 1.8 k/uL (1.0-4.8); Lymphocytes % (A) 13 %; MCHC 32.5 g/dL (31.0-37.0); MCV 95.4 fL (80.0-100.0); Mean Platelet Volume 9.4; Monocytes # (A) 0.8 k/uL (0-1.0); Monocytes % (A) 6 %; Neutrophils # (A) 11.1 k/uL (1.3-7.7); Neutrophils % (A) 79 %; Platelet Count 418 k/uL (150-450); RBC 4.16 m/uL (3.80-5.40); RDW 13.9 % (11.5-15.5)
[2022-05-11] MEDS ORDERED: DILTIAZEM 5 MG/ML 5 ML VIAL IVP STA (13:10)
[2022-05-11 13:19] LABS: INR 1.5 (<1.2); Partial Thromboplastin Time 32.5 sec (22.0-30.0); Prothrombin Time 15.4 sec (9.0-12.0)
[2022-05-11 13:20] LABS: Albumin 3.4 g/dL (3.5-5.0); Calcium 8.8 mg/dL (8.4-10.2); Magnesium 2.2 mg/dL (1.6-2.3); Potassium 4.6 mmol/L (3.5-5.1); Total Bilirubin 0.9 mg/dL (0.2-1.3); Total Protein 6.9 g/dL (6.3-8.2)
--- NOTE | 2022-05-11 13:39 | XR ---
EXAMINATION TYPE: XR chest 1V portable DATE OF EXAM: 05/11/2022 Comparison: 05/09/2022 Clinical History: 57-year-old female shortness of breath, dysrhythmia Findings: Heart mildly enlarged. Mild interstitial prominence. Focal left lower lung and retrocardiac opacity w ith small pleural effusion. Impression: Left lower lung airspace disease with small effusion. Findings may reflect pneumonia. Given borderlin e cardiomegaly, correlate to exclude sequela of CHF.
[2022-05-11] MEDS ORDERED: LORazepam 2 MG/ML INJ IV STA (13:49)
[2022-05-11] MEDS ORDERED: DILTIAZEM 125 MG in SODIUM CHLORIDE 0.9% 100 ML IV SCH ×2 (14:00→15:15)
[2022-05-11] MEDS ORDERED: ASPIRIN 325 MG TAB PO STA (14:27)
[2022-05-11] MEDS ORDERED: FUROSEMIDE 10 MG/ML 4 ML VIAL IV STA (14:36)
[2022-05-11] MEDS ORDERED: ACETAMINOPHEN TAB 325 MG TAB PO PRN (14:55)
[2022-05-11] MEDS ORDERED: MORPHINE SULFATE 4 MG/ML SYRINGE IV PRN (14:55)
[2022-05-11] MEDS ORDERED: oxyCODONE-APAP 5-325MG 1 EACH TAB PO PRN (14:55)
[2022-05-11] MEDS ORDERED: DEXTROSE 5% IN WATER 250 ML with AMIODARONE 300 MG IV ONE (15:00)
--- NOTE | 2022-05-11 15:13 | P.HPIM ---
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 She was seen in as an ou tpatient for routine echocardiogram as ordered by her pathology laboratory aide, was noted to have tachycardia to the 150s, therefore was asked to come into the hospital for further evaluation. Patient says that for the last 24-48 hours she's felt intermittent palpitations, dyspnea associated with this as well as chest pressure associated with these symptoms. She's also been generally weak since her discharge on 05/04 of this month, but has been able to maintain follow-up with her primary care physician as well as cardiology. She was started on amiodarone a few days ago in addition to her metoprolol for her atrial fibrillation/flutter. She presents today at the request of her pathology laboratory aide after findings of tachyarrhythmia on echocardiogram. She denies fevers, chills, nausea, vomiting, cough, abdominal pain, constipation, diarrhea, dysuria, dyschezia, numbness of her extremities. As above, she reports chest pain, palpitations, dyspnea. In the emergency room, patient was afebrile 101/75, heart rate in the 140s to 150s on 5 mg diltiazem drip status post 40 mg total of IV pushes of diltiazem, 99% on 2 L nasal cannula. CBC shows mild leukocytosis to 14, improving from previous and counter. Chemistries show hyponatremia to 128, hypochloremia and 94, acidosis due to bicarbonate 21. BUN is 47, creatinine is 0.96. Liver function tests demonstrated an AST/ALT of 99/79, elevated alkaline phosphatase of 130. Initial troponin was 0.118, BNP was 12,700. TSH was 7.16. Coags are abnormal with a PT of 15.4, INR 1.5, PTT of 32.5. Chest x-ray shows cardiomegaly with increased airspace disease as well as small effusion. EKG shows atrial flutter with rapid ventricular response. All Systems reviewed and pertinent positives and negatives noted in HPI, all other symptoms are negative Gen: in no apparent distress, resting comfortably in bed Eyes: PERRL, no scleral injection or icterus HENT: normocephalic, atraumatic, good hearing acuity, moist mucous membranes Neck: no tracheal deviation, full range of motion Resp: good air exchange, breathing comfortably with no accessory muscle use, no tactile fremitus, crackles in the bases CVS: good distal perfusion x 4, no pitting edema, tachycardic, regular, no murmurs GI: soft, NTTP, ND, no hepatosplenomegaly : no suprapubic tenderness, no CVAT, carnes catheter not present MSK: no clubbing, no cyanosis, no noted contractures of extremities Skin: no noted rashes, petechiae; temperature of skin is appropriate Neuro: moving all extremities without signs of weakness, CN II-XII intact Psych: cooperative, euthymic mood, insight and judgment intact Labs and imaging reviewed as above Assessment/plan: Atrial fibrillation/flutter with rapid ventricular response, paroxysmal Chronically anticoagulated Acute on chronic systolic heart failure exacerbation, EF 35-40% Acute hypoxemic respiratory failure -Admit to inpatient, telemetry -Cardiology consult -Start amiodarone drip -Down titrate diltiazem drip as able -Resume metoprolol, increase to 25 mg twice a day -Lasix 40 mg IV twice a day -Strict ins and outs, daily weights -No need to repeat echo at this time -PT consult -Continue Apixiban Metastatic adenocarcinoma of unknown primary -Continued outpatient workup with oncology Patient is full code DVT prophylaxis is covered with Apixiban Past Medical History Past Medical History: No Reported History Additional Past Medical History / Comment(s): Pericardial Effusion with Window placement 03/2022, cardioversion 05/02/22 History of Any Multi-Drug Resistant Organisms: None Reported Past Surgical History: No Surgical Hx Reported Additional Past Surgical History / Comment(s): tubal ligation Past Anesthesia/Blood Transfusion Reactions: No Reported Reaction Past Psychological History: No Psychological Hx Reported Smoking Status: Former smoker Past Alcohol Use History: None Reported Past Drug Use History: None Reported - Past Family History Father Family Medical History: Hypertension Additional Family Medical History / Comment(s): of an IN at age 51 Brother(s) Family Medical History: Hypertension Additional Family Medical History / Comment(s): Aunt with brain cancer Medications and Allergies Home Medications Medication Instructions Recorded Confirmed Type Furosemide [Lasix] 40 mg PO BID #60 tab 04/30/22 05/09/22 Rx Apixaban [Eliquis] 5 mg PO BID #60 tab 05/04/22 05/09/22 Rx Metoprolol Succinate (ER) [Toprol 25 mg PO HS #30 tab 05/04/22 05/09/22 Rx XL] Allergies Allergy/AdvReac Type Severity Reaction Status Date / Time No Known Allergies Allergy Verified 05/11/22 12:22 Physical Exam Osteopathic Statement: *. No significant issues noted on an osteopathic structural exam other than those noted in the History and Physical/Consult. Vitals: Vital Signs Temp Pulse Resp BP Pulse Ox 05/11/22 12:17 97.9 F 65 20 101/75 97 Intake and Output 05/11/22 05/11/22 05/11/22 06:59 14:59 22:59 Other: Weight 65.771 kg Results CBC & Chem 7: 05/11/22 12:56 05/11/22 12:56 Labs: Abnormal Lab Results - Last 24 Hours (Table) 05/11/22 05/11/22 05/11/22 Range/Units 12:56 12:56 12:56 WBC 14.0 H (3.8-10.6) k/uL Neutrophils # 11.1 H (1.3-7.7) k/uL PT 15.4 H (9.0-12.0) sec INR 1.5 H (<1.2) APTT 32.5 H (22.0-30.0) sec Sodium 128 L (137-145) mmol/L Chloride 94 L (98-107) mmol/L Carbon Dioxide 21 L (22-30) mmol/L BUN 47 H (7-17) mg/dL Glucose 106 H (74-99) mg/dL AST 99 H (14-36) U/L ALT 79 H (4-34) U/L Alkaline Phosphatase 130 H (38-126) U/L Troponin I (0.000-0.034) ng/mL Albumin 3.4 L (3.5-5.0) g/dL TSH 7.160 H (0.465-4.680) mIU/L 05/11/22 Range/Units 12:56 WBC (3.8-10.6) k/uL Neutrophils # (1.3-7.7) k/uL PT (9.0-12.0) sec INR (<1.2) APTT (22.0-30.0) sec Sodium (137-145) mmol/L Chloride (98-107) mmol/L Carbon Dioxide (22-30) mmol/L BUN (7-17) mg/dL Glucose (74-99) mg/dL AST (14-36) U/L ALT (4-34) U/L Alkaline Phosphatase (38-126) U/L Troponin I 0.118 H* (0.000-0.034) ng/mL Albumin (3.5-5.0) g/dL TSH (0.465-4.680) mIU/L
[2022-05-11] MEDS: METOPROLOL TARTRATE 25 MG TAB PO SCH ×3 (15:49→20:49)
[2022-05-11] MEDS ORDERED: ONDANSETRON 4 MG/2 ML VIAL IVP STA (17:55)
[2022-05-11 19:39] LABS: T4, Free (Free Thyroxine) 2.44 ng/dL (0.78-2.19)
[2022-05-11] MEDS: FUROSEMIDE 10 MG/ML 4 ML VIAL IV SCH (20:48)
[2022-05-11] MEDS: AMIODARONE 200 MG TAB PO SCH (20:48)
[2022-05-11] MEDS: APIXABAN 5 MG TAB PO SCH (20:48)
[2022-05-12] MEDS: APIXABAN 5 MG TAB PO SCH (09:49)
[2022-05-12] MEDS: AMIODARONE 200 MG TAB PO SCH (09:49)
[2022-05-12] MEDS: FUROSEMIDE 10 MG/ML 4 ML VIAL IV SCH (09:50)
[2022-05-12] MEDS: METOPROLOL TARTRATE 25 MG TAB PO SCH (09:50)
[2022-05-12 10:58] VITALS: RESP 17
[2022-05-12 12:04] VITALS: BP 108/75; PULSE 84; TEMP 97.5
--- NOTE | 2022-05-12 13:00 | P.DS ---
Providers Date of admission: 05/11/22 14:38 Expected date of discharge: 05/12/22 Attending physician: Alejandrina Pollack MD Consults: 05/11/22 14:38 Consult Physician Urgent Consulting Provider: Manuel Gonzales Consult Reason/Comments: Atrial fibrillation with RVR, elevated troponin Do you want consulting provider notified?: Yes Primary care physician: [facility] Course: Atrial fibrillation/flutter with rapid ventricular response, paroxysmal Chronically anticoagulated Acute on chronic systolic heart failure exacerbation, EF 35-40% Acute hypoxemic respiratory failure Metastatic adenocarcinoma of unknown primary 57-year-old woman with a history of 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 In the emergency room, patient was afebrile 101/75, heart rate in the 140s to 150s on 5 mg diltiazem drip status post 40 mg total of IV pushes of diltiazem, 99% on 2 L nasal cannula. CBC shows mild leukocytosis to 14, improving from previous and counter. Chemistries show hyponatremia to 128, hypochloremia and 94, acidosis due to bicarbonate 21. BUN is 47, creatinine is 0.96. Liver function tests demonstrated an AST/ALT of 99/79, elevated alkaline phosphatase of 130. Initial troponin was 0.118, BNP was 12,700. TSH was 7.16. Coags are abnormal with a PT of 15.4, INR 1.5, PTT of 32.5. Chest x-ray shows cardiomegaly with increased airspace disease as well as small effusion. EKG shows atrial flutter with rapid ventricular response. Patient was started on a diltiazem drip, had her metoprolol resumed. She spontaneously converted back to sinus rhythm. She was subsequently discharged home with no medication changes. She will need to follow-up with her primary care physician regarding abnormal thyroid function tests. She'll follow up with cardiology regarding atrial fibrillation. I spent 35 minutes coordinating this discharge, discharge date 05/12 Gen: in no apparent distress, resting comfortably in bed Eyes: PERRL, no scleral injection or icterus HENT: normocephalic, atraumatic, good hearing acuity, moist mucous membranes Neck: no tracheal deviation, full range of motion Resp: good air exchange, breathing comfortably with no accessory muscle use, no tactile fremitus, crackles in the bases CVS: good distal perfusion x 4, no pitting edema, tachycardic, regular, no murmurs GI: soft, NTTP, ND, no hepatosplenomegaly : no suprapubic tenderness, no CVAT, carnes catheter not present MSK: no clubbing, no cyanosis, no noted contractures of extremities Skin: no noted rashes, petechiae; temperature of skin is appropriate Neuro: moving all extremities without signs of weakness, CN II-XII intact Psych: cooperative, euthymic mood, insight and judgment intact Patient Condition at Discharge: Good Plan - Discharge Summary New Discharge Prescriptions: New traZODone HCL [Desyrel] 50 mg PO HS #30 tab Acetaminophen Tab [Tylenol] 650 mg PO Q6HR PRN tab PRN Reason: Mild Pain Or Fever > 100.5 Continue Apixaban [Eliquis] 5 mg PO BID #60 tab Metoprolol Succinate (ER) [Toprol XL] 25 mg PO HS #30 tab Furosemide [Lasix] 40 mg PO BID #60 tab methylPREDNISolone [Medrol Dose Pack] See Taper PO DIRECTED Amiodarone [Cordarone] 200 mg PO BID Discharge Medication List Furosemide [Lasix] 40 mg PO BID #60 tab 04/30/22 [Rx] Apixaban [Eliquis] 5 mg PO BID #60 tab 05/04/22 [Rx] Metoprolol Succinate (ER) [Toprol XL] 25 mg PO HS #30 tab 05/04/22 [Rx] Amiodarone [Cordarone] 200 mg PO BID 05/11/22 [History] methylPREDNISolone [Medrol Dose Pack] See Taper PO DIRECTED 05/11/22 [History] Acetaminophen Tab [Tylenol] 650 mg PO Q6HR PRN tab 05/12/22 [Rx] traZODone HCL [Desyrel] 50 mg PO HS #30 tab 05/12/22 [Rx] Follow up Appointment(s)/Referral(s): Manuel Gonzales MD [STAFF PHYSICIAN] - 1 Week Jose Luis Gifford MD [Primary Care Provider] - 1-2 days Patient Instructions/Handouts: Heart Failure (DC), A-fib (Atrial Fibrillation) (DC) Activity/Diet/Wound Care/Special Instructions: heart healthy diet activity limited until follow up Discharge Disposition: HOME SELF-CARE
[2022-05-12 13:26] LABS: Basophils % (A) 0 %; Eosinophils % (A) 0 %; HCT 38.2 % (34.0-46.0); HGB 12.2 gm/dL (11.4-16.0); Hypochromasia Slight; Lymphocytes # (A) 1.9 k/uL (1.0-4.8); Lymphocytes % (A) 15 %; MCH 30.7 pg (25.0-35.0); MCHC 31.8 g/dL (31.0-37.0); MCV 96.5 fL (80.0-100.0); Mean Platelet Volume 9.5; Monocytes # (A) 0.7 k/uL (0-1.0); Monocytes % (A) 5 %; Neutrophils # (A) 9.9 k/uL (1.3-7.7); Neutrophils % (A) 77 %; Platelet Count 351 k/uL (150-450); RBC 3.96 m/uL (3.80-5.40); RDW 14.3 % (11.5-15.5); WBC 12.9 k/uL (3.8-10.6)
[2022-05-12 13:30] LABS: Albumin 3.3 g/dL (3.5-5.0); Calcium 8.3 mg/dL (8.4-10.2); Magnesium 2.1 mg/dL (1.6-2.3); Potassium 4.5 mmol/L (3.5-5.1); Total Bilirubin 0.6 mg/dL (0.2-1.3); Total Protein 6.4 g/dL (6.3-8.2)
--- NOTE | 2022-05-12 13:47 | CONS ---
CONSULTATION HISTORY OF PRESENT ILLNESS: Iraida is 57-year-old lady with metastatic cancer with large pericardial effusion with tamponade, who underwent pericardial window, was in our office for an echocardiogram to follow the pericardial effusion and was found to be in atrial fibrillation with rapid ventricular rate for which she was sent to the emergency room. I evaluated her in the ER and her initial EKG showed atrial flutter with rapid ventricular rate and subsequently she converted to sinus rhythm, and at the time of my evaluation, she was in sinus rhythm. The patient is on amiodarone, Eliquis, and Toprol, which I am going to continue, and if the patient does well, she can be discharged home tomorrow. If she remains in atrial fibrillation, I will consider cardioversion on her, but I do not have the echo report with me. I am told that she does not have significant pericardial effusion. PAST MEDICAL HISTORY: Significant for large pericardial effusion, status post pericardial window; paroxysmal atrial fibrillation; and metastatic cancer. MEDICATIONS AT HOME: Included: 1. Medrol Dosepak. 2. Toprol. 3. Lasix 40 b.i.d. 4. Eliquis 5 b.i.d. 5. Cordarone. 6. Desyrel. 7. Tylenol. ALLERGIES: There are no known drug allergies. FAMILY HISTORY: Negative for premature coronary artery disease. SOCIAL HISTORY: Negative for current smoking, EtOH abuse, or drug abuse. REVIEW OF SYSTEMS: review of systems has been performed. Pertinents are as documented. PHYSICAL EXAMINATION: GENERAL: Patient appears comfortable at rest. VITAL SIGNS: Heart rate is 80 beats per minute, blood pressure is 107/80, respiratory rate is 18, O2 saturation is 97% on room air. NECK: There is no jugular venous distention. Carotid upstroke is normal. There is no bruit. CHEST: Reveals diminished air entry at the bases. HEART: Reveals first and second heart sounds. No gallop. No murmur. No rub. ABDOMEN: Soft, nontender. EXTREMITIES: Did not reveal any edema. Peripheral pulses are palpable. DIAGNOSTIC STUDIES: EKG: The initial EKG showed atrial fibrillation with rapid ventricular rate. Imaging: The chest x-ray showed small pleural effusion. Labs: Showed that the troponin was slightly elevated. Creatinine is 0.96, potassium is 4.6. ASSESSMENT: 1. Paroxysmal atrial fibrillation. 2. History of pericardial effusion, status post window. 3. Elevated troponin of no clinical significance. Patient did not have myocardial infarction. PLAN: Patient is on IV Cardizem, which we will stop if she stays in sinus rhythm. She will continue with the beta-blockers and the amiodarone. If she is doing well, will be discharged home tomorrow. MMODL / JOHNN: [id number] /
--- NOTE | 2022-05-12 14:02 | P.PN ---
Subjective Progress Note Date: 05/12/22 Patient is seen today resting comfortably in bed in no signs of acute distress. She denies chest pain, shortness of breath, or palpitations. She states is much better and she is ready to go home. Patient is on Eliquis for anticoagulation. She is sinus rhythm on the monitor. Patient is cleared for discharge from a cardiac standpoint Objective - Vital Signs Vital signs: Vital Signs Temp 97.5 F L 05/12/22 12:00 Pulse 84 05/12/22 12:00 Resp 17 05/12/22 12:00 BP 108/75 05/12/22 12:00 Pulse Ox 94 L 05/12/22 12:00 FiO2 Intake & Output 05/11/22 05/12/22 05/12/22 18:59 06:59 18:59 Intake Total 240 10 Output Total 200 100 Balance 240 -190 -100 Weight 65.771 kg 63.4 kg Intake: IV 10 Invasive Line 1 10 Oral 240 Output: Urine 200 100 Other: Voiding Method Toilet Toilet # Voids 2 - Exam PHYSICAL EXAM: VITAL SIGNS: Reviewed. GENERAL: Well-developed in no acute distress. HEENT: Head is normocephalic. Pupils are equal, round. Sclerae anicteric. Mucous membranes of the mouth are moist. NECK: Supple. No JVD or thyromegaly RESPIRATORY: Respirations even and unlabored. Lungs diminished to auscultation bilaterally. CARDIO: Regular rate and rhythm. S1 and S2 heard. No murmur or gallops. EXTREMITIES: Normal range of motion. No clubbing or cyanosis. Peripheral pulses intact. Negative for bilateral lower extremity edema NEURO: Orientated to person, time, mood is appropriate - Labs CBC & Chem 7: 05/12/22 12:17 05/12/22 12:17 Labs: Abnormal Lab Results - Last 24 Hours (Table) 05/11/22 05/11/22 05/11/22 Range/Units 12:56 12:56 16:19 WBC (3.8-10.6) k/uL Neutrophils # (1.3-7.7) k/uL Sodium (137-145) mmol/L Chloride (98-107) mmol/L Carbon Dioxide (22-30) mmol/L BUN (7-17) mg/dL Creatinine (0.52-1.04) mg/dL Glucose (74-99) mg/dL Calcium (8.4-10.2) mg/dL AST (14-36) U/L ALT (4-34) U/L Alkaline Phosphatase (38-126) U/L Troponin I 0.118 H* 0.115 H* (0.000-0.034) ng/mL Albumin (3.5-5.0) g/dL Free T4 2.44 H (0.78-2.19) ng/dL Free T3 pg/mL 2.2 L (2.8-5.3) pg/ml 05/11/22 05/12/22 05/12/22 Range/Units 19:06 12:17 12:17 WBC 12.9 H (3.8-10.6) k/uL Neutrophils # 9.9 H (1.3-7.7) k/uL Sodium 125 L (137-145) mmol/L Chloride 91 L (98-107) mmol/L Carbon Dioxide 20 L (22-30) mmol/L BUN 61 H (7-17) mg/dL Creatinine 1.26 H (0.52-1.04) mg/dL Glucose 101 H (74-99) mg/dL Calcium 8.3 L (8.4-10.2) mg/dL AST 391 H (14-36) U/L ALT 300 H (4-34) U/L Alkaline Phosphatase 151 H (38-126) U/L Troponin I 0.125 H* (0.000-0.034) ng/mL Albumin 3.3 L (3.5-5.0) g/dL Free T4 (0.78-2.19) ng/dL Free T3 pg/mL (2.8-5.3) pg/ml Assessment and Plan Assessment: Proximal atrial fibrillation History of Pericardial effusion, status post window Elevated troponin with no clinical significant. ACS ruled out Plan: Continue with all current cardiac medications patient cleared for discharge The above impression and plan of care have been discussed and directed by the signing physician. Radha Romero, nurse practitioner, acting as scribe for signing physician.
== END 2022-05-12 13:00 | disposition home or self-care (01) | DRG 308 ==
LOC: EC 12:13 → 3SCARD 14:38
PROVIDERS: ADMIT Internal Medicine; ATTEND Internal Medicine
DX: I48.0 Paroxysmal atrial fibrillation (principal); I50.23 Acute on chronic systolic (congestive) heart failure; J96.01 Acute respiratory failure with hypoxia; E87.1 Hypo-osmolality and hyponatremia; I31.31 Malignant pericardial effusion in diseases classified elsewhere; E87.20 Acidosis, unspecified; J90 Pleural effusion, not elsewhere classified; D72.829 Elevated white blood cell count, unspecified; E87.8 Other disorders of electrolyte and fluid balance, not elsewhere classified; I48.92 Unspecified atrial flutter; R79.1 Abnormal coagulation profile; Z79.01 Long term (current) use of anticoagulants; Z79.899 Other long term (current) drug therapy; Z87.891 Personal history of nicotine dependence; Z82.49 Family history of ischemic heart disease and other diseases of the circulatory system; Z98.51 Tubal ligation status; Z80.8 Family history of malignant neoplasm of other organs or systems
CPT/HCPCS: 36415; 71045; 80053; 83735; 83880; 84439; 84443; 84481; 84484; 85025; 85610; 85730; 93005; 94760; 96365; 96366; 96367; 96375; 99291

== ENCOUNTER 2022-05-16 18:22 | Observation (INO) | payer BC ==
--- NOTE | 2022-05-16 18:37 | ED ---
General Adult HPI - General Chief complaint: Shortness of Breath Stated complaint: SOB, CHF Time Seen by Provider: 05/16/22 18:35 Source: patient Mode of arrival: wheelchair Limitations: no limitations - History of Present Illness Initial comments: Patient presents to the ED with her for evaluation. Patient states that she has had diffuse chest pressure and increasing dyspnea since yesterday. Patient states that she has a history of CHF. Patient admits to orthopnea. Patient denies lower extremity pain, swelling or edema. Patient confirms that she is on Eliquis anticoagulation therapy. Patient denies trauma or injury, fever or chills, headache, focal numbness/weakness/neuro deficit, neck/arm/jaw/back pain, pleuritic pain, cough or cold symptoms, palpitations, dizziness, nausea/vomiting/diaphoresis, abdominal pain, bloody or melanotic stool, dysuria or urinary symptoms, decreased urine output, or any other symptoms or complaints. - Related Data Home Medications Medication Instructions Recorded Confirmed Amiodarone [Cordarone] 200 mg PO BID 05/11/22 05/11/22 methylPREDNISolone [Medrol Dose See Taper PO DIRECTED 05/11/22 05/11/22 Pack] Previous Rx's Medication Instructions Recorded Furosemide [Lasix] 40 mg PO BID #60 tab 04/30/22 Apixaban [Eliquis] 5 mg PO BID #60 tab 05/04/22 Metoprolol Succinate (ER) [Toprol 25 mg PO HS #30 tab 05/04/22 XL] Acetaminophen Tab [Tylenol] 650 mg PO Q6HR PRN tab 05/12/22 traZODone HCL [Desyrel] 50 mg PO HS #30 tab 05/12/22 Allergies Allergy/AdvReac Type Severity Reaction Status Date / Time No Known Allergies Allergy Verified 05/16/22 18:34 Review of Systems ROS Statement: Those systems with pertinent positive or pertinent negative responses have been documented in the HPI. ROS Other: All systems not noted in ROS Statement are negative. Past Medical History Past Medical History: Heart Failure Additional Past Medical History / Comment(s): Pericardial Effusion with Window placement 03/2022, cardioversion 05/02/22 History of Any Multi-Drug Resistant Organisms: None Reported Past Surgical History: No Surgical Hx Reported Additional Past Surgical History / Comment(s): tubal ligation Past Anesthesia/Blood Transfusion Reactions: No Reported Reaction Past Psychological History: No Psychological Hx Reported Smoking Status: Former smoker Past Alcohol Use History: None Reported Past Drug Use History: None Reported - Past Family History Father Family Medical History: Hypertension Additional Family Medical History / Comment(s): of an NC at age 51 Brother(s) Family Medical History: Hypertension Additional Family Medical History / Comment(s): Aunt with brain cancer General Exam Limitations: no limitations General appearance: alert, in no apparent distress Head exam: Present: atraumatic, normocephalic Eye exam: Present: normal appearance, EOMI ENT exam: Present: mucous membranes moist Neck exam: Present: other (Trachea is in midline) Respiratory exam: Present: other (Trace bibasilar rales). Absent: respiratory distress, wheezes, rhonchi, stridor, chest wall tenderness Cardiovascular Exam: Present: regular rate, normal rhythm, normal heart sounds, other (Normal radial pulses bilaterally) GI/Abdominal exam: Present: soft. Absent: distended, tenderness, guarding Extremities exam: Present: other (Negative Homans sign bilaterally). Absent: tenderness, pedal edema, calf tenderness Neurological exam: Present: alert, oriented X3. Absent: motor sensory deficit Psychiatric exam: Present: normal affect, normal mood Skin exam: Present: warm, dry, intact, normal color Course Vital Signs 05/16/22 05/16/22 18:32 18:59 Temperature 98.2 F Pulse Rate 92 Respiratory 18 20 Rate Blood Pressure 110/79 O2 Sat by Pulse 93 L Oximetry - Reevaluation(s) Reevaluation #1: 05/16/22 20:34 Case, H&P, test results and ED management thus far were discussed with Dr. Lopez. He accepts hospital admission. He has no further recommendations at this time. 05/16/22 20:40 Patient denies development of any new symptoms while in the ED. Patient remains alert and breathing comfortable. Patient and are aware the patient's t est results, and they both agree with hospital admission at this time. EKG Findings - EKG Comments: EKG Findings:: ED physician interpretation: Normal sinus rhythm, ventricular rate of 89 bpm, no ectopy, normal [place] and QRS intervals, normal QT interval, nonspecific ST and T-wave abnormality, normal axis, no significant change when compared to 05/12/2022 EKG Medical Decision Making - Medical Decision Making Patient's history and chest x-ray findings are suggestive of CHF. Patient's BNP is elevated. Patient does have leukocytosis, but she has a history of leukocytosis on laboratory evaluation. Patient denies having a cough or congestion, and she is afebrile. I suspect that the patient's symptoms are all likely due to CHF and unlikely infectious in etiology. Patient's troponin is negative. Patient has been given a dose of IV Lasix for diuresis in the ED. Patient was also given a dose of aspirin in the ED. Will admit the patient to the hospital for serial troponins, continued diuresis and cardiac monitoring. Dr. Lopez has accepted hospital admission. - Lab Data Result diagrams: 05/16/22 19:23 05/16/22 19:23 Lab Results 05/16/22 05/16/22 05/16/22 Range/Units 19:23 19:23 19:23 WBC 18.7 H (3.8-10.6) k/uL RBC 4.15 (3.80-5.40) m/uL Hgb 12.8 (11.4-16.0) gm/dL Hct 40.3 (34.0-46.0) % MCV 97.1 (80.0-100.0) fL MCH 30.8 (25.0-35.0) pg MCHC 31.8 (31.0-37.0) g/dL RDW 15.2 (11.5-15.5) % Plt Count 495 H (150-450) k/uL MPV 8.4 Neutrophils % 91 % Lymphocytes % 4 % Monocytes % 4 % Eosinophils % 0 % Basophils % 0 % Neutrophils # 17.0 H (1.3-7.7) k/uL Lymphocytes # 0.7 L (1.0-4.8) k/uL Monocytes # 0.8 (0-1.0) k/uL Eosinophils # 0.1 (0-0.7) k/uL Basophils # 0.1 (0-0.2) k/uL Hypochromasia Slight PT 12.5 H (9.0-12.0) sec INR 1.2 H (<1.2) APTT 22.7 (22.0-30.0) sec Sodium 136 L (137-145) mmol/L Potassium 4.1 (3.5-5.1) mmol/L Chloride 97 L (98-107) mmol/L Carbon Dioxide 30 (22-30) mmol/L Anion Gap 9 mmol/L BUN 39 H (7-17) mg/dL Creatinine 0.65 (0.52-1.04) mg/dL Est GFR (CKD-EPI)AfAm >90 (>60 ml/min/1.73 sqM) Est GFR (CKD-EPI)NonAf >90 (>60 ml/min/1.73 sqM) Glucose 193 H (74-99) mg/dL Calcium 8.6 (8.4-10.2) mg/dL Magnesium 2.1 (1.6-2.3) mg/dL Total Bilirubin 0.7 (0.2-1.3) mg/dL AST 89 H (14-36) U/L ALT 129 H (4-34) U/L Alkaline Phosphatase 179 H (38-126) U/L Troponin I (0.000-0.034) ng/mL NT-Pro-B Natriuret Pep pg/mL Total Protein 7.0 (6.3-8.2) g/dL Albumin 3.4 L (3.5-5.0) g/dL 05/16/22 05/16/22 Range/Units 19:23 19:23 WBC (3.8-10.6) k/uL RBC (3.80-5.40) m/uL Hgb (11.4-16.0) gm/dL Hct (34.0-46.0) % MCV (80.0-100.0) fL MCH (25.0-35.0) pg MCHC (31.0-37.0) g/dL RDW (11.5-15.5) % Plt Count (150-450) k/uL MPV Neutrophils % % Lymphocytes % % Monocytes % % Eosinophils % % Basophils % % Neutrophils # (1.3-7.7) k/uL Lymphocytes # (1.0-4.8) k/uL Monocytes # (0-1.0) k/uL Eosinophils # (0-0.7) k/uL Basophils # (0-0.2) k/uL Hypochromasia PT (9.0-12.0) sec INR (<1.2) APTT (22.0-30.0) sec Sodium (137-145) mmol/L Potassium (3.5-5.1) mmol/L Chloride (98-107) mmol/L Carbon Dioxide (22-30) mmol/L Anion Gap mmol/L BUN (7-17) mg/dL Creatinine (0.52-1.04) mg/dL Est GFR (CKD-EPI)AfAm (>60 ml/min/1.73 sqM) Est GFR (CKD-EPI)NonAf (>60 ml/min/1.73 sqM) Glucose (74-99) mg/dL Calcium (8.4-10.2) mg/dL Magnesium (1.6-2.3) mg/dL Total Bilirubin (0.2-1.3) mg/dL AST (14-36) U/L ALT (4-34) U/L Alkaline Phosphatase (38-126) U/L Troponin I 0.028 (0.000-0.034) ng/mL NT-Pro-B Natriuret Pep 6490 pg/mL Total Protein (6.3-8.2) g/dL Albumin (3.5-5.0) g/dL - Radiology Data Chest x-ray: Congestive heart failure with bilateral pleural effusions. Pleural fluid and congestion increased compared to old exam. Critical Care Time Critical Care Time: Yes Total Critical Care Time: 35 Disposition Clinical Impression: Chest pain, Dyspnea, CHF (congestive heart failure), Pleural effusion, Hypoxia Disposition: ADMITTED IP TO THIS [facility] Condition: Stable Is patient prescribed a controlled substance at d/c from ED?: No Referrals: Jose Luis Gifford MD [Primary Care Provider] - 1-2 days Time of Disposition: 20:35
[2022-05-16] MEDS ORDERED: ASPIRIN 81 MG PO STA (19:03)
[2022-05-16 19:32] LABS: Basophils # (A) 0.1 k/uL (0-0.2); Basophils % (A) 0 %; Eosinophils # (A) 0.1 k/uL (0-0.7); Eosinophils % (A) 0 %; HCT 40.3 % (34.0-46.0); HGB 12.8 gm/dL (11.4-16.0); Hypochromasia Slight; Lymphocytes # (A) 0.7 k/uL (1.0-4.8); Lymphocytes % (A) 4 %; MCH 30.8 pg (25.0-35.0); MCHC 31.8 g/dL (31.0-37.0); MCV 97.1 fL (80.0-100.0); Mean Platelet Volume 8.4; Monocytes # (A) 0.8 k/uL (0-1.0); Monocytes % (A) 4 %; Neutrophils % (A) 91 %; Platelet Count 495 k/uL (150-450); RBC 4.15 m/uL (3.80-5.40); RDW 15.2 % (11.5-15.5); WBC 18.7 k/uL (3.8-10.6)
[2022-05-16 19:40] LABS: ALT 129 U/L (4-34); AST 89 U/L (14-36); African American GFR (CKD) >90 (>60 ml/min/1.73 sqM); Albumin 3.4 g/dL (3.5-5.0); Alkaline Phosphatase 179 U/L (38-126); Anion Gap 9 mmol/L; Blood Urea Nitrogen 39 mg/dL (7-17); Calcium 8.6 mg/dL (8.4-10.2); Carbon Dioxide 30 mmol/L (22-30); Chloride 97 mmol/L (98-107); Glucose 193 mg/dL (74-99); Magnesium 2.1 mg/dL (1.6-2.3); Non-African American GFR(CKD) >90 (>60 ml/min/1.73 sqM); Potassium 4.1 mmol/L (3.5-5.1); Sodium 136 mmol/L (137-145); Total Bilirubin 0.7 mg/dL (0.2-1.3)
[2022-05-16 19:41] LABS: INR 1.2 (<1.2); Partial Thromboplastin Time 22.7 sec (22.0-30.0); Prothrombin Time 12.5 sec (9.0-12.0)
--- NOTE | 2022-05-16 19:47 | XR ---
EXAMINATION TYPE: XR chest 1V portable DATE OF EXAM: 05/16/2022 COMPARISON: 05/11/2022 HISTORY: Chest pain TECHNIQUE: Single view FINDINGS: Heart is enlarged. There is pulmonary congestion and blunting of the cosmetic angles. There is chest leads. Bony thorax is intact. IMPRESSION: Congestive heart failure with bilateral pleural effusions. Pleural fluid and congestion i ncreased compared to old exam.
[2022-05-16] MEDS ORDERED: FUROSEMIDE 10 MG/ML 4 ML VIAL IV STA (19:53)
[2022-05-17] MEDS: APIXABAN 5 MG TAB PO SCH ×3 (00:47→20:48)
[2022-05-17] MEDS: METOPROLOL SUCCINATE (ER) 25 MG TAB.ER.24H PO SCH ×2 (00:47→20:48)
[2022-05-17] MEDS: NYSTATIN 100,000 UNIT/ML SUSP 500,000 UNIT/5 ML CUP PO SCH ×5 (00:48→20:56)
[2022-05-17] MEDS: AMIODARONE 200 MG TAB PO SCH ×3 (00:48→20:48)
--- NOTE | 2022-05-17 01:30 | P.HPIM ---
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 The patient states that over the past 2 days, she's been experiencing dyspnea with minimal exer tion, now occasionally even at rest. She also reports chest tightness, 8 out of 10 on maximal intensity, nonradiating, somewhat exertional. She denied fever, chills, lower extremity edema, cough. Of note, the patient has been admitted multiple times throughout this month and was most recently admitted for A. fib with RVR and CHF exacerbation and was discharged on 05/12. The patient states that she is following with a Dr. Treadwell and has recently undergone a PET scan and is awaiting DNA testing to identify the primary for the malignancy. Upon arrival at the emergency room, the patient had an SpO2 of 93% on room air with temp 98.2, respiratory rate 18, and BP 110/79. Chest x-ray was consistent with CHF with bilateral pleural effusions EKG showing sinus rhythm at [address] segment depression in leads V4 to V6 with diffuse T-wave inversions noted. Laboratory evaluation was remarkable for leukocytosis of 18.7, troponin 0.028, proBNP 6490. Review of systems: Pertinent positives and negatives as discussed in HPI, a complete review of systems was performed and all other systems are negative. Physical examination: General: non toxic, no distress, appears at stated age, normal weight Derm: no unusual rashes/lesions, warm Head: atraumatic, normocephalic, symmetric Eyes: EOMI, no lid lag, anicteric sclera, pupils equal round reactive to light ENT: Nose and ears atraumatic Neck: No cervical lymphadenopathy, trachea midline, supple Mouth: no lip lesion, mucus membranes moist Cardiovascular: S1S2 reg, no murmur, positive dorsalis pedis pulse bilateral, no edema Lungs: Bibasilar rales, no rhonchi, no wheezing, no accessory muscle use Abdominal: soft, nontender to palpation, no guarding Ext: muscle strength 4 out of 5 in all 4 extremities grossly, no gross muscle atrophy, no contractures, Neuro: CN II-XI grossly intact, no gross focal neuro deficits Psych: Alert, oriented, appropriate affect Assessment/plan Acute CHF exacerbation -C/w Lasix -Cardiology consult -Cardiac monitoring -Echocardiogram -Intake and output -Daily weights History of malignant pericardial effusion with unknown primary -Oncology consult Chronic conditions: A. fib -Continue with home meds DVT prophylaxis -Eliquis The patient is admitted with an anticipated less than 2 midnight stay for evaluation of CHF CODE STATUS: Full Code Discussed with: Patient, Anticipated discharge date: in am Anticipated discharge place: Home Past Medical History Past Medical History: Heart Failure Additional Past Medical History / Comment(s): Pericardial Effusion with Window placement 03/2022, cardioversion 05/02/22 History of Any Multi-Drug Resistant Organisms: None Reported Past Surgical History: No Surgical Hx Reported Additional Past Surgical History / Comment(s): tubal ligation Past Anesthesia/Blood Transfusion Reactions: No Reported Reaction Past Psychological History: No Psychological Hx Reported Smoking Status: Former smoker Past Alcohol Use History: None Reported Past Drug Use History: None Reported - Past Family History Father Family Medical History: Hypertension Additional Family Medical History / Comment(s): of an [place] at age 51 Brother(s) Family Medical History: Hypertension Additional Family Medical History / Comment(s): Aunt with brain cancer Medications and Allergies Home Medications Medication Instructions Recorded Confirmed Type Apixaban [Eliquis] 5 mg PO BID #60 tab 05/04/22 05/16/22 Rx Metoprolol Succinate (ER) [Toprol 25 mg PO HS #30 tab 05/04/22 05/16/22 Rx XL] Amiodarone [Cordarone] 200 mg PO BID 05/11/22 05/16/22 History methylPREDNISolone [Medrol Dose See Taper PO DIRECTED 05/11/22 05/16/22 History Pack] Furosemide [Lasix] 40 mg PO BID@0900,1600 05/16/22 05/16/22 History Nystatin 100,000 Unit/ml Susp 5 ml PO QID 05/16/22 05/16/22 History [Mycostatin Oral Susp] Allergies Allergy/AdvReac Type Severity Reaction Status Date / Time No Known Allergies Allergy Verified 05/16/22 20:51 Physical Exam Vitals: Vital Signs Temp Pulse Resp BP Pulse Ox 05/16/22 22:09 89 24 108/84 96 05/16/22 22:00 92 95 05/16/22 21:00 98.0 F 89 116/73 97 05/16/22 18:59 20 05/16/22 18:32 98.2 F 92 18 110/79 93 L Intake and Output 05/16/22 05/16/22 05/16/22 06:59 14:59 22:59 Other: Weight 65.771 kg Results CBC & Chem 7: 05/16/22 19:23 05/16/22 19:23 Labs: Abnormal Lab Results - Last 24 Hours (Table) 05/16/22 05/16/22 05/16/22 Range/Units 19:23 19:23 19:23 WBC 18.7 H (3.8-10.6) k/uL Plt Count 495 H (150-450) k/uL Neutrophils # 17.0 H (1.3-7.7) k/uL Lymphocytes # 0.7 L (1.0-4.8) k/uL PT 12.5 H (9.0-12.0) sec INR 1.2 H (<1.2) Sodium 136 L (137-145) mmol/L Chloride 97 L (98-107) mmol/L BUN 39 H (7-17) mg/dL Glucose 193 H (74-99) mg/dL AST 89 H (14-36) U/L ALT 129 H (4-34) U/L Alkaline Phosphatase 179 H (38-126) U/L Albumin 3.4 L (3.5-5.0) g/dL
[2022-05-17 06:40] LABS: Basophils % (A) 0 %; Eosinophils % (A) 0 %; HCT 40.8 % (34.0-46.0); HGB 12.8 gm/dL (11.4-16.0); Hypochromasia Moderate; Lymphocytes # (A) 1.1 k/uL (1.0-4.8); Lymphocytes % (A) 7 %; MCH 30.8 pg (25.0-35.0); MCHC 31.3 g/dL (31.0-37.0); MCV 98.3 fL (80.0-100.0); Macrocytosis Slight; Mean Platelet Volume 8.1; Monocytes # (A) 0.8 k/uL (0-1.0); Monocytes % (A) 5 %; Neutrophils # (A) 14.9 k/uL (1.3-7.7); Neutrophils % (A) 87 %; Platelet Count 478 k/uL (150-450); RBC 4.15 m/uL (3.80-5.40); WBC 17.1 k/uL (3.8-10.6)
[2022-05-17 06:55] LABS: ALT 123 U/L (4-34); AST 67 U/L (14-36); African American GFR (CKD) >90 (>60 ml/min/1.73 sqM); Albumin 3.3 g/dL (3.5-5.0); Alkaline Phosphatase 188 U/L (38-126); Anion Gap 9 mmol/L; Blood Urea Nitrogen 33 mg/dL (7-17); Calcium 8.5 mg/dL (8.4-10.2); Carbon Dioxide 34 mmol/L (22-30); Chloride 94 mmol/L (98-107); Glucose 98 mg/dL (74-99); Non-African American GFR(CKD) >90 (>60 ml/min/1.73 sqM); Potassium 3.9 mmol/L (3.5-5.1); Sodium 137 mmol/L (137-145); Total Bilirubin 0.6 mg/dL (0.2-1.3); Total Protein 6.5 g/dL (6.3-8.2)
--- NOTE | 2022-05-17 08:12 | P.CRDCN ---
History of Present Illness Consult date: 05/17/22 History of present illness: HISTORY OF PRESENT ILLNESS: This is a 57 year old female with a past medical history significant for congestive heart failure, large pericardial effusion with recent pericardial window, atrial fibrillation, and metastatic carcinoma of unknown primary origin. Patient follows in the office with Dr. Gonzales. We have been asked to see the patient in consultation for shortness of breath. Patient examined at the bedside. Patient states that she has been feeling short of breath since Friday. She states her shortness of breath had continued to get worse so she presented to the hospital for further evaluation. Patient states she has been compliant with her home medications including Lasix. She reports compliance w ith a low sodium diet. She states that she recently saw Dr. Treadwell and underwent a PET scan and is awaiting results to find out the primary source of her malignancy. She currently denies chest pain or pressure. * EKG reveals sinus mechanism with diffuse T wave inversions, present on previous EKG. Telemetry reveals sinus mechanism * Chest xray congestive heart failure with bilateral pleural effusions. Pleural fluid and congestion increased compared to old exam. * Laboratory data: WBC 17.1. Hemoglobin 12.8. Platelet count 478. Sodium 135. Potassium 3.9. BUN 33. Creatinine 0.73. AST 67. ALT 123. Troponin negative 3. ProBNP 6490. * Current home cardiac medications include metoprolol succinate 25 mg at night, Lasix 40 mg twice a day, amiodarone 200 mg twice a day, and Eliquis 5mg BID * Most recent echocardiogram obtained in April 2022 revealing small pericardial effusion. Previous echocardiogram completed revealed ejection fraction 35%. * Cardiac catheterization history: Patient denies REVIEW OF SYSTEMS: At the time of my exam: CONSTITUTIONAL: Denies fever or chills. HEENT: Denies blurred vision, vision changes, or eye pain. Denies hemoptysis CARDIOVASCULAR: Denies chest pain. Denies orthopnea. Denies PND. Denies palpitations RESPIRATORY: + shortness of breath. GASTROINTESTINAL: Denies abdominal pain. Denies nausea or vomiting. HEMATOLOGIC: Denies bleeding disorders. GENITOURINARY: Denies any blood in urine. SKIN: Denies pruitis. Denies rash. PHYSICAL EXAM: VITAL SIGNS: Reviewed. GENERAL: Well-developed in no acute distress. HEENT: Head is normocephalic. Pupils are equal, round. Sclerae anicteric. Mucous membranes of the mouth are moist. Neck supple. No JVD or thyromegaly LUNGS: Respirations even and unlabored. Lungs diminished with bibasilar crackles. HEART: Regular rate and rhythm. S1 and S2 heard. ABDOMEN: Soft. Nondistended. Nontender. EXTREMITIES: Normal range of motion. No clubbing or cyanosis. Peripheral pulses intact. No lower extremity edema NEUROLOGIC: Awake and alert. Oriented x 3. ASSESSMENT: Shortness of breath Acute on chronic heart failure with reduced ejection fraction, EF 30% Bilateral pleural effusions Paroxysmal atrial fibrillation History of recent large pericardial effusion with tamponade and pericardial window, 02/19/2022 Metastatic carcinoma of unknown primary origin Elevated LFTs PLAN: 2D echo pending. Await results. Continue IV lasix 40mg IV Q12 hours. Consider pulmonary evaluation secondary to pleural effusions Daily weights, accurate I&O, and monitoring of kidney function Resume additional home cardiac medications Further recommendations pending patient course Nurse practitioner note has been reviewed by physician. Signing provider agrees with the documented findings, assessment, and plan of care. Past Medical History Past Medical History: Heart Failure Additional Past Medical History / Comment(s): Pericardial Effusion with Window placement 03/2022, cardioversion 05/02/22 History of Any Multi-Drug Resistant Organisms: None Reported Past Surgical History: No Surgical Hx Reported Additional Past Surgical History / Comment(s): tubal ligation Past Anesthesia/Blood Transfusion Reactions: No Reported Reaction Past Psychological History: No Psychological Hx Reported Smoking Status: Former smoker Past Alcohol Use History: None Reported Past Drug Use History: None Reported - Past Family History Father Family Medical History: Hypertension Additional Family Medical History / Comment(s): of an [place] at age 51 Brother(s) Family Medical History: Hypertension Additional Family Medical History / Comment(s): Aunt with brain cancer Medications and Allergies Home Medications Medication Instructions Recorded Confirmed Type Apixaban [Eliquis] 5 mg PO BID #60 tab 05/04/22 05/16/22 Rx Metoprolol Succinate (ER) [Toprol 25 mg PO HS #30 tab 05/04/22 05/16/22 Rx XL] Amiodarone [Cordarone] 200 mg PO BID 05/11/22 05/16/22 History methylPREDNISolone [Medrol Dose See Taper PO DIRECTED 05/11/22 05/16/22 History Pack] Furosemide [Lasix] 40 mg PO BID@0900,1600 05/16/22 05/16/22 History Nystatin 100,000 Unit/ml Susp 5 ml PO QID 05/16/22 05/16/22 History [Mycostatin Oral Susp] Allergies Allergy/AdvReac Type Severity Reaction Status Date / Time No Known Allergies Allergy Verified 05/16/22 20:51 Physical Exam Vitals: Vital Signs Temp Pulse Pulse Resp BP BP Pulse Ox 05/17/22 00:35 97.7 F 86 17 124/86 93 L 05/16/22 23:36 82 18 129/81 96 05/16/22 22:09 89 24 108/84 96 05/16/22 22:00 92 95 05/16/22 21:00 98.0 F 89 116/73 97 05/16/22 18:59 20 05/16/22 18:32 98.2 F 92 18 110/79 93 L Intake and Output 05/16/22 05/17/22 05/17/22 22:59 06:59 14:59 Output Total 250 Balance -250 Output: Urine 250 Other: # Voids 1 Weight 65.771 kg 62.9 kg Results 05/17/22 05:40 05/17/22 05:40 Cardiac Enzymes 05/16/22 05/16/22 05/16/22 Range/Units 19:23 19:23 22:09 AST 89 H (14-36) U/L Troponin I 0.028 0.025 (0.000-0.034) ng/mL 05/17/22 05/17/22 Range/Units 00:19 05:40 AST 67 H (14-36) U/L Troponin I 0.023 (0.000-0.034) ng/mL Coagulation 05/16/22 Range/Units 19:23 PT 12.5 H (9.0-12.0) sec APTT 22.7 (22.0-30.0) sec CBC 05/16/22 05/17/22 Range/Units 19:23 05:40 WBC 18.7 H 17.1 H (3.8-10.6) k/uL RBC 4.15 4.15 (3.80-5.40) m/uL Hgb 12.8 12.8 (11.4-16.0) gm/dL Hct 40.3 40.8 (34.0-46.0) % Plt Count 495 H 478 H (150-450) k/uL Comprehensive Metabolic Panel 05/16/22 05/17/22 Range/Units 19:23 05:40 Sodium 136 L 137 (137-145) mmol/L Potassium 4.1 3.9 (3.5-5.1) mmol/L Chloride 97 L 94 L (98-107) mmol/L Carbon Dioxide 30 34 H (22-30) mmol/L BUN 39 H 33 H (7-17) mg/dL Creatinine 0.65 0.73 (0.52-1.04) mg/dL Glucose 193 H 98 (74-99) mg/dL Calcium 8.6 8.5 (8.4-10.2) mg/dL AST 89 H 67 H (14-36) U/L ALT 129 H 123 H (4-34) U/L Alkaline Phosphatase 179 H 188 H (38-126) U/L Total Protein 7.0 6.5 (6.3-8.2) g/dL Albumin 3.4 L 3.3 L (3.5-5.0) g/dL Current Medications Generic Name Dose Route Start Last Admin Trade Name Freq PRN Reason Stop Dose Admin Amiodarone HCl 200 mg 05/17/22 00:45 05/17/22 00:48 Amiodarone 200 Mg Tab PO 200 mg BID RO Administration Apixaban 5 mg 05/17/22 00:45 05/17/22 00:47 Apixaban 5 Mg Tab PO 5 mg BID RO Administration Protocol Furosemide 40 mg 05/17/22 09:00 Furosemide 10 Mg/Ml 4 Ml Vial IV Q12HR [facility] Metoprolol Succinate 25 mg 05/17/22 00:45 05/17/22 00:47 Metoprolol Succinate (Er) 25 Mg Tab.Er.24h PO 25 mg HS RO Administration Nystatin 500,000 unit 05/17/22 01:00 05/17/22 00:48 Nystatin 100,000 Unit/Ml Susp 500,000 Unit/5 Ml Cup PO 500,000 unit QID RO Administration Protocol Intake and Output 05/16/22 05/17/22 05/17/22 22:59 06:59 14:59 Output Total 250 Balance -250 Output: Urine 250 Other: # Voids 1 Weight 65.771 kg 62.9 kg 05/17/22 05:40 05/17/22 05:40
[2022-05-17] MEDS: FUROSEMIDE 10 MG/ML 4 ML VIAL IV SCH ×2 (08:46→20:49)
--- NOTE | 2022-05-17 12:11 | P.CONS ---
History of Present Illness - Reason for Consult Consult date: 05/17/22 Recent metastatic cancer, unknown origin Requesting physician: Alka Lopez - History of Present Illness timothy Alejandro is a pleasant white female, initially seen in consult at [facility] on 04/29/22. The patient had a fairly benign baseline medical history. She had come into the hospital because of new onset of shortness of breath starting about 2 weeks prior, that had become persistent and then progressive. Initial imaging showed small bilateral pleural effusions, as well as a large pericardial effusion. initial chest x-ray from 04/19/22 had shown cardiomegaly and pulmonary venous congestion, and mild edema. CT abdomen and pelvis on 04/21/22 showed a large pericardial effusions in small bilateral pleural effusions. Patient had a pericardial window with drainage done on . From the pericardial tissue and the effusion was positive for metastatic adenocarcinoma. Based on the staining pattern, this was nonspecific with sites of origin including lung, breast, and upper GI/pancreatobiliary. CT of the abdomen and pelvis had not shown any suspicious lesions below the diaphragm. CT of the chest from 04/12/22 showed a 2.7 x 2 cm right paratracheal soft tissue density, and patchy infiltrates in both lungs The patient was seen in consult at that time and had ultrasound of the breast, as well as EGD and colonoscopy. These studies did not show any obvious dale gnancy. The patient is currently discharge, and then readmitted on 05/03/20-42 fibrillation with RVR, that responded to medical treatment. She was seen for first office visit on 05/06/22 She denied any prior history of malignancy. She had smoked about half a pack a day for many years, and quit at the time of diagnosis. There are no specific localizing symptoms. She denied any significant weight loss. She was seen in office once by Dr. Treadwell on 05/06/2022 and at that time: he patient is being seen because of new diagnosis of malignant pericardial effusion, showing adenocarcinoma. At this time primary site is unknown. The staining pattern was quite nonspecific with possible sites of origin, as noted in the HPI. - Post palliative pericardiocentesis, and pericardial window, the patient's symptoms have improved. Based on imaging so far, she does not appear to have significant burden of disease elsewhere. performance status is quite reasonable at this time - We discussed the issue of the unknown primary site in detail. Based on the possible differentials, the patient has had breast ultrasound, as well as a GI workup which have been negative. Based on the CT finding, there is a possibility of a lung primary. However the lesion noted could be benign, or could also be metastatic. Patient is to have a PET scan scheduled later this week, she also has an upcoming visit with pulmonary metastases and the plan bronchoscopy. - The patient's tissue will be sent for cancer type ID, as well as NGS. If the above-mentioned procedures do not reveal definite primary, then endoscopic ultrasound be considered. - Check MRI of the brain for [employer] PR[employer] staging. - Labs from the hospital from 05/04/22 showed hemoglobin in the 11 range, with other aspects of the CBC, and chem panel normal Review of Systems All systems: negative Constitutional: Reports as per HPI Past Medical History Past Medical History: Heart Failure Additional Past Medical History / Comment(s): Pericardial Effusion with Window placement 03/2022, cardioversion 05/02/22 History of Any Multi-Drug Resistant Organisms: None Reported Past Surgical History: No Surgical Hx Reported Additional Past Surgical History / Comment(s): tubal ligation Past Anesthesia/Blood Transfusion Reactions: No Reported Reaction Past Psychological History: No Psychological Hx Reported Smoking Status: Former smoker Past Alcohol Use History: None Reported Past Drug Use History: None Reported - Past Family History Father Family Medical History: Hypertension Additional Family Medical History / Comment(s): of an [place] at age 51 Brother(s) Family Medical History: Hypertension Additional Family Medical History / Comment(s): Aunt with brain cancer Medications and Allergies Home Medications Medication Instructions Recorded Confirmed Type Apixaban [Eliquis] 5 mg PO BID #60 tab 05/04/22 05/16/22 Rx Metoprolol Succinate (ER) [Toprol 25 mg PO HS #30 tab 05/04/22 05/16/22 Rx XL] Amiodarone [Cordarone] 200 mg PO BID 05/11/22 05/16/22 History Furosemide [Lasix] 40 mg PO BID@0900,1600 05/16/22 05/16/22 History Nystatin 100,000 Unit/ml Susp 5 ml PO QID 05/16/22 05/16/22 History [Mycostatin Oral Susp] Allergies Allergy/AdvReac Type Severity Reaction Status Date / Time No Known Allergies Allergy Verified 05/16/22 20:51 Physical Exam Vitals: Vital Signs Temp Pulse Pulse Resp BP BP Pulse Ox 05/17/22 07:00 97.6 F 79 18 119/81 97 05/17/22 00:35 97.7 F 86 17 124/86 93 L 05/16/22 23:36 82 18 129/81 96 05/16/22 22:09 89 24 108/84 96 05/16/22 22:00 92 95 05/16/22 21:00 98.0 F 89 116/73 97 05/16/22 18:59 20 05/16/22 18:32 98.2 F 92 18 110/79 93 L Intake and Output 05/16/22 05/17/22 05/17/22 22:59 06:59 14:59 Output Total 250 Balance -250 Output: Urine 250 Other: Voiding Method Toilet # Voids 1 Weight 65.771 kg 62.9 kg VITAL SIGNS: Reviewed. GENERAL: Well-developed in no acute distress. HEENT: Head is normocephalic. Pupils are equal, round. Sclerae anicteric. Mucous membranes of the mouth are moist. Neck supple. No JVD or thyromegaly LUNGS: Respirations even and unlabored. Lungs diminished with bibasilar crackles. HEART: Regular rate and rhythm. S1 and S2 heard. ABDOMEN: Soft. Nondistended. Nontender. EXTREMITIES: Normal range of motion. No clubbing or cyanosis. Peripheral pulses intact. No lower extremity edema NEUROLOGIC: Awake and alert. Oriented x 3. Results CBC & Chem 7: 05/17/22 05:40 05/18/22 05:30 Labs: Abnormal Lab Results - Last 24 Hours (Table) 05/16/22 05/16/22 05/16/22 Range/Units 19:23 19:23 19:23 WBC 18.7 H (3.8-10.6) k/uL Plt Count 495 H (150-450) k/uL Neutrophils # 17.0 H (1.3-7.7) k/uL Lymphocytes # 0.7 L (1.0-4.8) k/uL PT 12.5 H (9.0-12.0) sec INR 1.2 H (<1.2) Sodium 136 L (137-145) mmol/L Chloride 97 L (98-107) mmol/L Carbon Dioxide (22-30) mmol/L BUN 39 H (7-17) mg/dL Glucose 193 H (74-99) mg/dL AST 89 H (14-36) U/L ALT 129 H (4-34) U/L Alkaline Phosphatase 179 H (38-126) U/L Albumin 3.4 L (3.5-5.0) g/dL 05/17/22 05/17/22 Range/Units 05:40 05:40 WBC 17.1 H (3.8-10.6) k/uL Plt Count 478 H (150-450) k/uL Neutrophils # 14.9 H (1.3-7.7) k/uL Lymphocytes # (1.0-4.8) k/uL PT (9.0-12.0) sec INR (<1.2) Sodium (137-145) mmol/L Chloride 94 L (98-107) mmol/L Carbon Dioxide 34 H (22-30) mmol/L BUN 33 H (7-17) mg/dL Glucose (74-99) mg/dL AST 67 H (14-36) U/L ALT 123 H (4-34) U/L Alkaline Phosphatase 188 H (38-126) U/L Albumin 3.3 L (3.5-5.0) g/dL Assessment and Plan (1) Adenocarcinoma Narrative/Plan: - Awaiting molecular testing and cancer ID for primary site identification - She will see Dr. Treadwell on Sunday 05/20 (already scheduled) to further discuss oncologic plan Current Visit: No Status: Acute Priority: High Code(s): C80.1 - MALIGNANT (PRIMARY) NEOPLASM, UNSPECIFIED SNOMED Code(s): 176967986 (2) Atrial fibrillation with RVR Narrative/Plan: Per Cardiology at this time Current Visit: No Status: Acute Code(s): I48.91 - UNSPECIFIED ATRIAL FIBRILLATION SNOMED Code(s): 141411845519189 Plan: Full Consult to follow
--- NOTE | 2022-05-17 12:13 | P.PN ---
Subjective Progress Note Date: 05/17/22 Principal diagnosis: SOB Hospital Course: 57-year-old female with a PMH of metastatic adenocarcinoma of unknown primary with history of malignant pericardial effusion status post pericardial window, systolic CHF with EF 35%, Olga butts on Eliquis, who presents to the emergency room with complaints of shortness of breath. She has been experiencing dyspnea with minimal exertion, now occasionally even at rest. She also reports chest tightness, 8 out of 10 on maximal intensity, nonradiating, somewhat exertional. She denied fever, chills, lower extremity edema, cough. The patient has been admitted multiple times throughout this month and was most recently admitted for Areli. beckie with RVR and CHF exacerbation and was discharged on 05/12. The patient states that she is following with a Dr. Treadwell and has recently undergone a PET scan and is awaiting DNA testing to identify the primary for the malignancy. On initial presentation, The patient had an SpO2 of 93% on room air with temp 98.2, respiratory rate 18, and BP 110/79. Chest x-ray was consistent with CHF with bilateral pleural effusions EKG showing sinus rhythm at [address] segment depression in leads V4 to V6 with diffuse T-wave inversions noted. Laboratory evaluation was remarkable for leukocytosis of 18.7, troponin 0.028, proBNP 6490. She is currently being treated for CHF exacerbation with IV diuretics. Cardiology consulted. Oncology consulted. Subjective: Patient seen and examined at bedside. No acute events overnight. She claims that her shortness of breath has improved, but still experiencing chest heaviness. She denies any palpitations, lightheadedness, nausea, vomiting, diarrhea, constipation, abdominal pain, or urinary complaints. Pertinent positives and negatives as discussed above, a complete review of systems was performed and all other systems are negative. Vitals Signs Reviewed. General: nontoxic, no distress, appears at stated age Derm: warm, dry Head: atraumatic, normocephalic, symmetric Eyes: EOMI, no lid lag, anicteric sclera Mouth: no lip lesion, mucus membranes moist Cardiovascular: S1S2 reg, no murmur Lungs: Bibasilar rales, no accessory muscle use Abdominal: soft, nontender to palpation, no guarding, no appreciable organomegaly Ext: no gross muscle atrophy, trace peripheral edema, no contractures Neuro: CN II-XI grossly intact, no focal neuro deficits Psych: Alert, oriented, appropriate affect Assessment and Plan: Acute on chronic systolic CHF exacerbation History of malignant pericardial effusion with unknown primary -IV Lasix -I's and O's, daily weights -Cardiac monitoring -Repeat echocardiogram -Cardiology consult -Oncology consult Chronic conditions: Atrial fibrillation -Eliquis DVT ppx: Eliquis Code status: Full code Anticipated discharge place: Home Anticipated discharge time: 1-2 days Objective - Vital Signs Vital signs: Vital Signs Temp 97.6 F 05/17/22 07:00 Pulse 79 05/17/22 07:00 Resp 18 05/17/22 07:00 BP 119/81 05/17/22 07:00 Pulse Ox 97 05/17/22 07:00 FiO2 Intake & Output 05/16/22 05/17/22 05/17/22 18:59 06:59 18:59 Output Total 250 Balance -250 Weight 65.771 kg 62.9 kg Output: Urine 250 Other: Voiding Method Toilet # Voids 1 - Labs CBC & Chem 7: 05/17/22 05:40 05/17/22 05:40 Labs: Abnormal Lab Results - Last 24 Hours (Table) 05/16/22 05/16/22 05/16/22 Range/Units 19:23 19:23 19:23 WBC 18.7 H (3.8-10.6) k/uL Plt Count 495 H (150-450) k/uL Neutrophils # 17.0 H (1.3-7.7) k/uL Lymphocytes # 0.7 L (1.0-4.8) k/uL PT 12.5 H (9.0-12.0) sec INR 1.2 H (<1.2) Sodium 136 L (137-145) mmol/L Chloride 97 L (98-107) mmol/L Carbon Dioxide (22-30) mmol/L BUN 39 H (7-17) mg/dL Glucose 193 H (74-99) mg/dL AST 89 H (14-36) U/L ALT 129 H (4-34) U/L Alkaline Phosphatase 179 H (38-126) U/L Albumin 3.4 L (3.5-5.0) g/dL 05/17/22 05/17/22 Range/Units 05:40 05:40 WBC 17.1 H (3.8-10.6) k/uL Plt Count 478 H (150-450) k/uL Neutrophils # 14.9 H (1.3-7.7) k/uL Lymphocytes # (1.0-4.8) k/uL PT (9.0-12.0) sec INR (<1.2) Sodium (137-145) mmol/L Chloride 94 L (98-107) mmol/L Carbon Dioxide 34 H (22-30) mmol/L BUN 33 H (7-17) mg/dL Glucose (74-99) mg/dL AST 67 H (14-36) U/L ALT 123 H (4-34) U/L Alkaline Phosphatase 188 H (38-126) U/L Albumin 3.3 L (3.5-5.0) g/dL
[2022-05-17] MEDS: ACETAMINOPHEN TAB 500 MG TAB PO PRN (16:19)
--- NOTE | 2022-05-17 16:56 | CA ---
Transthoracic Echo Report Name: Iraida Alejandro Age: 57 Gender: F : 1965 Exam Date: 05/17/2022 08:08 Exam Location: [place] [facility] Ht (in): 59 Wt (lb): 138 Ordering Physician: Alka Lopez MD Attending/Referring Phys: Packaging Machine Operator Danae Osorio RDCS Procedure CPT: Indications: chf Cardiac Hx: limited study, hx of pericardial centesis Technical Quality: Fair Contrast 1: Total Dose (mL): Contrast 2: Total Dose (mL): MEASUREMENTS (Male / Female) Normal Values 2D ECHO LV Diastolic Volume MOD 4C 56.4 cm??? LV Systolic Volume MOD 4C 36.6 cm??? LV Ejection Fraction MOD 4C 35.1 % LV Diastolic Length 4C 6.5 cm LV Systolic Length 4C 6.1 cm LV Diastolic Volume MOD 2C 31.6 cm??? LV Systolic Volume MOD 2C 19.4 cm??? LV Ejection Fraction MOD 2C 38.5 % LV Diastolic Length 2C 6.5 cm LV Systolic Length 2C 5.8 cm LA Volume 25.8 cm??? 18 - 58 / 22 - 52 cm??? DOPPLER MV Area PHT 5.3 cm??? Mitral E Point Velocity 89.0 cm/s Mitral A Point Velocity 63.7 cm/s Mitral E to A Ratio 1.4 MV Deceleration Time 143.2 ms MV E' Velocity 8.6 cm/s Mitral E to MV E' Ratio 10.3 TR Peak Velocity 253.2 cm/s TR Peak Gradient 25.6 mmHg Right Ventricular Systolic Press 30.3 mmHg FINDINGS Left Ventricle Left ventricular ejection fraction is estimated at 35-40 %. Moderately reduced global left ventricular systolic function. Right Ventricle Right ventricular systolic pressure within normal limits. Reduced right ventricular global systolic function. Right Atrium Left Atrium Mitral Valve Structurally normal mitral valve. Trace to mild mitral regurgitation. Aortic Valve Trileaflet aortic valve. Mild aortic regurgitation. Tricuspid Valve Structurally normal tricuspid valve. Mild tricuspid regurgitation. Pulmonic Valve Trace pulmonic regurgitation. Pericardium Small pericardial effusion with fibrin Aorta CONCLUSIONS Left ventricular ejection fraction 40% Moderate global hypokinesis Mildly reduced right ventricular systolic function Mild tricuspid regurgitation Small pericardial effusion with fibrin. No tamponade physiology Previewed by: Dr. Jamie aZvala DO (Electronically Signed) Final Date: 17 May 2022 16:55
[2022-05-18] MEDS: ACETAMINOPHEN TAB 500 MG TAB PO PRN (02:01)
[2022-05-18 02:56] VITALS: RESP 16; TEMP 97.6
[2022-05-18] MEDS: FUROSEMIDE 10 MG/ML 4 ML VIAL IV SCH (09:11)
[2022-05-18] MEDS ORDERED: ONDANSETRON 4 MG/2 ML VIAL IVP STA (09:15)
[2022-05-18] MEDS: APIXABAN 5 MG TAB PO SCH (09:22)
[2022-05-18] MEDS: AMIODARONE 200 MG TAB PO SCH (09:22)
[2022-05-18] MEDS: NYSTATIN 100,000 UNIT/ML SUSP 500,000 UNIT/5 ML CUP PO SCH (09:24)
[2022-05-18 09:41] LABS: African American GFR (CKD) 117.5 (60.0-200.0); Anion Gap 13.5 mmol/L (10.00-18.00); BUN/Creat Ratio 48.69 Ratio (12.00-20.00); Blood Urea Nitrogen 29.7 mg/dL (9.0-27.0); Calcium 8.9 mg/dL (8.7-10.3); Non-African American GFR(CKD) 101.3 (60.0-200.0); Potassium 3.8 mmol/L (3.5-5.5)
--- NOTE | 2022-05-18 10:38 | P.PN ---
Subjective HISTORY OF PRESENT ILLNESS: This is a 57 year old female with a past medical history significant for congestive heart failure, large pericardial effusion with recent pericardial window, atrial fibrillation, and metastatic carcinoma of unknown primary origin. Patient follows in the office with Dr. Gonzales. We have been asked to see the patient in consultation for shortness of breath. Patient examined at the bedside. Patient states that she has been feeling short of breath since Friday. She states her shortness of breath had continued to get worse so she presented to the hospital for further evaluation. Patient states she has been compliant with her home medications including Lasix. She reports compliance with a low sodium diet. She states that she recently saw Dr. Treadwell and underwent a PET scan and is awaiting results to find out the primary source of her malignancy. She currently denies chest pain or pressure. * EKG reveals sinus mechanism with diffuse T wave inversions, present on previous EKG. Telemetry reveals sinus mechanism * Chest xray congestive heart failure with bilateral pleural effusions. Pleural fluid and congestion increased compared to old exam. * Laboratory data: WBC 17.1. Hemoglobin 12.8. Platelet count 478. Sodium 135. Potassium 3.9. BUN 33. Creatinine 0.73. AST 67. ALT 123. Troponin negative 3. ProBNP 6490. * Current home cardiac medications include metoprolol succinate 25 mg at night, Lasix 40 mg twice a day, amiodarone 200 mg twice a day, and Eliquis 5mg BID * Most recent echocardiogram obtained in April 2022 revealing small pericardial effusion. Previous echocardiogram completed revealed ejection fraction 35%. * Cardiac catheterization history: Patient denies 05/18 Patient seen and examined. Patient states that overall she is feeling somewhat better. Has had urine output with the Lasix 40 mg IV twice a day. Repeat echo shows similar left ventricular ejection fraction 35-40% with mild pericardial effusion with some fibrin however no tamponade physiology. Feels close to back to normal. PHYSICAL EXAM: VITAL SIGNS: Reviewed. GENERAL: Well-developed in no acute distress. HEENT: Head is normocephalic. Pupils are equal, round. Sclerae anicteric. Mucous membranes of the mouth are moist. Neck supple. No JVD or thyromegaly LUNGS: Respirations even and unlabored. Lungs diminished with bibasilar crackles. HEART: Regular rate and rhythm. S1 and S2 heard. ABDOMEN: Soft. Nondistended. Nontender. EXTREMITIES: Normal range of motion. No clubbing or cyanosis. Peripheral p ulses intact. No lower extremity edema NEUROLOGIC: Awake and alert. Oriented x 3. ASSESSMENT: Shortness of breath Acute on chronic heart failure with reduced ejection fraction, EF 35-40% Bilateral pleural effusions Paroxysmal atrial fibrillation History of recent large pericardial effusion with tamponade and pericardial window, 02/19/2022 Metastatic carcinoma of unknown primary origin Elevated LFTs PLAN: Overall patient appears much better and near baseline however has had number of repeat admissions. Some of the pleural effusions may be metastatic in nature however appears to be somewhat stabilizing with diuretics. Currently appears stable for discharge home however have risk of future admissions. Discussed that if starting to retain fluid as an outpt may consider increasing to 80 mg twice a day as an outpatient. Objective - Vital Signs Vital signs: Vital Signs Temp 97.6 F 05/18/22 07:00 Pulse 85 05/18/22 07:00 Resp 16 05/18/22 07:00 BP 93/66 05/18/22 07:00 Pulse Ox 95 05/18/22 07:00 FiO2 Intake & Output 05/17/22 05/18/22 05/18/22 18:59 06:59 18:59 Intake Total 118 Output Total 800 400 Balance -682 -400 Weight 63.503 kg Intake: Oral 118 Output: Urine 800 400 Other: Voiding Method Toilet - Labs CBC & Chem 7: 05/17/22 05:40 05/18/22 05:30 Labs: Abnormal Lab Results - Last 24 Hours (Table) 05/18/22 Range/Units 05:30 Chloride 92 L (96-109) mmol/L Carbon Dioxide 33.0 H (20.0-27.5) mmol/L BUN 29.7 H (9.0-27.0) mg/dL BUN/Creatinine Ratio 48.69 H (12.00-20.00) Ratio
[2022-05-18 11:08] VITALS: BP 97/71; PULSE 95
--- NOTE | 2022-05-18 13:47 | P.DS ---
Providers Date of admission: 05/16/22 20:35 Expected date of discharge: 05/18/22 Attending physician: Alka Lopez MD Consults: 05/17/22 01:29 Consult Physician Urgent Consulting Provider: Tanner Treadwell Consult Reason/Comments: unknown metastatic malignanc Do you want consulting provider notified?: Yes Consult Physician Urgent Consulting Provider: Manuel Gonzales Consult Reason/Comments: CHF Do you want consulting provider notified?: Yes Primary care physician: Jose Luis Ortega [facility] Course: Discharge Diagnosis: Acute on chronic systolic CHF exacerbation History of malignant pericardial effusion with unknown primary Paroxysmal Atrial fibrillation Shortness of breath Bilateral pleural effusion Leukocytosis Hospital Course: 57-year-old female with a PMH of metastatic adenocarcinoma of unknown primary with history of malignant pericardial effusion status post pericardial window, systolic CHF with EF 35%, Areli. beckie on Eliquis, who presents to the emergency room with complaints of shortness of breath. She has been experiencing dyspnea with minimal exertion, now occasionally even at rest. She also reports chest tightness, 8 out of 10 on maximal intensity, nonradiating, somewhat exertional. She denied fever, chills, lower extremity edema, cough. The patient has been admitted multiple times throughout this month and was most recently admitted for A. fib with RVR and CHF exacerbation and was discharged on 05/12. The patient states that she is following with a Dr. Treadwell and has recently undergone a PET scan and is awaiting DNA testing to identify the primary for the malignancy. On initial presentation, The patient had an SpO2 of 93% on room air with temp 98.2, respiratory rate 18, and BP 110/79. Chest x-ray was consistent with CHF with bilateral pleural effusions EKG showing sinus rhythm at [address] segment depression in leads V4 to V6 with diffuse T-wave inversions noted. Laboratory evaluation was remarkable for leukocytosis of 18.7, troponin 0.028, proBNP 6490. She was treated for CHF exacerbation with IV diuretics. Cardiology consulted. Echocardiogram showed LVEF of 40%, moderate global hypokinesis, small pericardial effusion. Per cardiology, pleural effusions may be metastatic in nature was stabilized with diuretics. Will need further outpatient follow-up with oncology. If patient is to retain more fluid as an outpatient, she will increase her Lasix dose to 80 mg twice a day. Oncology consulted, still awaiting molecular testing and cancer ID, pending appointment on 05/[address] Tredawell. Patient had a really high risk for readmission given her recent history. Patient seen and examined at bedside. Vital signs reviewed and stable. General: nontoxic, no distress, appears at stated age Derm: warm, dry Head: atraumatic, normocephalic, symmetric Eyes: EOMI, no lid lag, anicteric sclera Mouth: no lip lesion, mucus membranes moist Cardiovascular: S1S2 reg, no murmur Lungs: Bibasilar rales, no accessory muscle use Abdominal: soft, nontender to palpation, no guarding, no appreciable organomegaly Ext: no gross muscle atrophy, trace peripheral edema, no contractures Neuro: CN II-XI grossly intact, no focal neuro deficits Psych: Alert, oriented, appropriate affect A total of 34 minutes of time were spent preparing this complex discharge summary. Patient was discharged on 05/18/22 at 13:32. Patient Condition at Discharge: Stable Plan - Discharge Summary New Discharge Prescriptions: Continue Apixaban [Eliquis] 5 mg PO BID #60 tab Metoprolol Succinate (ER) [Toprol XL] 25 mg PO HS #30 tab Nystatin 100,000 Unit/ml Susp [Mycostatin Oral Susp] 5 ml PO QID Furosemide [Lasix] 40 mg PO BID@0900,1600 Amiodarone [Cordarone] 200 mg PO BID Discontinued methylPREDNISolone [Medrol Dose Pack] See Taper PO DIRECTED Discharge Medication List Apixaban [Eliquis] 5 mg PO BID #60 tab 05/04/22 [Rx] Metoprolol Succinate (ER) [Toprol XL] 25 mg PO HS #30 tab 05/04/22 [Rx] Amiodarone [Cordarone] 200 mg PO BID 05/11/22 [History] Furosemide [Lasix] 40 mg PO BID@0900,1600 05/16/22 [History] Nystatin 100,000 Unit/ml Susp [Mycostatin Oral Susp] 5 ml PO QID 05/16/22 [History] Follow up Appointment(s)/Referral(s): Jose Luis Gifford MD [Primary Care Provider] - 1-2 days Activity/Diet/Wound Care/Special Instructions: Please see your PCP in 1-2 days. See her oncologist for treatment of cancer. If start to develop worsening fatigue and shortness of breath, you may need to increase your dose of Lasix to 80 mg twice a day. Discharge Disposition: HOME SELF-CARE
== END 2022-05-18 14:15 | disposition home or self-care (01) ==
LOC: EC 18:22 → 6NMEDSUR 20:35
PROVIDERS: ADMIT Internal Medicine; ATTEND Internal Medicine
DX: I50.23 Acute on chronic systolic (congestive) heart failure (principal); R09.02 Hypoxemia; D72.829 Elevated white blood cell count, unspecified; C80.1 Malignant (primary) neoplasm, unspecified; I48.0 Paroxysmal atrial fibrillation; I31.31 Malignant pericardial effusion in diseases classified elsewhere; Z98.51 Tubal ligation status; Z80.8 Family history of malignant neoplasm of other organs or systems; Z82.49 Family history of ischemic heart disease and other diseases of the circulatory system; Z87.891 Personal history of nicotine dependence; Z79.01 Long term (current) use of anticoagulants; Z79.899 Other long term (current) drug therapy; Z20.822 Contact with and (suspected) exposure to COVID-19
CPT/HCPCS: 96376; 96375; 96374; 99291; 36415; 93005; 93308; 83880; 80053 ×2; 80048; 83735; 84484 ×2; 85025 ×2; 85610; 85730; 87502; 87635; 71045; G0378 ×3; J1940 ×2; J2405

== ENCOUNTER → 2022-05-23 | Outpatient (CLI) | payer BC ==
--- NOTE | 2022-05-23 13:08 | US ---
EXAMINATION TYPE: US chest DATE OF EXAM: 05/23/2022 COMPARISON: Radiograph same date CLINICAL HISTORY: 57-year-old female J90 PLEURAL EFFUSION. TECHNIQUE: Targeted ultrasound of the posterior lower bilateral hemithoraces FINDINGS: EXAM MEASUREMENTS: Right Pleural Effusion pocket size: 9.3 cm -some atelectatic lung is noted. Right skin surface to fluid distance: 3.0 cm Left Pleural Effusion pocket size: 8.5 cm -some atelectatic lung is noted. Left skin surface to fluid distance: 2.8 cm Right side marked for possible thoracentesis outside the dept. Left side marked for possible thoracentesis outside the dept. Pulmonologists are able to review the images in the patient?s EMR. IMPRESSIONS: Moderate bilateral pleural effusions with adjacent atelectasis.
== END | disposition home or self-care (01) ==
LOC: RADUSWWP 11:03
PROVIDERS: ATTEND Internal Medicine Critical Care Medicine
DX: J90 Pleural effusion, not elsewhere classified (principal); J98.11 Atelectasis
CPT/HCPCS: 76604

== ENCOUNTER 2022-05-24 21:39 | Inpatient (IN) | payer BC ==
[2022-05-24] MEDS ORDERED: SODIUM CHLORIDE 0.9% 1,000 ML IV STA (21:57)
--- NOTE | 2022-05-24 21:59 | ED ---
SOB HPI - General Chief Complaint: Shortness of Breath Stated Complaint: low oxygen Time Seen by Provider: 05/24/22 21:57 Source: family, RN notes reviewed, old records reviewed Mode of arrival: wheelchair Limitations: no limitations - History of Present Illness Initial Comments: This is a 57-year-old female DF for shortness of breath. Found of low oxygen. Oxygen home down in the 80s. Presents here for evaluation of low oxygen history of fluid on lungs history of a fusion with prior drainage. Patient does have new diagnosis of cancer going through therapy to see first treatment yesterday and likely experiencing more inflammation today. Was told by oncology this could be a possibility, patient is short of breath worse when she lays down and better when she sits up MD Complaint: shortness of breath, cough -: days(s) Severity: severe Severity scale (1-10): 10 Quality: dull Consistency: constant Improves With: oxygen, rest Worsens With: exertion, movement Known History Of: other (lung CA) Context: anxiety, other (pleural effusion) Associated Symptoms: denies other symptoms Treatments Prior to Arrival: none - Related Data Home Medications Medication Instructions Recorded Confirmed Amiodarone [Cordarone] 200 mg PO BID 05/11/22 05/24/22 Furosemide [Lasix] 40 mg PO BID@0900,1600 05/16/22 05/24/22 Nystatin 100,000 Unit/ml Susp 500,000 units PO QID 05/16/22 05/24/22 [Mycostatin Oral Susp] HYDROcodone/APAP 5-325MG [[place] 1 tab PO Q8H PRN 05/24/22 05/24/22 5-325] Previous Rx's Medication Instructions Recorded Apixaban [Eliquis] 5 mg PO BID #60 tab 05/04/22 Metoprolol Succinate (ER) [Toprol 25 mg PO HS #30 tab 05/04/22 XL] Allergies Allergy/AdvReac Type Severity Reaction Status Date / Time No Known Allergies Allergy Verified 05/24/22 22:51 Review of Systems ROS Statement: Those systems with pertinent positive or pertinent negative responses have been documented in the HPI. ROS Other: All systems not noted in ROS Statement are negative. Past Medical History Past Medical History: Atrial Fibrillation, Cancer, Heart Failure Additional Past Medical History / Comment(s): Lung CA History of Any Multi-Drug Resistant Organisms: None Reported Past Surgical History: No Surgical Hx Reported Additional Past Surgical History / Comment(s): tubal ligation Past Anesthesia/Blood Transfusion Reactions: No Reported Reaction Past Psychological History: No Psychological Hx Reported Smoking Status: Former smoker Past Alcohol Use History: None Reported Past Drug Use History: None Reported - Past Family History Father Family Medical History: Hypertension Additional Family Medical History / Comment(s): of an OH at age 51 Brother(s) Family Medical History: Hypertension Additional Family Medical History / Comment(s): Aunt with brain cancer General Exam Limitations: no limitations General appearance: anxious Head exam: Present: atraumatic, normocephalic, normal inspection Eye exam: Present: normal appearance, PERRL, EOMI. Absent: scleral icterus, conjunctival injection, periorbital swelling ENT exam: Present: normal exam, mucous membranes moist Neck exam: Present: normal inspection. Absent: tenderness, meningismus, lymphadenopathy Respiratory exam: Present: normal lung sounds bilaterally. Absent: respiratory distress, wheezes, rales, rhonchi, stridor Cardiovascular Exam: Present: regular rate, normal rhythm, normal heart sounds. Absent: systolic murmur, diastolic murmur, rubs, gallop, clicks GI/Abdominal exam: Present: soft, normal bowel sounds. Absent: distended, tenderness, guarding, rebound, rigid Extremities exam: Present: normal inspection, full ROM, normal capillary refill. Absent: tenderness, pedal edema, joint swelling, calf tenderness Back exam: Present: normal inspection Neurological exam: Present: alert, oriented X3, CN II-XII intact Psychiatric exam: Present: normal affect, normal mood Skin exam: Present: warm, dry, intact, normal color. Absent: rash Course Vital Signs 05/24/22 05/24/22 21:45 22:04 Temperature 98.2 F Pulse Rate 91 90 Respiratory 26 H 18 Rate Blood Pressure 125/93 O2 Sat by Pulse 82 L 95 Oximetry - Reevaluation(s) Reevaluation #1: 05/25/22 00:08 Medical record is reviewed Reevaluation #2: 05/25/22 00:08 Patient is improving with supplemental O2 Reevaluation #3: 05/25/22 00:08 Patient informed results and questions answered - Consultations Consultation #1: Spoke with sound who agrees to admit this patient Medical Decision Making - Medical Decision Making 57 female DF for evaluation patient Dese for evaluation of severe shortness of breath and hypoxia. Oxygen low 80s, improving with supplemental O2, significant pleural effusion and pulmonary edema patient will be admitted for Dr. Ortiz to see - Lab Data Result diagrams: 05/24/22 22:08 12 22:08 Lab Results 05/24/22 05/24/22 05/24/22 Range/Units 22:08 22:08 22:08 WBC 9.9 (3.8-10.6) k/uL RBC 4.50 (3.80-5.40) m/uL Hgb 13.8 (11.4-16.0) gm/dL Hct 43.0 (34.0-46.0) % MCV 95.7 (80.0-100.0) fL MCH 30.8 (25.0-35.0) pg MCHC 32.2 (31.0-37.0) g/dL RDW 15.5 (11.5-15.5) % Plt Count 385 (150-450) k/uL MPV 9.0 Neutrophils % 84 % Lymphocytes % 7 % Monocytes % 7 % Eosinophils % 0 % Basophils % 1 % Neutrophils # 8.3 H (1.3-7.7) k/uL Lymphocytes # 0.7 L (1.0-4.8) k/uL Monocytes # 0.7 (0-1.0) k/uL Eosinophils # 0.0 (0-0.7) k/uL Basophils # 0.1 (0-0.2) k/uL Manual Slide Review Performed Hypochromasia Moderate PT 14.7 H (9.0-12.0) sec INR 1.5 H (<1.2) APTT 26.5 (22.0-30.0) sec Sodium 129 L (137-145) mmol/L Potassium 4.2 (3.5-5.1) mmol/L Chloride 89 L (98-107) mmol/L Carbon Dioxide 29 (22-30) mmol/L Anion Gap 11 mmol/L BUN 37 H (7-17) mg/dL Creatinine 0.50 L (0.52-1.04) mg/dL Est GFR (CKD-EPI)AfAm >90 (>60 ml/min/1.73 sqM) Est GFR (CKD-EPI)NonAf >90 (>60 ml/min/1.73 sqM) Glucose 129 H (74-99) mg/dL Calcium 8.0 L (8.4-10.2) mg/dL Phosphorus 4.1 (2.5-4.5) mg/dL Magnesium 2.1 (1.6-2.3) mg/dL Total Bilirubin 2.7 H (0.2-1.3) mg/dL AST 263 H (14-36) U/L ALT 111 H (4-34) U/L Alkaline Phosphatase 166 H (38-126) U/L Troponin I (0.000-0.034) ng/mL Total Protein 6.8 (6.3-8.2) g/dL Albumin 3.4 L (3.5-5.0) g/dL 05/24/22 Range/Units 22:08 WBC (3.8-10.6) k/uL RBC (3.80-5.40) m/uL Hgb (11.4-16.0) gm/dL Hct (34.0-46.0) % MCV (80.0-100.0) fL MCH (25.0-35.0) pg MCHC (31.0-37.0) g/dL RDW (11.5-15.5) % Plt Count (150-450) k/uL MPV Neutrophils % % Lymphocytes % % Monocytes % % Eosinophils % % Basophils % % Neutrophils # (1.3-7.7) k/uL Lymphocytes # (1.0-4.8) k/uL Monocytes # (0-1.0) k/uL Eosinophils # (0-0.7) k/uL Basophils # (0-0.2) k/uL Manual Slide Review Hypochromasia PT (9.0-12.0) sec INR (<1.2) APTT (22.0-30.0) sec Sodium (137-145) mmol/L Potassium (3.5-5.1) mmol/L Chloride (98-107) mmol/L Carbon Dioxide (22-30) mmol/L Anion Gap mmol/L BUN (7-17) mg/dL Creatinine (0.52-1.04) mg/dL Est GFR (CKD-EPI)AfAm (>60 ml/min/1.73 sqM) Est GFR (CKD-EPI)NonAf (>60 ml/min/1.73 sqM) Glucose (74-99) mg/dL Calcium (8.4-10.2) mg/dL Phosphorus (2.5-4.5) mg/dL Magnesium (1.6-2.3) mg/dL Total Bilirubin (0.2-1.3) mg/dL AST (14-36) U/L ALT (4-34) U/L Alkaline Phosphatase (38-126) U/L Troponin I 0.034 (0.000-0.034) ng/mL Total Protein (6.3-8.2) g/dL Albumin (3.5-5.0) g/dL - EKG Data -: EKG Interpreted by Me (EKG sinus 86 AK 176 QRS 90 QTC 408) - Radiology Data Radiology results: report reviewed (Chest x-ray positive for pleural effusion and pulmonary edema), image reviewed Disposition Clinical Impression: CHF (congestive heart failure), Pericardial effusion, Cancer, Pleural effusion, Dyspnea Disposition: ADMITTED IP TO THIS HOSP Condition: Fair Is patient prescribed a controlled substance at d/c from ED?: No Referrals: Jose Luis Gifford MD [Primary Care Provider] - 1-2 days
--- NOTE | 2022-05-24 22:23 | XR ---
EXAMINATION TYPE: XR chest 1V portable DATE OF EXAM: 05/24/2022 COMPARISON: NONE HISTORY: TECHNIQUE: Short of breath FINDINGS: Heart appears enlarged. There is bilateral blunting of the costophrenic angles. There is pu lmonary vascular congestion. There are chest leads. There is pulmonary airspace edema. IMPRESSION: Congestive heart failure with pleural effusions and pulmonary edema which appears worse t miller exam yesterday.
[2022-05-24 22:31] LABS: Basophils # (A) 0.1 k/uL (0-0.2); Basophils % (A) 1 %; Eosinophils % (A) 0 %; HGB 13.8 gm/dL (11.4-16.0); Hypochromasia Moderate; Lymphocytes # (A) 0.7 k/uL (1.0-4.8); Lymphocytes % (A) 7 %; MCH 30.8 pg (25.0-35.0); MCHC 32.2 g/dL (31.0-37.0); MCV 95.7 fL (80.0-100.0); Monocytes # (A) 0.7 k/uL (0-1.0); Monocytes % (A) 7 %; Neutrophils # (A) 8.3 k/uL (1.3-7.7); Neutrophils % (A) 84 %; Platelet Count 385 k/uL (150-450); RDW 15.5 % (11.5-15.5); WBC 9.9 k/uL (3.8-10.6)
[2022-05-24 22:39] LABS: INR 1.5 (<1.2); Partial Thromboplastin Time 26.5 sec (22.0-30.0); Prothrombin Time 14.7 sec (9.0-12.0)
[2022-05-24 22:47] LABS: ALT 111 U/L (4-34); AST 263 U/L (14-36); African American GFR (CKD) >90 (>60 ml/min/1.73 sqM); Albumin 3.4 g/dL (3.5-5.0); Alkaline Phosphatase 166 U/L (38-126); Anion Gap 11 mmol/L; Blood Urea Nitrogen 37 mg/dL (7-17); Carbon Dioxide 29 mmol/L (22-30); Chloride 89 mmol/L (98-107); Glucose 129 mg/dL (74-99); Magnesium 2.1 mg/dL (1.6-2.3); Non-African American GFR(CKD) >90 (>60 ml/min/1.73 sqM); Phosphorus 4.1 mg/dL (2.5-4.5); Sodium 129 mmol/L (137-145); Total Bilirubin 2.7 mg/dL (0.2-1.3); Total Protein 6.8 g/dL (6.3-8.2)
[2022-05-24 22:58] LABS: Potassium 4.2 mmol/L (3.5-5.1)
[2022-05-25] MEDS ORDERED: ONDANSETRON 4 MG/2 ML VIAL IVP PRN (00:06)
[2022-05-25] MEDS ORDERED: NALOXONE 0.4 MG/ML 1 ML VIAL IV PRN (00:06)
[2022-05-25] MEDS: SODIUM CHLORIDE 0.9% 1,000 ML IV SCH ×2 (00:16→23:02)
--- NOTE | 2022-05-25 03:10 | P.HPIM ---
History of Present Illness H&P Date: 05/25/22 The patient is a 57-year-old female with a PMH of recently diagnosed stage IV lung cancer, pericardial effusion status post pericardial window, systolic CHF with EF 40 %, Olga butts on Eliquis who presents to the emergency room for shortness of breath. The patient reports that she underwent her very first chemotherapy treatment earlier today and within a few hours of returning home, she developed gradually worsening shortness of breath. States that she was monitoring her SpO2 at home which had maintained between 80 and 85%, which prompted her to come to the emergency room. She reported feeling significantly better at the time of interview. She denied experiencing chest discomfort but reported a chronic mid back pain. Of note, the patient has previously undergone thoracentesis for left sided pleural effusion. She denied fever, chills, nausea, vomiting, abdominal pain, diarrhea. Chest x-ray revealed CHF with pleural effusions and pulmonary edema worse than prior. EKG revealed sinus rhythm with a right axis deviation at 86 bpm. Laboratory evaluation revealed a troponin of 0.034, sodium 1 planned, and chloride 89. Review of systems: Pertinent positives and negatives as discussed in HPI, a complete review of systems was performed and all other systems are negative. Physical examination: General: non toxic, no distress, appears at stated age, overweight Derm: no unusual rashes/lesions, warm Head: atraumatic, normocephalic, symmetric Eyes: EOMI, no lid lag, anicteric sclera, pupils equal round reactive to light ENT: Nose and ears atraumatic Neck: No cervical lymphadenopathy, trachea midline, supple Mouth: no lip lesion, mucus membranes moist Cardiovascular: S1S2 reg, no murmur, positive dorsalis pedis pulse bilateral, no edema Lungs: Diminished las lung sounds with diffuse rhonchi noted, no accessory muscle use Abdominal: soft, nontender to palpation, no guarding Ext: muscle strength 5 out of 5 in all 4 extremities grossly, no gross muscle atrophy, no contractures, Neuro: CN II-XI grossly intact, no gross focal neuro deficits Psych: Alert, oriented, appropriate affect Assessment/plan Shortness of breath, suspect secondary to recurrent malignant pleural effusion -Pulmonary consult for possible repeat thoracentesis -Oncology consulted -Supplemental oxygen Hyponatremia, hypochloremic -Suspect due to poor oral intake and possible overdiuresis as patient also has prerenal azotemia DVT prophylaxis -Eliquis The patient is admitted with an anticipated greater than 2 midnight stay for evaluation of SOB CODE STATUS: Full Code Discussed with: Patient Anticipated discharge date: 2-[address]: Home Past Medical History Past Medical History: Atrial Fibrillation, Cancer, Heart Failure Additional Past Medical History / Comment(s): Lung CA History of Any Multi-Drug Resistant Organisms: None Reported Past Surgical History: No Surgical Hx Reported Additional Past Surgical History / Comment(s): tubal ligation Past Anesthesia/Blood Transfusion Reactions: No Reported Reaction Past Psychological History: No Psychological Hx Reported Smoking Status: Former smoker Past Alcohol Use History: None Reported Past Drug Use History: None Reported - Past Family History Father Family Medical History: Hypertension Additional Family Medical History / Comment(s): of an NH at age 51 Brother(s) Family Medical History: Hypertension Additional Family Medical History / Comment(s): Aunt with brain cancer Medications and Allergies Home Medications Medication Instructions Recorded Confirmed Type Apixaban [Eliquis] 5 mg PO BID #60 tab 05/04/22 05/24/22 Rx Metoprolol Succinate (ER) [Toprol 25 mg PO HS #30 tab 05/04/22 05/24/22 Rx XL] Amiodarone [Cordarone] 200 mg PO BID 05/11/22 05/24/22 History Furosemide [Lasix] 40 mg PO BID@0900,1600 05/16/22 05/24/22 History Nystatin 100,000 Unit/ml Susp 500,000 units PO QID 05/16/22 05/24/22 History [Mycostatin Oral Susp] HYDROcodone/APAP 5-325MG [[place] 1 tab PO Q8H PRN 05/24/22 05/24/22 History 5-325] Allergies Allergy/AdvReac Type Severity Reaction Status Date / Time No Known Allergies Allergy Verified 05/24/22 22:51 Physical Exam Vitals: Vital Signs Temp Pulse Resp BP Pulse Ox 05/25/22 01:41 84 22 139/98 94 L 05/25/22 00:13 86 18 95 05/24/22 22:04 90 18 95 05/24/22 21:45 98.2 F 91 26 H 125/93 82 L Intake and Output 05/24/22 05/24/22 05/25/22 14:59 22:59 06:59 Other: Weight 63.503 kg Results CBC & Chem 7: 05/24/22 22:08 05/24/22 22:08 Labs: Abnormal Lab Results - Last 24 Hours (Table) 05/24/22 05/24/22 05/24/22 Range/Units 22:08 22:08 22:08 Neutrophils # 8.3 H (1.3-7.7) k/uL Lymphocytes # 0.7 L (1.0-4.8) k/uL PT 14.7 H (9.0-12.0) sec INR 1.5 H (<1.2) Sodium 129 L (137-145) mmol/L Chloride 89 L (98-107) mmol/L BUN 37 H (7-17) mg/dL Creatinine 0.50 L (0.52-1.04) mg/dL Glucose 129 H (74-99) mg/dL Calcium 8.0 L (8.4-10.2) mg/dL Total Bilirubin 2.7 H (0.2-1.3) mg/dL AST 263 H (14-36) U/L ALT 111 H (4-34) U/L Alkaline Phosphatase 166 H (38-126) U/L Albumin 3.4 L (3.5-5.0) g/dL
--- NOTE | 2022-05-25 08:40 | XR ---
EXAMINATION TYPE: XR chest 1V portable DATE OF EXAM: 05/25/2022 8:28 AM COMPARISON: Chest radiographs from 05/24/2022 TECHNIQUE: XR chest 1V portable Frontal view of the chest. CLINICAL INDICATION:Female, 57 years old with history of post lt thoracentesis; FINDINGS: Lungs/Pleura: Decrease in left pleural effusion. No evidence of focal consolidation or pneumothorax. Blunting of the costophrenic angles is present. Pulmonary vascularity: Pulmonary vascular congestion. Heart/mediastinum: Cardiomediastinal silhouette is enlarged and stable. Musculoskeletal: No acute osseous pathology. IMPRESSION: 1. Decrease in left pleural effusion. No evidence of pneumothorax 2. Cardiomegaly, pulmonary vascular congestion and bilateral pleural effusions. Correlate with BNP f or congestive heart failure.
--- NOTE | 2022-05-25 09:36 | US ---
EXAMINATION TYPE: US chest DATE OF EXAM: 05/25/2022 COMPARISON: 05/23/2022 CLINICAL HISTORY: Bilateral effusion. TECHNIQUE: Targeted ultrasound of the posterior lower bilateral hemithoraces EXAM MEASUREMENTS: Right Pleural Effusion pocket size: 11.6 cm Right skin surface to fluid distance: 2.7 cm Left Pleural Effusion pocket size: None Right side marked for possible thoracentesis outside the dept. Pulmonologists are able to review the images in the patient?s EMR. IMPRESSIONS: Right pleural effusion with the right side marked for thoracentesis.
[2022-05-25 10:07] LABS: Total Protein 6.4 g/dL (6.3-8.2)
--- NOTE | 2022-05-25 11:15 | P.CNPUL ---
History of Present Illness Consult date: 05/25/22 Requesting physician: Alka Lopez Reason for consult: dyspnea, pleural effusion, abnormal CXR/CT Chief complaint: Shortness of breath History of present illness: Is a pleasant 57-year-old female patient with a known history of chronic tobacco dependence who had been hospitalized 1 month ago for shortness of breath and was found to have a large pericardial effusion with tamponade physiology status post emergent pericardial window. Her pericardial fluid was positive for metastatic adenocarcinoma of unknown primary. She does have a large soft tissue density around theright paratracheal region measuring 2.7 x 2.0 cm. Enlarged lymphadenopathy versus mass were within the differential.she also had acute cardiomyopathy with ejection fraction of 35%. She was subsequently discharged and was to undergo a this biopsies of the right paratracheal mass. The patient had ended up in the emergency room on on 3 separate occasions with chest pain, shortness of breath and atrial fibrillation with rapid ventricular response. She is anticoagulated with Eliquis. She was seen in our office on 05/23/[address] Angel Abarca on performed a chest x-ray which revealed bilateral pleural effusions. Ultrasound of the chest revealed a 9.3 cm pocket on the right and a 8.5 cm pocket on the left. She was going to be set up for a thoracentesis on 05/27/2022. Yesterday she underwent a first round of chemotherapy. Shortly after that she developed worsening shortness of breath and [facility]. She is seen today in consultation. She is dyspneic on conversation. Dyspneic with minimal exertion. She did undergo a left-sided thoracentesis today with 1 liter of bloody fluid removed. Fluid analysis and cytology sent. white count 9.9. Hemoglobin 13.8. INR 1.5. Sodium 129. Potassium 4.2. BUN 37. Creatinine 0.5. Glucose 129. AST 263. ALT 111. Cano virus by PCR not detected. she is breathing a bit better postthoracentesis. She is maintaining O2 saturations in the mid 90s on 3 L/m per nasal cannula. Afebrile. Hemodynamically stable. Review of Systems REVIEW OF SYSTEMS: CONSTITUTIONAL: Denies any recent significant weight loss or weight gain. EYES: Denies change in vision. EARS, NOSE, MOUTH, THROAT: Denies headaches, denies sore throat. CARDIOVASCULAR: Denies chest pain, palpitations or syncopal episodes. RESPIRATORY: Positive for shortness of breath, cough, congestion no hemoptysis. GASTROINTESTINAL: Denies change in appetite, denies abdominal pain GENITOURINARY: Denies hematuria, denies infections. MUSKULOSKELETAL: Denies pain, denies swelling. INTEGUMENTARY: Denies rash, denies eczema. NEUROLOGICAL: Denies recent memory loss, no recent seizure activity. PSYCHIATRIC: Denies anxiety, denies depression. HEMATOLOGIC/LYMPHATIC: Denies anemia, denies enlarged lymph nodes. Past Medical History Past Medical History: Atrial Fibrillation, Cancer, Heart Failure Additional Past Medical History / Comment(s): Lung CA History of Any Multi-Drug Resistant Organisms: None Reported Past Surgical History: No Surgical Hx Reported Additional Past Surgical History / Comment(s): tubal ligation Past Anesthesia/Blood Transfusion Reactions: No Reported Reaction Past Psychological History: No Psychological Hx Reported Smoking Status: Former smoker Past Alcohol Use History: None Reported Past Drug Use History: None Reported - Past Family History Father Family Medical History: Hypertension Additional Family Medical History / Comment(s): of an MS at age 51 Brother(s) Family Medical History: Hypertension Additional Family Medical History / Comment(s): Aunt with brain cancer Medications and Allergies Home Medications Medication Instructions Recorded Confirmed Type Apixaban [Eliquis] 5 mg PO BID #60 tab 05/04/22 05/24/22 Rx Metoprolol Succinate (ER) [Toprol 25 mg PO HS #30 tab 05/04/22 05/24/22 Rx XL] Amiodarone [Cordarone] 200 mg PO BID 05/11/22 05/24/22 History Furosemide [Lasix] 40 mg PO BID@0900,1600 05/16/22 05/24/22 History Nystatin 100,000 Unit/ml Susp 500,000 units PO QID 05/16/22 05/24/22 History [Mycostatin Oral Susp] HYDROcodone/APAP 5-325MG [[place] 1 tab PO Q8H PRN 05/24/22 05/24/22 History 5-325] Allergies Allergy/AdvReac Type Severity Reaction Status Date / Time No Known Allergies Allergy Verified 05/24/22 22:51 Physical Exam Vitals: Vital Signs Temp Pulse Resp BP Pulse Ox 05/25/22 10:00 90 20 121/83 96 05/25/22 08:21 83 18 107/68 96 05/25/22 07:56 89 22 92 L 05/25/22 06:31 87 24 94 L 05/25/22 04:59 80 22 140/95 05/25/22 01:41 84 22 139/98 94 L 05/25/22 00:13 86 18 95 05/24/22 22:04 90 18 95 05/24/22 21:45 98.2 F 91 26 H 125/93 82 L Intake and Output 05/24/22 05/25/22 05/25/22 22:59 06:59 14:59 Other: Weight 63.503 kg GENERAL EXAM: Alert, very pleasant 57 troponin, on 3 L nasal cannula, fairly co mfortable in no apparent distress. HEAD: Normocephalic. EYES: Normal reaction of pupils, equal size. NOSE: Clear with pink turbinates. THROAT: No erythema or exudates. NECK: No masses, no JVD. CHEST: No chest wall deformity. LUNGS: Equal air entry with crackles in the bilateral bases, diminished. CVS: S1 and S2 normal with no audible murmur, regular rhythm. ABDOMEN: No hepatosplenomegaly, normal bowel sounds, no guarding or rigidity. SPINE: No scoliosis or deformity SKIN: No rashes CENTRAL NERVOUS SYSTEM: No focal deficits, tone is normal in all 4 extremities. EXTREMITIES: There is no peripheral edema. No clubbing, no cyanosis. Peripheral pulses are intact. Results - Laboratory Findings CBC and BMP: 05/24/22 22:08 05/24/22 22:08 PT/INR, D-dimer PT 14.7 sec (9.0-12.0) H 05/24/22 22:08 INR 1.5 (<1.2) H 05/24/22 22:08 Abnormal lab findings: Abnormal Labs 05/24/22 05/24/22 05/24/22 22:08 22:08 22:08 Neutrophils # 8.3 H Lymphocytes # 0.7 L PT 14.7 H INR 1.5 H Sodium 129 L Chloride 89 L BUN 37 H Creatinine 0.50 L Glucose 129 H Calcium 8.0 L Total Bilirubin 2.7 H AST 263 H ALT 111 H Alkaline Phosphatase 166 H Lactate Dehydrogenase Albumin 3.4 L 05/25/22 08:35 Neutrophils # Lymphocytes # PT INR Sodium Chloride BUN Creatinine Glucose Calcium Total Bilirubin AST ALT Alkaline Phosphatase Lactate Dehydrogenase 1063 H Albumin - Diagnostic Findings Chest x-ray: image reviewed Assessment and Plan Assessment: Acute hypoxemic respiratory failure secondary to bilateral pleural effusions. Status post left-sided thoracentesis today with 1 L of bloody fluid removed. Cytology and fluid analysis pending. History of large pericardial effusion with tamponade physiology with previous emergent pericardial window on 05/22/2022. 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 The patient did receive an initial round of chemotherapy on 05/24/2022. History of atrial fibrillation with a rapid ventricular response, anticoagulated with Eliquis. Currently in normal sinus rhythm History of cardiomyopathy with ejection fraction of 35% Chronic tobacco dependence back: The patient was seen and evaluated Chest x-ray, ultrasound and labs reviewed Thoracentesis performed today with 1 L of bloody fluid removed The patient is anxious to go home She could be discharged home and keep her appointment for a right-sided thoracentesis on 06/16/[address] Ortiz Continue to hold Eliquis The patient may require Pleurx catheter placement if recurrent effusions We'll continue to follow and make further recommendations based on her clinical status I have personally seen and examined the patient, performed the documentation and the assessment and plan as written. Number of minutes spent on the visit: 20.
[2022-05-25] MEDS ORDERED: APIXABAN 5 MG TAB PO SCH (13:00)
[2022-05-25] MEDS: AMIODARONE 200 MG TAB PO SCH ×2 (13:04→21:51)
[2022-05-25] MEDS: FUROSEMIDE 40 MG TAB PO SCH ×2 (13:04→18:57)
[2022-05-25] MEDS: LORazepam 1 MG TAB PO PRN ×2 (13:06→21:57)
--- NOTE | 2022-05-25 14:03 | P.PN ---
Progress Note - Text Progress Note Date: 05/25/22 Patient was seen and examined, case was discussed with pulmonary service. He just came back from the bedside commode and was severely short of breath. She would likely need right-sided thoracentesis done while inpatient. Patient is on eliquis for atrial fibrillation, this will be held for now.
[2022-05-25 15:05] LABS: Appearance,BF Bloody
[2022-05-25 16:18] LABS: ABG Base Excess 10.6 mmol/L; ABG HCO3 34 mmol/L (21-25); ABG Oxygen Saturation 92.4 % (94-97); ABG PCO2 48 mmHg (35-45); ABG PH 7.46 (7.35-7.45); ABG PO2 64 mmHg (83-108); ABG TCO2 36 mmol/L (19-24); Allen Test Performed? Yes
--- NOTE | 2022-05-25 16:23 | XR ---
EXAMINATION TYPE: XR chest 1V portable DATE OF EXAM: 05/25/2022 COMPARISON: Today HISTORY: Short of breath TECHNIQUE: FINDINGS: Heart is enlarged. There is pulmonary interstitial and airspace edema. There is bilateral b lunting of the costophrenic angles. The bony thorax appears intact. IMPRESSION: Congestive heart failure and moderate right pleural effusion. Pleural fluid slightly decr eased compared to exam earlier today. Pulmonary edema appears slightly worse.
--- NOTE | 2022-05-25 18:30 | OP ---
OPERATIVE REPORT PROCEDURE: Left-sided thoracentesis. PREOPERATIVE DIAGNOSIS: Left pleural effusion. POSTOPERATIVE DIAGNOSIS: Left pleural effusion. ANESTHESIA USED: 2 mL of 1% lidocaine. DESCRIPTION OF PROCEDURE: The patient was placed in a sitting upright position, the area below the left scapula was prepared in a sterile fashion and drapes were applied. The fluid was earlier localized by ultrasound guidance, and a marking was placed at the 8th intercostal space and tip of the scapula. The area was locally anesthetized with lidocaine. Then, a 26- gauge needle was inserted at the same site, advanced into the pleural space until the fluid was localized, and the fluid was clearly noted to be serosanguineous. Then, a small tiny incision was made, and a 9-Greek thoracentesis catheter and needle used, advanced into the pleural space. As soon as the fluid was obtained, the needle was pulled out of the pleural space and the catheter was advanced over the needle. Roughly, 1000 mL of serosanguineous fluid removed from the left pleural space. The fluid was sent for different diagnostic studies. The procedure was well tolerated. Chest x-ray showed no complications and complete resolution of the left pleural effusion. The patient will be cleared for possible discharge home if felt appropriate by her admitting physician. MMODL / IJN: [id number] /
[2022-05-25 21:17] LABS: Glucose,Whole Blood 139 mg/dL (70-110)
[2022-05-25 21:44] LABS: LDH, Body Fluid Source Thoracentesis Fluid; T. Protein, Body Fluid Source Thoracentesis Fluid; Total Protein, Body Fluid 3640 mg/dL
[2022-05-25] MEDS: METOPROLOL SUCCINATE (ER) 25 MG TAB.ER.24H PO SCH (21:51)
[2022-05-26 00:32] LABS: Glucose,Whole Blood 128 mg/dL (70-110)
[2022-05-26 01:03] LABS: ABG Base Excess 9.8 mmol/L; ABG HCO3 35 mmol/L (21-25); ABG Oxygen Saturation 96.7 % (94-97); ABG PCO2 55 mmHg (35-45); ABG PH 7.41 (7.35-7.45); ABG PO2 86 mmHg (83-108); ABG TCO2 36 mmol/L (19-24); Allen Test Performed? Yes
--- NOTE | 2022-05-26 02:12 | CT ---
EXAMINATION TYPE: CT brain wo con DATE OF EXAM: 05/26/2022 COMPARISON: None HISTORY: LETHARGIC CT DLP: 1131.4 mGycm Automated exposure control for dose reduction was used. Ventricles have normal size. There is no mass effect or midline shift. No sign of intracranial hemorr deo. Calvarium is intact. Skull base is intact. There is normal aeration of the mastoid sinuses. IMPRESSION: Negative unenhanced head CT scan.
--- NOTE | 2022-05-26 06:17 | XR ---
EXAMINATION TYPE: XR chest 1V portable DATE OF EXAM: 05/26/2022 COMPARISON: 05/25/2022 HISTORY: Short of breath TECHNIQUE: Single view FINDINGS: Heart is enlarged. There is pulmonary interstitial and airspace edema. There are chest lead s. There is blunting of the costophrenic angles. IMPRESSION: Moderately severe pulmonary edema with pleural effusions. This is consistent with congest penelope heart failure. Pulmonary edema not significantly different than yesterday.
[2022-05-26 06:45] LABS: HCT 46.3 % (34.0-46.0); HGB 14.3 gm/dL (11.4-16.0); Hypochromasia Marked; MCH 30.4 pg (25.0-35.0); MCHC 30.9 g/dL (31.0-37.0); MCV 98.6 fL (80.0-100.0); Macrocytosis Slight; Mean Platelet Volume 9.6; Platelet Count 276 k/uL (150-450); RBC 4.69 m/uL (3.80-5.40); RDW 15.8 % (11.5-15.5); WBC 16.4 k/uL (3.8-10.6)
[2022-05-26 06:57] LABS: Calcium 7.8 mg/dL (8.4-10.2); Potassium 4.1 mmol/L (3.5-5.1)
[2022-05-26 08:47] LABS: Appearance,Urine Clear (Clear); Bilirubin,Urine Negative (Negative); Blood,Urine Negative (Negative); Color,Urine Yellow; Glucose,Urine (UA) Negative (Negative); Hyaline Casts,Urine 72 /lpf (0-2); Ketones,Urine Negative (Negative); Leukocyte Esterase,Urine Negative (Negative); Mucus,Urine Few /hpf; Nitrite,Urine Negative (Negative); Protein,Urine 1+ (Negative); RBC,Urine <1 /hpf (0-5); Specific Gravity,Urine 1.015 (1.001-1.035); Squamous Epithelial Cell,Urine 1 /hpf (0-4); WBC,Urine 6 /hpf (0-5)
[2022-05-26] MEDS: AMIODARONE 200 MG TAB PO SCH ×3 (08:56→21:25)
[2022-05-26] MEDS ORDERED: FUROSEMIDE 10 MG/ML 4 ML VIAL IV SCH (09:00)
--- NOTE | 2022-05-26 10:27 | P.PN ---
Subjective Progress Note Date: 05/26/22 Principal diagnosis: sob After the left-sided thoracentesis done on 05/25 patient started having worsening shortness of breath. Chest x-ray was showing flash pulmonary edema. She was admitted to the ICU, was started on BiPAP. When examined today she is still on BiPAP. Last night she had an episode of agitation and was given some Ativan. Currently still very lethargic. She hardly made ay urine since last night. Objective - Vital Signs Vital signs: Vital Signs Temp 96.6 F L 05/26/22 08:15 Pulse 91 05/26/22 09:00 Resp 43 H 05/26/22 09:00 BP 96/79 05/26/22 09:00 Pulse Ox 89 L 05/26/22 09:00 FiO2 40 05/26/22 09:44 Intake & Output 05/25/22 05/26/22 05/26/22 18:59 06:59 18:59 Intake Total 170 20 Output Total 215 Balance 170 -195 Weight 65.7 kg Intake: IV 20 20 Sodium Chloride 0.9% 1, 20 20 000 ml @ 20 mls/hr IV . Q24H [facility] Rx#:[id number] Oral 150 Output: Urine 215 Other: Voiding Method Indwelling Catheter # Voids 0 - Labs CBC & Chem 7: 05/26/22 06:28 05/26/22 06:28 Labs: Abnormal Lab Results - Last 24 Hours (Table) 05/25/22 05/25/22 05/25/22 Range/Units 08:35 16:17 21:15 WBC (3.8-10.6) k/uL Hct (34.0-46.0) % MCHC (31.0-37.0) g/dL RDW (11.5-15.5) % ABG pH 7.46 H (7.35-7.45) ABG pCO2 48 H (35-45) mmHg ABG pO2 64 L (83-108) mmHg ABG HCO3 34 H (21-25) mmol/L ABG Total CO2 36 H (19-24) mmol/L ABG O2 Saturation 92.4 L (94-97) % Sodium (137-145) mmol/L Chloride (98-107) mmol/L BUN (7-17) mg/dL Glucose (74-99) mg/dL POC Glucose (mg/dL) 139 H (70-110) mg/dL Calcium (8.4-10.2) mg/dL Lactate Dehydrogenase 1063 H (313-618) U/L Urine Protein (Negative) Urine WBC (0-5) /hpf Hyaline Casts (0-2) /lpf Urine Mucus (None) /hpf 05/26/22 05/26/22 05/26/22 Range/Units 00:30 00:50 06:28 WBC 16.4 H (3.8-10.6) k/uL Hct 46.3 H (34.0-46.0) % MCHC 30.9 L (31.0-37.0) g/dL RDW 15.8 H (11.5-15.5) % ABG pH (7.35-7.45) ABG pCO2 55 H (35-45) mmHg ABG pO2 (83-108) mmHg ABG HCO3 35 H (21-25) mmol/L ABG Total CO2 36 H (19-24) mmol/L ABG O2 Saturation (94-97) % Sodium (137-145) mmol/L Chloride (98-107) mmol/L BUN (7-17) mg/dL Glucose (74-99) mg/dL POC Glucose (mg/dL) 128 H (70-110) mg/dL Calcium (8.4-10.2) mg/dL Lactate Dehydrogenase (313-618) U/L Urine Protein (Negative) Urine WBC (0-5) /hpf Hyaline Casts (0-2) /lpf Urine Mucus (None) /hpf 05/26/22 05/26/22 Range/Units 06:28 08:16 WBC (3.8-10.6) k/uL Hct (34.0-46.0) % MCHC (31.0-37.0) g/dL RDW (11.5-15.5) % ABG pH (7.35-7.45) ABG pCO2 (35-45) mmHg ABG pO2 (83-108) mmHg ABG HCO3 (21-25) mmol/L ABG Total CO2 (19-24) mmol/L ABG O2 Saturation (94-97) % Sodium 130 L (137-145) mmol/L Chloride 92 L (98-107) mmol/L BUN 53 H (7-17) mg/dL Glucose 121 H (74-99) mg/dL POC Glucose (mg/dL) (70-110) mg/dL Calcium 7.8 L (8.4-10.2) mg/dL Lactate Dehydrogenase (313-618) U/L Urine Protein 1+ H (Negative) Urine WBC 6 H (0-5) /hpf Hyaline Casts 72 H (0-2) /lpf Urine Mucus Few H (None) /hpf Microbiology - Last 24 Hours (Table) 05/25/22 08:15 Gram Stain - Preliminary Pleural Fluid Body Fluid Culture - Preliminary 05/25/22 08:15 Fungal Culture - Preliminary Thoracentesis Fluid 05/25/22 08:15 Acid Fast Bacilli Culture - Preliminary Thoracentesis Fluid Assessment and Plan Plan: Acute hypoxemic respiratory failure secondary to bilateral pleural effusions. Status post left-sided thoracentesis with 1 L of bloody fluid removed. Cytology pending. Flash pulmonary edema Acute systolic CHF with EF 35% Fluid analysis consistent with exudate. Will give lasix but she is not making much urine. Bipap Continue to hold Eliquis D/w Dr. Olmstead. Hyponatremia Continue to monitor History of large pericardial effusion with tamponade physiology with previous emergent pericardial window on 02/19/2022. 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 History of atrial fibrillation Currently in normal sinus rhythm, resume amiodarone. Hold eliquis, has bloody pleural effusion. DVT prophylaxis SCDs. Anticipated discharge: depending on clinical course Dispo: depending on clinical course
--- NOTE | 2022-05-26 11:14 | US ---
EXAMINATION TYPE: US kidneys/renal and bladder DATE OF EXAM: 05/26/2022 COMPARISON: CT 05/02/2022 CLINICAL HISTORY: low urine output. EXAM MEASUREMENTS: Right Kidney: 10.1 x 3.6 x 4.2 cm Left Kidney: 9.3 x 4.4 x 3.4 cm Right Kidney: wnl Left Kidney: No hydronephrosis or masses seen, slightly limited by overlying bowel gas Bladder: Non-distended. Catheter in place There is no evidence for hydronephrosis at this point in time. No nephrolithiasis is seen. No xander s are identified. IMPRESSION: No evidence of obstructive uropathy.
--- NOTE | 2022-05-26 12:04 | P.NPCON ---
History of Present Illness - Reason for Consult acute renal failure - History of Present Illness patient is a 57-year-old female with history of lung cancer recently diagnosed during her last admission when patient was admitted with large pericardial effusion which tested positive for metastatic adenocarcinoma. Patient has a large right paratracheal mass with enlarged lymphadenopathy. Patient was admitted to the hospital on this admission with complaints of shortness of breath. Patient had left left thoracentesis performed on 05/25/2022. Following the procedure patient became acutely short of breath with chest x-ray showing CHF. Patient was placed on BiPAP. Blood pressure was low with systolic around 87-96 mmHg. Patient did not respond to IV Lasix 40 mg. she had no urine output throughout the night This morning patient had Monreal catheter placed .and about 180 mL of urine was noted. Currently on Lasix 40 mg IV every 12 hours and systolic blood pressure staying around 101-10 2 mmHg. Urine output 30-40 mL for the last 2 hours. Serum creatinine at 0.9 mg/dL. Review of Systems as per HPI Past Medical History Past Medical History: Atrial Fibrillation, Cancer, Heart Failure Additional Past Medical History / Comment(s): Lung CA History of Any Multi-Drug Resistant Organisms: None Reported Past Surgical History: No Surgical Hx Reported Additional Past Surgical History / Comment(s): tubal ligation Past Anesthesia/Blood Transfusion Reactions: No Reported Reaction Smoking Status: Former smoker - Past Family History Father Family Medical History: Hypertension Additional Family Medical History / Comment(s): of an AR at age 51 Brother(s) Family Medical History: Hypertension Additional Family Medical History / Comment(s): Aunt with brain cancer Medications and Allergies Home Medications Medication Instructions Recorded Confirmed Type Apixaban [Eliquis] 5 mg PO BID #60 tab 05/04/22 05/24/22 Rx Metoprolol Succinate (ER) [Toprol 25 mg PO HS #30 tab 05/04/22 05/24/22 Rx XL] Amiodarone [Cordarone] 200 mg PO BID 05/11/22 05/24/22 History Furosemide [Lasix] 40 mg PO BID@0900,1600 05/16/22 05/24/22 History Nystatin 100,000 Unit/ml Susp 500,000 units PO QID 05/16/22 05/24/22 History [Mycostatin Oral Susp] HYDROcodone/APAP 5-325MG [Jean 1 tab PO Q8H PRN 05/24/22 05/24/22 History 5-325] Allergies Allergy/AdvReac Type Severity Reaction Status Date / Time No Known Allergies Allergy Verified 05/24/22 22:51 Physical Exam Vitals: Vital Signs Temp Pulse Pulse Resp BP BP Pulse Ox 05/26/22 11:14 05/26/22 11:00 93 21 101/68 93 L 05/26/22 10:30 90 18 108/65 94 L 05/26/22 10:00 91 23 106/75 93 L 05/26/22 09:44 05/26/22 09:41 05/26/22 09:30 90 20 116/87 94 L 05/26/22 09:00 91 43 H 96/79 89 L 05/26/22 08:45 90 21 97 05/26/22 08:30 90 21 95/69 97 05/26/22 08:15 96.6 F L 89 20 95/69 97 05/26/22 08:00 89 30 H 87/64 97 05/26/22 07:57 96 05/26/22 07:53 05/26/22 07:45 87 16 87/64 96 05/26/22 07:30 89 19 110/86 95 05/26/22 06:20 4 L 112/81 92 L 05/26/22 06:10 22 112/81 05/26/22 06:01 52 H 112/81 05/26/22 05:50 93 94 L 05/26/22 05:40 93 37 H 104/82 94 L 05/26/22 05:30 93 25 H 99/74 95 05/26/22 05:20 92 15 99/74 94 L 05/26/22 05:10 91 16 99/74 94 L 05/26/22 05:00 92 19 97/72 94 L 05/26/22 04:50 90 15 97/72 94 L 05/26/22 04:40 89 17 97/72 94 L 05/26/22 04:34 05/26/22 04:30 90 17 99/71 94 L 05/26/22 04:20 92 16 99/71 95 05/26/22 04:10 92 16 99/71 95 05/26/22 04:00 97.4 F L 92 15 102/74 94 L 05/26/22 03:50 92 16 102/74 94 L 05/26/22 03:40 91 16 102/74 95 05/26/22 03:30 90 16 103/82 94 L 05/26/22 03:20 90 17 103/82 94 L 05/26/22 03:10 90 16 103/82 94 L 05/26/22 03:00 89 17 102/78 94 L 05/26/22 02:50 90 18 102/78 93 L 05/26/22 02:40 89 17 102/78 93 L 05/26/22 02:30 90 18 111/87 93 L 05/26/22 02:20 92 20 111/87 94 L 05/26/22 02:10 111/87 93 L 05/26/22 02:00 92 41 H 92 L 05/26/22 01:40 94 L 05/26/22 01:30 91 16 116/83 94 L 05/26/22 01:20 92 19 116/83 94 L 05/26/22 01:10 89 17 116/83 94 L 05/26/22 01:00 92 29 H 116/83 94 L 05/26/22 00:50 90 17 116/83 94 L 05/26/22 00:40 90 16 116/83 94 L 05/26/22 00:30 90 16 106/83 94 L 05/26/22 00:20 91 17 106/83 95 05/26/22 00:10 91 16 106/83 95 05/26/22 00:00 90 16 102/85 95 05/25/22 23:50 90 18 102/85 95 05/25/22 23:40 90 16 102/85 95 05/25/22 23:39 05/25/22 23:30 89 15 111/86 95 05/25/22 23:20 90 17 111/86 95 05/25/22 23:10 89 17 111/86 95 05/25/22 23:00 88 20 109/81 95 05/25/22 22:50 87 19 109/81 95 05/25/22 22:40 16 113/92 95 05/25/22 22:30 22 107/86 95 05/25/22 22:20 24 107/86 95 05/25/22 22:10 29 H 120/82 95 05/25/22 22:00 56 H 109/85 93 L 05/25/22 21:50 26 H 109/85 95 05/25/22 21:40 24 119/83 94 L 05/25/22 21:33 97.6 F 95 26 H 119/83 93 L 05/25/22 21:30 95 21 130/101 93 L 05/25/22 21:20 23 130/101 93 L 05/25/22 21:14 30 H 05/25/22 20:32 96 24 123/92 95 05/25/22 20:00 95 24 92 L 05/25/22 19:44 05/25/22 19:00 95 26 H 05/25/22 18:00 94 18 123/96 95 05/25/22 17:00 95 18 95 05/25/22 16:40 96 18 111/89 98 05/25/22 16:13 05/25/22 15:48 18 89 L 05/25/22 15:19 98.4 F 95 18 117/89 98 05/25/22 14:00 93 20 93 L 05/25/22 13:01 92 20 111/84 92 L FiO2 05/26/22 11:14 40 05/26/22 11:00 05/26/22 10:30 05/26/22 10:00 05/26/22 09:44 40 05/26/22 09:41 40 05/26/22 09:30 05/26/22 09:00 05/26/22 08:45 05/26/22 08:30 05/26/22 08:15 50 05/26/22 08:00 05/26/22 07:57 50 05/26/22 07:53 50 05/26/22 07:45 05/26/22 07:30 05/26/22 06:20 05/26/22 06:10 05/26/22 06:01 05/26/22 05:50 05/26/22 05:40 05/26/22 05:30 05/26/22 05:20 05/26/22 05:10 05/26/22 05:00 05/26/22 04:50 05/26/22 04:40 05/26/22 04:34 50 05/26/22 04:30 05/26/22 04:20 05/26/22 04:10 05/26/22 04:00 50 05/26/22 03:50 05/26/22 03:40 05/26/22 03:30 05/26/22 03:20 05/26/22 03:10 05/26/22 03:00 05/26/22 02:50 05/26/22 02:40 05/26/22 02:30 05/26/22 02:20 05/26/22 02:10 05/26/22 02:00 05/26/22 01:40 05/26/22 01:30 05/26/22 01:20 05/26/22 01:10 05/26/22 01:00 05/26/22 00:50 05/26/22 00:40 05/26/22 00:30 05/26/22 00:20 05/26/22 00:10 05/26/22 00:00 05/25/22 23:50 05/25/22 23:40 05/25/22 23:39 50 05/25/22 23:30 05/25/22 23:20 05/25/22 23:10 05/25/22 23:00 05/25/22 22:50 05/25/22 22:40 05/25/22 22:30 05/25/22 22:20 05/25/22 22:10 05/25/22 22:00 05/25/22 21:50 05/25/22 21:40 05/25/22 21:33 05/25/22 21:30 05/25/22 21:20 05/25/22 21:14 05/25/22 20:32 05/25/22 20:00 05/25/22 19:44 50 05/25/22 19:00 05/25/22 18:00 05/25/22 17:00 05/25/22 16:40 05/25/22 16:13 50 05/25/22 15:48 05/25/22 15:19 05/25/22 14:00 05/25/22 13:01 Intake and Output 05/25/22 05/26/22 05/26/22 22:59 06:59 14:59 Intake Total 170 30 Output Total 255 Balance 170 -225 Intake: IV 20 30 Sodium Chloride 0.9% 1, 20 30 000 ml @ 20 mls/hr IV . Q24H [facility] Rx#:[id number] Oral 150 Output: Urine 255 Other: Voiding Method Indwelling Catheter # Voids 0 Weight 65.7 kg patient is awake comfortable, currently on BiPAP. Examination of the heart S1 and S2 Examination lungs decreased breath sounds at the bases with basilar crackles Abdomen is soft nontender Examination lower extremity shows trace edema bilaterally. Peripheries are cool to touch Results - Lab Results Most recent lab results ABG pH 7.41 (7.35-7.45) 05/26/22 00:50 ABG pCO2 55 mmHg (35-45) H 05/26/22 00:50 ABG pO2 86 mmHg (83-108) 05/26/22 00:50 ABG HCO3 35 mmol/L (21-25) H 05/26/22 00:50 ABG O2 Saturation 96.7 % (94-97) 05/26/22 00:50 Calcium 7.8 mg/dL (8.4-10.2) L 05/26/22 06:28 Phosphorus 4.1 mg/dL (2.5-4.5) 05/24/22 22:08 Magnesium 2.1 mg/dL (1.6-2.3) 05/24/22 22:08 05/26/22 06:28 05/26/22 06:28 Assessment and Plan Assessment: 1. Acute kidney injury secondary to hypotension initially oliguric currently n onoliguric. Continue with IV Lasix. I will add midodrine as blood pressure remains low. UA is benign with 1+ protein. 2. Volume overload 3. Acute hypoxic respiratory failure secondary to CHF and volume overload 4. Acute on chronic CHF, ejection fraction about 35% 5. History of large pericardial effusion with tamponade status post emergent pericardial window on 05/22/2022. Pathology positive for metastatic adenocarcinoma most likely from lung. Repeat echocardiogram shows no pericardial effusion this admission 6. History of chronic A. fib 7. Chronic tobacco dependence 8. Left pleural effusion status post thoracentesis of about 1 L Plan: add midodrine as blood pressure is low Increase Lasix to 40 mg IV every 8 hours Avoid nephrotoxic agents Check ultrasound of the kidneys next Thank you for the consultation. We will continue to follow the patient with you during her hospitalization
--- NOTE | 2022-05-26 12:27 | P.PN ---
Subjective Progress Note Date: 05/26/22 Principal diagnosis: Acute hypoxic respiratory failure, multifactorial. Is a pleasant 57-year-old female patient with a known history of chronic tobacco dependence who had been hospitalized 1 month ago for shortness of breath and was found to have a large pericardial effusion with tamponade physiology status post emergent pericardial window. Her pericardial fluid was positive for metastatic adenocarcinoma of unknown primary. She does have a large soft tissue density around theright paratracheal region measuring 2.7 x 2.0 cm. Enlarged lymphadenopathy versus mass were within the differential.she also had acute cardiomyopathy with ejection fraction of 35%. She was subsequently discharged and was to undergo a this biopsies of the right paratracheal mass. The patient had ended up in the emergency room on on 3 separate occasions with chest pain, shortness of breath and atrial fibrillation with rapid ventricular response. She is anticoagulated with Eliquis. She was seen in our office on 05/23/[address] Angel Abarca on performed a chest x-ray which revealed bilateral pleural effusions. Ultrasound of the chest revealed a 9.3 cm pocket on the right and a 8.5 cm pocket on the left. She was going to be set up for a thoracentesis on 05/27/2022. Yesterday she underwent a first round of chemotherapy. Shortly after that she developed worsening shortness of breath and presented to the emergency room for the same. She is seen today in consultation. She is dysp neic on conversation. Dyspneic with minimal exertion. She did undergo a left- sided thoracentesis today with 1 liter of bloody fluid removed. Fluid analysis and cytology sent. white count 9.9. Hemoglobin 13.8. INR 1.5. Sodium 129. Potassium 4.2. BUN 37. Creatinine 0.5. Glucose 129. AST 263. ALT 111. Cano virus by PCR not detected. she is breathing a bit better postthoracentesis. She is maintaining O2 saturations in the mid 90s on 3 L/m per nasal cannula. Afebrile. Hemodynamically stable. Patient was reevaluated today on 05/26/22, patient had to be transferred to the ICU late in the afternoon yesterday. I performed on this patient left-sided thoracentesis and I was able to drain about 1000 mL of serosanguineous fluid from the left pleural space. Patient was doing great, as a matter of fact she was even asking to be discharged home, and I recommended that the decision be m suzie by her admitting physician, and the plan was to eventually wait for the results of the fluid from the left pleural space and decide if it is malignant or nonmalignant. Follow-up chest x-ray after thoracentesis showed complete resolution of the fluid on the left side, even ultrasound was done po stoperatively and showed no fluid on the left side. 7 hours after the thoracentesis, I was called by the nurse from the ER telling me that the patient is developing more and more shortness of breath. Follow-up chest x-ray showed evidence of pulmonary edema, patient required placement on high FiO2 she even required placement on BiPAP, and I transferred the patient to the ICU and is status post sending her back to the floor. Chest x-ray continues to show evidence of interstitial edema. Patient received multiple doses of Lasix since yesterday, her urine output does not seem to be great, echocardiogram this morning showed no evidence of temporal not she does have pericardial effusion and she does have severe LV dysfunction. Hence I'm planning to keep the patient in the ICU today and hopefully we will get the results of the cytology from the left pleural effusion which I drained yesterday. There is hardly any pleural effusion on the left side, she does have a [id number] right-sided pleural effusion which may or may not require thoracentesis. Considering the patient developed pulmonary edema post left thoracentesis yesterday, and extremely reluctant to go ahead and perform a right-sided thoracentesis today not to mention we have no information about the fluid except the fluid I drained was most likely malignant, was clearly exudative in nature. WBC count today is 16.4 hemoglobin is 14.3. ABG earlier on 50% BiPAP with 50%/05/27 showed a pO2 of 86 pCO2 55 pH of 7.41. More Lasix will be given later today. Objective - Vital Signs Vital signs: Vital Signs Temp 96.6 F L 05/26/22 08:15 Pulse 93 05/26/22 11:00 Resp 21 05/26/22 11:00 BP 101/68 05/26/22 11:00 Pulse Ox 93 L 05/26/22 11:00 FiO2 40 05/26/22 11:14 Intake & Output 12/09/1105/26/22 05/26/22 18:59 06:59 18:59 Intake Total 170 30 Output Total 255 Balance 170 -225 Weight 65.7 kg Intake: IV 20 30 Sodium Chloride 0.9% 1, 20 30 000 ml @ 20 mls/hr IV . Q24H ON LICENSE OF [facility] Rx#:[id number] Oral 150 Output: Urine 255 Other: Voiding Method Indwelling Catheter # Voids 0 - Exam Physical Exam: Revealed a 57-year-old female on BiPAP, in no distress. Looks frail and weak Head: Atraumatic normocephalic HEENT:[Neck is supple.] [No neck masses.] [No thyromegaly.] [No JVD.] Chest: [Diminished breath sounds and crackles at the bases Cardiac Exam: [Normal S1 and S2, no S3 gallop, no murmur.] Abdomen: [Soft, nontender, no megaly, no rebound, no guarding, normal bowel sounds.] Extremities: [No clubbing, no edema, no cyanosis.] Neurological Exam: [No focal neurologic deficit.] Alert oriented 3 Psychiatric: Normal mood affect and normal mental status examination. Skin: No rashes. - Labs CBC & Chem 7: 05/26/22 06:28 05/26/22 06:28 Labs: Abnormal Lab Results - Last 24 Hours (Table) 05/25/22 05/25/22 05/26/22 Range/Units 16:17 21:15 00:30 WBC (3.8-10.6) k/uL Hct (34.0-46.0) % MCHC (31.0-37.0) g/dL RDW (11.5-15.5) % ABG pH 7.46 H (7.35-7.45) ABG pCO2 48 H (35-45) mmHg ABG pO2 64 L (83-108) mmHg ABG HCO3 34 H (21-25) mmol/L ABG Total CO2 36 H (19-24) mmol/L ABG O2 Saturation 92.4 L (94-97) % Sodium (137-145) mmol/L Chloride (98-107) mmol/L BUN (7-17) mg/dL Glucose (74-99) mg/dL POC Glucose (mg/dL) 139 H 128 H (70-110) mg/dL Calcium (8.4-10.2) mg/dL Urine Protein (Negative) Urine WBC (0-5) /hpf Hyaline Casts (0-2) /lpf Urine Mucus (None) /hpf 05/26/22 05/26/22 05/26/22 Range/Units 00:50 06:28 06:28 WBC 16.4 H (3.8-10.6) k/uL Hct 46.3 H (34.0-46.0) % MCHC 30.9 L (31.0-37.0) g/dL RDW 15.8 H (11.5-15.5) % ABG pH (7.35-7.45) ABG pCO2 55 H (35-45) mmHg ABG pO2 (83-108) mmHg ABG HCO3 35 H (21-25) mmol/L ABG Total CO2 36 H (19-24) mmol/L ABG O2 Saturation (94-97) % Sodium 130 L (137-145) mmol/L Chloride 92 L (98-107) mmol/L BUN 53 H (7-17) mg/dL Glucose 121 H (74-99) mg/dL POC Glucose (mg/dL) (70-110) mg/dL Calcium 7.8 L (8.4-10.2) mg/dL Urine Protein (Negative) Urine WBC (0-5) /hpf Hyaline Casts (0-2) /lpf Urine Mucus (None) /hpf 05/26/22 Range/Units 08:16 WBC (3.8-10.6) k/uL Hct (34.0-46.0) % MCHC (31.0-37.0) g/dL RDW (11.5-15.5) % ABG pH (7.35-7.45) ABG pCO2 (35-45) mmHg ABG pO2 (83-108) mmHg ABG HCO3 (21-25) mmol/L ABG Total CO2 (19-24) mmol/L ABG O2 Saturation (94-97) % Sodium (137-145) mmol/L Chloride (98-107) mmol/L BUN (7-17) mg/dL Glucose (74-99) mg/dL POC Glucose (mg/dL) (70-110) mg/dL Calcium (8.4-10.2) mg/dL Urine Protein 1+ H (Negative) Urine WBC 6 H (0-5) /hpf Hyaline Casts 72 H (0-2) /lpf Urine Mucus Few H (None) /hpf Microbiology - Last 24 Hours (Table) 05/25/22 08:15 Gram Stain - Preliminary Pleural Fluid Body Fluid Culture - Preliminary 05/25/22 08:15 Fungal Culture - Preliminary Thoracentesis Fluid 05/25/22 08:15 Acid Fast Bacilli Culture - Preliminary Thoracentesis Fluid Assessment and Plan Assessment: Impression: Acute hypoxic respiratory failure secondary to bilateral pleural effusions and pulmonary edema, most likely acute on chronic systolic congestive heart failure. Post thoracentesis pulmonary edema requiring more diuretics and placement on BiPAP. Again this is mostly systolic congestive heart failure. No evidence of temporal not on echocardiogram. History of malignant pericardial effusion Left paratracheal mass most likely malignant unless for otherwise. Exudative left-sided pleural effusion likely malignant unless for otherwise. Status post thoracentesis and 1 L of fluid removed, serosanguineous and exudative in nature, cytology is pending Previous history of temporal not from large pericardial effusion patient had emergent pericardial window 05/22 pathology was positive for metastatic adenocarcinoma primary is yet unknown. History of chronic atrial fibrillation, presently in sinus rhythm, we'll continue to hold eliquis for now, may or may not require right-sided thoracentesis. History of cardiomyopathy with ejection fraction of 35% Chronic tobacco dependence Recommendation: Continue to monitor in the ICU Continue BiPAP and titrate FiO2 accordingly Continue diuretics Cardiology to see on consultation Echocardiogram was reviewed and showed no evidence of tamponade Consider repeating ultrasound of the chest depending on the findings of the chest x-ray in a.m. and depending on response to diuretics Monitor renal status, patient seems to be showing poor response to diuretics this morning, seen by nephrology. Overall prognosis remains or and guarded. Patient clearly has metastatic adenocarcinoma, and most likely primary in the lungs. However no definitive diagnosis has been made yet. She was supposed to have EBUS bronchoscopy by Dr. Ortiz however patient is not a candidate for EBUS at this point. She needs to be further optimized before EBUS could be considered. She did have a PET scan at [facility] and apparently the mass in the paratracheal area didn't show evidence of hypermetabolic activity. Patient is critically ill Critical care time is over 30 minutes We will continue to follow, Time with Patient: Greater than 30
--- NOTE | 2022-05-26 13:44 | CONS ---
CONSULTATION HISTORY OF PRESENT ILLNESS: A 57-year-old lady who is admitted to hospital with pleural effusion related to lung cancer and has a history of atrial fibrillation. I was consulted because of the episode of pulmonary edema. The patient came in the hospital with pleural effusion and underwent thoracentesis. Six hours after that she suddenly developed shortness of breath and was in acute pulmonary edema. The patient has metastatic adenocarcinoma with malignant pericardial effusion and initially presented with tamponade physiology and underwent pericardial window. Director Of Recruitment And Admissions was concerned that the patient is in tamponade again and an echocardiogram I performed shows a [id number] amount of pericardial effusion without any evidence of tamponade physiology. The patient does not seem to be in distress and is free of new symptoms. PAST MEDICAL HISTORY: Significant for paroxysmal atrial fibrillation, malignant pericardial effusion. CURRENT MEDICATIONS: 1. Toprol-XL 25 mg daily. 2. Lasix 40 b.i.d. 3. Eliquis 5 b.i.d. 4. Amiodarone 200 b.i.d. ALLERGIES: No known drug allergies. FAMILY HISTORY: Negative for premature coronary artery disease. SOCIAL HISTORY: Negative for current smoking, EtOH or drug abuse. REVIEW OF SYSTEMS: Unremarkable other than what has been mentioned. PHYSICAL EXAMINATION: GENERAL: Comfortable at rest. VITAL SIGNS: Stable. CHEST: Reveals diminished air entry at the bases. HEART: Reveals first and second heart sounds. No gallop, no murmur. ABDOMEN: Soft. EXTREMITIES: Did not reveal any edema. Peripheral pulses are felt. LABS: Show a potassium of 4.1, creatinine is 0.9, hemoglobin is 14.3, and platelet count is 276. ASSESSMENT: 1. Malignant pericardial effusion with history of tamponade. 2. Pleural effusion. 3. Acute pulmonary edema. PLAN: The patient has cardiomyopathy with moderate LV dysfunction. The pulmonary edema could either be related to the thoracentesis are due to the underlying cardiomyopathy. She does not have tamponade. MMODL / IJN: [id number] /
[2022-05-26] MEDS ORDERED: SODIUM CHLORIDE 0.65% NASAL SPRAY 44 ML BTL NASAL PRN (14:42)
[2022-05-26] MEDS: LORazepam 1 MG TAB PO PRN ×2 (14:52→21:29)
--- NOTE | 2022-05-26 16:00 | P.CONS ---
History of Present Illness - Reason for Consult Consult date: 05/26/22 lung cancer Requesting physician: Alka Lopez - Chief Complaint SOB - History of Present Illness Ms. Alejandro is a very pleasant 57 yo female with newly found metastatic lung cancer, found on pericadial window and pericardial tissue, s/p C1 of chemotherapy with Carbo/Taxol/Keytruda given on 05/23/22, here for increasing SOB for the past 4 days. Found to have recurrent pleural effusion. Has history of atrial fibrillation with RVR, on eliquis and cardiac disease. Troponin slightly elevated, CXR with sign of fluid overload and bilateral pleural effusion. Blood work normal except for hyponatremia. We were consulted for her newly found cancer and chemotherapy. Since presentation had left thoracentesis however continues to have SOB and persistent right pleural effusion. Also with persistent/worsening fluid overload changes on repeat CXR after left thoracentesis. She underwent right thoracentesis. Unfortunately respiratory status decompensated and she was trans ferred to the ICU. Has been on BiPAP. Being diuresed however decreased urinary output at this time with possible worsening renal function. Oncologic History: Ms Alejandro is a pleasant white female, initially seen in consult at [facility] on 04/29/22. The patient had a fairly benign baseline medical history. She had come into the hospital because of new onset of shortness of br eath starting about 2 weeks prior, that had become persistent and then progressive. Initial imaging showed small bilateral pleural effusions, as well as a large pericardial effusion. initial chest x-ray from 04/19/22 had shown cardiomegaly and pulmonary venous congestion, and mild edema. CT abdomen and pelvis on 04/21/22 showed a large pericardial effusions in small bilateral pleural effusions. Patient had a pericardial window with drainage done on 04/21/22. From the pericardial tissue and the effusion was positive for metastatic adenocarcinoma. Based on the staining pattern, this was nonspecific with sites of origin including lung, breast, and upper GI/pancreatobiliary. CT of the abdomen and pelvis had not shown any suspicious lesions below the diaphragm. CT of the chest from 04/12/22 showed a 2.7 x 2 cm right paratracheal soft tissue density, and patchy infiltrates in both lungs The patient was seen in consult at that time and had ultrasound of the breast, as well as EGD and colonoscopy. These studies did not show any obvious malignancy. The patient is currently discharge, and then readmitted on 05/03/20-42 fibrillation with RVR, that responded to medical treatment. She was seen for first office visit on 05/06/22 She denied any prior history of malignancy. She had smoked about half a pack a day for many years, and quit at the time of diagnosis. There are no specific localizing symptoms. She denied any significant weight loss. the patient had attempted bronchoscopy, which had to be discontinued as she developed cardiac arrhythmia. She had an ER visit for subjective shortness of breath, and lower chest discomfort, revealing possibly some accommodation of pleural fluid. The patient had cancer type ID done, that indicated lung cancer as the pr imary site with greater than 96% probability. Seen in the office on 05/20/[address] Treadwell in follow up and overall condition discussed. Due to quickly progressing symptoms, she was started on chemot herapy/immunotherapy while awaiting remainder of results, given C1 of carbo/taxol/keytruda on 05/23/22. Past Medical History Past Medical History: Atrial Fibrillation, Cancer, Heart Failure Additional Past Medical History / Comment(s): Lung CA History of Any Multi-Drug Resistant Organisms: None Reported Past Surgical History: No Surgical Hx Reported Additional Past Surgical History / Comment(s): tubal ligation Past Anesthesia/Blood Transfusion Reactions: No Reported Reaction Past Psychological History: No Psychological Hx Reported Smoking Status: Former smoker Past Alcohol Use History: None Reported Past Drug Use History: None Reported - Past Family History Father Family Medical History: Hypertension Additional Family Medical History / Comment(s): of an [place] at age 51 Brother(s) Family Medical History: Hypertension Additional Family Medical History / Comment(s): Aunt with brain cancer Medications and Allergies Home Medications Medication Instructions Recorded Confirmed Type Apixaban [Eliquis] 5 mg PO BID #60 tab 05/04/22 05/24/22 Rx Metoprolol Succinate (ER) [Toprol 25 mg PO HS #30 tab 05/04/22 05/24/22 Rx XL] Amiodarone [Cordarone] 200 mg PO BID 05/11/22 05/24/22 History Furosemide [Lasix] 40 mg PO BID@0900,1600 05/16/22 05/24/22 History Nystatin 100,000 Unit/ml Susp 500,000 units PO QID 05/16/22 05/24/22 History [Mycostatin Oral Susp] HYDROcodone/APAP 5-325MG [[place] 1 tab PO Q8H PRN 05/24/22 05/24/22 History 5-325] Allergies Allergy/AdvReac Type Severity Reaction Status Date / Time No Known Allergies Allergy Verified 05/24/22 22:51 Physical Exam Vitals: Vital Signs Temp Pulse Resp BP Pulse Ox FiO2 05/25/22 18:00 94 18 123/96 95 05/25/22 17:00 95 18 95 05/25/22 16:40 96 18 111/89 98 05/25/22 16:13 50 05/25/22 16:12 50 05/25/22 15:48 18 89 L 05/25/22 15:19 98.4 F 95 18 117/89 98 05/25/22 14:00 93 20 93 L 05/25/22 13:01 92 20 111/84 92 L 05/25/22 11:44 20 05/25/22 11:27 89 22 91 L 05/25/22 10:00 90 20 121/83 96 05/25/22 08:21 83 18 107/68 96 05/25/22 07:56 89 22 92 L 05/25/22 06:31 87 24 94 L 05/25/22 04:59 80 22 140/95 05/25/22 01:41 84 22 139/98 94 L 05/25/22 00:13 86 18 95 05/24/22 22:04 90 18 95 05/24/22 21:45 98.2 F 91 26 H 125/93 82 L Gen.: No acute distress. HEENT: Mucosa moist. Lungs: Sitting up in bed and with mild respiratory distress. Heart: Regular rate. Abdomen: Soft. Neuro: Alert and oriented 3. Skin: No jaundice. Psych: Appropriate affect. Results CBC & Chem 7: 05/26/22 06:28 05/26/22 06:28 Labs: Abnormal Lab Results - Last 24 Hours (Table) 05/24/22 05/24/22 05/24/22 Range/Units 22:08 22:08 22:08 Neutrophils # 8.3 H (1.3-7.7) k/uL Lymphocytes # 0.7 L (1.0-4.8) k/uL PT 14.7 H (9.0-12.0) sec INR 1.5 H (<1.2) ABG pH (7.35-7.45) ABG pCO2 (35-45) mmHg ABG pO2 (83-108) mmHg ABG HCO3 (21-25) mmol/L ABG Total CO2 (19-24) mmol/L ABG O2 Saturation (94-97) % Sodium 129 L (137-145) mmol/L Chloride 89 L (98-107) mmol/L BUN 37 H (7-17) mg/dL Creatinine 0.50 L (0.52-1.04) mg/dL Glucose 129 H (74-99) mg/dL Calcium 8.0 L (8.4-10.2) mg/dL Total Bilirubin 2.7 H (0.2-1.3) mg/dL AST 263 H (14-36) U/L ALT 111 H (4-34) U/L Alkaline Phosphatase 166 H (38-126) U/L Lactate Dehydrogenase (313-618) U/L Albumin 3.4 L (3.5-5.0) g/dL 05/25/22 05/25/22 Range/Units 08:35 16:17 Neutrophils # (1.3-7.7) k/uL Lymphocytes # (1.0-4.8) k/uL PT (9.0-12.0) sec INR (<1.2) ABG pH 7.46 H (7.35-7.45) ABG pCO2 48 H (35-45) mmHg ABG pO2 64 L (83-108) mmHg ABG HCO3 34 H (21-25) mmol/L ABG Total CO2 36 H (19-24) mmol/L ABG O2 Saturation 92.4 L (94-97) % Sodium (137-145) mmol/L Chloride (98-107) mmol/L BUN (7-17) mg/dL Creatinine (0.52-1.04) mg/dL Glucose (74-99) mg/dL Calcium (8.4-10.2) mg/dL Total Bilirubin (0.2-1.3) mg/dL AST (14-36) U/L ALT (4-34) U/L Alkaline Phosphatase (38-126) U/L Lactate Dehydrogenase 1063 H (313-618) U/L Albumin (3.5-5.0) g/dL Microbiology - Last 24 Hours (Table) 05/25/22 08:15 Fungal Culture - Preliminary Thoracentesis Fluid 05/25/22 08:15 Body Fluid Culture - Preliminary Pleural Fluid 05/25/22 08:15 Acid Fast Bacilli Culture - Preliminary Thoracentesis Fluid Chest x-ray: report reviewed Assessment and Plan Assessment: 1. Bilateral pleural effusion 2. Metastatic lung cancer 3. Hyponatremia 4. Heart failure with acute exacerbation Plan: Ms. Alejandro is a very pleasant 57 yo female with recently found metastatic lung cancer s/p C1 of chemotherapy given on same day of ED visit, who is here for increasing SOB. Found to have signs of fluid overload on CXR as well as bilateral pleural effusion, s/p left thoracentesis. Continues to be SOB. Underwent right thoracentesis. Continues to struggle with shortness of breath due to pulmonary edema at this point. Being diuresed with decreasing urinary output. Nephrology consulted. Agree with diuresis at this point. If her pleural effusions reaccumulate she would likely benefit from a Pleurx catheter placement bilaterally if needed. Discussed this with patient and her family at bedside. Doubt that chemotherapy is causing any of her symptoms however likely due to her underlying malignancy and cardiac disease. No objections to discharge from oncology stand point and continued chemotherapy as scheduled once pt overall improved, however we will continue to follow patient with you while she is in patient. Discussed with pt and family at bedside and they are agreeable to the plan. All questions answered. Discussed with nursing staff.
--- NOTE | 2022-05-26 16:02 | CA ---
Transthoracic Echo Report Name: Iraida Alejandro Age: 57 Gender: F : 1965 Exam Date: 05/26/2022 09:49 Exam Location: [facility] Ht (in): Wt (lb): Ordering Physician: Slava Brown MD ([id number]) Attending/Referring Phys: DEONNA, Stephanie [employer] Specialist Marci Garcia RDCS Procedure CPT: Indications: possible tamponade Cardiac Hx: Technical Quality: Contrast 1: Total Dose (mL): Contrast 2: Total Dose (mL): MEASUREMENTS (Male / Female) Normal Values DOPPLER TR Peak Velocity 272.8 cm/s TR Peak Gradient 29.8 mmHg Right Ventricular Systolic Press 34.8 mmHg FINDINGS Left Ventricle Left ventricular ejection fraction is estimated at 40%. Left ventricular cavity size normal. Right Ventricle Normal right ventricular size and function. Mild pulmonary hypertension. Right Atrium Normal right atrial size. Left Atrium Normal left atrial size. Mitral Valve Structurally normal mitral valve. Mild mitral regurgitation. Aortic Valve Trileaflet aortic valve. Tricuspid Valve Structurally normal tricuspid valve. Mild tricuspid regurgitation. Pulmonic Valve Structurally normal pulmonic valve. Pericardium Small pericardial effusion with posssible mass clot in pericardium no signs of cardiac tamponade. Aorta CONCLUSIONS Moderate LV systolic dysfunction Small pericardial effusion without any signs of tamponade Previewed by: Dr. Slava Brown MD (Electronically Signed) Final Date: 26 May 2022 16:01
[2022-05-26 19:43] LABS: Glucose,Whole Blood 114 mg/dL (70-110)
[2022-05-26] MEDS ORDERED: FUROSEMIDE 10 MG/ML 10 ML VIAL IV SCH (21:00)
[2022-05-26] MEDS: METOPROLOL SUCCINATE (ER) 25 MG TAB.ER.24H PO SCH (21:25)
[2022-05-27 01:12] LABS: Glucose,Whole Blood 119 mg/dL (70-110)
[2022-05-27] MEDS: LORazepam 1 MG TAB PO PRN (04:06)
[2022-05-27 06:17] LABS: Glucose,Whole Blood 110 mg/dL (70-110)
--- NOTE | 2022-05-27 07:45 | P.PN ---
Subjective Progress Note Date: 05/27/22 Principal diagnosis: Shortness of breath The patient is a 57-year-old female patient with history of lung cancer and recurrent pleural undercurrent pericardial effusion and cardiomyopathy as well as paroxysmal atrial fibrillation was admitted to the hospital with increasing shortness of breath. She was diagnosed with right lateral pleural effusion and she underwent thoracentesis and also with heart failure secondary to systolic dysfunction. May [id number] The patient was seen this morning. She continues to be short of breath. She underwent pleurocentesis within the last 24-48 hours. She underwent an echo which revealed impaired LV function was EF around 40% with small pericardial effusion with no tamponade physiology. She has been maintaining normal sinus mechanism. She is not on any anticoagulation at this point. She is hemodynamically stable. Currently she's on amiodarone as well as beta trish. Beside that she is on Lasix IV at 60 mg by mouth twice a day. We'll follow-up with the patient the chest x-ray from the morning but meanwhile continue the current medical regimen including the current dose of diuretics. Objective - Vital Signs Vital signs: Vital Signs Temp 96.9 F L 05/27/22 03:30 Pulse 93 05/27/22 06:00 Resp 13 05/27/22 06:00 BP 91/70 05/27/22 06:00 Pulse Ox 94 L 05/27/22 06:00 FiO2 40 05/27/22 07:15 Intake & Output 05/26/22 05/27/22 05/27/22 18:59 06:59 18:59 Intake Total 110 220 Output Total 550 470 Balance -440 -250 Weight 64.5 kg Intake: IV 110 120 Sodium Chloride 0.9% 1, 110 120 000 ml @ 20 mls/hr IV . Q24H ON LICENSE OF [facility] Rx#:[id number] Oral 100 Output: Urine 550 470 Other: Voiding Method Indwelling Catheter Indwelling Catheter # Bowel Movements 0 - Constitutional General appearance: Present: no acute distress - Respiratory Respiratory: bilateral: diminished - Cardiovascular Rhythm: regular - Labs CBC & Chem 7: 05/26/22 06:28 05/26/22 06:28 Labs: Abnormal Lab Results - Last 24 Hours (Table) 05/26/22 05/26/22 05/27/22 Range/Units 08:16 19:41 01:10 POC Glucose (mg/dL) 114 H 119 H (70-110) mg/dL Urine Protein 1+ H (Negative) Urine WBC 6 H (0-5) /hpf Hyaline Casts 72 H (0-2) /lpf Urine Mucus Few H (None) /hpf Microbiology - Last 24 Hours (Table) 05/25/22 08:15 Acid Fast Bacilli Smear - Final Thoracentesis Fluid Acid Fast Bacilli Culture - Preliminary 05/25/22 08:15 Gram Stain - Preliminary Pleural Fluid Body Fluid Culture - Preliminary Assessment and Plan Assessment: Assessment #1 history of lung cancer #2 recurrent pericardial effusion secondary to malignancy #3 recurrent pleural effusion secondary to malignancy as well #4 paroxysmal atrial fibrillation #5 nonischemic cardiomyopathy Plan #1 continue the current medical regimen including the current dose of diuretics #2 consider decrease dose of IV Lasix in the next 24 hours giving the margin a low blood pressure #3 continue monitor the kidney function and electrolytes #4 the echo was reviewed and that revealed impaired LV function was if around 40% with small pericardial effusion and no tamponade physiology #5 consider starting the patient on oral anticoagulation once she is stable and doesn't need any more invasive procedures
[2022-05-27 07:52] LABS: ALT 68 U/L (4-34); AST 84 U/L (14-36); African American GFR (CKD) >90 (>60 ml/min/1.73 sqM); Albumin 2.9 g/dL (3.5-5.0); Alkaline Phosphatase 136 U/L (38-126); Anion Gap 7 mmol/L; Blood Urea Nitrogen 61 mg/dL (7-17); Calcium 7.8 mg/dL (8.4-10.2); Carbon Dioxide 32 mmol/L (22-30); Chloride 93 mmol/L (98-107); Glucose 111 mg/dL (74-99); Magnesium 2.4 mg/dL (1.6-2.3); Non-African American GFR(CKD) >90 (>60 ml/min/1.73 sqM); Potassium 4.4 mmol/L (3.5-5.1); Sodium 132 mmol/L (137-145); Total Bilirubin 1.1 mg/dL (0.2-1.3); Total Protein 5.9 g/dL (6.3-8.2)
--- NOTE | 2022-05-27 07:55 | XR ---
EXAMINATION TYPE: XR chest 1V portable DATE OF EXAM: 05/27/2022 HISTORY: Shortness of breath. COMPARISON: 05/26/2022 TECHNIQUE: Single view of the chest is submitted. FINDINGS: Demonstrated are scattered senescent parenchymal change. Again noted is cardiomegaly with pulmonary edema and bilateral pleural effusions essentially unchange d. Hilar and mediastinal structures are within normal limits. Degenerative changes are seen of the dorsal spine. IMPRESSION: 1. Stable pulmonary edema.
--- NOTE | 2022-05-27 08:06 | P.PN ---
Subjective Patient is seen in follow-up for acute kidney injury. Creatinine is down to 0.67. Urine output about 30 mL an hour. She is on IV Lasix. On BiPAP. Oral intake is poor. Vital signs are stable. General: Awake. HEENT: On BiPAP. LUNGS: Breath sounds decreased. HEART: Rate and Rhythm are regular. ABDOMEN: Soft, no distention. EXTREMITITES: Trace edema. Objective - Vital Signs Vital signs: Vital Signs Temp 96.9 F L 05/27/22 03:30 Pulse 93 05/27/22 06:00 Resp 13 05/27/22 06:00 BP 91/70 05/27/22 06:00 Pulse Ox 94 L 05/27/22 06:00 FiO2 40 05/27/22 07:15 Intake & Output 05/26/22 05/27/22 05/27/22 18:59 06:59 18:59 Intake Total 110 220 Output Total 550 470 Balance -440 -250 Weight 64.5 kg Intake: IV 110 120 Sodium Chloride 0.9% 1, 110 120 000 ml @ 20 mls/hr IV . Q24H [facility] Rx#:[id number] Oral 100 Output: Urine 550 470 Other: Voiding Method Indwelling Catheter Indwelling Catheter # Bowel Movements 0 - Labs CBC & Chem 7: 05/26/22 06:28 05/27/22 06:54 Labs: Abnormal Lab Results - Last 24 Hours (Table) 05/26/22 05/26/22 05/27/22 Range/Units 08:16 19:41 01:10 Sodium (137-145) mmol/L Chloride (98-107) mmol/L Carbon Dioxide (22-30) mmol/L BUN (7-17) mg/dL Glucose (74-99) mg/dL POC Glucose (mg/dL) 114 H 119 H (70-110) mg/dL Calcium (8.4-10.2) mg/dL Magnesium (1.6-2.3) mg/dL AST (14-36) U/L ALT (4-34) U/L Alkaline Phosphatase (38-126) U/L Total Protein (6.3-8.2) g/dL Albumin (3.5-5.0) g/dL Urine Protein 1+ H (Negative) Urine WBC 6 H (0-5) /hpf Hyaline Casts 72 H (0-2) /lpf Urine Mucus Few H (None) /hpf 05/27/22 Range/Units 06:54 Sodium 132 L (137-145) mmol/L Chloride 93 L (98-107) mmol/L Carbon Dioxide 32 H (22-30) mmol/L BUN 61 H (7-17) mg/dL Glucose 111 H (74-99) mg/dL POC Glucose (mg/dL) (70-110) mg/dL Calcium 7.8 L (8.4-10.2) mg/dL Magnesium 2.4 H (1.6-2.3) mg/dL AST 84 H (14-36) U/L ALT 68 H (4-34) U/L Alkaline Phosphatase 136 H (38-126) U/L Total Protein 5.9 L (6.3-8.2) g/dL Albumin 2.9 L (3.5-5.0) g/dL Urine Protein (Negative) Urine WBC (0-5) /hpf Hyaline Casts (0-2) /lpf Urine Mucus (None) /hpf Microbiology - Last 24 Hours (Table) 05/25/22 08:15 Acid Fast Bacilli Smear - Final Thoracentesis Fluid Acid Fast Bacilli Culture - Preliminary 05/25/22 08:15 Gram Stain - Preliminary Pleural Fluid Body Fluid Culture - Preliminary Assessment and Plan Plan: Assessment: 1. Acute kidney injury secondary to ATN secondary to cardiorenal syndrome. Urine output about 30 mL an hour. Creatinine 0.67 today. No hydronephrosis noted on kidney ultrasound. 2. Acute on chronic systolic CHF with ejection fraction of 40%. 3. Acute hypoxic respiratory failure. 4. Metastatic adenocarcinoma. ?Primary. Oncology following. 5. Hypervolemic hyponatremia. 6. Pericardial effusion status post pericardial window 05/22/2022. 7. Large pleural effusion status post thoracentesis with 1 L drained this admission. Plan: Start Lasix drip. Add midodrine 5 mg 3 times daily. Hold for systolic blood pressure greater than 110. Check cortisol level. Wean FiO2. Continue to monitor renal function and urine output.
[2022-05-27 08:23] LABS: HCT 44.1 % (34.0-46.0); HGB 13.6 gm/dL (11.4-16.0); Hypochromasia Marked; MCH 30.5 pg (25.0-35.0); MCHC 30.9 g/dL (31.0-37.0); MCV 98.6 fL (80.0-100.0); Macrocytosis Slight; Platelet Count 174 k/uL (150-450); RBC 4.47 m/uL (3.80-5.40); RDW 15.6 % (11.5-15.5); WBC 13.6 k/uL (3.8-10.6)
[2022-05-27] MEDS: SODIUM CHLORIDE 0.9% 1,000 ML IV SCH (08:34)
[2022-05-27] MEDS: FUROSEMIDE 100 MG in SODIUM CHLORIDE 0.9% 90 ML IV SCH ×2 (08:35→22:48)
[2022-05-27] MEDS: AMIODARONE 200 MG TAB PO SCH ×2 (08:53→20:44)
--- NOTE | 2022-05-27 10:23 | P.GSCN ---
History of Present Illness Consult date: 05/27/22 Reason for Consult: Recurrent pleural effusions, Pleurx catheter placement Requesting physician: James Goetz History of present illness: This is a 57-year-old female patient who follows on an outpatient basis with Dr. Gifford for primary care. She has a previous medical history of malignant pericardial effusion status post emergent pericardial window 04/21/2022 was fluid positive for metastatic adenocarcinoma with unknown primary status post first round of chemotherapy 05/24/2022, paroxysmal atrial fibrillation on Eliquis outpatient for anticoagulation (last dose 05/24/22), cardiomyopathy with EF 35%, and previous tobacco dependence. She is known to our service as Dr. Rankin performed emergent pericardial window with removal of 750 mL fluid, cytology was positive for metastatic adenocarcinoma with unknown primary. She was stabilized and discharged 04/30/2022, however she has had four more admissions since that discharge for chest pain and atrial fibrillation. She did have an ultrasound of the chest demonstrating left-sided pleural effusion and was scheduled to undergo left sided thoracentesis today by Dr. Ortiz. Unfortunately after her chemo induction on May 24 she developed significant shortness of breath and hypoxia and presented to [facility] emergency room for treatment and evaluation. She was admitted to the intensive care unit. She was seen by pulmonary medicine, Dr. Olmstead performed left sided thoracentesis with removal of 1 L bloody fluid on 05/25/2022 which was sent for cytology and culture. Unfortunately she has not done well with increasing oxygen requirements and is currently on BiPAP. Due to her history of recent diagnosis of metastatic cancer along with shortness of breath and hypoxia consultation was placed to cardiothoracic surgery for possible Pleurx catheter placement. Review of Systems Review of systems was completed and was negative except as noted - Cardiovascular Reports decreased exercise tolerance, Reports shortness of breath - Respiratory Reports as per HPI, Reports dyspnea Past Medical History Past Medical History: Atrial Fibrillation, Cancer, Heart Failure Additional Past Medical History / Comment(s): Pericardial fluid positive for metastatic adenocarcinoma, unknown primary History of Any Multi-Drug Resistant Organisms: None Reported Additional Past Surgical History / Comment(s): tubal ligation; pericardial window completed 04/21/2022; left sided thoracentesis completed 05/25/2022 Past Anesthesia/Blood Transfusion Reactions: No Reported Reaction Past Psychological History: No Psychological Hx Reported Smoking Status: Former smoker Past Alcohol Use History: None Reported Past Drug Use History: None Reported - Past Family History Father Family Medical History: Hypertension Additional Family Medical History / Comment(s): of an NC at age 51 Brother(s) Family Medical History: Hypertension Additional Family Medical History / Comment(s): Aunt with brain cancer Medications and Allergies Home Medications Medication Instructions Recorded Confirmed Type RX: Apixaban [Eliquis] 5 mg PO BID #60 tab 05/04/22 05/24/22 Rx RX: Metoprolol Succinate (ER) 25 mg PO HS #30 tab 05/04/22 05/24/22 Rx [Toprol XL] RX: Amiodarone [Cordarone] 200 mg PO BID 05/11/22 05/24/22 History RX: Furosemide [Lasix] 40 mg PO BID@0900,1600 05/16/22 05/24/22 History RX: Nystatin 100,000 Unit/ml Susp 500,000 units PO QID 05/16/22 05/24/22 History [Mycostatin Oral Susp] HYDROcodone/APAP 5-325MG [[place] 1 tab PO Q8H PRN 05/24/22 05/24/22 History 5-325] Allergies Allergy/AdvReac Type Severity Reaction Status Date / Time No Known Allergies Allergy Verified 05/24/22 22:51 Surgical - Exam Vital Signs Temp Pulse Resp BP Pulse Ox 98.2 F 91 26 H 125/93 82 L 05/24/22 21:45 05/24/22 21:45 05/24/22 21:45 05/24/22 21:45 05/24/22 21:45 CONSTITUTIONAL: Awake and alert, appears comfortable, cooperative, well- developed, well-nourished, no pain, no acute distress EYES: Pupils equal, round, reactive to light, normal ocular movement ENT: Moist mucous membranes without oral lesions present NECK: No masses, no bruits, trachea midline RESPIRATORY: Lungs sounds diminished bilaterally. Respirations even, nonlabored. Currently on BiPAP, 40% FiO2, IPAP 12, EPAP 6. CARDIOVASCULAR: S1, S2 present. Regular rate and rhythm, sinus rhythm on telemetry. Palpable peripheral pulses bilaterally. Bilateral lower extremity edema present. GASTROINTESTINAL: Abdomen soft, nontender, nondistended without masses or organomegaly noted. There is no rebound or guarding present. Active bowel sounds present 4 quadrants. GENITOURINARY: Deferred INTEGUMENTARY: Skin is warm and dry with evidence of good perfusion. NEUROLOGIC: Cranial nerves II through XII intact, normal coordination, no obvious motor or sensory deficits, speech is normal MUSKULOSKELETAL: Able to move all extremities, strength equal bilaterally, normal posture PSYCHIATRIC: Alert and oriented to person place and time, appropriate affect, intact judgment and insight Results - Labs 05/27/22 06:54 05/27/22 06:54 Abnormal Lab Results - Last 24 Hours (Table) 05/26/22 05/27/22 05/27/22 Range/Units 19:41 01:10 06:54 WBC 13.6 H (3.8-10.6) k/uL MCHC 30.9 L (31.0-37.0) g/dL RDW 15.6 H (11.5-15.5) % Sodium (137-145) mmol/L Chloride (98-107) mmol/L Carbon Dioxide (22-30) mmol/L BUN (7-17) mg/dL Glucose (74-99) mg/dL POC Glucose (mg/dL) 114 H 119 H (70-110) mg/dL Calcium (8.4-10.2) mg/dL Magnesium (1.6-2.3) mg/dL AST (14-36) U/L ALT (4-34) U/L Alkaline Phosphatase (38-126) U/L Total Protein (6.3-8.2) g/dL Albumin (3.5-5.0) g/dL 05/27/22 Range/Units 06:54 WBC (3.8-10.6) k/uL MCHC (31.0-37.0) g/dL RDW (11.5-15.5) % Sodium 132 L (137-145) mmol/L Chloride 93 L (98-107) mmol/L Carbon Dioxide 32 H (22-30) mmol/L BUN 61 H (7-17) mg/dL Glucose 111 H (74-99) mg/dL POC Glucose (mg/dL) (70-110) mg/dL Calcium 7.8 L (8.4-10.2) mg/dL Magnesium 2.4 H (1.6-2.3) mg/dL AST 84 H (14-36) U/L ALT 68 H (4-34) U/L Alkaline Phosphatase 136 H (38-126) U/L Total Protein 5.9 L (6.3-8.2) g/dL Albumin 2.9 L (3.5-5.0) g/dL Microbiology - Last 24 Hours (Table) 05/25/22 08:15 Gram Stain - Preliminary Pleural Fluid Body Fluid Culture - Preliminary 05/25/22 08:15 Acid Fast Bacilli Smear - Final Thoracentesis Fluid Acid Fast Bacilli Culture - Preliminary Diabetes panel 05/27/22 Range/Units 06:54 Sodium 132 L (137-145) mmol/L Potassium 4.4 (3.5-5.1) mmol/L Chloride 93 L (98-107) mmol/L Carbon Dioxide 32 H (22-30) mmol/L BUN 61 H (7-17) mg/dL Creatinine 0.67 (0.52-1.04) mg/dL Glucose 111 H (74-99) mg/dL Calcium 7.8 L (8.4-10.2) mg/dL AST 84 H (14-36) U/L ALT 68 H (4-34) U/L Alkaline Phosphatase 136 H (38-126) U/L Total Protein 5.9 L (6.3-8.2) g/dL Albumin 2.9 L (3.5-5.0) g/dL Calcium panel 05/27/22 Range/Units 06:54 Calcium 7.8 L (8.4-10.2) mg/dL Albumin 2.9 L (3.5-5.0) g/dL Pituitary panel 05/27/22 Range/Units 06:54 Sodium 132 L (137-145) mmol/L Potassium 4.4 (3.5-5.1) mmol/L Chloride 93 L (98-107) mmol/L Carbon Dioxide 32 H (22-30) mmol/L BUN 61 H (7-17) mg/dL Creatinine 0.67 (0.52-1.04) mg/dL Glucose 111 H (74-99) mg/dL Calcium 7.8 L (8.4-10.2) mg/dL Adrenal panel 05/27/22 Range/Units 06:54 Sodium 132 L (137-145) mmol/L Potassium 4.4 (3.5-5.1) mmol/L Chloride 93 L (98-107) mmol/L Carbon Dioxide 32 H (22-30) mmol/L BUN 61 H (7-17) mg/dL Creatinine 0.67 (0.52-1.04) mg/dL Glucose 111 H (74-99) mg/dL Calcium 7.8 L (8.4-10.2) mg/dL Total Bilirubin 1.1 (0.2-1.3) mg/dL AST 84 H (14-36) U/L ALT 68 H (4-34) U/L Alkaline Phosphatase 136 H (38-126) U/L Total Protein 5.9 L (6.3-8.2) g/dL Albumin 2.9 L (3.5-5.0) g/dL - Imaging Chest x-ray: report reviewed, image reviewed Assessment and Plan Assessment: 1. Hypoxemic respiratory failure requiring BiPAP 2. Shortness of breath 3. Left-sided pleural effusion, status post thoracentesis with removal of 1 L bloody fluid on 05/25/2022 4. History of malignant pericardial effusion status post emergent pericardial window 04/21/2022 was fluid positive for metastatic adenocarcinoma with unknown primary status post first round of chemotherapy 05/24/2022 5. Paroxysmal atrial fibrillation on Eliquis outpatient for anticoagulation (last dose 05/24/22) 6. Cardiomyopathy with EF 35% 7. Previous tobacco dependence Plan: The patient was seen and examined in the intensive care unit laying in bed currently on BiPAP. Chart/diagnostics reviewed. The case discussed in detail with Dr. Hilario. Continue present therapies per internal medicine, pulmonology. We will make decision regarding placement of Pleurx catheter once Dr. Hilario has seen the patient. More recommendations to follow. Prognosis guarded Thank you Dr. Goetz for this consult. We will continue to follow along with you and make further recommendations as appropriate I have personally seen and examined the patient, performed the documentation and the assessment and plan as written. Number of minutes spent on the visit: 30. JACQUELIN Black ..I have personally seen and examined the patient, REVIEWED the documentation and the assessment and plan as written. Patient not canddidate for PleurX yet, S/P single L Thoracocentesis and just received ChemoRx. Will be more than willing to perform it once definitely indicated. Number of minutes spent on the visit: 30 REGGIE HILARIO MD
[2022-05-27 11:10] LABS: Band Neutrophils % 1 %; Lymphocytes # (M) 0.41 k/uL (1.0-4.8); Monocytes # (M) 0.27 k/uL (0-1.0); Neutrophils % (M) 95 %; Nucleated Red Blood Cells 0 /100 WBC (0-0); Total Cells Counted 200
--- NOTE | 2022-05-27 11:13 | P.PN ---
Subjective Progress Note Date: 05/27/22 Is a pleasant 57-year-old female patient with a known history of chronic tobacco dependence who had been hospitalized 1 month ago for shortness of breath and was found to have a large pericardial effusion with tamponade physiology status post emergent pericardial window. Her pericardial fluid was positive for metastatic adenocarcinoma of unknown primary. She does have a large soft tissue density around theright paratracheal region measuring 2.7 x 2.0 cm. Enlarged lymphadenopathy versus mass were within the differential.she also had acute cardiomyopathy with ejection fraction of 35%. She was subsequently discharged and was to undergo a this biopsies of the right paratracheal mass. The patient had ended up in the emergency room on on 3 separate occasions with chest pain, shortness of breath and atrial fibrillation with rapid ventricular response. She is anticoagulated with Eliquis. She was seen in our office on 05/23/[address] Angel Abarca on performed a chest x-ray which revealed bilateral pleural effusions. Ultrasound of the chest revealed a 9.3 cm pocket on the right and a 8.5 cm pocket on the left. She was going to be set up for a thoracentesis on 05/27/2022. Yesterday she underwent a first round of chemotherapy. Shortly after that she developed worsening shortness of breath and presented to the emergency room for the same. She is seen today in consultation. She is dys pneic on conversation. Dyspneic with minimal exertion. She did undergo a left- sided thoracentesis today with 1 liter of bloody fluid removed. Fluid analysis and cytology sent. white count 9.9. Hemoglobin 13.8. INR 1.5. Sodium 129. Potassium 4.2. BUN 37. Creatinine 0.5. Glucose 129. AST 263. ALT 111. Cano virus by PCR not detected. she is breathing a bit better postthoracentesis. She is maintaining O2 saturations in the mid 90s on 3 L/m per nasal cannula. Afebrile. Hemodynamically stable. Patient was reevaluated today on 05/26/22, patient had to be transferred to the ICU late in the afternoon yesterday. I performed on this patient left-sided thoracentesis and I was able to drain about 1000 mL of serosanguineous fluid from the left pleural space. Patient was doing great, as a matter of fact she was even asking to be discharged home, and I recommended that the decision be made by her admitting physician, and the plan was to eventually wait for the results of the fluid from the left pleural space and decide if it is malignant or nonmalignant. Follow-up chest x-ray after thoracentesis showed complete resolution of the fluid on the left side, even ultrasound was done p ostoperatively and showed no fluid on the left side. 7 hours after the thoracentesis, I was called by the nurse from the ER telling me that the patient is developing more and more shortness of breath. Follow-up chest x-ray showed evidence of pulmonary edema, patient required placement on high FiO2 she even required placement on BiPAP, and I transferred the patient to the ICU and is status post sending her back to the floor. Chest x-ray continues to show evidence of interstitial edema. Patient received multiple doses of Lasix since yesterday, her urine output does not seem to be great, echocardiogram this morning showed no evidence of temporal not she does have pericardial effusion and she does have severe LV dysfunction. Hence I'm planning to keep the patient in the ICU today and hopefully we will get the results of the cytology from the left pleural effusion which I drained yesterday. There is hardly any pleural effusion on the left side, she does have a [id number] right-sided pleural effusion which may or may not require thoracentesis. Considering the patient developed pulmonary edema post left thoracentesis yesterday, and extremely reluctant to go ahead and perform a right-sided thoracentesis today not to mention we have no information about the fluid except the fluid I drained was most likely malignant, was clearly exudative in nature. WBC count today is 16.4 hemoglobin is 14.3. ABG earlier on 50% BiPAP with 50%/05/27 showed a pO2 of 86 pCO2 55 pH of 7.41. More Lasix will be given later today. The patient is seen and evaluated today 05/27/2022 in follow-up in the intensive care unit. She is currently sitting up in bed. She is remaining on BiPAP 05/28 and 40% FiO2. She's been initiated on a Lasix drip at 5 mg per hour. Chest x- ray continues to show stable pulmonary edema. White count 13.6. Hemoglobin 13.6. Platelets 174. Sodium 132. Potassium 4.4. BUN 61. Creatinine 0.67. AST 84. ALT 68. Glucose 136. ProBNP 6050. Cortisol level 20. Pleural fluid analysis was positive for exudate with a total protein of 3.6 and an LDH of 961. Objective - Vital Signs Vital signs: Vital Signs Temp 96.6 F L 05/27/22 08:00 Pulse 92 05/27/22 10:00 Resp 17 05/27/22 10:00 BP 105/70 05/27/22 10:00 Pulse Ox 91 L 05/27/22 10:00 FiO2 40 05/27/22 10:59 Intake & Output 05/26/22 05/27/22 05/27/22 18:59 06:59 18:59 Intake Total 110 220 50 Output Total 550 470 135 Balance -440 -250 -85 Weight 64.5 kg 64.5 kg Intake: IV 110 120 50 Furosemide 100 mg In 10 Sodium Chloride 0.9% 90 ml @ 5 MG/HR 5 mls/hr IV .Q20H RO Rx#:[id number] Sodium Chloride 0.9% 1, 110 120 40 000 ml @ 20 mls/hr IV . Q24H RO Rx#:[id number] Oral 100 Output: Urine 550 470 135 Other: Voiding Method Indwelling Catheter Indwelling Catheter Indwelling Catheter # Bowel Movements 0 - Exam GENERAL EXAM: Alert, pleasant 57-year-old female, on BiPAP currently 12/6 and 40% FiO2, fairly comfortable in no apparent distress. HEAD: Normocephalic. EYES: Normal reaction of pupils, equal size. NOSE: Clear with pink turbinates. THROAT: No erythema or exudates. NECK: No masses, no JVD. CHEST: No chest wall deformity. LUNGS: Equal air entry with crackles in the bilateral bases. CVS: S1 and S2 normal with no audible murmur, regular rhythm. ABDOMEN: No hepatosplenomegaly, normal bowel sounds, no guarding or rigidity. SPINE: No scoliosis or deformity SKIN: No rashes CENTRAL NERVOUS SYSTEM: No focal deficits, tone is normal in all 4 extremities. EXTREMITIES: There is no peripheral edema. No clubbing, no cyanosis. Peripheral pulses are intact. - Labs CBC & Chem 7: 05/27/22 06:54 05/27/22 06:54 Labs: Abnormal Lab Results - Last 24 Hours (Table) 05/26/22 05/27/22 05/27/22 Range/Units 19:41 01:10 06:54 WBC 13.6 H (3.8-10.6) k/uL MCHC 30.9 L (31.0-37.0) g/dL RDW 15.6 H (11.5-15.5) % Sodium (137-145) mmol/L Chloride (98-107) mmol/L Carbon Dioxide (22-30) mmol/L BUN (7-17) mg/dL Glucose (74-99) mg/dL POC Glucose (mg/dL) 114 H 119 H (70-110) mg/dL Calcium (8.4-10.2) mg/dL Magnesium (1.6-2.3) mg/dL AST (14-36) U/L ALT (4-34) U/L Alkaline Phosphatase (38-126) U/L Total Protein (6.3-8.2) g/dL Albumin (3.5-5.0) g/dL 05/27/22 Range/Units 06:54 WBC (3.8-10.6) k/uL MCHC (31.0-37.0) g/dL RDW (11.5-15.5) % Sodium 132 L (137-145) mmol/L Chloride 93 L (98-107) mmol/L Carbon Dioxide 32 H (22-30) mmol/L BUN 61 H (7-17) mg/dL Glucose 111 H (74-99) mg/dL POC Glucose (mg/dL) (70-110) mg/dL Calcium 7.8 L (8.4-10.2) mg/dL Magnesium 2.4 H (1.6-2.3) mg/dL AST 84 H (14-36) U/L ALT 68 H (4-34) U/L Alkaline Phosphatase 136 H (38-126) U/L Total Protein 5.9 L (6.3-8.2) g/dL Albumin 2.9 L (3.5-5.0) g/dL Microbiology - Last 24 Hours (Table) 05/25/22 08:15 Gram Stain - Preliminary Pleural Fluid Body Fluid Culture - Preliminary 05/25/22 08:15 Acid Fast Bacilli Smear - Final Thoracentesis Fluid Acid Fast Bacilli Culture - Preliminary Assessment and Plan Assessment: Acute hypoxemic respiratory failure secondary to bilateral pleural effusions. Status post left-sided thoracentesis today with 1 L of bloody fluid removed. Exudative with an protein of 3.6 and an LDH 961. Cytology pending. Acute pulmonary edema requiring BiPAP support 05/28 at 40% FiO2. Lasix drip at 5 mg per hour. History of large pericardial effusion with tamponade physiology with previous emergent pericardial window on 05/22/2022. 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 The patient did receive an initial round of chemotherapy on 05/24/2022. History of atrial fibrillation with a rapid ventricular response, anticoagulated with Eliquis. Currently in normal sinus rhythm History of cardiomyopathy with ejection fraction of 40% Chronic tobacco dependence Plan: The patient was seen and evaluated Chest x-ray, medication and labs reviewed Initiated on a Lasix drip at 5 mg per hour Titrate the FiO2 as tolerated Continue to hold Eliquis The patient may require Pleurx catheter placement for recurrent effusions CT services have been consulted We'll continue to follow I have personally seen and examined the patient, performed the documentation and the assessment and plan as written. Number of minutes spent on the visit: 10.
--- NOTE | 2022-05-27 11:16 | P.PN ---
Subjective Progress Note Date: 05/27/22 Principal diagnosis: SOB Hospital Course: 57-year-old female with history of multiple recent hospitalizations for large malignant pericardial effusion with unknown primary, likely lung cancer, systolic CHF exacerbations, atrial fibrillation with RVR presenting this time for worsening shortness of breath. Patient had a first round of chemotherapy the beginning of the month. She developed worsening shortness of breath, was found to have extensive bilateral pleural effusions. She underwent left-sided thoracentesis with total of 1 L of bloody fluid removed. However, patient became more dyspneic after the thoracentesis. Follow-up chest x-ray showed pul monary edema. Patient was placed on BiPAP and transferred to the ICU. Patient continues to have some mild to moderate right-sided pleural effusion. Currently being followed by pulmonology, cardiology, nephrology and oncology. Subjective: Patient seen and examined at bedside. No acute events overnight. She continues to have increased work of breathing without BiPAP. Only tolerated diffuse water with meds. Currently has a Monreal catheter in place. Denies any significant pain. Pertinent positives and negatives as discussed above, a complete review of systems was performed and all other systems are negative. Vitals Signs Reviewed. General: nontoxic, in mild respiratory distress, appears at stated age, tired appearing Derm: warm, dry Head: atraumatic, normocephalic, symmetric Eyes: EOMI, no lid lag, anicteric sclera Mouth: no lip lesion, mucus membranes moist Cardiovascular: S1S2 reg, no murmur Lungs: bilateral rhonchi , no accessory muscle use, on bipap Abdominal: soft, nontender to palpation, no guarding, no appreciable organomegaly Ext: no gross muscle atrophy, trace peripheral edema, no contractures Neuro: CN II-XI grossly intact, no focal neuro deficits Psych: Alert, oriented, appropriate affect Assessment and Plan: Acute hypoxemic respiratory failure Bilateral pleural effusions Acute pulmonary edema Acute systolic CHF exacerbation -Status post thoracentesis on the left, 1 L removed, cytology pending - Fluid analysis consistent with exudate. -Remains on BiPAP -LVEF 40%, small pericardial effusion -Lasix drip -midorine 5 TID -CT surgery consulted for possible bilateral Pleurx catheter -Continue to hold Eliquis -ICU, nephrology, cardiology following Hyponatremia -improving with lasix -Continue to monitor History of large pericardial effusion with tamponade physiology with previous emergent pericardial window on 02/19/2022. 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 -Likely lung cancer -Status post 1 round of chemotherapy History of atrial fibrillation Currently in normal sinus rhythm, on amiodarone. Hold eliquis, has bloody pleural effusion. DVT prophylaxis SCDs. Anticipated discharge: depending on clinical course Dispo: depending on clinical course Objective - Vital Signs Vital signs: Vital Signs Temp 96.6 F L 05/27/22 08:00 Pulse 92 05/27/22 10:00 Resp 17 05/27/22 10:00 BP 105/70 05/27/22 10:00 Pulse Ox 91 L 05/27/22 10:00 FiO2 40 05/27/22 10:59 Intake & Output 05/26/22 05/27/22 05/27/22 18:59 06:59 18:59 Intake Total 110 220 50 Output Total 550 470 135 Balance -440 -250 -85 Weight 64.5 kg 64.5 kg Intake: IV 110 120 50 Furosemide 100 mg In 10 Sodium Chloride 0.9% 90 ml @ 5 MG/HR 5 mls/hr IV .Q20H RO Rx#:[id number] Sodium Chloride 0.9% 1, 110 120 40 000 ml @ 20 mls/hr IV . Q24H RO Rx#:[id number] Oral 100 Output: Urine 550 470 135 Other: Voiding Method Indwelling Catheter Indwelling Catheter Indwelling Catheter # Bowel Movements 0 - Labs CBC & Chem 7: 05/27/22 06:54 05/27/22 06:54 Labs: Abnormal Lab Results - Last 24 Hours (Table) 05/26/22 05/27/22 05/27/22 Range/Units 19:41 01:10 06:54 WBC 13.6 H (3.8-10.6) k/uL MCHC 30.9 L (31.0-37.0) g/dL RDW 15.6 H (11.5-15.5) % Neutrophils # (Manual) 13.00 H (1.3-7.7) k/uL Lymphocytes # (Manual) 0.41 L (1.0-4.8) k/uL Sodium (137-145) mmol/L Chloride (98-107) mmol/L Carbon Dioxide (22-30) mmol/L BUN (7-17) mg/dL Glucose (74-99) mg/dL POC Glucose (mg/dL) 114 H 119 H (70-110) mg/dL Calcium (8.4-10.2) mg/dL Magnesium (1.6-2.3) mg/dL AST (14-36) U/L ALT (4-34) U/L Alkaline Phosphatase (38-126) U/L Total Protein (6.3-8.2) g/dL Albumin (3.5-5.0) g/dL 05/27/22 Range/Units 06:54 WBC (3.8-10.6) k/uL MCHC (31.0-37.0) g/dL RDW (11.5-15.5) % Neutrophils # (Manual) (1.3-7.7) k/uL Lymphocytes # (Manual) (1.0-4.8) k/uL Sodium 132 L (137-145) mmol/L Chloride 93 L (98-107) mmol/L Carbon Dioxide 32 H (22-30) mmol/L BUN 61 H (7-17) mg/dL Glucose 111 H (74-99) mg/dL POC Glucose (mg/dL) (70-110) mg/dL Calcium 7.8 L (8.4-10.2) mg/dL Magnesium 2.4 H (1.6-2.3) mg/dL AST 84 H (14-36) U/L ALT 68 H (4-34) U/L Alkaline Phosphatase 136 H (38-126) U/L Total Protein 5.9 L (6.3-8.2) g/dL Albumin 2.9 L (3.5-5.0) g/dL Microbiology - Last 24 Hours (Table) 05/25/22 08:15 Gram Stain - Preliminary Pleural Fluid Body Fluid Culture - Preliminary 05/25/22 08:15 Acid Fast Bacilli Smear - Final Thoracentesis Fluid Acid Fast Bacilli Culture - Preliminary
[2022-05-27 11:29] LABS: Glucose,Whole Blood 116 mg/dL (70-110)
[2022-05-27] MEDS: MORPHINE SULFATE 4 MG/ML SYRINGE IV PRN ×2 (12:25→16:12)
[2022-05-27] MEDS: MIDODRINE 5 MG TAB PO SCH ×2 (12:25→18:29)
[2022-05-27 17:58] LABS: Glucose,Whole Blood 119 mg/dL (70-110)
[2022-05-27] MEDS: METOPROLOL SUCCINATE (ER) 25 MG TAB.ER.24H PO SCH (21:09)
[2022-05-27 23:54] LABS: Glucose,Whole Blood 132 mg/dL (70-110)
[2022-05-28] MEDS: HYDROcodone/APAP 5-325MG 1 EACH TAB PO PRN ×2 (00:39→15:50)
[2022-05-28 05:51] LABS: Glucose,Whole Blood 136 mg/dL (70-110)
[2022-05-28] MEDS: MIDODRINE 5 MG TAB PO SCH ×3 (06:24→17:20)
[2022-05-28 06:44] LABS: Basophils % (A) 0 %; Eosinophils % (A) 0 %; HCT 42.5 % (34.0-46.0); HGB 13.2 gm/dL (11.4-16.0); Hypochromasia Marked; Lymphocytes # (A) 0.2 k/uL (1.0-4.8); Lymphocytes % (A) 4 %; MCV 99.9 fL (80.0-100.0); Macrocytosis Slight; Mean Platelet Volume 10.2; Monocytes # (A) 0.3 k/uL (0-1.0); Monocytes % (A) 4 %; Neutrophils # (A) 5.4 k/uL (1.3-7.7); Neutrophils % (A) 91 %; Platelet Count 163 k/uL (150-450); RBC 4.25 m/uL (3.80-5.40); RDW 15.1 % (11.5-15.5); WBC 5.9 k/uL (3.8-10.6)
[2022-05-28 06:57] LABS: Magnesium 2.4 mg/dL (1.6-2.3); Potassium 4.6 mmol/L (3.5-5.1)
--- NOTE | 2022-05-28 07:17 | P.PN ---
Subjective Progress Note Date: 05/28/22 Principal diagnosis: Shortness of breath The patient is a 57-year-old female patient with history of lung cancer and recurrent pleural undercurrent pericardial effusion and cardiomyopathy as well as paroxysmal atrial fibrillation was admitted to the hospital with increasing shortness of breath. She was diagnosed with right lateral pleural effusion and she underwent thoracentesis and also with heart failure secondary to systolic dysfunction. May 272021 The patient was seen this morning. She continues to be short of breath. She underwent pleurocentesis within the last 24-48 hours. She underwent an echo which revealed impaired LV function was EF around 40% with small pericardial effusion with no tamponade physiology. She has been maintaining normal sinus mechanism. She is not on any anticoagulation at this point. She is hemodynamically stable. Currently she's on amiodarone as well as beta trish. Beside that she is on Lasix IV at 60 mg by mouth twice a day. We'll follow-up with the patient the chest x-ray from the morning but meanwhile continue the current medical regimen including the current dose of diuretics. May 282021 The patient was seen and evaluated this morning. Unfortunately she continues not doing well. She continues to be hypoxic requiring BiPAP. She continues to be in fluid overload and currently she is on Lasix IV. The chest x-ray was reviewed and showed findings consistent with heart failure. As a matter of fact on examination she does have diminished breathing sounds bilaterally and bilateral crackles as well. She is in process of having possible left pleurocentesis later on today. For that reason oral anticoagulation is on hold. Beside that she is on amiodarone by mouth and metoprolol by mouth and she has been maintaining normal sinus mechanism. The ejection fraction on the last echo was 40% with a small pericardial effusion and no tamponade physiology. Overall the prognosis is poor giving her cancer with recurrent pleural and pericardial effusion. Objective - Vital Signs Vital signs: Vital Signs Temp 97 F L 05/28/22 04:00 Pulse 95 05/28/22 07:00 Resp 18 05/28/22 07:00 BP 103/81 05/28/22 07:00 Pulse Ox 96 05/28/22 07:00 FiO2 50 05/28/22 06:00 Intake & Output 05/27/22 05/28/22 05/28/22 18:59 06:59 18:59 Intake Total 185 766.083 25 Output Total 400 120 25 Balance -215 646.083 0 Weight 64.5 kg 69.1 kg Intake: IV 185 215 25 Furosemide 100 mg In 55 55 5 Sodium Chloride 0.9% 90 ml @ 5 MG/HR 5 mls/hr IV .Q20H RO Rx#:[id number] Sodium Chloride 0.9% 1, 130 160 20 000 ml @ 20 mls/hr IV . Q24H RO Rx#:[id number] Intake, IV Titration 71.083 Amount Furosemide 100 mg In 71.083 Sodium Chloride 0.9% 90 ml @ 5 MG/HR 5 mls/hr IV .Q20H RO Rx#:[id number] Oral 480 Output: Urine 400 120 25 Other: Voiding Method Indwelling Catheter Indwelling Catheter - Constitutional General appearance: Present: no acute distress - Respiratory Respiratory: bilateral: rales - Cardiovascular Rhythm: regular - Labs CBC & Chem 7: 05/28/22 06:29 05/28/22 06:29 Labs: Abnormal Lab Results - Last 24 Hours (Table) 05/27/22 05/27/22 05/27/22 Range/Units 06:54 06:54 06:54 WBC 13.6 H (3.8-10.6) k/uL MCHC 30.9 L (31.0-37.0) g/dL RDW 15.6 H (11.5-15.5) % Neutrophils # (Manual) 13.00 H (1.3-7.7) k/uL Lymphocytes # (1.0-4.8) k/uL Lymphocytes # (Manual) 0.41 L (1.0-4.8) k/uL Sodium 132 L (137-145) mmol/L Chloride 93 L (98-107) mmol/L Carbon Dioxide 32 H (22-30) mmol/L BUN 61 H (7-17) mg/dL Creatinine (0.52-1.04) mg/dL Glucose 111 H (74-99) mg/dL POC Glucose (mg/dL) (70-110) mg/dL Calcium 7.8 L (8.4-10.2) mg/dL Magnesium 2.4 H (1.6-2.3) mg/dL AST 84 H (14-36) U/L ALT 68 H (4-34) U/L Alkaline Phosphatase 136 H (38-126) U/L Total Protein 5.9 L (6.3-8.2) g/dL Albumin 2.9 L (3.5-5.0) g/dL Procalcitonin 0.47 H (0.02-0.09) ng/mL 05/27/22 05/27/22 05/27/22 Range/Units 11:27 17:56 23:51 WBC (3.8-10.6) k/uL MCHC (31.0-37.0) g/dL RDW (11.5-15.5) % Neutrophils # (Manual) (1.3-7.7) k/uL Lymphocytes # (1.0-4.8) k/uL Lymphocytes # (Manual) (1.0-4.8) k/uL Sodium (137-145) mmol/L Chloride (98-107) mmol/L Carbon Dioxide (22-30) mmol/L BUN (7-17) mg/dL Creatinine (0.52-1.04) mg/dL Glucose (74-99) mg/dL POC Glucose (mg/dL) 116 H 119 H 132 H (70-110) mg/dL Calcium (8.4-10.2) mg/dL Magnesium (1.6-2.3) mg/dL AST (14-36) U/L ALT (4-34) U/L Alkaline Phosphatase (38-126) U/L Total Protein (6.3-8.2) g/dL Albumin (3.5-5.0) g/dL Procalcitonin (0.02-0.09) ng/mL 05/28/22 05/28/22 05/28/22 Range/Units 05:49 06:29 06:29 WBC (3.8-10.6) k/uL MCHC (31.0-37.0) g/dL RDW (11.5-15.5) % Neutrophils # (Manual) (1.3-7.7) k/uL Lymphocytes # 0.2 L (1.0-4.8) k/uL Lymphocytes # (Manual) (1.0-4.8) k/uL Sodium 131 L (137-145) mmol/L Chloride 92 L (98-107) mmol/L Carbon Dioxide 31 H (22-30) mmol/L BUN 75 H (7-17) mg/dL Creatinine 1.12 H (0.52-1.04) mg/dL Glucose 132 H (74-99) mg/dL POC Glucose (mg/dL) 136 H (70-110) mg/dL Calcium 8.0 L (8.4-10.2) mg/dL Magnesium 2.4 H (1.6-2.3) mg/dL AST (14-36) U/L ALT (4-34) U/L Alkaline Phosphatase (38-126) U/L Total Protein (6.3-8.2) g/dL Albumin (3.5-5.0) g/dL Procalcitonin (0.02-0.09) ng/mL Microbiology - Last 24 Hours (Table) 05/25/22 08:15 Gram Stain - Preliminary Pleural Fluid Body Fluid Culture - Preliminary Assessment and Plan Assessment: Assessment #1 history of lung cancer #2 recurrent pericardial effusion secondary to malignancy #3 recurrent pleural effusion secondary to malignancy as well #4 paroxysmal atrial fibrillation #5 nonischemic cardiomyopathy #6 heart failure exacerbation secondary to heart failure with reduced ejection fraction Plan #1 continue the current medical regimen #2 continue Lasix drip #3 continue monitor the kidney function and electrolytes #4 possible pleurocentesis #5 follow-up with the patient
[2022-05-28] MEDS: SODIUM CHLORIDE 0.9% 1,000 ML IV SCH (07:49)
[2022-05-28] MEDS: AMIODARONE 200 MG TAB PO SCH ×2 (07:49→20:36)
--- NOTE | 2022-05-28 08:48 | XR ---
EXAMINATION TYPE: XR chest 1V portable DATE OF EXAM: 05/28/2022 6:45 AM COMPARISON: Chest radiographs from 05/27/2022. TECHNIQUE: XR chest 1V portable Frontal view of the chest. CLINICAL INDICATION:Female, 57 years old with history of SOB; FINDINGS: Lungs/Pleura: Small bilateral pleural effusions with bibasilar atelectasis. Pulmonary edema redemonst rated. Chronic senescent changes. No pneumothorax. Heart/mediastinum: Cardiomediastinal silhouette is enlarged and stable. Musculoskeletal: No acute osseous pathology. IMPRESSION: Similar findings of CHF exacerbation with cardiomegaly, pulmonary edema, and small bilateral pleural effusions. Supra imposed infectious process not excluded.
[2022-05-28] MEDS ORDERED: LIDOCAINE 2% (PF) 20 MG/ML 5 ML VIAL ONE (09:15)
[2022-05-28] MEDS: LORazepam 1 MG TAB PO PRN (10:02)
[2022-05-28] MEDS ORDERED: metOLazone 5 MG TAB PO SCH (10:15)
--- NOTE | 2022-05-28 10:18 | P.PN ---
Subjective Patient is seen in follow-up for acute kidney injury. Renal function worse. Currently on Lasix drip at 5 mL an hour. She is on IV Lasix. On BiPAP. Oral intake is poor. Scheduled for thoracentesis today. Vital signs are stable. General: Awake. HEENT: On BiPAP. LUNGS: Breath sounds decreased. HEART: Rate and Rhythm are regular. ABDOMEN: Soft, no distention. EXTREMITITES: Trace edema. Objective - Vital Signs Vital signs: Vital Signs Temp 96.2 F L 05/28/22 08:00 Pulse 96 05/28/22 10:00 Resp 15 05/28/22 10:00 BP 90/68 05/28/22 10:00 Pulse Ox 95 05/28/22 10:00 FiO2 45 05/28/22 10:00 Intake & Output 05/27/22 05/28/22 05/28/22 18:59 06:59 18:59 Intake Total 185 766.083 100 Output Total 716 979 4382 Balance -215 646.083 -973 Weight 64.5 kg 69.1 kg Intake: IV 185 215 100 Furosemide 100 mg In 55 55 20 Sodium Chloride 0.9% 90 ml @ 5 MG/HR 5 mls/hr IV .Q20H RO Rx#:[id number] Sodium Chloride 0.9% 1, 130 160 80 000 ml @ 20 mls/hr IV . Q24H RO Rx#:[id number] Intake, IV Titration 71.083 Amount Furosemide 100 mg In 71.083 Sodium Chloride 0.9% 90 ml @ 5 MG/HR 5 mls/hr IV .Q20H RO Rx#:[id number] Oral 480 Output: Drainage 950 Right Back 950 Urine 400 120 123 Other: Voiding Method Indwelling Catheter Indwelling Catheter Indwelling Catheter - Labs CBC & Chem 7: 05/28/22 06:29 05/28/22 06:29 Labs: Abnormal Lab Results - Last 24 Hours (Table) 05/27/22 05/27/22 05/27/22 Range/Units 06:54 06:54 11:27 Neutrophils # (Manual) 13.00 H (1.3-7.7) k/uL Lymphocytes # (1.0-4.8) k/uL Lymphocytes # (Manual) 0.41 L (1.0-4.8) k/uL Sodium (137-145) mmol/L Chloride (98-107) mmol/L Carbon Dioxide (22-30) mmol/L BUN (7-17) mg/dL Creatinine (0.52-1.04) mg/dL Glucose (74-99) mg/dL POC Glucose (mg/dL) 116 H (70-110) mg/dL Calcium (8.4-10.2) mg/dL Magnesium (1.6-2.3) mg/dL Procalcitonin 0.47 H (0.02-0.09) ng/mL 05/27/22 05/27/22 05/28/22 Range/Units 17:56 23:51 05:49 Neutrophils # (Manual) (1.3-7.7) k/uL Lymphocytes # (1.0-4.8) k/uL Lymphocytes # (Manual) (1.0-4.8) k/uL Sodium (137-145) mmol/L Chloride (98-107) mmol/L Carbon Dioxide (22-30) mmol/L BUN (7-17) mg/dL Creatinine (0.52-1.04) mg/dL Glucose (74-99) mg/dL POC Glucose (mg/dL) 119 H 132 H 136 H (70-110) mg/dL Calcium (8.4-10.2) mg/dL Magnesium (1.6-2.3) mg/dL Procalcitonin (0.02-0.09) ng/mL 05/28/22 05/28/22 Range/Units 06:29 06:29 Neutrophils # (Manual) (1.3-7.7) k/uL Lymphocytes # 0.2 L (1.0-4.8) k/uL Lymphocytes # (Manual) (1.0-4.8) k/uL Sodium 131 L (137-145) mmol/L Chloride 92 L (98-107) mmol/L Carbon Dioxide 31 H (22-30) mmol/L BUN 75 H (7-17) mg/dL Creatinine 1.12 H (0.52-1.04) mg/dL Glucose 132 H (74-99) mg/dL POC Glucose (mg/dL) (70-110) mg/dL Calcium 8.0 L (8.4-10.2) mg/dL Magnesium 2.4 H (1.6-2.3) mg/dL Procalcitonin (0.02-0.09) ng/mL Microbiology - Last 24 Hours (Table) 05/25/22 08:15 Gram Stain - Preliminary Pleural Fluid Body Fluid Culture - Preliminary Assessment and Plan Plan: Assessment: 1. Acute kidney injury secondary to ATN secondary to cardiorenal syndrome. Urine output about 10-20 mL an hour. Renal function worse. No hydronephrosis noted on kidney ultrasound. 2. Acute on chronic systolic CHF with ejection fraction of 40%. 3. Acute hypoxic respiratory failure. 4. Metastatic adenocarcinoma. ?Primary. Oncology following. 5. Hypervolemic hyponatremia. 6. Pericardial effusion status post pericardial window 05/22/2022. 7. Large pleural effusion status post thoracentesis with 1 L drained this admission. Scheduled for another thoracentesis today. Plan: Increase Lasix drip at 10 mL an hour. Add metolazone 5 mg once daily. Increase midodrine to 10 mg 3 times daily. Hold for systolic blood pressure greater than 110. Cortisol level not low. Wean FiO2. Continue to monitor renal function and urine output. May need pleurx catheter.
--- NOTE | 2022-05-28 10:25 | XR ---
EXAMINATION TYPE: XR chest 1V portable DATE OF EXAM: 05/28/2022 10:14 AM COMPARISON: Chest radiographs from 05/28/2022. TECHNIQUE: XR chest 1V portable Frontal view of the chest. CLINICAL INDICATION:Female, 57 years old with history of Post right thoracentesis; FINDINGS: Lungs/Pleura: Decreased size of small right pleural effusion. Similar small left pleural effusion wit h left basilar atelectasis. Chronic senescent parenchymal changes. No pneumothorax. Pulmonary vascularity: Unremarkable. Heart/mediastinum: Cardiomediastinal silhouette is enlarged and stable. Musculoskeletal: No acute osseous pathology. IMPRESSION: 1. Decrease in small right pleural effusion status post thoracentesis. No pneumothorax. 2. Stable small left pleural effusion with associated atelectasis.
[2022-05-28] MEDS: FUROSEMIDE 100 MG in SODIUM CHLORIDE 0.9% 90 ML IV SCH ×2 (10:33→21:00)
--- NOTE | 2022-05-28 10:33 | PCN ---
PROCEDURE NOTE This is a Pulmonary/Critical Care procedure note. PROCEDURE PERFORMED: Right-sided thoracentesis. PREOPERATIVE DIAGNOSIS: Right pleural effusion. POSTOPERATIVE DIAGNOSIS: Right pleural effusion. CO-SURGEON: Dr. Ramos. DESCRIPTION OF PROCEDURE: The patient's procedure took place in patient's room, ICU, room 253. There was informed consent and universal timeout. The right posterior chest was marked by ultrasound. A time-out was completed verifying correct patient, procedure, site, positioning, and implant (s) or special equipment if applicable. Ultrasound guidance was/was not used and appropriate fluid pocket was identified and marked. Patient was positioned, prepped and draped in usual sterile fashion. Lidocaine was used to anesthetize the area. A Thoracentesis catheter was introduced into the pleural space and fluid was removed. Blood loss was none. A chest x-ray was ordered to evaluate for pneumothorax. Total Fluid Removed: 950 mL of brownish/reddish fluid was removed from the right pleural space. The patient tolerated the procedure well. A chest x-ray was ordered. The fluid will be sent for cytology only. There was no immediate complication. MMODL / IJN: [id number] /
--- NOTE | 2022-05-28 10:49 | P.PN ---
Subjective Progress Note Date: 05/28/22 Is a pleasant 57-year-old female patient with a known history of chronic tobacco dependence who had been hospitalized 1 month ago for shortness of breath and was found to have a large pericardial effusion with tamponade physiology status post emergent pericardial window. Her pericardial fluid was positive for metastatic adenocarcinoma of unknown primary. She does have a large soft tissue density around theright paratracheal region measuring 2.7 x 2.0 cm. Enlarged lymphadenopathy versus mass were within the differential.she also had acute cardiomyopathy with ejection fraction of 35%. She was subsequently discharged and was to undergo a this biopsies of the right paratracheal mass. The patient had ended up in the emergency room on on 3 separate occasions with chest pain, shortness of breath and atrial fibrillation with rapid ventricular response. She is anticoagulated with Eliquis. She was seen in our office on 05/23/[address] Angel Abarca on performed a chest x-ray which revealed bilateral pleural effusions. Ultrasound of the chest revealed a 9.3 cm pocket on the right and a 8.5 cm pocket on the left. She was going to be set up for a thoracentesis on 05/27/2022. Yesterday she underwent a first round of chemotherapy. Shortly after that she developed worsening shortness of breath and presented to the emergency room for the same. She is seen today in consultation. She is dys pneic on conversation. Dyspneic with minimal exertion. She did undergo a left- sided thoracentesis today with 1 liter of bloody fluid removed. Fluid analysis and cytology sent. white count 9.9. Hemoglobin 13.8. INR 1.5. Sodium 129. Potassium 4.2. BUN 37. Creatinine 0.5. Glucose 129. AST 263. ALT 111. Cano virus by PCR not detected. she is breathing a bit better postthoracentesis. She is maintaining O2 saturations in the mid 90s on 3 L/m per nasal cannula. Afebrile. Hemodynamically stable. Patient was reevaluated today on 05/26/22, patient had to be transferred to the ICU late in the afternoon yesterday. I performed on this patient left-sided thoracentesis and I was able to drain about 1000 mL of serosanguineous fluid from the left pleural space. Patient was doing great, as a matter of fact she was even asking to be discharged home, and I recommended that the decision be made by her admitting physician, and the plan was to eventually wait for the results of the fluid from the left pleural space and decide if it is malignant or nonmalignant. Follow-up chest x-ray after thoracentesis showed complete resolution of the fluid on the left side, even ultrasound was done p ostoperatively and showed no fluid on the left side. 7 hours after the thoracentesis, I was called by the nurse from the ER telling me that the patient is developing more and more shortness of breath. Follow-up chest x-ray showed evidence of pulmonary edema, patient required placement on high FiO2 she even required placement on BiPAP, and I transferred the patient to the ICU and is status post sending her back to the floor. Chest x-ray continues to show evidence of interstitial edema. Patient received multiple doses of Lasix since yesterday, her urine output does not seem to be great, echocardiogram this morning showed no evidence of temporal not she does have pericardial effusion and she does have severe LV dysfunction. Hence I'm planning to keep the patient in the ICU today and hopefully we will get the results of the cytology from the left pleural effusion which I drained yesterday. There is hardly any pleural effusion on the left side, she does have a [id number] right-sided pleural effusion which may or may not require thoracentesis. Considering the patient developed pulmonary edema post left thoracentesis yesterday, and extremely reluctant to go ahead and perform a right-sided thoracentesis today not to mention we have no information about the fluid except the fluid I drained was most likely malignant, was clearly exudative in nature. WBC count today is 16.4 hemoglobin is 14.3. ABG earlier on 50% BiPAP with 50%/05/27 showed a pO2 of 86 pCO2 55 pH of 7.41. More Lasix will be given later today. The patient is seen and evaluated today 05/27/2022 in follow-up in the intensive care unit. She is currently sitting up in bed. She is remaining on BiPAP 05/28 and 40% FiO2. She's been initiated on a Lasix drip at 5 mg per hour. Chest x- ray continues to show stable pulmonary edema. White count 13.6. Hemoglobin 13.6. Platelets 174. Sodium 132. Potassium 4.4. BUN 61. Creatinine 0.67. AST 84. ALT 68. Glucose 136. ProBNP 6050. Cortisol level 20. Pleural fluid analysis was positive for exudate with a total protein of 3.6 and an LDH of 961. The patient was seen and evaluated 05/28/2022 in follow-up in the intensive care unit. She remains on BiPAP 05/28 at 40% FiO2. She is continued on a Lasix drip at 5 mg per hour. Chest x-ray continues to show pulmonary edema with a increased right-sided pleural effusion. She did undergo another thoracentesis on the right today. 950 ML's of bloody fluid returned. Chest x-ray reveals significant improvement in aeration of the right lung. No pneumothorax post procedure. White count 5.9. Hemoglobin 13.2. Sodium 131. Potassium 4.6. BUN 75. Creatinine 1.12. Glucose 132. Lasix drip has been increased to 10 mg per hour per nephrology. She was initiated on Zaroxolyn. Objective - Vital Signs Vital signs: Vital Signs Temp 96.2 F L 05/28/22 08:00 Pulse 96 05/28/22 10:00 Resp 15 05/28/22 10:00 BP 90/68 05/28/22 10:00 Pulse Ox 95 05/28/22 10:00 FiO2 45 05/28/22 10:00 Intake & Output 05/27/22 05/28/22 05/28/22 18:59 06:59 18:59 Intake Total 185 766.083 100 Output Total 831 056 0719 Balance -215 646.083 -973 Weight 64.5 kg 69.1 kg Intake: IV 185 215 100 Furosemide 100 mg In 55 55 20 Sodium Chloride 0.9% 90 ml @ 5 MG/HR 5 mls/hr IV .Q20H RO Rx#:[id number] Sodium Chloride 0.9% 1, 130 160 80 000 ml @ 20 mls/hr IV . Q24H RO Rx#:[id number] Intake, IV Titration 71.083 Amount Furosemide 100 mg In 71.083 Sodium Chloride 0.9% 90 ml @ 5 MG/HR 5 mls/hr IV .Q20H RO Rx#:[id number] Oral 480 Output: Drainage 950 Right Back 950 Urine 400 120 123 Other: Voiding Method Indwelling Catheter Indwelling Catheter Indwelling Catheter - Exam GENERAL EXAM: Alert, pleasant 57-year-old female, on BiPAP currently 12/6 and 40% FiO2, fairly comfortable in no apparent distress. HEAD: Normocephalic. EYES: Normal reaction of pupils, equal size. NOSE: Clear with pink turbinates. THROAT: No erythema or exudates. NECK: No masses, no JVD. CHEST: No chest wall deformity. LUNGS: Equal air entry with crackles in the bilateral bases. CVS: S1 and S2 normal with no audible murmur, regular rhythm. ABDOMEN: No hepatosplenomegaly, normal bowel sounds, no guarding or rigidity. SPINE: No scoliosis or deformity SKIN: No rashes CENTRAL NERVOUS SYSTEM: No focal deficits, tone is normal in all 4 extremities. EXTREMITIES: There is no peripheral edema. No clubbing, no cyanosis. Peripheral pulses are intact. - Labs CBC & Chem 7: 05/28/22 06:29 05/28/22 06:29 Labs: Abnormal Lab Results - Last 24 Hours (Table) 05/27/22 05/27/22 05/27/22 Range/Units 06:54 06:54 11:27 Neutrophils # (Manual) 13.00 H (1.3-7.7) k/uL Lymphocytes # (1.0-4.8) k/uL Lymphocytes # (Manual) 0.41 L (1.0-4.8) k/uL Sodium (137-145) mmol/L Chloride (98-107) mmol/L Carbon Dioxide (22-30) mmol/L BUN (7-17) mg/dL Creatinine (0.52-1.04) mg/dL Glucose (74-99) mg/dL POC Glucose (mg/dL) 116 H (70-110) mg/dL Calcium (8.4-10.2) mg/dL Magnesium (1.6-2.3) mg/dL Procalcitonin 0.47 H (0.02-0.09) ng/mL 05/27/22 05/27/22 05/28/22 Range/Units 17:56 23:51 05:49 Neutrophils # (Manual) (1.3-7.7) k/uL Lymphocytes # (1.0-4.8) k/uL Lymphocytes # (Manual) (1.0-4.8) k/uL Sodium (137-145) mmol/L Chloride (98-107) mmol/L Carbon Dioxide (22-30) mmol/L BUN (7-17) mg/dL Creatinine (0.52-1.04) mg/dL Glucose (74-99) mg/dL POC Glucose (mg/dL) 119 H 132 H 136 H (70-110) mg/dL Calcium (8.4-10.2) mg/dL Magnesium (1.6-2.3) mg/dL Procalcitonin (0.02-0.09) ng/mL 05/28/22 05/28/22 Range/Units 06:29 06:29 Neutrophils # (Manual) (1.3-7.7) k/uL Lymphocytes # 0.2 L (1.0-4.8) k/uL Lymphocytes # (Manual) (1.0-4.8) k/uL Sodium 131 L (137-145) mmol/L Chloride 92 L (98-107) mmol/L Carbon Dioxide 31 H (22-30) mmol/L BUN 75 H (7-17) mg/dL Creatinine 1.12 H (0.52-1.04) mg/dL Glucose 132 H (74-99) mg/dL POC Glucose (mg/dL) (70-110) mg/dL Calcium 8.0 L (8.4-10.2) mg/dL Magnesium 2.4 H (1.6-2.3) mg/dL Procalcitonin (0.02-0.09) ng/mL Microbiology - Last 24 Hours (Table) 05/25/22 08:15 Gram Stain - Preliminary Pleural Fluid Body Fluid Culture - Preliminary Assessment and Plan Assessment: Acute hypoxemic respiratory failure secondary to bilateral pleural effusions. Status post left-sided thoracentesis today with 1 L of bloody fluid removed. E xudative with an protein of 3.6 and an LDH 961. Cytology pending. Right-sided thoracentesis with 950 ML's of bloody return on 05/28/2022. Cytology sent Acute pulmonary edema requiring BiPAP support 05/28 at 40% FiO2. Lasix drip at 10 mg per hour. History of large pericardial effusion with tamponade physiology with previous emergent pericardial window on 05/22/2022. 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 The patient did receive an initial round of chemotherapy on 05/24/2022. History of atrial fibrillation with a rapid ventricular response, anticoagulated with Eliquis. Currently in normal sinus rhythm History of cardiomyopathy with ejection fraction of 40% Chronic tobacco dependence Plan: The patient was seen and evaluated Chest x-ray, medication and labs reviewed Right-sided thoracentesis performed today with 850 ML's of bloody fluid returned Pathology sent. Cytology still pending on left-sided thoracentesis from 05/25/2022 Lasix drip increased to 10 mg per hour Titrate the FiO2 as tolerated Continue to hold Eliquis We'll continue to follow I have personally seen and examined the patient, performed the documentation and the assessment and plan as written. Number of minutes spent on the visit: 10.
--- NOTE | 2022-05-28 11:26 | P.PN ---
Subjective Progress Note Date: 05/28/22 Principal diagnosis: SOB Hospital Course: 57-year-old female with history of multiple recent hospitalizations for large malignant pericardial effusion with unknown primary, likely lung cancer, systolic CHF exacerbations, atrial fibrillation with RVR presenting this time for worsening shortness of breath. Patient had a first round of chemotherapy the beginning of the month. She developed worsening shortness of breath, was found to have extensive bilateral pleural effusions. She underwent left-sided thoracentesis with total of 1 L of bloody fluid removed. However, patient became more dyspneic after the thoracentesis. Follow-up chest x-ray showed pulmonary edema. Patient was placed on BiPAP and transferred to the ICU. Patient continues to have some mild to moderate right-sided pleural effusion. Had right-sided thoracentesis today with 950 mL of fluid removed. Currently being followed by pulmonology, cardiology, nephrology and oncology. Patient cur rently on Lasix drip and remains on BiPAP. Subjective: Patient seen and examined at bedside. No acute events overnight. She continues to have increased work of breathing without BiPAP. Per nursing, patient is becoming more tired on BiPAP. Currently has a Monreal catheter in place. Denies any significant pain. Pertinent positives and negatives as discussed above, a complete review of systems was performed and all other systems are negative. Vitals Signs Reviewed. General: nontoxic, in mild respiratory distress, appears at stated age, tired appearing Derm: warm, dry Head: atraumatic, normocephalic, symmetric Eyes: EOMI, no lid lag, anicteric sclera Mouth: no lip lesion, mucus membranes moist Cardiovascular: S1S2 reg, no murmur Lungs: bilateral rhonchi , no accessory muscle use, on bipap Abdominal: soft, nontender to palpation, no guarding, no appreciable organomegaly Ext: no gross muscle atrophy, trace peripheral edema, no contractures Neuro: CN II-XI grossly intact, no focal neuro deficits Psych: Alert, oriented, appropriate affect Assessment and Plan: Acute hypoxemic respiratory failure Bilateral pleural effusions Acute pulmonary edema Acute systolic CHF exacerbation -Status post thoracentesis on the left, 1 L removed, cytology pending -Status post thoracentesis on the right, 950 mL removed -Fluid analysis consistent with exudate previously -Remains on BiPAP -LVEF 40%, small pericardial effusion -Lasix drip, increased -metolazone also added -UOP low -midorine 5 TID -CT surgery consulted for possible bilateral Pleurx catheter -Continue to hold Eliquis -ICU, nephrology, cardiology following SHELDON, oliquric -on lasix gtt -no obstructive pathology on kidney US -nephro following Hyponatremia -improving with lasix -Continue to monitor History of large pericardial effusion with tamponade physiology with previous emergent pericardial window on 02/19/2022. 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 -Likely lung cancer -Status post 1 round of chemotherapy History of atrial fibrillation Currently in normal sinus rhythm, on amiodarone. Hold eliquis, has bloody pleural effusion. DVT prophylaxis SCDs. Anticipated discharge: depending on clinical course Dispo: depending on clinical course Objective - Vital Signs Vital signs: Vital Signs Temp 96.2 F L 05/28/22 08:00 Pulse 96 05/28/22 10:00 Resp 15 05/28/22 10:00 BP 90/68 05/28/22 10:00 Pulse Ox 95 05/28/22 10:00 FiO2 45 05/28/22 10:47 Intake & Output 05/27/22 05/28/22 05/28/22 18:59 06:59 18:59 Intake Total 185 766.083 100 Output Total 646 844 3707 Balance -215 646.083 -973 Weight 64.5 kg 69.1 kg Intake: IV 185 215 100 Furosemide 100 mg In 55 55 20 Sodium Chloride 0.9% 90 ml @ 5 MG/HR 5 mls/hr IV .Q20H RO Rx#:[id number] Sodium Chloride 0.9% 1, 130 160 80 000 ml @ 20 mls/hr IV . Q24H RO Rx#:[id number] Intake, IV Titration 71.083 Amount Furosemide 100 mg In 71.083 Sodium Chloride 0.9% 90 ml @ 5 MG/HR 5 mls/hr IV .Q20H RO Rx#:[id number] Oral 480 Output: Drainage 950 Right Back 950 Urine 400 120 123 Other: Voiding Method Indwelling Catheter Indwelling Catheter Indwelling Catheter - Labs CBC & Chem 7: 05/28/22 06:29 05/28/22 06:29 Labs: Abnormal Lab Results - Last 24 Hours (Table) 05/27/22 05/27/22 05/27/22 Range/Units 06:54 11:27 17:56 Lymphocytes # (1.0-4.8) k/uL Sodium (137-145) mmol/L Chloride (98-107) mmol/L Carbon Dioxide (22-30) mmol/L BUN (7-17) mg/dL Creatinine (0.52-1.04) mg/dL Glucose (74-99) mg/dL POC Glucose (mg/dL) 116 H 119 H (70-110) mg/dL Calcium (8.4-10.2) mg/dL Magnesium (1.6-2.3) mg/dL Procalcitonin 0.47 H (0.02-0.09) ng/mL 05/27/22 05/28/22 05/28/22 Range/Units 23:51 05:49 06:29 Lymphocytes # 0.2 L (1.0-4.8) k/uL Sodium (137-145) mmol/L Chloride (98-107) mmol/L Carbon Dioxide (22-30) mmol/L BUN (7-17) mg/dL Creatinine (0.52-1.04) mg/dL Glucose (74-99) mg/dL POC Glucose (mg/dL) 132 H 136 H (70-110) mg/dL Calcium (8.4-10.2) mg/dL Magnesium (1.6-2.3) mg/dL Procalcitonin (0.02-0.09) ng/mL 05/28/22 Range/Units 06:29 Lymphocytes # (1.0-4.8) k/uL Sodium 131 L (137-145) mmol/L Chloride 92 L (98-107) mmol/L Carbon Dioxide 31 H (22-30) mmol/L BUN 75 H (7-17) mg/dL Creatinine 1.12 H (0.52-1.04) mg/dL Glucose 132 H (74-99) mg/dL POC Glucose (mg/dL) (70-110) mg/dL Calcium 8.0 L (8.4-10.2) mg/dL Magnesium 2.4 H (1.6-2.3) mg/dL Procalcitonin (0.02-0.09) ng/mL Microbiology - Last 24 Hours (Table) 05/25/22 08:15 Gram Stain - Preliminary Pleural Fluid Body Fluid Culture - Preliminary
[2022-05-28 11:47] LABS: Glucose,Whole Blood 121 mg/dL (70-110)
[2022-05-28] MEDS: MORPHINE SULFATE 4 MG/ML SYRINGE IV PRN (17:54)
[2022-05-28 18:00] LABS: Glucose,Whole Blood 121 mg/dL (70-110)
[2022-05-28] MEDS: METOPROLOL SUCCINATE (ER) 25 MG TAB.ER.24H PO SCH (23:59)
[2022-05-29 00:01] LABS: Glucose,Whole Blood 142 mg/dL (70-110)
[2022-05-29] MEDS: MORPHINE SULFATE 4 MG/ML SYRINGE IV PRN (00:54)
[2022-05-29 01:08] LABS: Glucose,Whole Blood 132 mg/dL (70-110)
[2022-05-29 05:57] LABS: Glucose,Whole Blood 116 mg/dL (70-110)
[2022-05-29] MEDS: MIDODRINE 5 MG TAB PO SCH ×3 (06:21→17:27)
[2022-05-29] MEDS: SODIUM CHLORIDE 0.9% 1,000 ML IV SCH (06:22)
[2022-05-29 06:58] LABS: Calcium 7.9 mg/dL (8.4-10.2); Magnesium 2.4 mg/dL (1.6-2.3); Potassium 4.4 mmol/L (3.5-5.1)
--- NOTE | 2022-05-29 07:00 | XR ---
EXAMINATION TYPE: XR chest 1V portable DATE OF EXAM: 05/29/2022 5:32 AM COMPARISON: Chest radiograph from one day prior. TECHNIQUE: XR chest 1V portable Portable AP radiograph of the chest. CLINICAL INDICATION:Female, 57 years old with history of SOB; FINDINGS: Lungs/Pleura: Blunting of the costophrenic angles. There is no evidence of focal consolidation, or pn eumothorax. Pulmonary vascularity: Pulmonary vascular congestion. Heart/mediastinum: Cardiomediastinal silhouette is enlarged and stable. Musculoskeletal: No acute osseous pathology. IMPRESSION: Similar pleural effusions, pulmonary edema and cardiomegaly.
[2022-05-29] MEDS: FUROSEMIDE 100 MG in SODIUM CHLORIDE 0.9% 90 ML IV SCH ×2 (07:03→16:26)
[2022-05-29 07:13] LABS: HCT 41.5 % (34.0-46.0); Hypochromasia Marked; MCH 30.8 pg (25.0-35.0); MCHC 31.3 g/dL (31.0-37.0); MCV 98.5 fL (80.0-100.0); Macrocytosis Slight; Mean Platelet Volume 10.8; Platelet Count 112 k/uL (150-450); RBC 4.21 m/uL (3.80-5.40); RDW 15.4 % (11.5-15.5)
[2022-05-29 07:20] LABS: WBC 0.4 k/uL (3.8-10.6)
--- NOTE | 2022-05-29 07:34 | P.PN ---
Subjective Progress Note Date: 05/29/22 Principal diagnosis: Shortness of breath The patient is a 57-year-old female patient with history of lung cancer and recurrent pleural undercurrent pericardial effusion and cardiomyopathy as well as paroxysmal atrial fibrillation was admitted to the hospital with increasing shortness of breath. She was diagnosed with right lateral pleural effusion and she underwent thoracentesis and also with heart failure secondary to systolic dysfunction. May 272021 The patient was seen this morning. She continues to be short of breath. She underwent pleurocentesis within the last 24-48 hours. She underwent an echo which revealed impaired LV function was EF around 40% with small pericardial effusion with no tamponade physiology. She has been maintaining normal sinus mechanism. She is not on any anticoagulation at this point. She is hemodynamically stable. Currently she's on amiodarone as well as beta trish. Beside that she is on Lasix IV at 60 mg by mouth twice a day. We'll follow-up with the patient the chest x-ray from the morning but meanwhile continue the current medical regimen including the current dose of diuretics. May 282021 The patient was seen and evaluated this morning. Unfortunately she continues not doing well. She continues to be hypoxic requiring BiPAP. She continues to be in fluid overload and currently she is on Lasix IV. The chest x-ray was reviewed and showed findings consistent with heart failure. As a matter of fact on examination she does have diminished breathing sounds bilaterally and bilateral crackles as well. She is in process of having possible left pleurocentesis later on today. For that reason oral anticoagulation is on hold. Beside that she is on amiodarone by mouth and metoprolol by mouth and she has been maintaining normal sinus mechanism. The ejection fraction on the last echo was 40% with a small pericardial effusion and no tamponade physiology. Overall the prognosis is poor giving her cancer with recurrent pleural and pericardial effusion. May 292021 The patient was seen and evaluated this morning. She underwent pleurocentesis yesterday. She is requiring less oxygen right now. The pressure continues to be soft and has been in the 80s. I'm going to decrease the dose of metolazone from 5 mg by mouth daily to 2.5 mg by mouth daily. Otherwise she remains in sinus mechanism. The last echo showed an EF of 40% with small pericardial effusion was no tamponade physiology. We'll continue the current medical regimen with decreasing the dose of metolazone and restart the patient back on oral anticoagulation and follow-up with the patient. Objective - Vital Signs Vital signs: Vital Signs Temp 97.5 F L 05/29/22 04:00 Pulse 96 05/29/22 07:00 Resp 13 05/29/22 07:00 BP 99/62 05/29/22 07:00 Pulse Ox 97 05/29/22 07:00 FiO2 45 05/29/22 03:26 Intake & Output 05/28/22 05/29/22 05/29/22 18:59 06:59 18:59 Intake Total 340 460 130 Output Total 1820 855 95 Balance -1480 -395 35 Weight 67 kg Intake: IV 340 360 30 Furosemide 100 mg In 80 120 10 Sodium Chloride 0.9% 90 ml @ 10 MG/HR 10 mls/hr IV .Q10H RO Rx#: [id number] Furosemide 100 mg In 20 Sodium Chloride 0.9% 90 ml @ 5 MG/HR 5 mls/hr IV .Q20H RO Rx#:[id number] Sodium Chloride 0.9% 1, 240 240 20 000 ml @ 20 mls/hr IV . Q24H RO Rx#:[id number] Intake, IV Titration 100 100 Amount Furosemide 100 mg In 100 100 Sodium Chloride 0.9% 90 ml @ 10 MG/HR 10 mls/hr IV .Q10H RO Rx#: [id number] Output: Drainage 950 Right Back 950 Urine 870 855 95 Other: Voiding Method Indwelling Catheter Indwelling Catheter - Constitutional General appearance: Present: no acute distress - Respiratory Respiratory: bilateral: diminished - Cardiovascular Rhythm: regular - Labs CBC & Chem 7: 05/29/22 05:33 05/29/22 05:33 Labs: Abnormal Lab Results - Last 24 Hours (Table) 05/28/22 05/28/22 05/28/22 Range/Units 11:45 17:59 23:59 WBC (3.8-10.6) k/uL Plt Count (150-450) k/uL Sodium (137-145) mmol/L Chloride (98-107) mmol/L Carbon Dioxide (22-30) mmol/L BUN (7-17) mg/dL Glucose (74-99) mg/dL POC Glucose (mg/dL) 121 H 121 H 142 H (70-110) mg/dL Calcium (8.4-10.2) mg/dL Magnesium (1.6-2.3) mg/dL 05/29/22 05/29/22 05/29/22 Range/Units 01:06 05:33 05:33 WBC 0.4 L* (3.8-10.6) k/uL Plt Count 112 L (150-450) k/uL Sodium 131 L (137-145) mmol/L Chloride 89 L (98-107) mmol/L Carbon Dioxide 31 H (22-30) mmol/L BUN 84 H (7-17) mg/dL Glucose 116 H (74-99) mg/dL POC Glucose (mg/dL) 132 H (70-110) mg/dL Calcium 7.9 L (8.4-10.2) mg/dL Magnesium 2.4 H (1.6-2.3) mg/dL 05/29/22 Range/Units 05:55 WBC (3.8-10.6) k/uL Plt Count (150-450) k/uL Sodium (137-145) mmol/L Chloride (98-107) mmol/L Carbon Dioxide (22-30) mmol/L BUN (7-17) mg/dL Glucose (74-99) mg/dL POC Glucose (mg/dL) 116 H (70-110) mg/dL Calcium (8.4-10.2) mg/dL Magnesium (1.6-2.3) mg/dL Microbiology - Last 24 Hours (Table) 05/25/22 08:15 Gram Stain - Preliminary Pleural Fluid Body Fluid Culture - Preliminary Assessment and Plan Assessment: Assessment #1 history of lung cancer #2 recurrent pericardial effusion secondary to malignancy #3 recurrent pleural effusion secondary to malignancy as well #4 paroxysmal atrial fibrillation #5 nonischemic cardiomyopathy #6 heart failure exacerbation secondary to heart failure with reduced ejection fraction Plan #1 decrease the dose of metolazone #2 restart the patient back on anticoagulation #3 follow-up with the patient
[2022-05-29] MEDS: AMIODARONE 200 MG TAB PO SCH (09:08)
[2022-05-29] MEDS: metOLazone 2.5 MG TAB PO SCH (09:08)
[2022-05-29] MEDS: HYDROcodone/APAP 5-325MG 1 EACH TAB PO PRN (09:21)
[2022-05-29] MEDS ORDERED: SENNOSIDES 8.6 MG TAB PO PRN (09:29)
[2022-05-29] MEDS ORDERED: FILGRASTIM-SNDZ 300 MCG/0.5 ML SYRINGE SQ ONE (09:30)
--- NOTE | 2022-05-29 10:18 | P.PN ---
Subjective Patient is seen in follow-up for acute kidney injury. Renal function stable. Currently on Lasix drip at 10 mL an hour. On nasal cannula. Oral intake is poor. UO better. Vital signs are stable. General: Awake. HEENT: On NC. LUNGS: Breath sounds decreased. HEART: Rate and Rhythm are regular. ABDOMEN: Soft, no distention. EXTREMITITES: Trace edema. Objective - Vital Signs Vital signs: Vital Signs Temp 97.7 F 05/29/22 08:00 Pulse 94 05/29/22 10:00 Resp 10 L 05/29/22 10:00 BP 96/69 05/29/22 10:00 Pulse Ox 97 05/29/22 10:00 FiO2 45 05/29/22 03:26 Intake & Output 05/28/22 05/29/22 05/29/22 18:59 06:59 18:59 Intake Total 340 460 320 Output Total 1820 855 505 Balance -1480 -395 -185 Weight 67 kg Intake: IV 340 360 100 Furosemide 100 mg In 80 120 40 Sodium Chloride 0.9% 90 ml @ 10 MG/HR 10 mls/hr IV .Q10H RO Rx#: [id number] Furosemide 100 mg In 20 Sodium Chloride 0.9% 90 ml @ 5 MG/HR 5 mls/hr IV .Q20H RO Rx#:[id number] Invasive Line 2 10 Sodium Chloride 0.9% 1, 240 240 50 000 ml @ 20 mls/hr IV . Q24H RO Rx#:[id number] Intake, IV Titration 100 100 Amount Furosemide 100 mg In 100 100 Sodium Chloride 0.9% 90 ml @ 10 MG/HR 10 mls/hr IV .Q10H RO Rx#: [id number] Oral 120 Output: Drainage 950 Right Back 950 Urine 870 855 505 Other: Voiding Method Indwelling Catheter Indwelling Catheter Indwelling Catheter # Bowel Movements 0 - Labs CBC & Chem 7: 05/29/22 05:33 05/29/22 05:33 Labs: Abnormal Lab Results - Last 24 Hours (Table) 05/28/22 05/28/22 05/28/22 Range/Units 11:45 17:59 23:59 WBC (3.8-10.6) k/uL Plt Count (150-450) k/uL Sodium (137-145) mmol/L Chloride (98-107) mmol/L Carbon Dioxide (22-30) mmol/L BUN (7-17) mg/dL Glucose (74-99) mg/dL POC Glucose (mg/dL) 121 H 121 H 142 H (70-110) mg/dL Calcium (8.4-10.2) mg/dL Magnesium (1.6-2.3) mg/dL 05/29/22 05/29/22 05/29/22 Range/Units 01:06 05:33 05:33 WBC 0.4 L* (3.8-10.6) k/uL Plt Count 112 L (150-450) k/uL Sodium 131 L (137-145) mmol/L Chloride 89 L (98-107) mmol/L Carbon Dioxide 31 H (22-30) mmol/L BUN 84 H (7-17) mg/dL Glucose 116 H (74-99) mg/dL POC Glucose (mg/dL) 132 H (70-110) mg/dL Calcium 7.9 L (8.4-10.2) mg/dL Magnesium 2.4 H (1.6-2.3) mg/dL 05/29/22 Range/Units 05:55 WBC (3.8-10.6) k/uL Plt Count (150-450) k/uL Sodium (137-145) mmol/L Chloride (98-107) mmol/L Carbon Dioxide (22-30) mmol/L BUN (7-17) mg/dL Glucose (74-99) mg/dL POC Glucose (mg/dL) 116 H (70-110) mg/dL Calcium (8.4-10.2) mg/dL Magnesium (1.6-2.3) mg/dL Microbiology - Last 24 Hours (Table) 05/25/22 08:15 Gram Stain - Final Pleural Fluid Body Fluid Culture - Final Assessment and Plan Plan: Assessment: 1. Acute kidney injury secondary to ATN secondary to cardiorenal syndrome. Urine output about 50-100 mL an hour. Renal function stable. No hydronephrosis noted on kidney ultrasound. 2. Acute on chronic systolic CHF with ejection fraction of 40%. 3. Acute hypoxic respiratory failure. 4. Metastatic adenocarcinoma. ?Primary. Oncology following. 5. Hypervolemic hyponatremia. Stable. 6. Pericardial effusion status post pericardial window 05/22/2022. 7. Large pleural effusion status post thoracentesis with 1 L drained this admission. Another thoracentesis done with 950 cc drained 05/28/22. Plan: Maintain Lasix drip. Maintain metolazone - dose decreased due to hypotension. Maintain midodrine.Hold for systolic blood pressure greater than 110. Cortisol level not low. Wean FiO2. Continue to monitor renal function and urine output.
--- NOTE | 2022-05-29 11:15 | P.PN ---
Subjective Progress Note Date: 05/29/22 Is a pleasant 57-year-old female patient with a known history of chronic tobacco dependence who had been hospitalized 1 month ago for shortness of breath and was found to have a large pericardial effusion with tamponade physiology status post emergent pericardial window. Her pericardial fluid was positive for metastatic adenocarcinoma of unknown primary. She does have a large soft tissue density around theright paratracheal region measuring 2.7 x 2.0 cm. Enlarged lymphadenopathy versus mass were within the differential.she also had acute cardiomyopathy with ejection fraction of 35%. She was subsequently discharged and was to undergo a this biopsies of the right paratracheal mass. The patient had ended up in the emergency room on on 3 separate occasions with chest pain, shortness of breath and atrial fibrillation with rapid ventricular response. She is anticoagulated with Eliquis. She was seen in our office on 05/23/[address] Angel Abarca on performed a chest x-ray which revealed bilateral pleural effusions. Ultrasound of the chest revealed a 9.3 cm pocket on the right and a 8.5 cm pocket on the left. She was going to be set up for a thoracentesis on 05/27/2022. Yesterday she underwent a first round of chemotherapy. Shortly after that she developed worsening shortness of breath and presented to the emergency room for the same. She is seen today in consultation. She is dys pneic on conversation. Dyspneic with minimal exertion. She did undergo a left- sided thoracentesis today with 1 liter of bloody fluid removed. Fluid analysis and cytology sent. white count 9.9. Hemoglobin 13.8. INR 1.5. Sodium 129. Potassium 4.2. BUN 37. Creatinine 0.5. Glucose 129. AST 263. ALT 111. Cano virus by PCR not detected. she is breathing a bit better postthoracentesis. She is maintaining O2 saturations in the mid 90s on 3 L/m per nasal cannula. Afebrile. Hemodynamically stable. Patient was reevaluated today on 05/26/22, patient had to be transferred to the ICU late in the afternoon yesterday. I performed on this patient left-sided thoracentesis and I was able to drain about 1000 mL of serosanguineous fluid from the left pleural space. Patient was doing great, as a matter of fact she was even asking to be discharged home, and I recommended that the decision be made by her admitting physician, and the plan was to eventually wait for the results of the fluid from the left pleural space and decide if it is malignant or nonmalignant. Follow-up chest x-ray after thoracentesis showed complete resolution of the fluid on the left side, even ultrasound was done p ostoperatively and showed no fluid on the left side. 7 hours after the thoracentesis, I was called by the nurse from the ER telling me that the patient is developing more and more shortness of breath. Follow-up chest x-ray showed evidence of pulmonary edema, patient required placement on high FiO2 she even required placement on BiPAP, and I transferred the patient to the ICU and is status post sending her back to the floor. Chest x-ray continues to show evidence of interstitial edema. Patient received multiple doses of Lasix since yesterday, her urine output does not seem to be great, echocardiogram this morning showed no evidence of temporal not she does have pericardial effusion and she does have severe LV dysfunction. Hence I'm planning to keep the patient in the ICU today and hopefully we will get the results of the cytology from the left pleural effusion which I drained yesterday. There is hardly any pleural effusion on the left side, she does have a [id number] right-sided pleural effusion which may or may not require thoracentesis. Considering the patient developed pulmonary edema post left thoracentesis yesterday, and extremely reluctant to go ahead and perform a right-sided thoracentesis today not to mention we have no information about the fluid except the fluid I drained was most likely malignant, was clearly exudative in nature. WBC count today is 16.4 hemoglobin is 14.3. ABG earlier on 50% BiPAP with 50%/05/27 showed a pO2 of 86 pCO2 55 pH of 7.41. More Lasix will be given later today. The patient is seen and evaluated today 05/27/2022 in follow-up in the intensive care unit. She is currently sitting up in bed. She is remaining on BiPAP 05/28 and 40% FiO2. She's been initiated on a Lasix drip at 5 mg per hour. Chest x- ray continues to show stable pulmonary edema. White count 13.6. Hemoglobin 13.6. Platelets 174. Sodium 132. Potassium 4.4. BUN 61. Creatinine 0.67. AST 84. ALT 68. Glucose 136. ProBNP 6050. Cortisol level 20. Pleural fluid analysis was positive for exudate with a total protein of 3.6 and an LDH of 961. The patient was seen and evaluated 05/28/2022 in follow-up in the intensive care unit. She remains on BiPAP 05/28 at 40% FiO2. She is continued on a Lasix drip at 5 mg per hour. Chest x-ray continues to show pulmonary edema with a increased right-sided pleural effusion. She did undergo another thoracentesis on the right today. 950 ML's of bloody fluid returned. Chest x-ray reveals significant improvement in aeration of the right lung. No pneumothorax post procedure. White count 5.9. Hemoglobin 13.2. Sodium 131. Potassium 4.6. BUN 75. Creatinine 1.12. Glucose 132. Lasix drip has been increased to 10 mg per hour per nephrology. She was initiated on Zaroxolyn. The patient is seen today 05/29/2022 in follow-up in the intensive care unit. She is currently sitting up in bed. Bit better today compared to yesterday. She is maintaining O2 saturations in the low 90s on 6 L nasal cannula. She did utilize the BiPAP through the night 05/28 and 45% FiO2. She had undergone a right-sided thoracentesis yesterday with 950 MLS removed. Today's chest x-ray reveals blunting the costophrenic angles. No evidence of focal consolidation or pneumothorax. Some pulmonary vascular congestion. Thoracentesis fluid cultures pending. Pathology still pending. White count 0.4. Hemoglobin 13.0. Platelets 112,000. Sodium 131. Potassium 4.4. BUN 84. Creatinine 1.02. Glucose 116. she is continued on a Lasix drip at 10 mg per hour. 0.9% normal saline at KVO. Currently in a -1.8 L balance. Objective - Vital Signs Vital signs: Vital Signs Temp 97.7 F 05/29/22 08:00 Pulse 94 05/29/22 10:00 Resp 10 L 05/29/22 10:00 BP 96/69 05/29/22 10:00 Pulse Ox 97 05/29/22 10:00 FiO2 45 05/29/22 03:26 Intake & Output 12/12/1205/29/22 05/29/22 18:59 06:59 18:59 Intake Total 340 460 320 Output Total 1820 855 505 Balance -1480 -395 -185 Weight 67 kg Intake: IV 340 360 100 Furosemide 100 mg In 80 120 40 Sodium Chloride 0.9% 90 ml @ 10 MG/HR 10 mls/hr IV .Q10H RO Rx#: [id number] Furosemide 100 mg In 20 Sodium Chloride 0.9% 90 ml @ 5 MG/HR 5 mls/hr IV .Q20H RO Rx#:[id number] Invasive Line 2 10 Sodium Chloride 0.9% 1, 240 240 50 000 ml @ 20 mls/hr IV . Q24H RO Rx#:[id number] Intake, IV Titration 100 100 Amount Furosemide 100 mg In 100 100 Sodium Chloride 0.9% 90 ml @ 10 MG/HR 10 mls/hr IV .Q10H RO Rx#: [id number] Oral 120 Output: Drainage 950 Right Back 950 Urine [phone] Other: Voiding Method Indwelling Catheter Indwelling Catheter Indwelling Catheter # Bowel Movements 0 - Exam GENERAL EXAM: Alert, very weak 57-year-old female, on 6 liters high flow nasal cannula alternating with BiPAP currently 12/6 and 40% FiO2, fairly comfortable in no apparent distress. HEAD: Normocephalic. EYES: Normal reaction of pupils, equal size. NOSE: Clear with pink turbinates. THROAT: No erythema or exudates. NECK: No masses, no JVD. CHEST: No chest wall deformity. LUNGS: Equal air entry with crackles in the bilateral bases. CVS: S1 and S2 normal with no audible murmur, regular rhythm. ABDOMEN: No hepatosplenomegaly, normal bowel sounds, no guarding or rigidity. SPINE: No scoliosis or deformity SKIN: No rashes CENTRAL NERVOUS SYSTEM: No focal deficits, tone is normal in all 4 extremities. EXTREMITIES: There is no peripheral edema. No clubbing, no cyanosis. Peripheral pulses are intact. - Labs CBC & Chem 7: 05/29/22 05:33 05/29/22 05:33 Labs: Abnormal Lab Results - Last 24 Hours (Table) 05/28/22 05/28/22 05/28/22 Range/Units 11:45 17:59 23:59 WBC (3.8-10.6) k/uL Plt Count (150-450) k/uL Sodium (137-145) mmol/L Chloride (98-107) mmol/L Carbon Dioxide (22-30) mmol/L BUN (7-17) mg/dL Glucose (74-99) mg/dL POC Glucose (mg/dL) 121 H 121 H 142 H (70-110) mg/dL Calcium (8.4-10.2) mg/dL Magnesium (1.6-2.3) mg/dL 05/29/22 05/29/22 05/29/22 Range/Units 01:06 05:33 05:33 WBC 0.4 L* (3.8-10.6) k/uL Plt Count 112 L (150-450) k/uL Sodium 131 L (137-145) mmol/L Chloride 89 L (98-107) mmol/L Carbon Dioxide 31 H (22-30) mmol/L BUN 84 H (7-17) mg/dL Glucose 116 H (74-99) mg/dL POC Glucose (mg/dL) 132 H (70-110) mg/dL Calcium 7.9 L (8.4-10.2) mg/dL Magnesium 2.4 H (1.6-2.3) mg/dL 05/29/22 Range/Units 05:55 WBC (3.8-10.6) k/uL Plt Count (150-450) k/uL Sodium (137-145) mmol/L Chloride (98-107) mmol/L Carbon Dioxide (22-30) mmol/L BUN (7-17) mg/dL Glucose (74-99) mg/dL POC Glucose (mg/dL) 116 H (70-110) mg/dL Calcium (8.4-10.2) mg/dL Magnesium (1.6-2.3) mg/dL Microbiology - Last 24 Hours (Table) 05/25/22 08:15 Gram Stain - Final Pleural Fluid Body Fluid Culture - Final Assessment and Plan Assessment: Acute hypoxemic respiratory failure secondary to bilateral pleural effusions. Status post left-sided thoracentesis today with 1 L of bloody fluid removed. Exudative with an protein of 3.6 and an LDH 961. Cytology pending. Right-sided thoracentesis with 950 ML's of bloody return on 05/28/2022. Cytology pending Acute pulmonary edema requiring BiPAP support 05/28 at 40% FiO2. Lasix drip at 10 mg per hour. History of large pericardial effusion with tamponade physiology with previous emergent pericardial window on 05/22/2022. Pathology was positive for metastat ic adenocarcinoma of unknown primary. The patient did receive an initial round of chemotherapy on 05/24/2022. History of atrial fibrillation with a rapid ventricular response, anticoagulated with Eliquis. Currently in normal sinus rhythm History of cardiomyopathy with ejection fraction of 40% Chronic tobacco dependence Plan: The patient was seen and evaluated Chest x-ray, medication and labs reviewed Lasix drip at 10 mg per hour Titrate the FiO2 as tolerated Plan is to get a PICC line placed Could resume Eliquis after that May need TPN for nutritional support Dietitian has been consulted We'll continue to follow I have personally seen and examined the patient, performed the documentation and the assessment and plan as written. Number of minutes spent on the visit: 10.
[2022-05-29 11:24] LABS: Ionized Calcium 4.2 mg/dL (4.5-5.3)
--- NOTE | 2022-05-29 11:29 | P.PN ---
Subjective Progress Note Date: 05/29/22 Principal diagnosis: SOB Hospital Course: 57-year-old female with history of multiple recent hospitalizations for large malignant pericardial effusion with unknown primary, likely lung cancer, systolic CHF exacerbations, atrial fibrillation with RVR presenting this time for worsening shortness of breath. Patient had a first round of chemotherapy the beginning of the month. She developed worsening shortness of breath, was found to have extensive bilateral pleural effusions. She underwent left-sided thoracentesis with total of 1 L of bloody fluid removed. However, patient became more dyspneic after the thoracentesis. Follow-up chest x-ray showed pulmonary edema. Patient was placed on BiPAP and transferred to the ICU. Patient continues to have some mild to moderate right-sided pleural effusion. Had right-sided thoracentesis today with 950 mL of fluid removed. Currently being followed by pulmonology, cardiology, nephrology and oncology. Patient cur rently on Lasix drip, off of BiPAP. Currently on nasal cannula 6 L. Subjective: Patient seen and examined at bedside. Has slightly lower blood pressures overnight. Continues to remain off of BiPAP and on 6 L nasal cannula. Currently has a Monreal catheter in place and making urine. Per nursing, has not had a bowel movement in 4 days. Oral intake is still low, patient having significant dysphagia. Pertinent positives and negatives as discussed above, a complete review of systems was performed and all other systems are negative. Vitals Signs Reviewed. General: nontoxic, in mild respiratory distress, appears at stated age, tired appearing Derm: warm, dry Head: atraumatic, normocephalic, symmetric Eyes: EOMI, no lid lag, anicteric sclera Mouth: no lip lesion, mucus membranes moist Cardiovascular: S1S2 reg, no murmur Lungs: bilateral rhonchi , no accessory muscle use, on bipap Abdominal: soft, nontender to palpation, no guarding, no appreciable organomegaly Ext: no gross muscle atrophy, trace peripheral edema, no contractures Neuro: CN II-XI grossly intact, no focal neuro deficits Psych: Alert, oriented, appropriate affect Assessment and Plan: Acute hypoxemic respiratory failure Bilateral pleural effusions Acute pulmonary edema Acute systolic CHF exacerbation Hypotension -Status post thoracentesis on the left, 1 L removed, cytology pending -Status post thoracentesis on the right, 950 mL removed, cytology pending -Fluid analysis consistent with exudate previously -On nasal cannula -LVEF 40%, small pericardial effusion, if continues to remain hypotensive could consider repeat echo to rule out worsening pericardial effusion -Lasix drip, increased -metolazone dose decreased -UOP picking up -midorine 5 TID -CT surgery consulted for possible bilateral Pleurx catheter -Continue to hold Eliquis -ICU, nephrology, cardiology following SHELDON, nonoliguric -on lasix gtt -no obstructive pathology on kidney US -nephro following Hyponatremia -improving with lasix -Continue to monitor Leukopenia Thrombocytopenia -Likely secondary to recent chemotherapy -filgrastrim added per oncology Dysphagia -Fellows thick liquids -OUTSOLE SKIVER following History of large pericardial effusion with tamponade physiology with previous emergent pericardial window on 02/19/2022. 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 -Likely lung cancer -Status post 1 round of chemotherapy History of atrial fibrillation Currently in normal sinus rhythm, on amiodarone. Hold eliquis, has bloody pleural effusion. DVT prophylaxis SCDs. Anticipated discharge: depending on clinical course Dispo: depending on clinical course Objective - Vital Signs Vital signs: Vital Signs Temp 97.7 F 05/29/22 08:00 Pulse 98 05/29/22 11:00 Resp 25 H 05/29/22 11:00 BP 85/70 05/29/22 11:00 Pulse Ox 97 05/29/22 11:00 FiO2 45 05/29/22 03:26 Intake & Output 05/28/22 05/29/22 05/29/22 18:59 06:59 18:59 Intake Total 340 460 320 Output Total 1820 855 505 Balance -1480 -395 -185 Weight 67 kg Intake: IV 340 360 100 Furosemide 100 mg In 80 120 40 Sodium Chloride 0.9% 90 ml @ 10 MG/HR 10 mls/hr IV .Q10H RO Rx#: [id number] Furosemide 100 mg In 20 Sodium Chloride 0.9% 90 ml @ 5 MG/HR 5 mls/hr IV .Q20H RO Rx#:[id number] Invasive Line 2 10 Sodium Chloride 0.9% 1, 240 240 50 000 ml @ 20 mls/hr IV . Q24H RO Rx#:[id number] Intake, IV Titration 100 100 Amount Furosemide 100 mg In 100 100 Sodium Chloride 0.9% 90 ml @ 10 MG/HR 10 mls/hr IV .Q10H [facility] Rx#: [id number] Oral 120 Output: Drainage 950 Right Back 950 Urine 870 855 505 Other: Voiding Method Indwelling Catheter Indwelling Catheter Indwelling Catheter # Bowel Movements 0 - Labs CBC & Chem 7: 05/29/22 05:33 05/29/22 05:33 Labs: Abnormal Lab Results - Last 24 Hours (Table) 05/28/22 05/28/22 05/28/22 Range/Units 11:45 17:59 23:59 WBC (3.8-10.6) k/uL Plt Count (150-450) k/uL Sodium (137-145) mmol/L Chloride (98-107) mmol/L Carbon Dioxide (22-30) mmol/L BUN (7-17) mg/dL Glucose (74-99) mg/dL POC Glucose (mg/dL) 121 H 121 H 142 H (70-110) mg/dL Calcium (8.4-10.2) mg/dL Magnesium (1.6-2.3) mg/dL 05/29/22 05/29/22 05/29/22 Range/Units 01:06 05:33 05:33 WBC 0.4 L* (3.8-10.6) k/uL Plt Count 112 L (150-450) k/uL Sodium 131 L (137-145) mmol/L Chloride 89 L (98-107) mmol/L Carbon Dioxide 31 H (22-30) mmol/L BUN 84 H (7-17) mg/dL Glucose 116 H (74-99) mg/dL POC Glucose (mg/dL) 132 H (70-110) mg/dL Calcium 7.9 L (8.4-10.2) mg/dL Magnesium 2.4 H (1.6-2.3) mg/dL 05/29/22 Range/Units 05:55 WBC (3.8-10.6) k/uL Plt Count (150-450) k/uL Sodium (137-145) mmol/L Chloride (98-107) mmol/L Carbon Dioxide (22-30) mmol/L BUN (7-17) mg/dL Glucose (74-99) mg/dL POC Glucose (mg/dL) 116 H (70-110) mg/dL Calcium (8.4-10.2) mg/dL Magnesium (1.6-2.3) mg/dL Microbiology - Last 24 Hours (Table) 05/25/22 08:15 Gram Stain - Final Pleural Fluid Body Fluid Culture - Final
[2022-05-29 11:36] LABS: Phosphorus 4.8 mg/dL (2.5-4.5)
[2022-05-29] MEDS: MORPHINE SULFATE 2 MG/ML SYRINGE IVP PRN ×2 (11:54→23:44)
[2022-05-29 12:16] LABS: Glucose,Whole Blood 127 mg/dL (70-110)
[2022-05-29] MEDS ORDERED: LIDOCAINE 1% INJ 10MG/ML (30 ML VIAL-PF) SQ ONE (12:58)
[2022-05-29 13:10] VITALS: BMI 29.8
[2022-05-29] MEDS ORDERED: CALCIUM GLUCONATE IN NACL 1 GM in SALINE 1 100ML.BAG IVPB ONE (14:00)
--- NOTE | 2022-05-29 14:12 | XR ---
EXAMINATION TYPE: XR chest 1V portable DATE OF EXAM: 05/29/2022 COMPARISON: 05/29/2022 HISTORY: PICC line placement. FINDINGS: There are bilateral pleural effusions with cardiomegaly and bibasilar infiltrate. There is a diffuse interstitial pattern. Left-sided PICC line seen with the tip overlying the SVC. IMPRESSION: 1. PICC line appears in good position. Correlate for pulmonary edema.
--- NOTE | 2022-05-29 14:15 | IR ---
PICC LINE PLACEMENT: HISTORY: TPN therapy PROCEDURE: Ultrasound guidance of PICC line placement. FABRICATION MIG WELDER: Dr. Dominique. COMPLICATIONS: None ANESTHESIA: 1. 1% Lidocaine locally. FINDINGS/TECHNIQUE: The procedure was explained to the patient. The risks, complications, benefits and alternatives were discussed and any questions were answered. Informed consent was obtained. The patient was placed supine on the fluoroscopic table and prepped and draped in the usual sterile fash ion. Utilizing a 21 gauge needle and sonographic guidance, access in the left basilic vein was achi eved and there is placement of a 0.018 guidewire. The vein is patent. A 5-F. sheath was placed over the guidewire. The guidewire and dilator were removed and a 5-F. Double lumen PICC line was placed through the sheath with the chest x-ray confirming the tip at the level of the SVC. The sheath was r emoved, the catheter was flushed and sutured into position. The patient was stable throughout the pr ocedure and remained stable upon discharge from the Department of Radiology. The vein puncture was patent under ultrasound. A booth scale image was obtained to document patency of the vein punctured. All elements of the maximal barrier technique were utilized. IMPRESSION: 1. Successful PICC line placement under ultrasound performed bedside within the ICU.
[2022-05-29] MEDS ORDERED: MVI, ADULT NO.4 WITH VIT K 10 ML, TRACE (CONC-1ML/DOSE) 1 ML, SODIUM CHLORIDE 4MEQ/ML V... IV SCH ×6 (15:00)
[2022-05-29] MEDS: APIXABAN 5 MG TAB PO SCH ×2 (16:20→21:02)
[2022-05-29 18:18] LABS: Glucose,Whole Blood 137 mg/dL (70-110)
--- NOTE | 2022-05-29 18:33 | P.PN ---
Subjective Progress Note Date: 05/29/22 Principal diagnosis: Hypoxia, pericardial and pleural effusion. Non-small cell lung cancer. Status post first cycle of chemotherapy. In follow-up today patient is sleeping, she arouses easily to voice. When asked how she was doing she said okay, no worse but, no better. She denies fever, chest pain, palpitations, nausea or vomiting. She does not feel short of breath but, she is not able to exert herself in any fashion without feeling very short of breath. Objective - Vital Signs Vital signs: Vital Signs Temp 97.8 F 05/29/22 12:00 Pulse 98 05/29/22 18:00 Resp 12 05/29/22 18:00 BP 86/63 05/29/22 18:00 Pulse Ox 98 05/29/22 18:00 FiO2 45 05/29/22 03:26 Intake & Output 05/28/22 05/29/22 05/29/22 18:59 06:59 18:59 Intake Total 340 460 653.833 Output Total 2369 520 2917 Balance -1480 -395 -366.167 Weight 67 kg 67 kg Intake: IV 340 360 340 Furosemide 100 mg In 80 120 120 Sodium Chloride 0.9% 90 ml @ 10 MG/HR 10 mls/hr IV .Q10H RO Rx#: [id number] Furosemide 100 mg In 20 Sodium Chloride 0.9% 90 ml @ 5 MG/HR 5 mls/hr IV .Q20H RO Rx#:[id number] Invasive Line 2 30 Invasive Line 3 10 Sodium Chloride 0.9% 1, 240 240 180 000 ml @ 20 mls/hr IV . Q24H RO Rx#:[id number] Intake, IV Titration 100 193.833 Amount Furosemide 100 mg In 100 193.833 Sodium Chloride 0.9% 90 ml @ 10 MG/HR 10 mls/hr IV .Q10H RO Rx#: [id number] Oral 120 Output: Drainage 950 Right Back 950 Urine [id number] Other: Voiding Method Indwelling Catheter Indwelling Catheter Indwelling Catheter # Bowel Movements 0 - Constitutional General appearance: Present: average body habitus, cooperative, mild distress - EENT Eyes: Present: anicteric sclerae, EOMI ENT: Present: hearing grossly normal - Respiratory Respiratory: bilateral: diminished - Cardiovascular Rhythm: irregularly irregular Heart sounds: normal: S1, S2 Abnormal Heart Sounds: Absent: systolic murmur, diastolic murmur, rub, S3 Gallop, S4 Gallop, click, other - Peripheral edema leg Peripheral Edema: bilateral: None - Gastrointestinal General gastrointestinal: Present: normal bowel sounds, soft - Neurologic Neurologic: Present: CNII-XII intact - Musculoskeletal Musculoskeletal: Present: generalized weakness - Psychiatric Psychiatric: Present: A&O x's 3, appropriate affect, intact judgment & insight - Labs CBC & Chem 7: 05/29/22 05:33 05/29/22 05:33 Labs: Abnormal Lab Results - Last 24 Hours (Table) 05/28/22 05/29/22 05/29/22 Range/Units 23:59 01:06 05:33 WBC 0.4 L* (3.8-10.6) k/uL Plt Count 112 L (150-450) k/uL Sodium (137-145) mmol/L Chloride (98-107) mmol/L Carbon Dioxide (22-30) mmol/L BUN (7-17) mg/dL Glucose (74-99) mg/dL POC Glucose (mg/dL) 142 H 132 H (70-110) mg/dL Calcium (8.4-10.2) mg/dL Ionized Calcium Rosa (4.5-5.3) mg/dL Phosphorus (2.5-4.5) mg/dL Magnesium (1.6-2.3) mg/dL 05/29/22 05/29/22 05/29/22 Range/Units 05:33 05:55 10:51 WBC (3.8-10.6) k/uL Plt Count (150-450) k/uL Sodium 131 L (137-145) mmol/L Chloride 89 L (98-107) mmol/L Carbon Dioxide 31 H (22-30) mmol/L BUN 84 H (7-17) mg/dL Glucose 116 H (74-99) mg/dL POC Glucose (mg/dL) 116 H (70-110) mg/dL Calcium 7.9 L (8.4-10.2) mg/dL Ionized Calcium Rosa 4.2 L (4.5-5.3) mg/dL Phosphorus 4.8 H (2.5-4.5) mg/dL Magnesium 2.4 H (1.6-2.3) mg/dL 05/29/22 05/29/22 Range/Units 12:13 18:17 WBC (3.8-10.6) k/uL Plt Count (150-450) k/uL Sodium (137-145) mmol/L Chloride (98-107) mmol/L Carbon Dioxide (22-30) mmol/L BUN (7-17) mg/dL Glucose (74-99) mg/dL POC Glucose (mg/dL) 127 H 137 H (70-110) mg/dL Calcium (8.4-10.2) mg/dL Ionized Calcium Rosa (4.5-5.3) mg/dL Phosphorus (2.5-4.5) mg/dL Magnesium (1.6-2.3) mg/dL Microbiology - Last 24 Hours (Table) 05/25/22 08:15 Gram Stain - Final Pleural Fluid Body Fluid Culture - Final Assessment and Plan (1) Chemotherapy induced neutropenia Current Visit: Yes Status: Acute Priority: High Code(s): D70.1 - AGRANULOCYTOSIS SECONDARY TO CANCER CHEMOTHERAPY; T45.1X5A - ADVERSE EFFECT OF ANTINEOPLASTIC AND IMMUNOSUP DRUGS, INIT SNOMED Code(s): 233384909 (2) Hypoxia Current Visit: Yes Status: Acute Priority: High Code(s): R09.02 - HYPOXEMIA SNOMED Code(s): 093021192 (3) Pericardial effusion Current Visit: Yes Status: Acute Priority: High Code(s): I31.39 - OTHER PERICARDIAL EFFUSION (NONINFLAMMATORY) SNOMED Code(s): 505474870 (4) Pleural effusion Current Visit: Yes Status: Acute Priority: High Code(s): J90 - PLEURAL EFFUSION, NOT ELSEWHERE CLASSIFIED SNOMED Code(s): 75918160 (5) Adenocarcinoma Current Visit: Yes Status: Acute Priority: High Code(s): C80.1 - MALIGNANT (PRIMARY) NEOPLASM, UNSPECIFIED SNOMED Code(s): 637565194 Plan: Recent diagnosis of non-small cell lung cancer. Pericardial fluid involved. She is status post first cycle of Taxol and carboplatin. She is in [place]. Hemoglobin is stable and within normal limits, platelets slightly down at 112,0 00, WBC 0.4. G-CSF 1 dose today. We'll follow with CBC/ANC daily, additional doses as needed. Patient is being followed closely by Radiology Nurse, Cardiology. Pending if there are any further plans for thoracentesis or, plans for Pleurx drains.
[2022-05-29 20:47] LABS: ABG Base Excess 15.5 mmol/L; ABG HCO3 38 mmol/L (21-25); ABG Oxygen Saturation 96.5 % (94-97); ABG PCO2 44 mmHg (35-45); ABG PH 7.54 (7.35-7.45); ABG PO2 72 mmHg (83-108); ABG TCO2 39 mmol/L (19-24); Allen Test Performed? Yes
[2022-05-29] MEDS ORDERED: MELATONIN 3 MG TABLET PO SCH (21:00)
[2022-05-29] MEDS: METOPROLOL SUCCINATE (ER) 25 MG TAB.ER.24H PO SCH (21:02)
[2022-05-29] MEDS: LORazepam 1 MG TAB PO PRN (21:02)
[2022-05-29 23:05] LABS: Calcium 8.3 mg/dL (8.4-10.2); Potassium 3.4 mmol/L (3.5-5.1)
[2022-05-29] MEDS ORDERED: Potassium Replacement Protocol 1 EACH MISC MISCELLANE PRN (23:34)
[2022-05-29] MEDS: POTASSIUM CHLORIDE 20 MEQ in WATER FOR INJECTION 1 100ML.BAG IVPB SCH (23:44)
[2022-05-29 23:51] LABS: Glucose,Whole Blood 119 mg/dL (70-110)
[2022-05-30] MEDS: FUROSEMIDE 100 MG in SODIUM CHLORIDE 0.9% 90 ML IV SCH (01:05)
[2022-05-30] MEDS: SODIUM CHLORIDE 0.9% 1,000 ML IV SCH (01:07)
[2022-05-30] MEDS: POTASSIUM CHLORIDE 20 MEQ in WATER FOR INJECTION 1 100ML.BAG IVPB SCH ×2 (01:28→03:39)
[2022-05-30] MEDS ORDERED: ACETAMINOPHEN IV (For NPO) 1,000 MG in EMPTY BAG 1 BAG IVPB ONE (02:15)
[2022-05-30] MEDS: LACTATED RINGERS 500 ML IV SCH ×2 (03:39→04:23)
[2022-05-30 04:12] VITALS: TEMP 98.2
[2022-05-30] MEDS ORDERED: NOREPINEPHRINE 32 MG in SODIUM CHLORIDE 0.9% 218 ML IV SCH (04:30)
[2022-05-30 05:44] LABS: HCT 36.8 % (34.0-46.0); HGB 11.6 gm/dL (11.4-16.0); Hypochromasia Marked; MCH 30.8 pg (25.0-35.0); MCHC 31.5 g/dL (31.0-37.0); Macrocytosis Slight; RBC 3.76 m/uL (3.80-5.40); RDW 15.5 % (11.5-15.5)
[2022-05-30 05:55] LABS: WBC 0.2 k/uL (3.8-10.6)
[2022-05-30 06:06] LABS: Glucose,Whole Blood 111 mg/dL (70-110)
[2022-05-30 06:07] LABS: Platelet Count 65 k/uL (150-450); Target Cells Present
[2022-05-30 06:37] LABS: AST 50 U/L (14-36); African American GFR (CKD) 64 (>60 ml/min/1.73 sqM); Albumin 2.5 g/dL (3.5-5.0); Alkaline Phosphatase 101 U/L (38-126); Blood Urea Nitrogen 87 mg/dL (7-17); Calcium 7.9 mg/dL (8.4-10.2); Carbon Dioxide 33 mmol/L (22-30); Chloride 90 mmol/L (98-107); Glucose 105 mg/dL (74-99); Non-African American GFR(CKD) 56 (>60 ml/min/1.73 sqM); Phosphorus 2.9 mg/dL (2.5-4.5); Total Bilirubin 0.8 mg/dL (0.2-1.3)
[2022-05-30 06:38] LABS: ALT 35 U/L (4-34); Anion Gap 8 mmol/L; Potassium 4.5 mmol/L (3.5-5.1); Sodium 131 mmol/L (137-145)
--- NOTE | 2022-05-30 07:38 | XR ---
EXAMINATION TYPE: XR chest 1V portable DATE OF EXAM: 05/30/2022 Comparison: 05/29/2022 Clinical History: 57-year-old female shortness of breath Findings: Left PICC tip at the lower SVC. Heart not to moderately enlarged. Diffuse interstitial changes. Curly B lines in the lower lungs. More patchy opacities in the bilateral lower lungs along with small effu sions. Overall changes are similar to minimally improved from prior exam. Impression: Ongoing CHF with diffuse interstitial pulmonary edema and patchy lower lung pulmonary edema. Similar to minimally improved from prior. Continue small effusions.
--- NOTE | 2022-05-30 07:46 | P.PN ---
Subjective Progress Note Date: 05/30/22 Principal diagnosis: Shortness of breath The patient is a 57-year-old female patient with history of lung cancer and recurrent pleural undercurrent pericardial effusion and cardiomyopathy as well as paroxysmal atrial fibrillation was admitted to the hospital with increasing shortness of breath. She was diagnosed with right lateral pleural effusion and she underwent thoracentesis and also with heart failure secondary to systolic dysfunction. May 272021 The patient was seen this morning. She continues to be short of breath. She underwent pleurocentesis within the last 24-48 hours. She underwent an echo which revealed impaired LV function was EF around 40% with small pericardial effusion with no tamponade physiology. She has been maintaining normal sinus mechanism. She is not on any anticoagulation at this point. She is hemodynamically stable. Currently she's on amiodarone as well as beta trish. Beside that she is on Lasix IV at 60 mg by mouth twice a day. We'll follow-up with the patient the chest x-ray from the morning but meanwhile continue the current medical regimen including the current dose of diuretics. May 282021 The patient was seen and evaluated this morning. Unfortunately she continues not doing well. She continues to be hypoxic requiring BiPAP. She continues to be in fluid overload and currently she is on Lasix IV. The chest x-ray was reviewed and showed findings consistent with heart failure. As a matter of fact on examination she does have diminished breathing sounds bilaterally and bilateral crackles as well. She is in process of having possible left pleurocentesis later on today. For that reason oral anticoagulation is on hold. Beside that she is on amiodarone by mouth and metoprolol by mouth and she has been maintaining normal sinus mechanism. The ejection fraction on the last echo was 40% with a small pericardial effusion and no tamponade physiology. Overall the prognosis is poor giving her cancer with recurrent pleural and pericardial effusion. May 292021 The patient was seen and evaluated this morning. She underwent pleurocentesis yesterday. She is requiring less oxygen right now. The pressure continues to be soft and has been in the 80s. I'm going to decrease the dose of metolazone from 5 mg by mouth daily to 2.5 mg by mouth daily. Otherwise she remains in sinus mechanism. The last echo showed an EF of 40% with small pericardial effusion was no tamponade physiology. We'll continue the current medical regimen with decreasing the dose of metolazone and restart the patient back on oral anticoagulation and follow-up with the patient. May 302021 The patient was seen and evaluated this morning. Unfortunately hemodynamically she is not doing well. She continues to be hypotensive. Lasix is on hold right now. She is on high dose of norepinephrine. Her mentation has been deteriorating as well. Overall she is not doing well from the cardiovascular standpoint of view. I believe at this point we need to discuss with the family the option of doing either hospice discomfort care giving the metastatic lung cancer condition. Objective - Vital Signs Vital signs: Vital Signs Temp 98.2 F 05/30/22 04:00 Pulse 98 05/30/22 06:00 Resp 30 H 05/30/22 06:00 BP 88/54 05/30/22 06:00 Pulse Ox 98 05/30/22 06:00 FiO2 45 05/30/22 07:22 Intake & Output 05/29/22 05/30/22 05/30/22 18:59 06:59 18:59 Intake Total 653.833 685.520 Output Total 1020 795 Balance -366.167 -109.480 Weight 67 kg 67.5 kg Intake: IV 340 570 Furosemide 100 mg In 120 100 Sodium Chloride 0.9% 90 ml @ 10 MG/HR 10 mls/hr IV .Q10H [facility] Rx#: [id number] Invasive Line 2 30 Invasive Line 3 10 Mvi, Adult No.4 with Vit 270 K 10 ml Trace (Conc-1Ml/ Dose) 1 ml Sodium Chloride 4Meq/ml Vial 52 meq Potassium Chloride 20 meq Calcium Gluconate 1 gm In Amino Acids 5 %/ Dextrose 20 % 1,000 ml @ 30 mls/hr IV .Q24H [facility] Rx #:[id number] Sodium Chloride 0.9% 1, 180 200 000 ml @ 20 mls/hr IV . Q24H [facility] Rx#:[id number] Intake, IV Titration 193.833 115.520 Amount Furosemide 100 mg In 193.833 110.667 Sodium Chloride 0.9% 90 ml @ 10 MG/HR 10 mls/hr IV .Q10H [facility] Rx#: [id number] Norepinephrine 32 mg In 4.853 Sodium Chloride 0.9% 218 ml @ 0.03 MCG/KG/MIN 0. 942 mls/hr IV .Q24H [facility] Rx#:[id number] Oral 120 Output: Urine 1020 795 Other: Voiding Method Indwelling Catheter Indwelling Catheter # Bowel Movements 0 - Constitutional General appearance: Present: no acute distress - Respiratory Respiratory: bilateral: diminished - Cardiovascular Rhythm: regular - Labs CBC & Chem 7: 05/30/22 05:04 05/30/22 05:04 Labs: Abnormal Lab Results - Last 24 Hours (Table) 05/29/22 05/29/22 05/29/22 Range/Units 10:51 12:13 18:17 WBC (3.8-10.6) k/uL RBC (3.80-5.40) m/uL Plt Count (150-450) k/uL ABG pH (7.35-7.45) ABG pO2 (83-108) mmHg ABG HCO3 (21-25) mmol/L ABG Total CO2 (19-24) mmol/L Sodium (137-145) mmol/L Potassium (3.5-5.1) mmol/L Chloride (98-107) mmol/L Carbon Dioxide (22-30) mmol/L BUN (7-17) mg/dL Creatinine (0.52-1.04) mg/dL Glucose (74-99) mg/dL POC Glucose (mg/dL) 127 H 137 H (70-110) mg/dL Calcium (8.4-10.2) mg/dL Ionized Calcium Rosa 4.2 L (4.5-5.3) mg/dL Phosphorus 4.8 H (2.5-4.5) mg/dL AST (14-36) U/L ALT (4-34) U/L Total Protein (6.3-8.2) g/dL Albumin (3.5-5.0) g/dL Triglycerides 162.00 H (0.00-149.00) mg/dL 05/29/22 05/29/22 05/29/22 Range/Units 20:44 21:53 23:48 WBC (3.8-10.6) k/uL RBC (3.80-5.40) m/uL Plt Count (150-450) k/uL ABG pH 7.54 H (7.35-7.45) ABG pO2 72 L (83-108) mmHg ABG HCO3 38 H (21-25) mmol/L ABG Total CO2 39 H (19-24) mmol/L Sodium 133 L (137-145) mmol/L Potassium 3.4 L (3.5-5.1) mmol/L Chloride 84 L (98-107) mmol/L Carbon Dioxide 36 H (22-30) mmol/L BUN 84 H (7-17) mg/dL Creatinine (0.52-1.04) mg/dL Glucose 135 H (74-99) mg/dL POC Glucose (mg/dL) 119 H (70-110) mg/dL Calcium 8.3 L (8.4-10.2) mg/dL Ionized Calcium Rosa (4.5-5.3) mg/dL Phosphorus (2.5-4.5) mg/dL AST (14-36) U/L ALT (4-34) U/L Total Protein (6.3-8.2) g/dL Albumin (3.5-5.0) g/dL Triglycerides (0.00-149.00) mg/dL 05/30/22 05/30/22 05/30/22 Range/Units 05:04 05:04 06:04 WBC 0.2 L* (3.8-10.6) k/uL RBC 3.76 L (3.80-5.40) m/uL Plt Count 65 L (150-450) k/uL ABG pH (7.35-7.45) ABG pO2 (83-108) mmHg ABG HCO3 (21-25) mmol/L ABG Total CO2 (19-24) mmol/L Sodium 131 L (137-145) mmol/L Potassium (3.5-5.1) mmol/L Chloride 90 L (98-107) mmol/L Carbon Dioxide 33 H (22-30) mmol/L BUN 87 H (7-17) mg/dL Creatinine 1.11 H (0.52-1.04) mg/dL Glucose 105 H (74-99) mg/dL POC Glucose (mg/dL) 111 H (70-110) mg/dL Calcium 7.9 L (8.4-10.2) mg/dL Ionized Calcium Rosa (4.5-5.3) mg/dL Phosphorus (2.5-4.5) mg/dL AST 50 H (14-36) U/L ALT 35 H (4-34) U/L Total Protein 5.0 L (6.3-8.2) g/dL Albumin 2.5 L (3.5-5.0) g/dL Triglycerides (0.00-149.00) mg/dL Microbiology - Last 24 Hours (Table) 05/25/22 08:15 Gram Stain - Final Pleural Fluid Body Fluid Culture - Final Assessment and Plan Assessment: Assessment #1 history of lung cancer #2 recurrent pericardial effusion secondary to malignancy #3 recurrent pleural effusion secondary to malignancy as well #4 paroxysmal atrial fibrillation #5 nonischemic cardiomyopathy #6 heart failure exacerbation secondary to heart failure with reduced ejection fraction Plan #1 right wean the patient from norepinephrine #2 discussed with the family the option of discomfort care/hospice #3 I'm going to start the patient on small dose of dobutamine holding to improve her cardiac output and improve the blood pressure #4 follow-up with the patient
[2022-05-30] MEDS: MIDODRINE 5 MG TAB PO SCH ×2 (08:12→08:13)
[2022-05-30] MEDS: FAT EMULSION 20% 250 ML in EMPTY BAG 1 BAG IV SCH ×2 (08:12→10:59)
[2022-05-30] MEDS: APIXABAN 5 MG TAB PO SCH (08:13)
[2022-05-30] MEDS: metOLazone 2.5 MG TAB PO SCH (08:13)
--- NOTE | 2022-05-30 09:28 | P.PN ---
Subjective Progress Note Date: 05/30/22 Principal diagnosis: SOB Hospital Course: 57-year-old female with history of multiple recent hospitalizations for large malignant pericardial effusion with unknown primary, likely lung cancer, systolic CHF exacerbations, atrial fibrillation with RVR presenting this time for worsening shortness of breath. Patient had a first round of chemotherapy the beginning of the month. She developed worsening shortness of breath, was found to have extensive bilateral pleural effusions. She underwent left-sided thoracentesis with total of 1 L of bloody fluid removed. However, patient became more dyspneic after the thoracentesis. Follow-up chest x-ray showed pulmonary edema. Patient was placed on BiPAP and transferred to the ICU. Patient continues to have some mild to moderate right-sided pleural effusion. Had right-sided thoracentesis with 950 mL of fluid removed. Currently being followed by pulmonology, cardiology, nephrology and oncology. Patient was start ed on Lasix drip, off of BiPAP. On nasal cannula. Metolazone was also added for her further diuresis. However, patient hemodynamically becoming more unstable, mentation deteriorating. Discussions with family with regards to end-of-life care. Subjective: Patient seen and examined at bedside. Overnight, patient was hypotensive, Lasix was discontinued. Decreased urine output after Lasix discontinued. Patient started on Levothroid. She also had fever overnight. Overall mentation deteriorating. Patient complaining of chest pain and further trouble breathing. Currently remains on nasal cannula. will be coming to the ICU for further discussions regarding end-of-life care. Pertinent positives and negatives as discussed above, a complete review of systems was performed and all other systems are negative. Vitals Signs Reviewed. General: Toxic and tired appearing, in moderate respiratory distress, appears at stated age Derm: warm, dry Head: atraumatic, normocephalic, symmetric Eyes: EOMI, no lid lag, anicteric sclera Mouth: no lip lesion, mucus membranes moist Cardiovascular: S1S2 reg, no murmur Lungs: bilateral rhonchi , nasal cannula Abdominal: soft, nontender to palpation, no guarding, no appreciable organomegaly Ext: no gross muscle atrophy, 2+ peripheral edema, no contractures Neuro: CN II-XI grossly intact, no focal neuro deficits Psych: oriented, appropriate affect Assessment and Plan: Acute hypoxemic respiratory failure Bilateral pleural effusions Acute pulmonary edema Acute systolic CHF exacerbation Shock, likely cardiogenic -Status post thoracentesis on the left, 1 L removed, cytology pending -Status post thoracentesis on the right, 950 mL removed, cytology pending -Fluid analysis consistent with exudate previously -On nasal cannula -LVEF 40%, small pericardial effusion -Lasix stopped due to hypo-tension -Remains a metolazone -Decreased urine output -midorine 10 TID, and levo fed -On Eliquis -ICU, nephrology, cardiology following SHELDON, oliguric -no obstructive pathology on kidney US -nephro following Hyponatremia -Stable -Continue to monitor Leukopenia Thrombocytopenia -Likely secondary to recent chemotherapy -filgrastrim added per oncology Dysphagia -[place] thick liquids -[facility] [employer] following -Poor by mouth intake -Started on TPN History of large pericardial effusion with tamponade physiology with previous emergent pericardial window on 02/19/2022. 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 -Likely lung cancer -Status post 1 round of chemotherapy History of atrial fibrillation -On metoprolol. on Eliquis DVT prophylaxis Trangquni will be present ICU later this morning/afternoon to further discuss goals of care. She has a very poor prognosis given multiple recent admissions and aggressive stage IV lung cancer. Patient will likely benefit from hospice/comfort care measures. Anticipated discharge: depending on clinical course Dispo: depending on clinical course Objective - Vital Signs Vital signs: Vital Signs Temp 98.2 F 05/30/22 04:00 Pulse 106 H 05/30/22 08:00 Resp 21 05/30/22 08:00 BP 101/71 05/30/22 08:00 Pulse Ox 97 05/30/22 08:00 FiO2 45 05/30/22 07:22 Intake & Output 05/29/22 05/30/22 05/30/22 18:59 06:59 18:59 Intake Total 653.833 785.520 90 Output Total 1020 805 15 Balance -366.167 -19.480 75 Weight 67 kg 67.5 kg Intake: IV 340 670 90 Furosemide 100 mg In 120 100 Sodium Chloride 0.9% 90 ml @ 10 MG/HR 10 mls/hr IV .Q10H [facility] Rx#: [id number] Invasive Line 2 30 Invasive Line 3 10 Mvi, Adult No.4 with Vit 330 60 K 10 ml Trace (Conc-1Ml/ Dose) 1 ml Sodium Chloride 4Meq/ml Vial 52 meq Potassium Chloride 20 meq Calcium Gluconate 1 gm In Amino Acids 5 %/ Dextrose 20 % 1,000 ml @ 30 mls/hr IV .Q24H [facility] Rx #:[id number] Sodium Chloride 0.9% 1, 180 240 30 000 ml @ 20 mls/hr IV . Q24H [facility] Rx#:[id number] Intake, IV Titration 193.833 115.520 Amount Furosemide 100 mg In 193.833 110.667 Sodium Chloride 0.9% 90 ml @ 10 MG/HR 10 mls/hr IV .Q10H [facility] Rx#: [id number] Norepinephrine 32 mg In 4.853 Sodium Chloride 0.9% 218 ml @ 0.03 MCG/KG/MIN 0. 942 mls/hr IV .Q24H [facility] Rx#:[id number] Oral 120 Output: Urine 1020 805 15 Other: Voiding Method Indwelling Catheter Indwelling Catheter Indwelling Catheter # Bowel Movements 0 - Labs CBC & Chem 7: 05/30/22 05:04 05/30/22 05:04 Labs: Abnormal Lab Results - Last 24 Hours (Table) 05/29/22 05/29/22 05/29/22 Range/Units 10:51 12:13 18:17 WBC (3.8-10.6) k/uL RBC (3.80-5.40) m/uL Plt Count (150-450) k/uL ABG pH (7.35-7.45) ABG pO2 (83-108) mmHg ABG HCO3 (21-25) mmol/L ABG Total CO2 (19-24) mmol/L Sodium (137-145) mmol/L Potassium (3.5-5.1) mmol/L Chloride (98-107) mmol/L Carbon Dioxide (22-30) mmol/L BUN (7-17) mg/dL Creatinine (0.52-1.04) mg/dL Glucose (74-99) mg/dL POC Glucose (mg/dL) 127 H 137 H (70-110) mg/dL Calcium (8.4-10.2) mg/dL Ionized Calcium Rosa 4.2 L (4.5-5.3) mg/dL Phosphorus 4.8 H (2.5-4.5) mg/dL AST (14-36) U/L ALT (4-34) U/L Total Protein (6.3-8.2) g/dL Albumin (3.5-5.0) g/dL Triglycerides 162.00 H (0.00-149.00) mg/dL 05/29/22 05/29/22 05/29/22 Range/Units 20:44 21:53 23:48 WBC (3.8-10.6) k/uL RBC (3.80-5.40) m/uL Plt Count (150-450) k/uL ABG pH 7.54 H (7.35-7.45) ABG pO2 72 L (83-108) mmHg ABG HCO3 38 H (21-25) mmol/L ABG Total CO2 39 H (19-24) mmol/L Sodium 133 L (137-145) mmol/L Potassium 3.4 L (3.5-5.1) mmol/L Chloride 84 L (98-107) mmol/L Carbon Dioxide 36 H (22-30) mmol/L BUN 84 H (7-17) mg/dL Creatinine (0.52-1.04) mg/dL Glucose 135 H (74-99) mg/dL POC Glucose (mg/dL) 119 H (70-110) mg/dL Calcium 8.3 L (8.4-10.2) mg/dL Ionized Calcium Rosa (4.5-5.3) mg/dL Phosphorus (2.5-4.5) mg/dL AST (14-36) U/L ALT (4-34) U/L Total Protein (6.3-8.2) g/dL Albumin (3.5-5.0) g/dL Triglycerides (0.00-149.00) mg/dL 05/30/22 05/30/22 05/30/22 Range/Units 05:04 05:04 06:04 WBC 0.2 L* (3.8-10.6) k/uL RBC 3.76 L (3.80-5.40) m/uL Plt Count 65 L (150-450) k/uL ABG pH (7.35-7.45) ABG pO2 (83-108) mmHg ABG HCO3 (21-25) mmol/L ABG Total CO2 (19-24) mmol/L Sodium 131 L (137-145) mmol/L Potassium (3.5-5.1) mmol/L Chloride 90 L (98-107) mmol/L Carbon Dioxide 33 H (22-30) mmol/L BUN 87 H (7-17) mg/dL Creatinine 1.11 H (0.52-1.04) mg/dL Glucose 105 H (74-99) mg/dL POC Glucose (mg/dL) 111 H (70-110) mg/dL Calcium 7.9 L (8.4-10.2) mg/dL Ionized Calcium Rosa (4.5-5.3) mg/dL Phosphorus (2.5-4.5) mg/dL AST 50 H (14-36) U/L ALT 35 H (4-34) U/L Total Protein 5.0 L (6.3-8.2) g/dL Albumin 2.5 L (3.5-5.0) g/dL Triglycerides (0.00-149.00) mg/dL Microbiology - Last 24 Hours (Table) 05/25/22 08:15 Gram Stain - Final Pleural Fluid Body Fluid Culture - Final
[2022-05-30] MEDS ORDERED: FILGRASTIM-SNDZ 300 MCG/0.5 ML SYRINGE SQ ONE (09:30)
[2022-05-30] MEDS ORDERED: PANTOPRAZOLE 40 MG/10 ML VIAL IVP SCH (10:00)
[2022-05-30] MEDS ORDERED: ACETAMINOPHEN IV (For NPO) 1,000 MG in EMPTY BAG 1 BAG IVPB STA (10:35)
--- NOTE | 2022-05-30 10:38 | P.PN ---
Subjective Progress Note Date: 05/30/22 Is a pleasant 57-year-old female patient with a known history of chronic tobacco dependence who had been hospitalized 1 month ago for shortness of breath and was found to have a large pericardial effusion with tamponade physiology status post emergent pericardial window. Her pericardial fluid was positive for metastatic adenocarcinoma of unknown primary. She does have a large soft tissue density around theright paratracheal region measuring 2.7 x 2.0 cm. Enlarged lymphadenopathy versus mass were within the differential.she also had acute cardiomyopathy with ejection fraction of 35%. She was subsequently discharged and was to undergo a this biopsies of the right paratracheal mass. The patient had ended up in the emergency room on on 3 separate occasions with chest pain, shortness of breath and atrial fibrillation with rapid ventricular response. She is anticoagulated with Eliquis. She was seen in our office on 05/23/[address] Angel Abarca on performed a chest x-ray which revealed bilateral pleural effusions. Ultrasound of the chest revealed a 9.3 cm pocket on the right and a 8.5 cm pocket on the left. She was going to be set up for a thoracentesis on 05/27/2022. Yesterday she underwent a first round of chemotherapy. Shortly after that she developed worsening shortness of breath and presented to the emergency room for the same. She is seen today in consultation. She is dys pneic on conversation. Dyspneic with minimal exertion. She did undergo a left- sided thoracentesis today with 1 liter of bloody fluid removed. Fluid analysis and cytology sent. white count 9.9. Hemoglobin 13.8. INR 1.5. Sodium 129. Potassium 4.2. BUN 37. Creatinine 0.5. Glucose 129. AST 263. ALT 111. Cano virus by PCR not detected. she is breathing a bit better postthoracentesis. She is maintaining O2 saturations in the mid 90s on 3 L/m per nasal cannula. Afebrile. Hemodynamically stable. Patient was reevaluated today on 05/26/22, patient had to be transferred to the ICU late in the afternoon yesterday. I performed on this patient left-sided thoracentesis and I was able to drain about 1000 mL of serosanguineous fluid from the left pleural space. Patient was doing great, as a matter of fact she was even asking to be discharged home, and I recommended that the decision be made by her admitting physician, and the plan was to eventually wait for the results of the fluid from the left pleural space and decide if it is malignant or nonmalignant. Follow-up chest x-ray after thoracentesis showed complete resolution of the fluid on the left side, even ultrasound was done p ostoperatively and showed no fluid on the left side. 7 hours after the thoracentesis, I was called by the nurse from the ER telling me that the patient is developing more and more shortness of breath. Follow-up chest x-ray showed evidence of pulmonary edema, patient required placement on high FiO2 she even required placement on BiPAP, and I transferred the patient to the ICU and is status post sending her back to the floor. Chest x-ray continues to show evidence of interstitial edema. Patient received multiple doses of Lasix since yesterday, her urine output does not seem to be great, echocardiogram this morning showed no evidence of temporal not she does have pericardial effusion and she does have severe LV dysfunction. Hence I'm planning to keep the patient in the ICU today and hopefully we will get the results of the cytology from the left pleural effusion which I drained yesterday. There is hardly any pleural effusion on the left side, she does have a [id number] right-sided pleural effusion which may or may not require thoracentesis. Considering the patient developed pulmonary edema post left thoracentesis yesterday, and extremely reluctant to go ahead and perform a right-sided thoracentesis today not to mention we have no information about the fluid except the fluid I drained was most likely malignant, was clearly exudative in nature. WBC count today is 16.4 hemoglobin is 14.3. ABG earlier on 50% BiPAP with 50%/05/27 showed a pO2 of 86 pCO2 55 pH of 7.41. More Lasix will be given later today. The patient is seen and evaluated today 05/27/2022 in follow-up in the intensive care unit. She is currently sitting up in bed. She is remaining on BiPAP 05/28 and 40% FiO2. She's been initiated on a Lasix drip at 5 mg per hour. Chest x- ray continues to show stable pulmonary edema. White count 13.6. Hemoglobin 13.6. Platelets 174. Sodium 132. Potassium 4.4. BUN 61. Creatinine 0.67. AST 84. ALT 68. Glucose 136. ProBNP 6050. Cortisol level 20. Pleural fluid analysis was positive for exudate with a total protein of 3.6 and an LDH of 961. The patient was seen and evaluated 05/28/2022 in follow-up in the intensive care unit. She remains on BiPAP 05/28 at 40% FiO2. She is continued on a Lasix drip at 5 mg per hour. Chest x-ray continues to show pulmonary edema with a increased right-sided pleural effusion. She did undergo another thoracentesis on the right today. 950 ML's of bloody fluid returned. Chest x-ray reveals significant improvement in aeration of the right lung. No pneumothorax post procedure. White count 5.9. Hemoglobin 13.2. Sodium 131. Potassium 4.6. BUN 75. Creatinine 1.12. Glucose 132. Lasix drip has been increased to 10 mg per hour per nephrology. She was initiated on Zaroxolyn. The patient is seen today 05/29/2022 in follow-up in the intensive care unit. She is currently sitting up in bed. Bit better today compared to yesterday. She is maintaining O2 saturations in the low 90s on 6 L nasal cannula. She did utilize the BiPAP through the night 05/28 and 45% FiO2. She had undergone a right-sided thoracentesis yesterday with 950 MLS removed. Today's chest x-ray reveals blunting the costophrenic angles. No evidence of focal consolidation or pneumothorax. Some pulmonary vascular congestion. Thoracentesis fluid cultures pending. Pathology still pending. White count 0.4. Hemoglobin 13.0. Platelets 112,000. Sodium 131. Potassium 4.4. BUN 84. Creatinine 1.02. Glucose 116. she is continued on a Lasix drip at 10 mg per hour. 0.9% normal saline at KVO. Currently in a -1.8 L balance. The patient is seen today 05/30/2022 in follow-up in the intensive care unit. She is currently sitting up in bed. She is restless. She had been pulling off her BiPAP throughout the night. She was hypotensive. Lasix drip was discontinued. She did require norepinephrine currently at 12 mcg/m. Normal saline at 10 mL per hour. She is being nourished with TPN currently at 30 MLS per hour. Her BiPAP settings are 12/6 and 45% FiO2. She is currently on 4 L nasal cannula. She remains quite restless and uncomfortable. X-ray continues to show ongoing interstitial pulmonary edema and patchy lower lobe infiltrates. White count 0.2. Hemoglobin 11.6. Platelets 65,000. Sodium 131. Potassium 4.5. BUN 87. Creatinine 1.11. Glucose 105. AST 50. ALT 35. Albumin 2.5. She is anticoagulated with Eliquis. Objective - Vital Signs Vital signs: Vital Signs Temp 98.2 F 05/30/22 04:00 Pulse 99 05/30/22 10:00 Resp 32 H 05/30/22 10:00 BP 102/72 05/30/22 10:00 Pulse Ox 96 05/30/22 10:00 FiO2 45 05/30/22 07:22 Intake & Output 05/29/22 05/30/22 05/30/22 18:59 06:59 18:59 Intake Total 653.833 785.520 201 Output Total 1020 805 25 Balance -366.167 -19.480 176 Weight 67 kg 67.5 kg Intake: IV 340 670 201 Furosemide 100 mg In 120 100 Sodium Chloride 0.9% 90 ml @ 10 MG/HR 10 mls/hr IV .Q10H RO Rx#: [id number] Invasive Line 2 30 Invasive Line 3 10 Mvi, Adult No.4 with Vit 330 60 K 10 ml Trace (Conc-1Ml/ Dose) 1 ml Sodium Chloride 4Meq/ml Vial 52 meq Potassium Chloride 20 meq Calcium Gluconate 1 gm In Amino Acids 5 %/ Dextrose 20 % 1,000 ml @ 30 mls/hr IV .Q24H RO Rx #:[id number] Sodium Chloride 0.9% 1, 180 240 141 000 ml @ 20 mls/hr IV . Q24H RO Rx#:[id number] Intake, IV Titration 193.833 115.520 Amount Furosemide 100 mg In 193.833 110.667 Sodium Chloride 0.9% 90 ml @ 10 MG/HR 10 mls/hr IV .Q10H RO Rx#: [id number] Norepinephrine 32 mg In 4.853 Sodium Chloride 0.9% 218 ml @ 0.03 MCG/KG/MIN 0. 942 mls/hr IV .Q24H RO Rx#:[id number] Oral 120 Output: Urine 1020 805 25 Other: Voiding Method Indwelling Catheter Indwelling Catheter Indwelling Catheter # Bowel Movements 0 - Exam GENERAL EXAM: Alert, very weak, altered mental status, 57-year-old female, on 5 liters high flow nasal cannula alternating with BiPAP currently 12/6 and 40% FiO2, restless and uncomfortable. HEAD: Normocephalic. EYES: Normal reaction of pupils, equal size. NOSE: Clear with pink turbinates. THROAT: No erythema or exudates. NECK: No masses, no JVD. CHEST: No chest wall deformity. LUNGS: Equal air entry with crackles in the bilateral bases. CVS: S1 and S2 normal with no audible murmur, regular rhythm. ABDOMEN: No hepatosplenomegaly, normal bowel sounds, no guarding or rigidity. SPINE: No scoliosis or deformity SKIN: No rashes CENTRAL NERVOUS SYSTEM: No focal deficits, tone is normal in all 4 extremities. EXTREMITIES: There is no peripheral edema. No clubbing, no cyanosis. Peripheral pulses are intact. - Labs CBC & Chem 7: 05/30/22 05:04 05/30/22 05:04 Labs: Abnormal Lab Results - Last 24 Hours (Table) 05/29/22 05/29/22 05/29/22 Range/Units 10:51 12:13 18:17 WBC (3.8-10.6) k/uL RBC (3.80-5.40) m/uL Plt Count (150-450) k/uL ABG pH (7.35-7.45) ABG pO2 (83-108) mmHg ABG HCO3 (21-25) mmol/L ABG Total CO2 (19-24) mmol/L Sodium (137-145) mmol/L Potassium (3.5-5.1) mmol/L Chloride (98-107) mmol/L Carbon Dioxide (22-30) mmol/L BUN (7-17) mg/dL Creatinine (0.52-1.04) mg/dL Glucose (74-99) mg/dL POC Glucose (mg/dL) 127 H 137 H (70-110) mg/dL Calcium (8.4-10.2) mg/dL Ionized Calcium Rosa 4.2 L (4.5-5.3) mg/dL Phosphorus 4.8 H (2.5-4.5) mg/dL AST (14-36) U/L ALT (4-34) U/L Total Protein (6.3-8.2) g/dL Albumin (3.5-5.0) g/dL Triglycerides 162.00 H (0.00-149.00) mg/dL 05/29/22 05/29/22 05/29/22 Range/Units 20:44 21:53 23:48 WBC (3.8-10.6) k/uL RBC (3.80-5.40) m/uL Plt Count (150-450) k/uL ABG pH 7.54 H (7.35-7.45) ABG pO2 72 L (83-108) mmHg ABG HCO3 38 H (21-25) mmol/L ABG Total CO2 39 H (19-24) mmol/L Sodium 133 L (137-145) mmol/L Potassium 3.4 L (3.5-5.1) mmol/L Chloride 84 L (98-107) mmol/L Carbon Dioxide 36 H (22-30) mmol/L BUN 84 H (7-17) mg/dL Creatinine (0.52-1.04) mg/dL Glucose 135 H (74-99) mg/dL POC Glucose (mg/dL) 119 H (70-110) mg/dL Calcium 8.3 L (8.4-10.2) mg/dL Ionized Calcium Rosa (4.5-5.3) mg/dL Phosphorus (2.5-4.5) mg/dL AST (14-36) U/L ALT (4-34) U/L Total Protein (6.3-8.2) g/dL Albumin (3.5-5.0) g/dL Triglycerides (0.00-149.00) mg/dL 05/30/22 05/30/22 05/30/22 Range/Units 05:04 05:04 06:04 WBC 0.2 L* (3.8-10.6) k/uL RBC 3.76 L (3.80-5.40) m/uL Plt Count 65 L (150-450) k/uL ABG pH (7.35-7.45) ABG pO2 (83-108) mmHg ABG HCO3 (21-25) mmol/L ABG Total CO2 (19-24) mmol/L Sodium 131 L (137-145) mmol/L Potassium (3.5-5.1) mmol/L Chloride 90 L (98-107) mmol/L Carbon Dioxide 33 H (22-30) mmol/L BUN 87 H (7-17) mg/dL Creatinine 1.11 H (0.52-1.04) mg/dL Glucose 105 H (74-99) mg/dL POC Glucose (mg/dL) 111 H (70-110) mg/dL Calcium 7.9 L (8.4-10.2) mg/dL Ionized Calcium Rosa (4.5-5.3) mg/dL Phosphorus (2.5-4.5) mg/dL AST 50 H (14-36) U/L ALT 35 H (4-34) U/L Total Protein 5.0 L (6.3-8.2) g/dL Albumin 2.5 L (3.5-5.0) g/dL Triglycerides (0.00-149.00) mg/dL Microbiology - Last 24 Hours (Table) 05/25/22 08:15 Gram Stain - Final Pleural Fluid Body Fluid Culture - Final Assessment and Plan Assessment: Acute hypoxemic respiratory failure secondary to bilateral pleural effusions. Status post left-sided thoracentesis today with 1 L of bloody fluid removed. Exudative with an protein of 3.6 and an LDH 961. Cytology still pending. Right- sided thoracentesis with 950 ML's of bloody return on 05/28/2022. Cytology still pending Acute pulmonary edema requiring BiPAP support 05/28 at 40% FiO2. Hypotension requiring pressors Altered mental status secondary to above History of large pericardial effusion with tamponade physiology with previous emergent pericardial window on 05/22/2022. 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 The patient did receive an initial round of chemotherapy on 05/24/2022. History of atrial fibrillation with a rapid ventricular response, anticoagulated with Eliquis. Currently in normal sinus rhythm History of cardiomyopathy with ejection fraction of 40% Chronic tobacco dependence Plan: The patient was seen and evaluated Chest x-ray, medication and labs reviewed Altered mental status with deterioration The patient had developed significant hypotension overnight Currently on norepinephrine at 12 mcg/m Lasix drip was discontinued TPN for nutritional support We had discussion with the patient's regarding her overall addition and poor prognosis She is a DO NOT RESUSCITATE/DO NOT INTUBATE CODE STATUS May be transitioned to hospice/comfort care once family arrives I have personally seen and examined the patient, performed the documentation and the assessment and plan as written. Number of minutes spent on the visit: 10.
--- NOTE | 2022-05-30 10:44 | P.PN ---
Subjective Patient is seen in follow-up for acute kidney injury. Renal function a little worse. Lasix drip held last night due to hypotension. On nasal cannula. Oral intake is poor. Vital signs are stable. General: Awake. HEENT: On NC. LUNGS: Breath sounds decreased. HEART: Rate and Rhythm are regular. ABDOMEN: Soft, no distention. EXTREMITITES: Trace edema. Objective - Vital Signs Vital signs: Vital Signs Temp 98.2 F 05/30/22 04:00 Pulse 99 05/30/22 10:00 Resp 32 H 05/30/22 10:00 BP 102/72 05/30/22 10:00 Pulse Ox 96 05/30/22 10:00 FiO2 45 05/30/22 07:22 Intake & Output 05/29/22 05/30/22 05/30/22 18:59 06:59 18:59 Intake Total 653.833 785.520 201 Output Total 1020 805 25 Balance -366.167 -19.480 176 Weight 67 kg 67.5 kg Intake: IV 340 670 201 Furosemide 100 mg In 120 100 Sodium Chloride 0.9% 90 ml @ 10 MG/HR 10 mls/hr IV .Q10H RO Rx#: [id number] Invasive Line 2 30 Invasive Line 3 10 Mvi, Adult No.4 with Vit 330 60 K 10 ml Trace (Conc-1Ml/ Dose) 1 ml Sodium Chloride 4Meq/ml Vial 52 meq Potassium Chloride 20 meq Calcium Gluconate 1 gm In Amino Acids 5 %/ Dextrose 20 % 1,000 ml @ 30 mls/hr IV .Q24H RO Rx #:[id number] Sodium Chloride 0.9% 1, 180 240 141 000 ml @ 20 mls/hr IV . Q24H RO Rx#:[id number] Intake, IV Titration 193.833 115.520 Amount Furosemide 100 mg In 193.833 110.667 Sodium Chloride 0.9% 90 ml @ 10 MG/HR 10 mls/hr IV .Q10H RO Rx#: [id number] Norepinephrine 32 mg In 4.853 Sodium Chloride 0.9% 218 ml @ 0.03 MCG/KG/MIN 0. 942 mls/hr IV .Q24H RO Rx#:[id number] Oral 120 Output: Urine 1020 805 25 Other: Voiding Method Indwelling Catheter Indwelling Catheter Indwelling Catheter # Bowel Movements 0 - Labs CBC & Chem 7: 05/30/22 05:04 05/30/22 05:04 Labs: Abnormal Lab Results - Last 24 Hours (Table) 05/29/22 05/29/22 05/29/22 Range/Units 10:51 12:13 18:17 WBC (3.8-10.6) k/uL RBC (3.80-5.40) m/uL Plt Count (150-450) k/uL ABG pH (7.35-7.45) ABG pO2 (83-108) mmHg ABG HCO3 (21-25) mmol/L ABG Total CO2 (19-24) mmol/L Sodium (137-145) mmol/L Potassium (3.5-5.1) mmol/L Chloride (98-107) mmol/L Carbon Dioxide (22-30) mmol/L BUN (7-17) mg/dL Creatinine (0.52-1.04) mg/dL Glucose (74-99) mg/dL POC Glucose (mg/dL) 127 H 137 H (70-110) mg/dL Calcium (8.4-10.2) mg/dL Ionized Calcium Rosa 4.2 L (4.5-5.3) mg/dL Phosphorus 4.8 H (2.5-4.5) mg/dL AST (14-36) U/L ALT (4-34) U/L Total Protein (6.3-8.2) g/dL Albumin (3.5-5.0) g/dL Triglycerides 162.00 H (0.00-149.00) mg/dL 05/29/22 05/29/22 05/29/22 Range/Units 20:44 21:53 23:48 WBC (3.8-10.6) k/uL RBC (3.80-5.40) m/uL Plt Count (150-450) k/uL ABG pH 7.54 H (7.35-7.45) ABG pO2 72 L (83-108) mmHg ABG HCO3 38 H (21-25) mmol/L ABG Total CO2 39 H (19-24) mmol/L Sodium 133 L (137-145) mmol/L Potassium 3.4 L (3.5-5.1) mmol/L Chloride 84 L (98-107) mmol/L Carbon Dioxide 36 H (22-30) mmol/L BUN 84 H (7-17) mg/dL Creatinine (0.52-1.04) mg/dL Glucose 135 H (74-99) mg/dL POC Glucose (mg/dL) 119 H (70-110) mg/dL Calcium 8.3 L (8.4-10.2) mg/dL Ionized Calcium Rosa (4.5-5.3) mg/dL Phosphorus (2.5-4.5) mg/dL AST (14-36) U/L ALT (4-34) U/L Total Protein (6.3-8.2) g/dL Albumin (3.5-5.0) g/dL Triglycerides (0.00-149.00) mg/dL 05/30/22 05/30/22 05/30/22 Range/Units 05:04 05:04 06:04 WBC 0.2 L* (3.8-10.6) k/uL RBC 3.76 L (3.80-5.40) m/uL Plt Count 65 L (150-450) k/uL ABG pH (7.35-7.45) ABG pO2 (83-108) mmHg ABG HCO3 (21-25) mmol/L ABG Total CO2 (19-24) mmol/L Sodium 131 L (137-145) mmol/L Potassium (3.5-5.1) mmol/L Chloride 90 L (98-107) mmol/L Carbon Dioxide 33 H (22-30) mmol/L BUN 87 H (7-17) mg/dL Creatinine 1.11 H (0.52-1.04) mg/dL Glucose 105 H (74-99) mg/dL POC Glucose (mg/dL) 111 H (70-110) mg/dL Calcium 7.9 L (8.4-10.2) mg/dL Ionized Calcium Rosa (4.5-5.3) mg/dL Phosphorus (2.5-4.5) mg/dL AST 50 H (14-36) U/L ALT 35 H (4-34) U/L Total Protein 5.0 L (6.3-8.2) g/dL Albumin 2.5 L (3.5-5.0) g/dL Triglycerides (0.00-149.00) mg/dL Microbiology - Last 24 Hours (Table) 05/25/22 08:15 Gram Stain - Final Pleural Fluid Body Fluid Culture - Final Assessment and Plan Plan: Assessment: 1. Acute kidney injury secondary to ATN secondary to cardiorenal syndrome. Urine output decreased after Lasix drip discontinued. Renal function a little worse today. Creatinine 1.11. No hydronephrosis noted on kidney ultrasound. 2. Acute on chronic systolic CHF with ejection fraction of 40%. 3. Acute hypoxic respiratory failure. 4. Metastatic adenocarcinoma. ?Primary. Oncology following. 5. Hypervolemic hyponatremia. Stable. 6. Pericardial effusion status post pericardial window 05/22/2022. 7. Large pleural effusion status post thoracentesis with 1 L drained this admission. Another thoracentesis done with 950 cc drained 05/28/22. Plan: Case discussed with family present at bedside. Family has decided to proceed with hospice.
[2022-05-30] MEDS: MORPHINE SULFATE 2 MG/ML SYRINGE IVP PRN (11:25)
[2022-05-30 11:34] VITALS: BP 64/46; PULSE 98; RESP 18
[2022-05-30] MEDS ORDERED: 1: MVI, ADULT NO.4 WITH VIT K 10 ML, TRACE (CONC-1ML/DOSE) 1 ML, SODIUM CHLORIDE 4MEQ/ML IV SCH ×14 (15:00→17:00)
--- NOTE | 2022-05-31 07:46 | P.DS ---
Providers Date of admission: 05/25/22 00:06 Expected date of discharge: 05/30/22 Attending physician: Alka Lopez MD Consults: 05/25/22 00:06 Consult Physician Routine Consulting Provider: Ashely Ortiz Consult Reason/Comments: known Do you want consulting provider notified?: Yes 05/25/22 03:09 Consult Physician Urgent Consulting Provider: Tannre Treadwell Consult Reason/Comments: shortness of breath Do you want consulting provider notified?: Yes 05/26/22 09:14 Consult Physician Stat Consulting Provider: Slava Brown Consult Reason/Comments: Possible tamponode, STAT echo? Do you want consulting provider notified?: Yes Consult Physician Urgent Consulting Provider: Vicky Parsons Consult Reason/Comments: Cardiorenal syndrome? low urine output Do you want consulting provider notified?: Yes 05/27/22 09:09 Consult Physician Routine Consulting Provider: Oskar Zambrano Consult Reason/Comments: Recurrent pleural effusions, adenocarcinoma Do you want consulting provider notified?: Yes Primary care physician: Jose Luis Gifford Hospital Course: Discharge Diagnosis: Acute hypoxemic respiratory failure Bilateral pleural effusions Acute pulmonary edema Acute systolic CHF exacerbation Cardiogenic shock [place], oliguric Hyponatremia Leukopenia Thrombocytopenia Dysphagia History of large pericardial effusion with tamponade physiology with previous emergent pericardial window on 02/19/2022. 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 Likely lung cancer History of atrial fibrillation Hospital Course: 57-year-old female with history of multiple recent hospitalizations for large malignant pericardial effusion with unknown primary, likely lung cancer, systolic CHF exacerbations, atrial fibrillation with RVR presenting this time for worsening shortness of breath. Patient had a first round of chemotherapy the beginning of the month. She developed worsening shortness of breath, was found to have extensive bilateral pleural effusions. She underwent left-sided thoracentesis with total of 1 L of bloody fluid removed. However, patient became more dyspneic after the thoracentesis. Follow-up chest x-ray showed pulmonary edema. Patient was placed on BiPAP and transferred to the ICU. Patient continues to have some mild to moderate right-sided pleural effusion. Had right-sided thoracentesis with 950 mL of fluid removed. Currently being followed by pulmonology, cardiology, nephrology and oncology. Patient was started on Lasix drip, off of BiPAP. Transition to nasal cannula. Metolazone was also added for her further diuresis. However, patient hemodynamically becoming more unstable, mentation deteriorating. Also febrile and leukopenic. Discussion with the family with a first end of life care, hospice was consulted. Patient was transitioned initially hospice. Following discharge to hospice care, patient's family who believed that they were rushing to the decision. Further treatment measures including thoracentesis and continuing vasopressors. Please see history and physical note from 05/31 for further details. Patient Condition at Discharge: Critical Plan - Discharge Summary Discharge Rx Participant: Yes New Discharge Prescriptions: No Action Apixaban [Eliquis] 5 mg PO BID #60 tab Metoprolol Succinate (ER) [Toprol XL] 25 mg PO HS #30 tab Nystatin 100,000 Unit/ml Susp [Mycostatin Oral Susp] 500,000 units PO QID Furosemide [Lasix] 40 mg PO BID@0900,1600 HYDROcodone/APAP 5-325MG [[place] 5-325] 1 tab PO Q8H PRN PRN Reason: Pain Amiodarone [Cordarone] 200 mg PO BID Discharge Medication List Apixaban [Eliquis] 5 mg PO BID #60 tab 05/04/22 [Rx] Metoprolol Succinate (ER) [Toprol XL] 25 mg PO HS #30 tab 05/04/22 [Rx] Amiodarone [Cordarone] 200 mg PO BID 05/11/22 [History] Furosemide [Lasix] 40 mg PO BID@0900,1600 05/16/22 [History] Nystatin 100,000 Unit/ml Susp [Mycostatin Oral Susp] 500,000 units PO QID 05/16/22 [History] HYDROcodone/APAP 5-325MG [[place] 5-325] 1 tab PO Q8H PRN 05/24/22 [History] Follow up Appointment(s)/Referral(s): Jose Luis Gifford MD [Primary Care Provider] - 1-2 days Discharge Disposition: DISCH TO [facility]
--- NOTE | 2022-06-01 23:12 | CDI ---
Documentation Clarification Form Date: 06/01/2022 10:47:35 PM From: Mickie Ackerman Phone: Admit Date: 05/25/2022 12:06:00 AM Patient Name: Iraida Alejandro Visit Number: [id number] Discharge Date: 05/30/2022 01:22:00 PM ATTENTION: The Clinical Documentation Specialists (CDI) and [facility] Coding Staff appreciate your assistance in clarifying documentation. Please respond to the clarification below the line at the bottom and electronically sign. The CDI & [facility] Coding staff will review the response and follow-up if needed. Please note: Queries are made part of the Legal Health Record. If you have any questions, please contact the author of this message via ITS. Dr. Isaac Serrano Cardiorenal syndrome is documented per Nephrology Progress Note 05/27/22 which may lack sufficient clinical evidence/support in the medical record. Additional clarification is requested. History/Risk Factors: 57yo F, Lung Cx w mets, HTN w CHF, ATN, AHRF, malig pleural effusion, Hx smoking, NICM, chronic A Fib, pHTN, Agranulocytosis secondary to cancer chemotherapy Clinical Indicators: BUN: 53 12/4 75 12/6 84 12/7 Creatinine: 0.93 12/4 1.12 122/6 1.02/.99 12/7 EST GFR (CKD-EPI) AfAm 80 12/4 63 12/6 71/74 12/7 EST GFR (CKD-EPI) NonAf 69 12/4 55 12/6 62/64 12/7 Treatment: Start Lasix drip. Add midodrine 5 mg 3 times daily. Hold for systolic blood pressure greater than 110. Check cortisol level. Wean FiO2. Continue to monitor renal function and urine output. Consults: Acute kidney injury secondary to hypotension initially oliguric currently nonoliguric. Continue with IV Lasix. I will add midodrine as blood pressure remains low. UA is benign with 1+ protein. 2. Volume overload 3. AHRF secondary to CHF and volume overload. 4. Acute on chronic CHF, ejection fraction about 35% Add midodrine as blood pressure is low. Increase Lasix to 40 mg IV every 8 hours. Avoid nephrotoxic agents. Check ultrasound of the kidneys next Please clarify if Cardiorenal syndrome (Chronic Kidney Disease) is a valid diagnosis? [ ] Yes, Cardiorenal syndrome (Chronic Kidney Disease) is present and is stage: [ ] CKD Stage 2 (GFR 60-89) [ ] CKD Stage 3 (GFR 30-59) [ ] CKD Stage 3a (GFR 45-59) [ ] No, Cardiorenal syndrome (Chronic Kidney Disease) is ruled out [ ] Other, please specify [ x ] Unable to determine (Template last revised: July 2020) ATN MTDD
--- NOTE | 2022-06-03 09:58 | P.PN ---
Subjective Progress Note Date: 05/30/22 Principal diagnosis: Metastatic adenocarcinoma of lung primary Brief incident note: I received a page from ICU nurse with regards to the family, and the in particular, being very upset and asking to speak to oncology regarding her current clinical course and why decision was made to proceed with hospice. We reviewed the current clinical course to date from the time she received cycle 1 of carboplatin/paclitaxel on 05/23/2022. We discussed how she has had recurrent pulmonary edema along with pleural effusions. We also reviewed how she did have respiratory distress requiring BiPAP secondary to this. 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 I did discuss with him the relative ineffectiveness of chemotherapy to work on metastases to this region due to lack of blood flow to the pericardium. The did ask if there were any treatments from an oncologic perspective that could be done at this time to help with this. I stated that we had already given chemotherapy last week and that additional chemotherapy cannot be given at this time, as this is given every 3 weeks. When I previously had stated that we were working on working with the insurance [employer] to obtain prior authorization for Keytruda, the stated, "I have a ton of money. I am ready to cut a check so we can give the treatment right now." I stated that monetary concerns were not playing a role in decision making of his 's care and that Keytruda at this time would not help the acute issue of pulmonary edema and constrictive cardiomyopathy, as immunotherapy does not work as quickly as chemotherapy. The expressed his understanding of the current clinical situation. He insisted that full medical measures be done in order to try to give the chemotherapy more time to work. These measures included placement of Pleurx catheters as well as pursuing full resuscitation measures. I did discuss with him that I am not the physician who would place any Pleurx catheters or lines. He then stated, "I will find a doctor in [place] somewhere who will place these lines." He mentions to me that he would be willing to readdress CODE STATUS and goals of care after th svitlana measures were taken, and there was no improvement in clinical status. We will continue to follow her clinical course. Objective - Vital Signs Vital signs: Vital Signs Temp Pulse 96 05/30/22 17:51 Resp BP 83/54 05/30/22 17:51 Pulse Ox 98 05/30/22 17:51 FiO2 Intake & Output 05/30/22 05/30/22 05/31/22 06:59 18:59 06:59 Weight 67.5 kg Other: Voiding Method Indwelling Catheter - Labs CBC & Chem 7: 05/30/22 05:04 05/30/22 05:04
== END 2022-05-30 13:22 | disposition hospice, inpatient (51) | DRG 180 ==
LOC: EC 21:39 → 5NMEDONC 05-25 00:06 → 2SICU 05-25 15:37
PROVIDERS: ADMIT Internal Medicine; ATTEND Internal Medicine
PROC: 0W9B3ZZ Drainage of Left Pleural Cavity, Percutaneous Approach (ICD-10-PCS; 2022-05-25)
PROC: 5A09457 Assistance with Respiratory Ventilation, 24-96 Consecutive Hours, Continuous Positive Airway Pressure (ICD-10-PCS; 2022-05-26)
PROC: 5A0945A Assistance with Respiratory Ventilation, 24-96 Consecutive Hours, High Flow/Velocity Cannula (ICD-10-PCS; 2022-05-26)
PROC: 0W993ZZ Drainage of Right Pleural Cavity, Percutaneous Approach (ICD-10-PCS; principal; 2022-05-28)
PROC: 02HV33Z Insertion of Infusion Device into Superior Vena Cava, Percutaneous Approach (ICD-10-PCS; 2022-05-29)
PROC: 3E0436Z Introduction of Nutritional Substance into Central Vein, Percutaneous Approach (ICD-10-PCS; 2022-05-30)
PROC: 3E043XZ Introduction of Vasopressor into Central Vein, Percutaneous Approach (ICD-10-PCS; 2022-05-30)
DX: C34.91 Malignant neoplasm of unspecified part of right bronchus or lung (principal); I50.23 Acute on chronic systolic (congestive) heart failure; J96.01 Acute respiratory failure with hypoxia; N17.0 Acute kidney failure with tubular necrosis; R57.0 Cardiogenic shock; I31.4 Cardiac tamponade; I31.31 Malignant pericardial effusion in diseases classified elsewhere; C79.89 Secondary malignant neoplasm of other specified sites; I42.8 Other cardiomyopathies; I13.0 Hypertensive heart and chronic kidney disease with heart failure and stage 1 through stage 4 chronic kidney disease, or unspecified chronic kidney disease; F05 Delirium due to known physiological condition; E87.1 Hypo-osmolality and hyponatremia; I48.20 Chronic atrial fibrillation, unspecified; J91.0 Malignant pleural effusion; D69.6 Thrombocytopenia, unspecified; I27.20 Pulmonary hypertension, unspecified; N18.9 Chronic kidney disease, unspecified; I08.1 Rheumatic disorders of both mitral and tricuspid valves; Z51.5 Encounter for palliative care; Z66 Do not resuscitate; D70.1 Agranulocytosis secondary to cancer chemotherapy; R13.10 Dysphagia, unspecified; E87.8 Other disorders of electrolyte and fluid balance, not elsewhere classified; T45.1X5A Adverse effect of antineoplastic and immunosuppressive drugs, initial encounter; G89.29 Other chronic pain; M54.6 Pain in thoracic spine; R50.81 Fever presenting with conditions classified elsewhere; Z20.822 Contact with and (suspected) exposure to COVID-19; Z79.899 Other long term (current) drug therapy; Z80.8 Family history of malignant neoplasm of other organs or systems; Z79.01 Long term (current) use of anticoagulants; Z85.118 Personal history of other malignant neoplasm of bronchus and lung; Z87.891 Personal history of nicotine dependence
CPT/HCPCS: 36415; 36573; 36600; 70450; 71045; 76604; 76770; 80048; 80053; 81001; 82330; 82533; 82805; 83615; 83735; 83880; 84100; 84145; 84155; 84157; 84478; 84484; 85025; 85027; 85610; 85730; 87070; 87102; 87116; 87205; 87206; 87252; 87496; 87498; 87502; 87529; 87634; 87635; 87798; 88108; 88305; 88341; 88342; 89050; 93005; 93306; 94660; 96360; 96361; 99285

== ENCOUNTER 2022-05-30 10:59 | Inpatient (IN) | payer BC, MEDICAID ==
[2022-05-30] MEDS ORDERED: ACETAMINOPHEN TAB 325 MG TAB PO PRN (12:46)
[2022-05-30] MEDS ORDERED: ACETAMINOPHEN SUPPOSITORY 650 MG SUPP RECTAL PRN (12:46)
[2022-05-30] MEDS ORDERED: MORPHINE SULFATE 4 MG/ML SYRINGE IV PRN (12:46)
[2022-05-30] MEDS ORDERED: ATROPINE OPHTH SOLN 1% 5ML BTL SUBLINGUAL PRN (12:46)
[2022-05-30] MEDS ORDERED: GLYCOPYRROLATE 0.2 MG/ML 2 ML VIAL IVP PRN (12:46)
[2022-05-30] MEDS ORDERED: LORazepam 2 MG/ML INJ IV PRN (12:46)
[2022-05-30] MEDS ORDERED: SCOPOLAMINE 1 MG/72 HR PATCH TRANSDERM SCH (13:00)
[2022-05-30] MEDS ORDERED: CAFFEINE-SODIUM BENZOATE 500 MG in SODIUM CHLORIDE 0.9% 1,000 ML IVPB ONE (14:00)
[2022-05-30] MEDS: MORPHINE SULFATE 2 MG/ML SYRINGE IV PRN ×2 (14:12→22:21)
[2022-05-30] MEDS ORDERED: MORPHINE SULFATE 2 MG/ML SYRINGE IVP PRN (16:45)
--- NOTE | 2022-05-30 22:58 | P.PN ---
Subjective Progress Note Date: 05/30/22 Principal diagnosis: Metastatic adenocarcinoma of lung primary Brief incident note: I received a page from ICU nurse with regards to the family, and the in particular, being very upset and asking to speak to oncology regarding her current clinical course and why decision was made to proceed with hospice. We reviewed the current clinical course to date from the time she received cycle 1 of carboplatin/paclitaxel on 05/23/2022. We discussed how she has had recurrent pulmonary edema along with pleural effusions. We also reviewed how she did have respiratory distress requiring BiPAP secondary to this. 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 I did discuss with him the relative ineffectiveness of chemotherapy to work on metastases to this region due to lack of blood flow to the pericardium. The did ask if there were any treatments from an oncologic perspective that could be done at this time to help with this. I stated that we had already given chemotherapy last week and that additional chemotherapy cannot be given at this time, as this is given every 3 weeks. When I previously had stated that we were working on working with the insurance [employer] to obtain prior authorization for Keytruda, the stated, "I have a ton of money. I am ready to cut a check so we can give the treatment right now." I stated that monetary concerns were not playing a role in decision making of his 's care and that Keytruda at this time would not help the acute issue of pulmonary edema and constrictive cardiomyopathy, as immunotherapy does not work as quickly as chemotherapy. The expressed his understanding of the current clinical situation. He insisted that full medical measures be done in order to try to give the chemotherapy more time to work. These measures included placement of Pleurx catheters as well as pursuing full resuscitation measures. I did discuss with him that I am not the physician who would place any Pleurx catheters or lines. He then stated, "I will find a doctor in [place] somewhere who will place these lines." He mentions to me that he would be willing to readdress CODE STATUS and goals of care after th svitlana measures were taken, and there was no improvement in clinical status. We will continue to follow her clinical course. Objective - Vital Signs Vital signs: Vital Signs Temp Pulse 96 05/30/22 17:51 Resp BP 83/54 05/30/22 17:51 Pulse Ox 98 05/30/22 17:51 FiO2 Intake & Output 05/30/22 05/30/22 05/31/22 06:59 18:59 06:59 Weight 67.5 kg Other: Voiding Method Indwelling Catheter
[2022-05-31 09:28] VITALS: BP 63/24; PULSE 105; RESP 23
== END 2022-05-31 03:15 | disposition short-term general hospital (02) | DRG 951 ==
LOC: 2SICU 13:25
PROVIDERS: ADMIT Student in an Organized Health Care Education/Training Program; ATTEND Student in an Organized Health Care Education/Training Program
DX: Z51.5 Encounter for palliative care (principal); J96.21 Acute and chronic respiratory failure with hypoxia; I50.23 Acute on chronic systolic (congestive) heart failure; N17.0 Acute kidney failure with tubular necrosis; R57.0 Cardiogenic shock; C34.91 Malignant neoplasm of unspecified part of right bronchus or lung; C79.9 Secondary malignant neoplasm of unspecified site; J91.0 Malignant pleural effusion; Z53.29 Procedure and treatment not carried out because of patient's decision for other reasons

== ENCOUNTER 2022-05-31 03:05 | Inpatient (IN) | payer BC ==
[2022-05-31] MEDS ORDERED: NALOXONE 0.4 MG/ML 1 ML VIAL IV PRN ×2 (03:25→03:33)
[2022-05-31] MEDS ORDERED: SODIUM CHLORIDE 0.9% 500 ML 500 ML IV ONE ×2 (03:30→04:58)
[2022-05-31] MEDS ORDERED: NOREPINEPHRINE 32 MG in SODIUM CHLORIDE 0.9% 218 ML IV SCH (03:45)
[2022-05-31] MEDS ORDERED: VASOPRESSIN 60 UNIT in SODIUM CHLORIDE 0.9% 150 ML IV SCH (04:00)
--- NOTE | 2022-05-31 04:36 | XR ---
EXAMINATION TYPE: XR chest 1V portable DATE OF EXAM: 05/31/2022 COMPARISON: 05/30/2022 HISTORY: Single view TECHNIQUE: FINDINGS: Heart is enlarged. There is pulmonary interstitial and airspace edema. There are chest lead s. There is left central venous catheter with tip in the superior vena cava. IMPRESSION: There is pulmonary edema consistent with congestive heart failure. Pleural effusions. [address] st slightly worse than yesterday.
[2022-05-31] MEDS ORDERED: ALBUMIN HUMAN 25% 50 ML in EMPTY BAG 1 BAG IVPB SCH (05:00)
[2022-05-31] MEDS ORDERED: ALBUMIN HUMAN 25% 50 ML in EMPTY BAG 1 BAG IVPB ONE (05:04)
[2022-05-31 05:26] LABS: HCT 43.7 % (34.0-46.0); HGB 13.4 gm/dL (11.4-16.0); Hypochromasia Marked; MCH 30.8 pg (25.0-35.0); MCHC 30.6 g/dL (31.0-37.0); MCV 100.6 fL (80.0-100.0); Macrocytosis Slight; Mean Platelet Volume 12.8; RBC 4.34 m/uL (3.80-5.40); RDW 14.8 % (11.5-15.5)
[2022-05-31] MEDS ORDERED: HYDROCORTISONE SUCCINATE 100 MG/2 ML VIAL IV STA (05:26)
[2022-05-31 05:37] LABS: Calcium 6.8 mg/dL (8.4-10.2); Magnesium 2.4 mg/dL (1.6-2.3); Potassium 5.2 mmol/L (3.5-5.1)
[2022-05-31 05:44] LABS: ABG HCO3 35 mmol/L (21-25); ABG PH 7.29 (7.35-7.45); ABG PO2 114 mmHg (83-108); ABG TCO2 37 mmol/L (19-24)
[2022-05-31 05:47] LABS: ABG PCO2 71 mmHg (35-45); Allen Test Performed? No
[2022-05-31 05:50] LABS: WBC 0.4 k/uL (3.8-10.6)
[2022-05-31 05:51] LABS: Platelet Count 29 k/uL (150-450)
[2022-05-31] MEDS ORDERED: DEXTROSE 50% SYRINGE 50 ML IVP ONE (05:51)
[2022-05-31] MEDS ORDERED: DEXTROSE 50% SYRINGE 50 ML IVP STA (06:02)
--- NOTE | 2022-05-31 06:11 | P.HPIM ---
History of Present Illness H&P Date: 05/31/22 The patient is a 57-year-old female with a PMH of recently diagnosed stage IV lung cancer, status post pericardial effusion requiring pericardial window, systolic CHF with EF 35 100 %, who had presented to the ED with complaints of shortness of breath. The patient was admitted for hypoxic respiratory failure secondary to bilateral pleural effusions as well as congestive heart failure. She had a prolonged hospital course during which her condition gradually deteriorated. Please refer to the prior visit notes for further details. Goals of care discussions were held between patient's and multiple providers throughout the day on 05/30. The patient's grave prognosis was relayed to the who subsequently requested that the patient be made a DO NOT RESUSCITATE. Overnight however, the patient's family had further discussion and felt that "they were rushed into the decision". They subsequently had discussions with the providers from the oncology and the biodiesel product manager team's. He requested to speak to the on-call physician and was time I was notified by the RN that the patient's family is requesting that she be made a full code. The patient was subsequently seen at the bedside with her family present at 0230. The family expressed their discontent with the care and the lack of communication. Multiple family members demanded that her pleural effusion be tapped emergently so that she can receive more IV fluids to improve her blood pressure. Discussed with the family in extensive detail that the patient's prognosis is quite poor, although we are happy to abide by the family's wishes to perform all life-saving measures. Also discussed with the family that the patient's respiratory failure is being driven in a large part by her congestive heart failure and won't be resolved with a thoracentesis. The patient's hospice admission was subsequently canceled and a new chart was opened. The patient in the meantime continued to receive her IV medications including Levophed while being on BiPAP. The case was also discussed in detail multiple times with biodiesel product manager mainframe applications developer. He recommended continued IV fluids with albumin and IV pressors and ultrasound for markings of possible thoracentesis in a.m. Review of systems: Unable to obtain due to mental status Physical examination: General: Ill-appearing female, on BiPAP, no distress, appears at stated age, obese Derm: no unusual rashes/lesions, warm Head: atraumatic, normocephalic, symmetric Eyes: anicteric sclera, pupils equal round reactive to light ENT: Nose and ears atraumatic Neck: No cervical lymphadenopathy, trachea midline, supple Mouth: no lip lesion, mucus membranes dry Cardiovascular: S1S2 reg, no murmur, 1+ bilateral lower extremity pitting edema Lungs: Rales and rhonchi diffusely, no accessory muscle use Abdominal: soft, nontender to palpation, no guarding Ext: no gross muscle atrophy, no contractures, Neuro: Unable to assess Psych: Patient lethargic, groans to noxious stimuli Assessment/plan Acute hypoxic respiratory failure, likely secondary to congestive heart failure with malignant pleural effusions -Continue with BiPAP -The family wishes for the patient to be a DO NOT INTUBATE, but to continue with all additional life-saving measures Hypotension -Continue with IV pressors -Status post 500 mL bolus 2 -Status post Albumin 25% 12.5 g The patient is admitted with an anticipated greater than 2 midnight stay for evaluation of respiratory failure CODE STATUS: DNI Discussed with: , family Total time spent providing critical care and discussing goals of care for pa tient: 130 minutes Past Medical History Past Medical History: Atrial Fibrillation, Cancer, Heart Failure Additional Past Medical History / Comment(s): Pericardial fluid positive for metastatic adenocarcinoma, unknown primary History of Any Multi-Drug Resistant Organisms: None Reported Past Surgical History: No Surgical Hx Reported Additional Past Surgical History / Comment(s): tubal ligation; pericardial window completed 04/21/2022; left sided thoracentesis completed 05/25/2022 Past Anesthesia/Blood Transfusion Reactions: No Reported Reaction Past Psychological History: No Psychological Hx Reported Smoking Status: Former smoker Past Alcohol Use History: None Reported Past Drug Use History: None Reported - Past Family History Father Family Medical History: Hypertension Additional Family Medical History / Comment(s): of an [place] at age 51 Brother(s) Family Medical History: Hypertension Additional Family Medical History / Comment(s): Aunt with brain cancer Medications and Allergies Home Medications Medication Instructions Recorded Confirmed Type Apixaban [Eliquis] 5 mg PO BID #60 tab 05/04/22 05/30/22 Rx Metoprolol Succinate (ER) [Toprol 25 mg PO HS #30 tab 05/04/22 05/30/22 Rx XL] Amiodarone [Cordarone] 200 mg PO BID 05/11/22 05/30/22 History Furosemide [Lasix] 40 mg PO BID@0900,1600 05/16/22 05/30/22 History Nystatin 100,000 Unit/ml Susp 500,000 units PO QID 05/16/22 05/30/22 History [Mycostatin Oral Susp] HYDROcodone/APAP 5-325MG [[place] 1 tab PO Q8H PRN 05/24/22 05/30/22 History 5-325] Allergies Allergy/AdvReac Type Severity Reaction Status Date / Time No Known Allergies Allergy Verified 05/24/22 22:51 Results CBC & Chem 7: 05/31/22 04:08 05/31/22 04:08
[2022-05-31 06:36] LABS: Anisocytosis (M) Present; Poikilocytosis (M) Present
[2022-05-31] MEDS ORDERED: MORPHINE SULFATE 4 MG/ML SYRINGE IVP PRN (08:08)
[2022-05-31 08:09] LABS: Albumin 2.4 g/dL (3.5-5.0); Total Bilirubin 1.1 mg/dL (0.2-1.3); Total Protein 4.9 g/dL (6.3-8.2)
[2022-05-31] MEDS ORDERED: MORPHINE SULFATE 2 MG/ML SYRINGE IVP PRN (08:09)
[2022-05-31] MEDS ORDERED: LORazepam 2 MG/ML INJ IV PRN (08:09)
--- NOTE | 2022-05-31 13:23 | P.DS ---
Providers Date of admission: 05/31/22 03:18 Expected date of discharge: 05/31/22 Attending physician: Dallas Gardner MD Consults: 05/31/22 03:25 Consult Physician Stat Consulting Provider: James Goetz Consult Reason/Comments: Resp failure Do you want consulting provider notified?: Yes 05/31/22 06:09 Consult Physician Urgent Consulting Provider: James Goetz Consult Reason/Comments: resp failure Do you want consulting provider notified?: Yes Primary care physician: Jose Luis Gifford Hospital Course: Discharge Diagnosis: Acute hypoxic respiratory failure Acute CHF exacerbation, systolic Malignant pleural effusions History of malignant pericardial effusions Metastatic Adenocarcinoma, likely lung cancer Cardiogenic shock Hospital Course: The patient is a 57-year-old female with a PMH of recently diagnosed stage IV lung cancer, status post pericardial effusion requiring pericardial window, systolic CHF with EF 35 %, who had presented to the ED with complaints of shortness of breath. The patient was admitted for hypoxic respiratory failure secondary to bilateral pleural effusions as well as congestive heart failure. She had a prolonged hospital course during which her condition gradually deteriorated. Please refer to the prior visit notes for further details. Goals of care discussions were held between patient's and multiple providers throughout the day on 05/30. The patient's grave prognosis was relayed to the who subsequently requested that the patient be made a DO NOT RESUSCITATE. She was then transitioned to hospice care. Overnight on 05/31 however, the patient's family had further discussion and in consider changing her CODE STATUS back to Full code. However, patient's family eventually agreed to hospice care again in the a.m. Patient was started on comfort care measures. Patient at 0935 on 05/31. Patient Condition at Discharge: Undetermined Plan - Discharge Summary Discharge Rx Participant: No New Discharge Prescriptions: No Action Apixaban [Eliquis] 5 mg PO BID #60 tab Metoprolol Succinate (ER) [Toprol XL] 25 mg PO HS #30 tab Nystatin 100,000 Unit/ml Susp [Mycostatin Oral Susp] 500,000 units PO QID Furosemide [Lasix] 40 mg PO BID@0900,1600 HYDROcodone/APAP 5-325MG [[place] 5-325] 1 tab PO Q8H PRN PRN Reason: Pain Amiodarone [Cordarone] 200 mg PO BID Discharge Medication List Apixaban [Eliquis] 5 mg PO BID #60 tab 05/04/22 [Rx] Metoprolol Succinate (ER) [Toprol XL] 25 mg PO HS #30 tab 05/04/22 [Rx] Amiodarone [Cordarone] 200 mg PO BID 05/11/22 [History] Furosemide [Lasix] 40 mg PO BID@0900,1600 05/16/22 [History] Nystatin 100,000 Unit/ml Susp [Mycostatin Oral Susp] 500,000 units PO QID 05/16/22 [History] HYDROcodone/APAP 5-325MG [[place] 5-325] 1 tab PO Q8H PRN 05/24/22 [History]
== END 2022-05-31 13:32 | disposition expired | DRG 951 ==
LOC: 2SICU 03:18
PROVIDERS: ADMIT Student in an Organized Health Care Education/Training Program; ATTEND Student in an Organized Health Care Education/Training Program
PROC: 5A09357 Assistance with Respiratory Ventilation, Less than 24 Consecutive Hours, Continuous Positive Airway Pressure (ICD-10-PCS; principal; 2022-05-31)
PROC: 3E033XZ Introduction of Vasopressor into Peripheral Vein, Percutaneous Approach (ICD-10-PCS; 2022-05-31)
DX: Z51.5 Encounter for palliative care (principal); J96.21 Acute and chronic respiratory failure with hypoxia; I50.23 Acute on chronic systolic (congestive) heart failure; J96.01 Acute respiratory failure with hypoxia; C34.90 Malignant neoplasm of unspecified part of unspecified bronchus or lung; J91.0 Malignant pleural effusion; I95.9 Hypotension, unspecified; Z66 Do not resuscitate; I48.91 Unspecified atrial fibrillation; R57.0 Cardiogenic shock; Z79.01 Long term (current) use of anticoagulants; Z79.899 Other long term (current) drug therapy; Z82.49 Family history of ischemic heart disease and other diseases of the circulatory system; Z85.118 Personal history of other malignant neoplasm of bronchus and lung; Z87.891 Personal history of nicotine dependence; Z98.51 Tubal ligation status
CPT/HCPCS: 36600; 71045; 80053; 82805; 83735; 85025; 94660